=== PATIENT | female | born 1965 | race Caucasian/White ===

== ENCOUNTER → 2017-08-15 11:59 | Outpatient (CLI) | payer OTHER, SELFPAY ==
[2015-12-13 16:15] VITALS: BMI 33.1
[2017-08-15 14:39] LABS: Absolute Lymphocyte Count 2.23 X10^3/ul (0.83-4.51); Absolute Neutrophil Count 4.6 X10^3/uL (2.0-7.7); Basophil# 0.03 X10^3/uL; Basophil% 0.4 % (0-1); Eosinophil# 0.19 X10^3/uL; Eosinophils% 2.5 % (0-5); Hematocrit 44.4 % (37-47); Hemoglobin 15.2 g/dl (12.0-15.0); Lymphocyte # 2.23 X10^3/ul (4.0); Lymphocyte % 29.6 % (19-41); Mean Corp Hgb Conc 34.2 g/gl (32-36); Mean Corpuscular Volume 90.4 fL (81-99); Mean Platelet Vol. 9.4 fl (6.2-12.0); Monocyte% 6.6 % (0-10); Neutrophil # 4.57 X10^3/uL (2.7-7.7); Neutrophil % 60.6 % (47-70); Platelet Count 342 K/mm3 (150-450); RBC Distribution Width CV 13.2 % (11.6-14.6); RBC Distribution Width SD 43.7 fl (35.1-43.9); Red Blood Count 4.91 M/mm3 (4.2-5.4); White Blood Count 7.5 K/mm3 (4.4-11.0)
[2017-08-15 14:42] LABS: POSITIVE COUNT NO; POSITIVE DIFFERENTIAL NO; POSITIVE MORPHOLOGY NO
[2017-08-15 14:54] LABS: ALB/GLOB Ratio 1.1 RATIO (0.9-2.4); AST(SGOT) 17 U/L (15-37); Alanine Aminotransfer ALT/SGPT 33 U/L (13-56); Albumin, Serum 3.8 g/dL (3.2-5.0); Alkaline Phosphatase 60 U/L (45-117); Anion Gap 11 (5-15); BUN 17 mg/dL (7-18); BUN/Creat Ratio 19.9 RATIO (10-20); Calcium,Total 9.3 mg/dL (8.5-10.1); Chloride 104 mmol/L (98-107); Cholesterol 221 mg/dL (200); Creatinine, Serum 0.85 mg/dL (0.55-1.02); EST Glomerular Filtration Rate 74 mL/min (>60); Est Glom Filt Rate - Afr Amer 90 mL/min (>60); Globulin 3.6 g/dL (2.2-4.2); Glucose 96 mg/dL (74-106); High Density Lipoprotein 63 mg/dL; Potassium 4.3 mmol/L (3.5-5.1); Protein, Total 7.4 g/dL (6.4-8.2); Rheumatoid Factor < 10.0 IU/mL (<15); Sodium Level 139 mmol/L (136-145); Thyroid Stim Hormone (TSH) 1.66 uIU/mL (0.358-3.74); Triglycerides 155 mg/dL; Very Low Density Lipoprotein 31 mg/dL (5-40)
[2017-08-15 16:54] LABS: Vitamin B12 > 2000 pg/mL (211-911); Vitamin D,25 Hydroxy 28.4 ng/mL (19.95-100.01)
[2017-08-16 17:07] LABS: ANTINUCLEAR ANTIBODIES DIRECT Negative (Negative)
== END ==
PROVIDERS: Family Provider Family Medicine; PCP Family Medicine; Visit Provider Family Medicine
DX: M79.1 Myalgia (principal); E11.9 Type 2 diabetes mellitus without complications
CPT/HCPCS: 36415; 80053; 80061; 82306; 82607; 84443; 85025; 86038; 86431

== ENCOUNTER → 2017-08-31 08:50 | Outpatient (CLI) | payer OTHER, SELFPAY ==
[2015-12-13 16:15] VITALS: BMI 33.1
--- NOTE | 2017-08-31 08:54 | RAD_ITS ---
STUDY: X-RAY - RIGHT SHOULDER REASON FOR EXAM: Female, 51 years old. Shoulder pain. TECHNIQUE: 4 view(s) of the shoulder. COMPARISON: None. FINDINGS: Normal glenohumeral articulation. Normal acromioclavicular joint. Normal acromion. Normal humeral head and visualized proximal humerus. The soft tissue structures are unremarkable. Normal visualized pulmonary apex. RAD/Shoulder min 2 Views IMPRESSION: Normal x-ray examination of the shoulder. Electronically Signed: Jourdan Sykes MD at 13:25 EST Tel [phone], Service support ,
--- NOTE | 2017-08-31 08:54 | RAD_ITS ---
STUDY: X-RAY - CERVICAL SPINE REASON FOR EXAM: Female, 51 years old. Neck pain and upper back pain. TECHNIQUE: 6 view(s) of the cervical spine were obtained including oblique views. COMPARISON: None FINDINGS: Normal anterior atlantoaxial articulation. Normal odontoid process. There is straightening of the normal cervical lordosis. Normal vertebral bodies and endplates. Normal disc space heights. Normal visualized intervertebral neuroforamina. The soft tissue structures are unremarkable. RAD/Cerv Spine 4 or 5 Views IMPRESSION: Straightening of the normal cervical lordosis. Electronically Signed: Jourdan Sykes MD at 13:24 EST Tel [phone], Service support ,
[2017-08-31 10:27] LABS: Erythrocyte Sedimentation Rate 10 mm/hr (0-30)
[2017-08-31 10:54] LABS: CPK Total, Creatine Kinase 83 U/L (26-192); CRP < 2.90 mg/L (0.0-3.0)
[2017-09-04 11:34] LABS: Aldolase 3.6 U/L (3.3-10.3)
== END ==
PROVIDERS: Family Provider Family Medicine; PCP Family Medicine; Visit Provider Family Medicine
DX: M79.1 Myalgia (principal); M54.2 Cervicalgia; M25.511 Pain in right shoulder
CPT/HCPCS: 36415; 72050; 73030; 82085; 82550; 85652; 86140

== ENCOUNTER 2017-10-02 10:18 | Inpatient (IN) | payer OTHER, SELFPAY ==
[2015-12-13 16:15] VITALS: BMI 33.1
[2017-10-02] VITALS (12 sets, daily range): BP systolic 110–138; BP diastolic 62–90; PULSE 74–92; RESP 15–26; TEMP 36.2–36.7; O2SAT 88–96; BMI 34.8; BMI 34.2; BMI 34.3
[2017-10-02] MEDS: Ipratropium/Albuterol Sulfate 3 ML AMPUL.NEB INHALATION ×3 (10:52→22:55)
[2017-10-02] MEDS: Albuterol 2.5 MG/3 ML VIAL.NEB. INHALATION ×2 (10:52)
--- NOTE | 2017-10-02 10:53 | ED.DCSUM_ITS ---
- ER Visit Summary Date of Service: 10/02/17 Chief Complaint: Presents from Dr. Joseph's office for admission History of Present Illness: The patient is a 51 F who has history of COPD presents Dr. Joseph's office after she was seen by nurse practitioner. She was started on prednisone proximal and 1 month ago. She is presently on 20 mg a day. She states she has problems once her dose is tapered to 20 mg. She does admit to cough. Her cough is nonproductive. She denies orthopnea PND. She denies fever, chills night sweats. She denies any ocular, visual or auditory symptoms. She denies sore throat, change in voice or difficulty swallowing. She denies chest discomfort or exertional chest discomfort. She does complain of dyspnea on exertion. She states 3 months ago she was able to walk up a flight of stairs without difficulty and was even working in the gym. She now states she has to stop at least once going up a flight of steps. She denies any leg pain, swelling discoloration. She has no history of PE or DVT. She denies any GI or symptoms. She denies any leg pain, swelling or discoloration. Past medical history of type 2 diabetes, COPD, obstructive sleep apnea. Surgical history appendectomy and pulmonic valve. Physical Examination: Vital signs remarkable for respiratory 26. She is not febrile or hypoxic. She is heavyset with a BMI of 34.9. HEENT exam is unremarkable. Trachea is midline. There is no stridor. Lungs reveal wheezing throughout with increased active phase. There is question of egophony left posterior lung field and there is egophony right lower lung posteriorly. Heart is regular without murmur, gallop or rub. Abdomen soft nontender. There is no asymmetry, swelling, discoloration, leg vein distention, palpable cords or tenderness along the distribution of the deep venous system. Neuro exam is nonfocal. Test Results: Chest x-ray reveals atelectasis right side. CBC is unremarkable. Electro panel remarkable slight elevation glucose of 136. CTA was obtained because of hypoxia to rule out pulmonary embolus. There is significant emphysematous changes with bullae noted right greater than left. Emergency Department Course and Treatment: Chest x-ray was obtained because of the abnormal respiratory findings to evaluate for pneumonia. Obtain a CBC and BMP. To assess white count differential hemoglobin as well as glucose since she is diabetic on prednisone. She received a dose of Solu-Medrol and was treated with DuoNeb and albuterol. Treatment Plan: Patient had 2 episodes of hypoxia of 8680% and presently requiring oxygen she will be admitted to the hospital. Case was discussed with Dr. Kike Cobb and Dr. Tal Joseph her salvage clerk. Disposition: Medical surgical floor Impression: 1. Respiratory failure with hypoxia, 88-86% 2. Exacerbation of COPD with bronchospasm 3. Hyperglycemia and type II diabetic This note was generated with [employer] dictation software. It may contain incorrect words, spelling, and punctuation that were not noted in review of the chart prior to signing ED Disposition - Plan for ED Patient: Chief Complaint: Shortness of Breath Referrals: Gonsalo Knox MD [Primary Care Provider] -
[2017-10-02] MEDS: MethylPREDNISolone 125 MG/2 ML Vial IV (10:58)
[2017-10-02 11:12] LABS: Absolute Lymphocyte Count 1.25 X10^3/ul (0.83-4.51); Absolute Neutrophil Count 6.6 X10^3/uL (2.0-7.7); Basophil# 0.01 X10^3/uL; Basophil% 0.1 % (0-1); Eosinophil# 0.05 X10^3/uL; Eosinophils% 0.6 % (0-5); Hematocrit 42.3 % (37-47); Hemoglobin 13.8 g/dl (12.0-15.0); Lymphocyte # 1.25 X10^3/ul (4.0); Lymphocyte % 15.4 % (19-41); Mean Corp Hgb Conc 32.6 g/gl (32-36); Mean Corpuscular Hgb 30.3 pg (27.0-32.0); Mean Corpuscular Volume 92.8 fL (81-99); Mean Platelet Vol. 9.2 fl (6.2-12.0); Monocyte# 0.22 X10^3/uL; Monocyte% 2.7 % (0-10); Neutrophil # 6.55 X10^3/uL (2.7-7.7); Neutrophil % 80.8 % (47-70); POSITIVE COUNT NO; POSITIVE DIFFERENTIAL NO; POSITIVE MORPHOLOGY NO; Platelet Count 309 K/mm3 (150-450); RBC Distribution Width CV 14.3 % (11.6-14.6); RBC Distribution Width SD 48.2 fl (35.1-43.9); Red Blood Count 4.56 M/mm3 (4.2-5.4); White Blood Count 8.1 K/mm3 (4.4-11.0)
--- NOTE | 2017-10-02 11:20 | RAD_ITS ---
STUDY: X-RAY CHEST REASON FOR EXAM: Female, 51 years old. Cough. Dyspnea. TECHNIQUE: PA and lateral views of the chest. COMPARISON: Comparison is made with prior study dated March 30, 2017. FINDINGS: EKG electrodes are seen. Hyperinflation. Decreased bronchovascular markings in the right upper lobe suggestive of emphysematous change and possible bullous formation. There has been no change since prior study. There is no demonstrated pleural abnormality. Normal size heart. Normal mediastinum and kenny. Normal visualized pulmonary arteries. There is atherosclerotic tortuosity of the aortic arch and descending thoracic aorta. There is demineralization of the osseous structures. Normal visualized ribs, clavicles, and shoulders. There is no demonstrated abnormality of the visualized soft tissue structures of the upper abdomen. RAD/Chest PA and Lateral IMPRESSION: Hyperinflation and emphysematous changes in the right upper lobe. There has been no change. Electronically Signed: Jourdan Sykes MD at 12:43 EDT Tel [phone], Service support ,
[2017-10-02 11:27] LABS: Anion Gap 10 (5-15); BUN 20 mg/dL (7-18); BUN/Creat Ratio 19.6 RATIO (10-20); Calcium,Total 8.8 mg/dL (8.5-10.1); Chloride 110 mmol/L (98-107); Creatinine, Serum 1.02 mg/dL (0.55-1.02); EST Glomerular Filtration Rate 60 mL/min (>60); Est Glom Filt Rate - Afr Amer 73 mL/min (>60); Glucose 136 mg/dL (74-106); Sodium Level 143 mmol/L (136-145)
[2017-10-02] MEDS: LORazepam 0.5 MG Tablet PO (12:47)
--- NOTE | 2017-10-02 12:58 | CT_ITS ---
STUDY: CTA CHEST REASON FOR EXAM: Female, 51 years old. Hypoxia. Increasing shortness of breath for one month. RADIATION DOSAGE (If Supplied By Facility): CTDIvol = ( 10.69 ) mGy, DLP = ( 518.70 ) mGycm TECHNIQUE: The examination was performed with the intravenous administration of 100cc ml of Isovue 370 contrast material. Post-processing of the angiographic images was performed, with multiplanar reformation and 3D reconstruction. Individualized dose optimization techniques were used for this CT. COMPARISON: Comparison is made with prior study dated May 16, 2017. FINDINGS: Normal enhancement of the main pulmonary artery and right and left pulmonary arteries. Normal enhancement of the bilateral peripheral pulmonary arteries. There is no demonstrated pulmonary embolism. Normal thoracic aorta and visualized great vessels. There is no demonstrated aortic dissection. Normal heart and pericardium. Normal mediastinum. Normal hilar regions. Normal visualized trachea and bronchi. Hyperinflation. Diffuse emphysematous changes. Bullous formation in both lungs worse in the right lung. Stable mild increased markings in the posterior medial segment of the right lower lobe suggestive of scarring. Normal pleura. Normal chest wall structures. There are degenerative changes of thoracic spine. Normal visualized upper abdomen. CT/CTA Chest W/WO Contrast IMPRESSION: There is no evidence of pulmonary embolism. Diffuse emphysematous changes with bullous formation worse in the right hemithorax. Electronically Signed: Jourdan Sykes MD at 14:20 EDT Tel [phone], Service support ,
--- NOTE | 2017-10-02 15:58 | PCM.HP.STD ---
Problem List (1) COPD with acute exacerbation Status: Acute (2) H/O pulmonic valvulotomy Status: Resolved (3) History of appendectomy Status: Resolved (4) COPD Status: Chronic (5) diabetes mellitus type II Status: Chronic (6) Sleep apnea, obstructive Status: Chronic History of Present Illness Date of Admission: 10/02/17 Chief Complaint: shortness of breath The patient is a 51 year old F with a known history of COPD who was trying to be tapered down on her prednisone to 20 mg starting and short of breath. Notified her nurse practitioner in pulmonology who advised to go to emergency room. In the emergency room, patient was noted to be hypoxic at 80% and did undergo CT angiogram which showed no pulmonary embolism nor pneumonia. Patient received aerosols as well as IV Solu-Medrol and is currently feeling better. [] Past Medical History Past Medical History (Chronic Problems): Chronic Problems (Last Reviewed 08/29/17 @ 09:31 by Josy Burch NP-C) COPD (Chronic) diabetes mellitus type II (Chronic) Sleep apnea, obstructive (Chronic) Allergies No Known Allergies Allergy (Verified 08/29/17 08:27) Home Medications: Ambulatory Orders Medication Instructions Recorded Albuterol IH (ProAir) [Proair Hfa] 2 puff INHALATION Q4H PRN PRN 10/21/15 Budesonide/Formoterol 160/4.5 2 puff INHALATION BID 10/21/15 [Symbicort 160/4.5 Mcg Inhaler (SP)] Calcium (Elemental) [Os-Shimon 500] 1,000 mg PO DAILY@0800 10/21/15 Cholecalciferol (VIT D3) [Vitamin 1,000 unit PO DAILY 10/21/15 D3] Lorazepam [Ativan] 0.5 mg PO TID PRN PRN 10/21/15 Metformin HCl [Metformin HCl ER] 500 mg PO DAILY 10/21/15 Montelukast Sodium [Singulair] 10 mg PO DAILY 10/21/15 [place]-3 Fatty Acids/Fish Oil [Fish 2 ea PO DAILY 10/21/15 Oil 1,000 mg Capsule] Pantoprazole Sodium [Protonix] 40 mg PO DAILY 10/21/15 Tiotropium [place] [Spiriva 18 MCG] 2 puff INHALATION DAILY 10/21/15 albuterol sulfate 2.5 mg/3 mL 2.5 mg INHALATION .QID ml 06/07/17 (0.083 %) solution for nebulization multivitamin,[id number] 1 tab PO QDAY 06/07/17 tablet Prednisone 20 mg PO QDAY 10/02/17 Psychiatric History: No pertinent psych hx 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: No pertinent TRANSMISSION DESIGN ENGINEER history Smoking Status: Former smoker - Quit 2002 Tobacco Use: Non-smoker Alcohol: None Drugs: None - *Family History Paternal History Items: COPD, Diabetes, Heart Disease Maternal History Items: Diabetes, Heart Disease Review of Systems Constitutional: Denies: Chills, Fever, Weight Change Eyes: Denies: Blurred vision, Double vision HEENT: Denies: Head Aches, Sinus Congestion, Sinus Drainage Cardiovascular: Denies: Chest Pain, Palpitations Respiratory: Reports: Cough, Shortness of Breath Gastrointestinal: Denies: Abdominal Pain, Nausea, Vomiting Genitourinary: Denies: Dysuria Gynecological: Reports: - - No menstrual periods in years. Denies: Vaginal bleeding Musculoskeletal: Denies: Joint Pain, Joint Tenderness Skin: Denies: Rash, Wounds Neurological: Denies: Numbness, Tingling, Focal weakness Psychiatric: Denies: Anxiety, Depression Endocrine: Reports: - - Patient noting that she is more puffy. Denies: Heat/ Cold Intolerance Hematologic/ Lymphatic: Denies: Easy Bruising, Easy Bleeding, Hx of blood clot VTE Information - Inpt Only VTE Present on Admission: No VTE Pharm Prophylaxis ordered?: Yes - Physical Exam General: Alert, Cooperative, No apparent distress HEENT: Atraumatic, Normocephalic Oral: Moist Mucosa, No Gingival or Mucosal Lesions/ Ulcerations Neck: No Nodes, Thyroid Normal Size and Texture Lungs: Clear to auscultation, No rhonchi, No wheeze, Diminished Cardiovascular: Regular rate, Regular Rhythm, Normal S1, Normal S2, No murmurs Abdomen: Bowel Sounds Present, Soft, Non Tender, Non-Distended, No Hepato-splenomegaly Extremities: No edema, No Calf Tenderness Skin: No rashes, No breakdown Musculoskeletal: No Tenderness to Palpation of Joints or Extremities, No Muscle Wasting Neurological: Muscle tone normal, Coordination normal Psych/Mental Status: Normal Affect, Appropriate Vital Signs Temp Pulse Resp BP Pulse Ox 36.2 C L 76 20 H 121/75 H 94 10/02/17 10:19 10/02/17 14:04 10/02/17 14:04 10/02/17 14:04 10/02/17 14:04 Oxygen Flow Rate (L/min) 2 Oxygen Delivery Method Nasal Cannula Weight: 97.976 kg Body Mass Index (BMI) 34.8 Laboratory Tests Past 24 Hrs 10/02/17 10/02/17 11:00 11:00 WBC 8.1 RBC 4.56 Hgb 13.8 Hct 42.3 MCV 92.8 MCH 30.3 MCHC 32.6 RDW 14.3 RDW Differential 48.2 H Plt Count 309 MPV 9.2 Immature Gran % (Auto) 0.400 Neut % (Auto) 80.8 H Lymph % (Auto) 15.4 L [place] % (Auto) 2.7 Eos % (Auto) 0.6 Baso % (Auto) 0.1 Absolute Neuts (auto) 6.6 Absolute Lymphs (auto) 1.25 Total Counted Not Reportable Sodium 143 Potassium 4.0 Chloride 110 H Carbon Dioxide 23.0 Anion Gap 10 BUN 20 H Creatinine 1.02 Estim Creat Clear Calc 60.40 Est GFR (MDRD) Af Amer 73 Est GFR (MDRD) Non-Af 60 BUN/Creatinine Ratio 19.6 Glucose 136 H Calcium 8.8 Assessment/Plan 1. Acute exacerbation of COPD Symptoms are fairly mild at this time Will continue with Solu-Medrol but at 20 mg every 8 hours plus bronchodilators Consult pulmonology for further input and assistance but it seems like patient is on appropriate regimen at home 2. Acute hypoxic respiratory failure Secondary to above Patient will require an amatory pulse ox prior to discharge. Patient does state that she does have oxygen at home but does not wear it routinely. 3. Diabetes mellitus type 2 Fair control at this time but would anticipate blood sugars going up with the steroids being increased Patient unable to have metformin for the next 5 days as she had a CT angiogram of her chest Patient be on sliding scale with NovoLog for now. 4. DVT prophylaxis with Lovenox. Code Visit Inpatient E&M: 98003 Init Hosp L3
--- NOTE | 2017-10-02 16:04 | HP.PCM_ITS ---
Problem List (1) COPD with acute exacerbation Status: Acute (2) H/O pulmonic valvulotomy Status: Resolved (3) History of appendectomy Status: Resolved (4) COPD Status: Chronic (5) diabetes mellitus type II Status: Chronic (6) Sleep apnea, obstructive Status: Chronic History of Present Illness Date of Admission: 10/02/17 Chief Complaint: shortness of breath The patient is a 51 year old F with a known history of COPD who was trying to be tapered down on her prednisone to 20 mg starting and short of breath. Notified her nurse practitioner in pulmonology who advised to go to emergency room. In the emergency room, patient was noted to be hypoxic at 80% and did undergo CT angiogram which showed no pulmonary embolism nor pneumonia. Patient received aerosols as well as IV Solu-Medrol and is currently feeling better. [] Past Medical History Past Medical History (Chronic Problems): Chronic Problems (Last Reviewed 08/29/17 @ 09:31 by Josy Burch NP-C) COPD (Chronic) diabetes mellitus type II (Chronic) Sleep apnea, obstructive (Chronic) Allergies No Known Allergies Allergy (Verified 08/29/17 08:27) Home Medications: Ambulatory Orders Medication Instructions Recorded Albuterol IH (ProAir) [Proair Hfa] 2 puff INHALATION Q4H PRN PRN 10/21/15 Budesonide/Formoterol 160/4.5 2 puff INHALATION BID 10/21/15 [Symbicort 160/4.5 Mcg Inhaler (SP)] Calcium (Elemental) [Os-Shimon 500] 1,000 mg PO DAILY@0800 10/21/15 Cholecalciferol (VIT D3) [Vitamin 1,000 unit PO DAILY 10/21/15 D3] Lorazepam [Ativan] 0.5 mg PO TID PRN PRN 10/21/15 Metformin HCl [Metformin HCl ER] 500 mg PO DAILY 10/21/15 Montelukast Sodium [Singulair] 10 mg PO DAILY 10/21/15 [place]-3 Fatty Acids/Fish Oil [Fish 2 ea PO DAILY 10/21/15 Oil 1,000 mg Capsule] Pantoprazole Sodium [Protonix] 40 mg PO DAILY 10/21/15 Tiotropium [place] [Spiriva 18 MCG] 2 puff INHALATION DAILY 10/21/15 albuterol sulfate 2.5 mg/3 mL 2.5 mg INHALATION .QID ml 06/07/17 (0.083 %) solution for nebulization multivitamin,[id number] 1 tab PO QDAY 06/07/17 tablet Prednisone 20 mg PO QDAY 10/02/17 Psychiatric History: No pertinent psych hx 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 ROTARY CUTTER history Smoking Status: Former smoker - Quit 2002 Tobacco Use: Non-smoker Alcohol: None Drugs: None - *Family History Paternal History Items: COPD, Diabetes, Heart Disease Maternal History Items: Diabetes, Heart Disease Review of Systems Constitutional: Denies: Chills, Fever, Weight Change Eyes: Denies: Blurred vision, Double vision HEENT: Denies: Head Aches, Sinus Congestion, Sinus Drainage Cardiovascular: Denies: Chest Pain, Palpitations Respiratory: Reports: Cough, Shortness of Breath Gastrointestinal: Denies: Abdominal Pain, Nausea, Vomiting Genitourinary: Denies: Dysuria Gynecological: Reports: - - No menstrual periods in years. Denies: Vaginal bleeding Musculoskeletal: Denies: Joint Pain, Joint Tenderness Skin: Denies: Rash, Wounds Neurological: Denies: Numbness, Tingling, Focal weakness Psychiatric: Denies: Anxiety, Depression Endocrine: Reports: - - Patient noting that she is more puffy. Denies: Heat/ Cold Intolerance Hematologic/ Lymphatic: Denies: Easy Bruising, Easy Bleeding, Hx of blood clot VTE Information - Inpt Only VTE Present on Admission: No VTE Pharm Prophylaxis ordered?: Yes - Physical Exam General: Alert, Cooperative, No apparent distress HEENT: Atraumatic, Normocephalic Oral: Moist Mucosa, No Gingival or Mucosal Lesions/ Ulcerations Neck: No Nodes, Thyroid Normal Size and Texture Lungs: Clear to auscultation, No rhonchi, No wheeze, Diminished Cardiovascular: Regular rate, Regular Rhythm, Normal S1, Normal S2, No murmurs Abdomen: Bowel Sounds Present, Soft, Non Tender, Non-Distended, No Hepato- splenomegaly Extremities: No edema, No Calf Tenderness Skin: No rashes, No breakdown Musculoskeletal: No Tenderness to Palpation of Joints or Extremities, No Muscle Wasting Neurological: Muscle tone normal, Coordination normal Psych/Mental Status: Normal Affect, Appropriate Vital Signs Temp Pulse Resp BP Pulse Ox 36.2 C L 76 20 H 121/75 H 94 10/02/17 10:19 10/02/17 14:04 10/02/17 14:04 10/02/17 14:04 10/02/17 14:04 Oxygen Flow Rate (L/min) 2 Oxygen Delivery Method Nasal Cannula Weight: 97.976 kg Body Mass Index (BMI) 34.8 Laboratory Tests Past 24 Hrs 10/02/17 10/02/17 11:00 11:00 WBC 8.1 RBC 4.56 Hgb 13.8 Hct 42.3 MCV 92.8 MCH 30.3 MCHC 32.6 RDW 14.3 RDW Differential 48.2 H Plt Count 309 MPV 9.2 Immature Gran % (Auto) 0.400 Neut % (Auto) 80.8 H Lymph % (Auto) 15.4 L [place] % (Auto) 2.7 Eos % (Auto) 0.6 Baso % (Auto) 0.1 Absolute Neuts (auto) 6.6 Absolute Lymphs (auto) 1.25 Total Counted Not Reportable Sodium 143 Potassium 4.0 Chloride 110 H Carbon Dioxide 23.0 Anion Gap 10 BUN 20 H Creatinine 1.02 Estim Creat Clear Calc 60.40 Est GFR (MDRD) Af Amer 73 Est GFR (MDRD) Non-Af 60 BUN/Creatinine Ratio 19.6 Glucose 136 H Calcium 8.8 Assessment/Plan 1. Acute exacerbation of COPD * Symptoms are fairly mild at this time * Will continue with Solu-Medrol but at 20 mg every 8 hours plus bronchodilators * Consult pulmonology for further input and assistance but it seems like patient is on appropriate regimen at home 2. Acute hypoxic respiratory failure * Secondary to above * Patient will require an amatory pulse ox prior to discharge. Patient does state that she does have oxygen at home but does not wear it routinely. 3. Diabetes mellitus type 2 * Fair control at this time but would anticipate blood sugars going up with the steroids being increased * Patient unable to have metformin for the next 5 days as she had a CT angiogram of her chest * Patient be on sliding scale with NovoLog for now. 4. DVT prophylaxis with Lovenox. Code Visit Inpatient E&M: 80160 Init Hosp L3
[2017-10-02 18:06] LABS: Bedside Glucose 249 mg/dL (70-110)
[2017-10-02] MEDS: 0.9% NaCl Peripheral Flush Adult/Peds IV (21:46)
[2017-10-02] MEDS: Omega-3 Acid Ethyl Esters 1 GM Capsule 2 GM PO (21:47)
[2017-10-02] MEDS: Multivitamins,Ther W-Minerals Tablet 1 TABLET PO (21:47)
[2017-10-02] MEDS: Calcium (Elemental) 500 MG Tablet 1000 MG PO (21:48)
[2017-10-02] MEDS: Montelukast 10 MG Tablet PO (21:48)
[2017-10-02] MEDS: Pantoprazole Sodium 40 MG Tablet PO (21:48)
[2017-10-02 22:00] LABS: Bedside Glucose 250 mg/dL (70-110)
[2017-10-03] VITALS (8 sets, daily range): BP systolic 116–124; BP diastolic 66–74; PULSE 69–81; RESP 17–18; TEMP 36.1–36.6; O2SAT 87–99
[2017-10-03] MEDS: Ipratropium/Albuterol Sulfate 3 ML AMPUL.NEB INHALATION ×4 (03:16→14:49)
[2017-10-03] MEDS: 0.9% NaCl Peripheral Flush Adult/Peds IV ×2 (06:34→15:18)
[2017-10-03 06:40] LABS: Bedside Glucose 161 mg/dL (70-110)
--- NOTE | 2017-10-03 08:07 | PCM.PN.HOSP ---
Subjective: Patient is a 51-year-old admitted with progressive shortness of breath and persistent cough associated with with wheezing. Her assessment was consistent with COPD with exacerbation admitted to a nursing floor for further management Objective: GENERAL: cooperative HEENT: Clear conjunctiva, NECK; supple, normal thyroid, CHEST: Diminished to auscultation bilaterally, HEART: Regular S1 S2, no audible murmurs ABDOMEN: soft, non-tender, normoactive bowel sounds, RECTAL: deferred EXTREMITIES: No edema, no clubbing, no cyanosis. CLINICAL DATA MANAGER: Awake, no lateralizing signs. SKIN: No lesions no erythema, Vitals/I&O's: Vital Signs Temp Pulse Resp BP Pulse Ox 97.8 F 72 17 116/70 99 10/03/17 02:00 10/03/17 07:37 10/03/17 07:37 10/03/17 02:00 10/03/17 02:00 Oxygen Flow Rate (L/min) 1 Oxygen Delivery Method Nasal Cannula Weight: 96.4 kg Body Mass Index (BMI) 34.2 Intake and Output for Last 24 Hours 10/01/17 10/02/17 10/03/17 23:59 23:59 23:59 Intake Total 240 / 240 400 / 400 Balance 240 / 240 400 / 400 Microbiology Past 72 Hours 10/02/17 19:45 Mucosa - Nose Respiratory Panel (PCR) - Final Laboratory Results 10/02/17 17:55: POC Glucose 249 H 10/02/17 21:44: POC Glucose 250 H 10/03/17 06:32: POC Glucose 161 H Current Medications Acetaminophen (Tylenol) 650 mg PO Q6H PRN PRN PRN Reason: Mild Pain (1-3)/Temp > 100.7 F Albuterol Sulfate (Ventolin Aerosols) 2.5 mg INHALATION Q2H PRN PRN PRN Reason: SHORTNESS OF BREATH Albuterol/Ipratropium (Duoneb) 3 ml INHALATION Q4H.RT [facility] Last Admin: 10/03/17 07:36 Dose: 3 ml Calcium Carbonate (Os-Shimon 500) 1,000 mg PO DAILY@2200 [facility] Last Admin: 10/02/17 21:48 Dose: 1,000 mg Cholecalciferol (Vitamin D) 1,000 unit PO DAILY@2200 [facility] Last Admin: 10/02/17 21:48 Dose: 1,000 unit Sodium Chloride () 250 mls @ 15 mls/hr IV .[id number] PRN PRN Reason: SALINE FLUSH Insulin Aspart (Novolog Flexpen (Bkc)) 0 units SC TIDAC AMEYA PRN Reason: Protocol Last Admin: 10/03/17 06:34 Dose: 1 units Lorazepam (Ativan) 0.5 mg PO TID PRN PRN PRN Reason: ANXIETY Magnesium Hydroxide (Milk Of Magnesia) 30 ml PO DAILY PRN PRN PRN Reason: Constipation Methylprednisolone (Solu-Medrol) 20 mg IV Q8 [facility] Last Admin: 10/03/17 06:34 Dose: 20 mg Montelukast Sodium (Singulair) 10 mg PO DAILY@2200 [facility] Last Admin: 10/02/17 21:48 Dose: 10 mg Multivitamins/Minerals (Multivitamin With Minerals) 1 tablet PO DAILY@2200 AMEYA Last Admin: 10/02/17 21:47 Dose: 1 tablet Rmays-3-Lcdo Ethyl Esters (Lovaza) 2 gm PO DAILY@2200 AMEYA Ondansetron HCl (Zofran) 4 mg IV Q8H PRN PRN PRN Reason: NAUSEA Pantoprazole Sodium (Protonix) 40 mg PO DAILY@2200 [facility] Last Admin: 10/02/17 21:48 Dose: 40 mg Sodium Chloride () 5 - 30 ml IV UD PRN PRN Reason: SALINE FLUSH Last Admin: 10/03/17 06:34 Dose: 10 ml Medical Necessity - Tobacco Use Smoking Status: Former smoker Tobacco Use: Cigarettes Assessment/Plan Patient is a 51-year-old admitted with progressive shortness of breath and persistent cough associated with with wheezing. Her assessment was consistent with COPD with exacerbation admitted to a nursing floor for further management 1. Acute respiratory insufficiency secondary to Acute COPD exacerbation. Patient has been admitted to regular nursing floor managed with bronchodilator therapy, systemic steroids, Mucinex as well as oxygen titrated to keep also is greater than 90 2. Obstructive sleep apnea patient on BiPAP at night 3. Diabetes mellitus type II controlled with complications patient insulin metformin held placed on Accu-Chek before meals and at bedtime, sliding scale insulin 4. Morbid obesity with BMI of 34.3 weight reduction counseled 5. DVT prophylaxisLovenox Code Visit Inpatient E&M: 45288 Subs Hosp L2
--- NOTE | 2017-10-03 08:12 | PN_ITS ---
Subjective: Patient is a 51-year-old admitted with progressive shortness of breath and persistent cough associated with with wheezing. Her assessment was consistent with COPD with exacerbation admitted to a nursing floor for further management Objective: GENERAL: cooperative HEENT: Clear conjunctiva, NECK; supple, normal thyroid, CHEST: Diminished to auscultation bilaterally, HEART: Regular S1 S2, no audible murmurs ABDOMEN: soft, non-tender, normoactive bowel sounds, RECTAL: deferred EXTREMITIES: No edema, no clubbing, no cyanosis. 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 SKIN: No lesions no erythema, Vitals/I&O's: Vital Signs Temp Pulse Resp BP Pulse Ox 97.8 F 72 17 116/70 99 10/03/17 02:00 10/03/17 07:37 10/03/17 07:37 10/03/17 02:00 10/03/17 02:00 Oxygen Flow Rate (L/min) 1 Oxygen Delivery Method Nasal Cannula Weight: 96.4 kg Body Mass Index (BMI) 34.2 Intake and Output for Last 24 Hours 10/01/17 10/02/17 10/03/17 23:59 23:59 23:59 Intake Total 240 / 240 400 / 400 Balance 240 / 240 400 / 400 Microbiology Past 72 Hours 10/02/17 19:45 Mucosa - Nose Respiratory Panel (PCR) - Final Laboratory Results 10/02/17 17:55: POC Glucose 249 H 10/02/17 21:44: POC Glucose 250 H 10/03/17 06:32: POC Glucose 161 H Current Medications Acetaminophen (Tylenol) 650 mg PO Q6H PRN PRN PRN Reason: Mild Pain (1-3)/Temp > 100.7 F Albuterol Sulfate (Ventolin Aerosols) 2.5 mg INHALATION Q2H PRN PRN PRN Reason: SHORTNESS OF BREATH Albuterol/Ipratropium (Duoneb) 3 ml INHALATION Q4H.RT [facility] Last Admin: 10/03/17 07:36 Dose: 3 ml Calcium Carbonate (Os-Shimon 500) 1,000 mg PO DAILY@2200 [facility] Last Admin: 10/02/17 21:48 Dose: 1,000 mg Cholecalciferol (Vitamin D) 1,000 unit PO DAILY@2200 [facility] Last Admin: 10/02/17 21:48 Dose: 1,000 unit Sodium Chloride () 250 mls @ 15 mls/hr IV .[id number] PRN PRN Reason: SALINE FLUSH Insulin Aspart (Novolog Flexpen (Bkc)) 0 units SC TIDAC AMEYA PRN Reason: Protocol Last Admin: 10/03/17 06:34 Dose: 1 units Lorazepam (Ativan) 0.5 mg PO TID PRN PRN PRN Reason: ANXIETY Magnesium Hydroxide (Milk Of Magnesia) 30 ml PO DAILY PRN PRN PRN Reason: Constipation Methylprednisolone (Solu-Medrol) 20 mg IV Q8 [facility] Last Admin: 10/03/17 06:34 Dose: 20 mg Montelukast Sodium (Singulair) 10 mg PO DAILY@2200 [facility] Last Admin: 10/02/17 21:48 Dose: 10 mg Multivitamins/Minerals (Multivitamin With Minerals) 1 tablet PO DAILY@2200 AMEYA Last Admin: 10/02/17 21:47 Dose: 1 tablet Ghhtq-8-Jaue Ethyl Esters (Lovaza) 2 gm PO DAILY@2200 AMEYA Ondansetron HCl (Zofran) 4 mg IV Q8H PRN PRN PRN Reason: NAUSEA Pantoprazole Sodium (Protonix) 40 mg PO DAILY@2200 [facility] Last Admin: 10/02/17 21:48 Dose: 40 mg Sodium Chloride () 5 - 30 ml IV UD PRN PRN Reason: SALINE FLUSH Last Admin: 10/03/17 06:34 Dose: 10 ml Medical Necessity - Tobacco Use Smoking Status: Former smoker Tobacco Use: Cigarettes Assessment/Plan Patient is a 51-year-old admitted with progressive shortness of breath and persistent cough associated with with wheezing. Her assessment was consistent with COPD with exacerbation admitted to a nursing floor for further management 1. Acute respiratory insufficiency secondary to Acute COPD exacerbation. Patient has been admitted to regular nursing floor managed with bronchodilator therapy, systemic steroids, Mucinex as well as oxygen titrated to keep also is greater than 90 2. Obstructive sleep apnea patient on BiPAP at night 3. Diabetes mellitus type II controlled with complications patient insulin metformin held placed on Accu-Chek before meals and at bedtime, sliding scale insulin 4. Morbid obesity with BMI of 34.3 weight reduction counseled 5. DVT prophylaxis?Lovenox Code Visit Inpatient E&M: 39612 Subs Hosp L2
--- NOTE | 2017-10-03 08:42 | PCM.CONS.GEN ---
Problem List (1) COPD with acute exacerbation Status: Acute (2) Sleep apnea, obstructive Status: Chronic (3) Dyspnea Status: Acute (4) diabetes mellitus type II Status: Chronic Reason for Consult Date of Consultation: 10/03/17 Reason for Consultation: COPD History of Present Illness: The patient is a 51 year old F with a past medical history as below, presented to the ED secondary to progressive shortness of breath, wheezing, and cough over the last week. Patient had called the pulmonary clinic secondary to her complaints, was advised to go to the emergency room. Patient was originally seen on August 29 in the pulmonary clinic for shortness of breath, she was placed on Z-Nicola and prednisone taper. She was on the downside of the taper, then became more dyspneic with cough and increased congestion. She was bumped up to 60 mg for 5 days, then started stepping down again. Patient's first 20 mg dose was on the day prior to admission, at which time her shortness of breath again got worse. She said typically prednisone taper takes care of her symptoms when having an exacerbation. She does report upper respiratory symptoms and sore throat when she initially got sick at the beginning of August. Patient denies any recent sick contacts. She has not had any hemoptysis, recent weight loss, or current increased sputum production. She states after initial treatment of IV steroids and aerosols in the ED, her breathing was significantly improved. Evaluation in the ED included a chest x-ray which showed hyperinflation and emphysematous changes to the right upper lobe, nothing acute. CTA of the chest showed no evidence of PE, there is diffuse emphysematous changes with bullous formation worse in the right hemithorax. Labwork relatively unremarkable. Respiratory viral panel was negative. Blood pressure 130/90, pulse 83, RR 26, 97.2?F, 94% on room air. According to ED, patient did desaturate on room air to 86%. Patient was given IV Solu-Medrol, aerosols, and noted significant improvement within 15 minutes with no wheezing. She was admitted to the medical surgical floor for further evaluation. Patient states she has not had much wheezing since admission and being on the IV steroids. She is currently saturating 92% on 1 L of oxygen supplementation. She has not been producing any sputum. She is able to ambulate without any distress. Reports her wheezing has significantly improved and she is not requiring any as needed breathing treatments. Since last pulmonary function tests were in November 2016 showed an irreversible mild large airways obstructive ventilatory defect with symmetric reduction in diffusing capacity. Pulmonary exercise test at that time showed a desaturation to 90%. The patient was on as needed oxygen at home ever since she had pneumonia approximately 2 years ago. She does use the oxygen when short of breath, however this is infrequently. She does take it with her when she goes on long walks. The patient did complete pulmonary rehab about a year ago and is now going to the gym routinely. She states her exercise tolerance has significantly improved, other than during her current illness. Her current home inhaler regimen includes as needed Proair, albuterol nebulizers, Symbicort, and Spiriva. She also takes Ativan PRN for anxiety. Past Medical History Past Medical History (Chronic Problems): Chronic Problems (Last Reviewed 08/29/17 @ 09:31 by MAGDY Stevenson) COPD (Chronic) diabetes mellitus type II (Chronic) Sleep apnea, obstructive (Chronic) Allergies No Known Allergies Allergy (Verified 08/29/17 08:27) Home Medications: Ambulatory Orders Medication Instructions Recorded Albuterol IH (ProAir) [Proair Hfa] 2 puff INHALATION Q4H PRN PRN 10/21/15 Budesonide/Formoterol 160/4.5 2 puff INHALATION BID 10/21/15 [Symbicort 160/4.5 Mcg Inhaler (SP)] Calcium (Elemental) [Os-Shimon 500] 1,000 mg PO DAILY@0800 10/21/15 Cholecalciferol (VIT D3) [Vitamin 1,000 unit PO DAILY 10/21/15 D3] Lorazepam [Ativan] 0.5 mg PO TID PRN PRN 10/21/15 Metformin HCl [Metformin HCl ER] 500 mg PO DAILY 10/21/15 Montelukast Sodium [Singulair] 10 mg PO DAILY 10/21/15 Thicket-3 Fatty Acids/Fish Oil [Fish 2 ea PO DAILY 10/21/15 Oil 1,000 mg Capsule] Pantoprazole Sodium [Protonix] 40 mg PO DAILY 10/21/15 Tiotropium [place] [Spiriva 18 MCG] 2 puff INHALATION DAILY 10/21/15 albuterol sulfate 2.5 mg/3 mL 2.5 mg INHALATION .QID ml 06/07/17 (0.083 %) solution for nebulization multivitamin,[id number] 1 tab PO DAILY 06/07/17 tablet Inulin/Chromium Picolinate [Fiber 2 each PO BID 10/02/17 Gummies] Prednisone 20 mg PO DAILY 10/02/17 Psychiatric History: No pertinent psych hx 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 Denies: Anorexia, Chills, Fever, Night Sweats, Malaise, Weakness, Weight Change Eyes: Denies: Vision Change HEENT: Denies: Difficulty Swallowing, Dysphasia, Head Aches, Nasal bleeding, Nasal Congestion, Post Nasal Drip, Sinus Congestion, Sinus Drainage, Sore Throat Cardiovascular: Denies: Chest Pain, Chest Tightness, Edema, Light Headedness, Orthopnea, Palpitations, Paroxysmal Noc. Dyspnea, Syncope Respiratory: Reports: Cough - Occasional, nonproductive, Shortness of breath upon exertion - Essentially resolved. Denies: Hemoptysis, Shortness of breath at rest, Sputum production, Wheezing Gastrointestinal: Denies: Abdominal Pain, Constipation, Diarrhea, Dyspepsia, Hematemesis, Hematochezia, Nausea, Melena, Vomiting Genitourinary: Denies: Dysuria, Frequency, Hematuria, Nocturia, Retention Musculoskeletal: Denies: Back Pain Skin: Denies: Rash, Wounds Neurological: Denies: Balance problems, Change in Speech, Confusion, Difficulty swallowing, Focal weakness, Numbness, Tingling, Tremor, Seizures Psychiatric: Reports: Anxiety. Denies: Depression Endocrine: Denies: Change in Body Habitus, Polydipsia, Polyuria Hematologic/ Lymphatic: Denies: Adenopathy, Anemia, Easy Bruising, Hx of blood clot Subjective: The patient was seen and examined. She denies any complaints. She is maintaining appropriate saturations on 1 L of oxygen supplementation. She is ambulating independently in the room with no shortness of breath. She does have an occasional nonproductive cough. She has not noticed any wheezing today. Objective: Clinical Impression(s) from Imaging Studies Chest X-Ray 10/02/17 11:20 IMPRESSION: Hyperinflation and emphysematous changes in the right upper lobe. There has been no change. Electronically Signed: Jourdan Sykes MD at 12:43 EDT Tel [phone], Service support , Chest CTA 10/02/17 12:58 IMPRESSION: There is no evidence of pulmonary embolism. Diffuse emphysematous changes with bullous formation worse in the right hemithorax. Electronically Signed: Jourdan Sykes MD at 14:20 EDT Tel [phone], Service support , - Physical Exam General: Alert, Oriented x3, Cooperative, No apparent distress, Well developed, Well nourished, - - No conversational dyspnea HEENT: Atraumatic, Normocephalic Oral: Moist Mucosa Neck: Supple, No Nodes, Trachea Midline Lungs: No rhonchi, No wheeze, No rales, Diminished Cardiovascular: Regular rate, Regular Rhythm, Normal S1, Normal S2, No murmurs, No rub noted, No Gallop Abdomen: Bowel Sounds Present, Soft, Non Tender, Non-Distended, Obese Extremities: No clubbing, No cyanosis, No edema Skin: No rashes, No breakdown Musculoskeletal: No Tenderness to Palpation of Joints or Extremities Lymphatic: No Cervical, Supraclavicular, or Inguinal Adenopathy Neurological: Cranial nerves II-XII grossly intact, Neuro grossly intact, Motor Exam 5/5 strength throughout Psych/Mental Status: Alert and oriented to time, place, person, mood and affect Vital Signs Temp Pulse Resp BP Pulse Ox 97.8 F 72 17 116/70 99 10/03/17 02:00 10/03/17 07:37 10/03/17 07:37 10/03/17 02:00 10/03/17 02:00 Oxygen Flow Rate (L/min) 1 Oxygen Delivery Method Nasal Cannula Weight: 212 lb 8.41 oz Body Mass Index (BMI) 34.2 Intake and Output for Last 24 Hours 10/01/17 10/02/17 10/03/17 23:59 23:59 23:59 Intake Total 240 / 240 400 / 400 Balance 240 / 240 400 / 400 Microbiology Past 72 Hours 10/02/17 19:45 Respiratory Panel (PCR) - Final Mucosa - Nose POC Glucose 10/03/17 10/02/17 10/02/17 06:32 21:44 17:55 POC Glucose 161 H 250 H 249 H Assessment/Plan RECOMMENDATIONS 1. Wean oxygen supplementation to keep saturations 88-92%. 2. Encourage incentive spirometer 3. Increase activity as tolerated, ambulate 4. Continue bronchodilators 5. 12 day prednisone taper at discharge, continue home inhaler regimen 6. Continue 1-2L of home oxygen supplementation with exertion until seen by pulmonary 7. OK to discharge from pulmonary perspective, patient has appointment in pulmonary clinic on October 09 at 0915. IMPRESSIONS 1. COPD exacerbation Possibly secondary to viral infection at beginning of August with prolonged course. Plain film x-ray showed no acute findings. CTA chest ruled out PE, patient did have emphysematous changes with bullous formation, worse in right hemithorax. Pulmonary function tests in November 2016 showed a mild irreversible ventilatory defect. Patient was placed on IV steroids and bronchodilators, no significant wheezing since admitted. Ambulatory pulse ox was performed today and patient was 87% on room air. She recovered well with 1 L of oxygen supplementation. She should continue wearing oxygen with exertion at home until seen in the pulmonary clinic next Sunday at 915 with Josy Burch NP. Patient's symptoms seem disproportionate to her level of lung disease and overall clinical picture, suspect element of uncontrolled anxiety. 2. Type 2 diabetes/YAHAIRA/obesity/tobacco abuse in remission Complicates care, management, recovery, and prognosis. Patient notes she has been noncompliant with her CPAP at home, states she realizes she needs to wear it. Encouraged compliance. She can follow-up in the pulmonary clinic as scheduled. Thank you for the opportunity to participate in this patient's care, please do not hesitate to contact us with any further questions or concerns. This note was generated with SignNow dictation software. It may contain incorrect words, spelling, and punctuation that were not noted in checking the note before signing.
--- NOTE | 2017-10-03 08:53 | CON.PCM_ITS ---
Problem List (1) COPD with acute exacerbation Status: Acute (2) Sleep apnea, obstructive Status: Chronic (3) Dyspnea Status: Acute (4) diabetes mellitus type II Status: Chronic Reason for Consult Date of Consultation: 10/03/17 Reason for Consultation: COPD History of Present Illness: The patient is a 51 year old F with a past medical history as below, presented to the ED secondary to progressive shortness of breath, wheezing, and cough over the last week. Patient had called the pulmonary clinic secondary to her complaints, was advised to go to the emergency room. Patient was originally seen on August 29 in the pulmonary clinic for shortness of breath, she was placed on Z-Nicola and prednisone taper. She was on the downside of the taper, then became more dyspneic with cough and increased congestion. She was bumped up to 60 mg for 5 days, then started stepping down again. Patient's first 20 mg dose was on the day prior to admission, at which time her shortness of breath again got worse. She said typically prednisone taper takes care of her symptoms when having an exacerbation. She does report upper respiratory symptoms and sore throat when she initially got sick at the beginning of August. Patient denies any recent sick contacts. She has not had any hemoptysis, recent weight loss, or current increased sputum production. She states after initial treatment of IV steroids and aerosols in the ED, her breathing was significantly improved. Evaluation in the ED included a chest x-ray which showed hyperinflation and emphysematous changes to the right upper lobe, nothing acute. CTA of the chest showed no evidence of PE, there is diffuse emphysematous changes with bullous formation worse in the right hemithorax. Labwork relatively unremarkable. Respiratory viral panel was negative. Blood pressure 130/90, pulse 83, RR 26, 97.2?F, 94% on room air. According to ED, patient did desaturate on room air to 86%. Patient was given IV Solu-Medrol, aerosols, and noted significant improvement within 15 minutes with no wheezing. She was admitted to the medical surgical floor for further evaluation. Patient states she has not had much wheezing since admission and being on the IV steroids. She is currently saturating 92% on 1 L of oxygen supplementation. She has not been producing any sputum. She is able to ambulate without any distress. Reports her wheezing has significantly improved and she is not requiring any as needed breathing treatments. Since last pulmonary function tests were in November 2016 showed an irreversible mild large airways obstructive ventilatory defect with symmetric reduction in diffusing capacity. Pulmonary exercise test at that time showed a desaturation to 90%. The patient was on as needed oxygen at home ever since she had pneumonia approximately 2 years ago. She does use the oxygen when short of breath, however this is infrequently. She does take it with her when she goes on long walks. The patient did complete pulmonary rehab about a year ago and is now going to the gym routinely. She states her exercise tolerance has significantly improved, other than during her current illness. Her current home inhaler regimen includes as needed Proair, albuterol nebulizers, Symbicort , and Spiriva. She also takes Ativan PRN for anxiety. Past Medical History Past Medical History (Chronic Problems): Chronic Problems (Last Reviewed 08/29/17 @ 09:31 by MAGDY Stevenson) COPD (Chronic) diabetes mellitus type II (Chronic) Sleep apnea, obstructive (Chronic) Allergies No Known Allergies Allergy (Verified 08/29/17 08:27) Home Medications: Ambulatory Orders Medication Instructions Recorded Albuterol IH (ProAir) [Proair Hfa] 2 puff INHALATION Q4H PRN PRN 10/21/15 Budesonide/Formoterol 160/4.5 2 puff INHALATION BID 10/21/15 [Symbicort 160/4.5 Mcg Inhaler (SP)] Calcium (Elemental) [Os-Shimon 500] 1,000 mg PO DAILY@0800 10/21/15 Cholecalciferol (VIT D3) [Vitamin 1,000 unit PO DAILY 10/21/15 D3] Lorazepam [Ativan] 0.5 mg PO TID PRN PRN 10/21/15 Metformin HCl [Metformin HCl ER] 500 mg PO DAILY 10/21/15 Montelukast Sodium [Singulair] 10 mg PO DAILY 10/21/15 [place]-3 Fatty Acids/Fish Oil [Fish 2 ea PO DAILY 10/21/15 Oil 1,000 mg Capsule] Pantoprazole Sodium [Protonix] 40 mg PO DAILY 10/21/15 Tiotropium [place] [Spiriva 18 MCG] 2 puff INHALATION DAILY 10/21/15 albuterol sulfate 2.5 mg/3 mL 2.5 mg INHALATION .QID ml 06/07/17 (0.083 %) solution for nebulization multivitamin,ce-hggp-hkjgwdya 1 tab PO DAILY 06/07/17 tablet Inulin/Chromium Picolinate [Fiber 2 each PO BID 10/02/17 Gummies] Prednisone 20 mg PO DAILY 10/02/17 Psychiatric History: No pertinent psych hx CEMENT PATCHER History: No pertinent CEMENT PATCHER history Smoking Status: Former smoker - [id number] history, quit 15 years ago Tobacco Use: Cigarettes Alcohol: None Drugs: None - *Family History Paternal History Items: COPD, Diabetes, Heart Disease Maternal History Items: Diabetes, Heart Disease Review of Systems Constitutional: Reports: Fatigue. Denies: Anorexia, Chills, Fever, Night Sweats , Malaise, Weakness, Weight Change Eyes: Denies: Vision Change HEENT: Denies: Difficulty Swallowing, Dysphasia, Head Aches, Nasal bleeding, Nasal Congestion, Post Nasal Drip, Sinus Congestion, Sinus Drainage, Sore Throat Cardiovascular: Denies: Chest Pain, Chest Tightness, Edema, Light Headedness, Orthopnea, Palpitations, Paroxysmal Noc. Dyspnea, Syncope Respiratory: Reports: Cough - Occasional, nonproductive, Shortness of breath upon exertion - Essentially resolved. Denies: Hemoptysis, Shortness of breath at rest, Sputum production, Wheezing Gastrointestinal: Denies: Abdominal Pain, Constipation, Diarrhea, Dyspepsia, Hematemesis, Hematochezia, Nausea, Melena, Vomiting Genitourinary: Denies: Dysuria, Frequency, Hematuria, Nocturia, Retention Musculoskeletal: Denies: Back Pain Skin: Denies: Rash, Wounds Neurological: Denies: Balance problems, Change in Speech, Confusion, Difficulty swallowing, Focal weakness, Numbness, Tingling, Tremor, Seizures Psychiatric: Reports: Anxiety. Denies: Depression Endocrine: Denies: Change in Body Habitus, Polydipsia, Polyuria Hematologic/ Lymphatic: Denies: Adenopathy, Anemia, Easy Bruising, Hx of blood clot Subjective: The patient was seen and examined. She denies any complaints. She is maintaining appropriate saturations on 1 L of oxygen supplementation. She is ambulating independently in the room with no shortness of breath. She does have an occasional nonproductive cough. She has not noticed any wheezing today. Objective: Clinical Impression(s) from Imaging Studies Chest X-Ray 10/02/17 11:20 IMPRESSION: Hyperinflation and emphysematous changes in the right upper lobe. There has been no change. Electronically Signed: Jourdan Sykes MD at 12:43 EDT Tel [phone], Service support , Chest CTA 10/02/17 12:58 IMPRESSION: There is no evidence of pulmonary embolism. Diffuse emphysematous changes with bullous formation worse in the right hemithorax. Electronically Signed: Jourdan Sykes MD at 14:20 EDT Tel [phone], Service support , - Physical Exam General: Alert, Oriented x3, Cooperative, No apparent distress, Well developed, Well nourished, - - No conversational dyspnea HEENT: Atraumatic, Normocephalic Oral: Moist Mucosa Neck: Supple, No Nodes, Trachea Midline Lungs: No rhonchi, No wheeze, No rales, Diminished Cardiovascular: Regular rate, Regular Rhythm, Normal S1, Normal S2, No murmurs, No rub noted, No Gallop Abdomen: Bowel Sounds Present, Soft, Non Tender, Non-Distended, Obese Extremities: No clubbing, No cyanosis, No edema Skin: No rashes, No breakdown Musculoskeletal: No Tenderness to Palpation of Joints or Extremities Lymphatic: No Cervical, Supraclavicular, or Inguinal Adenopathy Neurological: Cranial nerves II-XII grossly intact, Neuro grossly intact, Motor Exam 5/5 strength throughout Psych/Mental Status: Alert and oriented to time, place, person, mood and affect Vital Signs Temp Pulse Resp BP Pulse Ox 97.8 F 72 17 116/70 99 10/03/17 02:00 10/03/17 07:37 10/03/17 07:37 10/03/17 02:00 10/03/17 02:00 Oxygen Flow Rate (L/min) 1 Oxygen Delivery Method Nasal Cannula Weight: 212 lb 8.41 oz Body Mass Index (BMI) 34.2 Intake and Output for Last 24 Hours 10/01/17 10/02/17 10/03/17 23:59 23:59 23:59 Intake Total 240 / 240 400 / 400 Balance 240 / 240 400 / 400 Microbiology Past 72 Hours 10/02/17 19:45 Respiratory Panel (PCR) - Final Mucosa - Nose POC Glucose 10/03/17 10/02/17 10/02/17 06:32 21:44 17:55 POC Glucose 161 H 250 H 249 H Assessment/Plan RECOMMENDATIONS 1. Wean oxygen supplementation to keep saturations 88-92%. 2. Encourage incentive spirometer 3. Increase activity as tolerated, ambulate 4. Continue bronchodilators 5. 12 day prednisone taper at discharge, continue home inhaler regimen 6. Continue 1-2L of home oxygen supplementation with exertion until seen by pulmonary 7. OK to discharge from pulmonary perspective, patient has appointment in pulmonary clinic on October 09 at 0915. IMPRESSIONS 1. COPD exacerbation Possibly secondary to viral infection at beginning of August with prolonged course. Plain film x-ray showed no acute findings. CTA chest ruled out PE, patient did have emphysematous changes with bullous formation, worse in right hemithorax. Pulmonary function tests in November 2016 showed a mild irreversible ventilatory defect. Patient was placed on IV steroids and bronchodilators, no significant wheezing since admitted. Ambulatory pulse ox was performed today and patient was 87% on room air. She recovered well with 1 L of oxygen supplementation. She should continue wearing oxygen with exertion at home until seen in the pulmonary clinic next Sunday at 915 with Josy Burch NP. Patient's symptoms seem disproportionate to her level of lung disease and overall clinical picture, suspect element of uncontrolled anxiety. 2. Type 2 diabetes/YAHAIRA/obesity/tobacco abuse in remission Complicates care, management, recovery, and prognosis. Patient notes she has been noncompliant with her CPAP at home, states she realizes she needs to wear it. Encouraged compliance. She can follow-up in the pulmonary clinic as scheduled. Thank you for the opportunity to participate in this patient's care, please do not hesitate to contact us with any further questions or concerns. This note was generated with [employer] dictation software. It may contain incorrect words, spelling, and punctuation that were not noted in checking the note before signing.
--- NOTE | 2017-10-03 09:34 | PCA ---
rn in with pt
--- NOTE | 2017-10-03 10:58 | CASEMGMT ---
Addendum entered by Jung Cullen 10/03/17 14:42: Pt will make own f/u appointments. Original Note: Intro role of CM to patient in room. Possible DC today. Per pt she is independent, no DME except home oxygen through [facility]. Pt states she has concentrator and portable tanks. No further needs at home. PCP: Dr. Knox [facility]: [facility] Provider: IVELISSE DC PLAN: Home. no needs identified. Aureliano ROBBINSN RN ACM
[2017-10-03 12:36] LABS: Bedside Glucose 189 mg/dL (70-110)
--- NOTE | 2017-10-03 13:23 | PCM.DC.SUM ---
Discharge Date and Diagnosis Date of Admission: 10/02/17 Date of Discharge: 10/03/17 - Primary Discharge Diagnosis COPD with acute exacerbation - Secondary Discharge Diagnosis Chronic Problems (Last Reviewed 08/29/17 @ 09:31 by MAGDY Stevenson) COPD (Chronic) diabetes mellitus type II (Chronic) Sleep apnea, obstructive (Chronic) Hospital Course and Treatment Imaging Results: Clinical Impression(s) from Imaging Studies Chest X-Ray 10/02/17 11:20 IMPRESSION: Hyperinflation and emphysematous changes in the right upper lobe. There has been no change. Electronically Signed: Jourdan Sykes MD at 12:43 EDT Tel [phone], Service support , Chest CTA 10/02/17 12:58 IMPRESSION: There is no evidence of pulmonary embolism. Diffuse emphysematous changes with bullous formation worse in the right hemithorax. Electronically Signed: Jourdan Sykes MD at 14:20 EDT Tel [phone], Service support , Operations: None Summary of Care Provided: Patient is a 51-year-old admitted with progressive shortness of breath and persistent cough associated with with wheezing. Her assessment was consistent with COPD with exacerbation admitted to a nursing floor for further management 1. Acute respiratory insufficiency secondary to Acute COPD exacerbation. Patient has been admitted to regular nursing floor managed with bronchodilator therapy, systemic steroids, Mucinex as well as oxygen titrated to keep also is greater than 90. Did experience rapid improvement in her condition a day after her admission. She was discharged with a tapering dose of steroid with instructions for patient to follow-up with pulmonary medicine on 10/09/2017 2. Obstructive sleep apnea patient on BiPAP at night 3. Diabetes mellitus type II controlled with complications patient insulin metformin held placed on Accu-Chek before meals and at bedtime, sliding scale insulin 4. Morbid obesity with BMI of 34.3 weight reduction counseled 5. DVT prophylaxisLovenox Discharge Diet: 1800 Calorie Control Diet Discharge Activity: Return to Normal Activity Home Medications: Medications to take at Discharge Albuterol IH (ProAir) [Proair Hfa] 2 puff INHALATION Q4H PRN PRN 10/21/15 Budesonide/Formoterol 160/4.5 [Symbicort 160/4.5 Mcg Inhaler (SP)] 2 puff INHALATION BID 10/21/15 Calcium (Elemental) [Os-Shimon 500] 1,000 mg PO DAILY@0800 10/21/15 Cholecalciferol (VIT D3) [Vitamin D3] 1,000 unit PO DAILY 10/21/15 Lorazepam [Ativan] 0.5 mg PO TID PRN PRN 10/21/15 Metformin HCl [Metformin HCl ER] 500 mg PO DAILY 10/21/15 Montelukast Sodium [Singulair] 10 mg PO DAILY 10/21/15 [place]-3 Fatty Acids/Fish Oil [Fish Oil 1,000 mg Capsule] 2 ea PO DAILY 10/21/15 Pantoprazole Sodium [Protonix] 40 mg PO DAILY 10/21/15 Tiotropium [place] [Spiriva 18 MCG] 2 puff INHALATION DAILY 10/21/15 albuterol sulfate 2.5 mg/3 mL (0.083 %) solution for nebulization 2.5 mg INHALATION .QID ml 06/07/17 multivitamin,vp-otba-mlkmqfnw tablet 1 tab PO DAILY 06/07/17 Inulin/Chromium Picolinate [Fiber Gummies] 2 each PO BID 10/02/17 Prednisone 10 mg PO UD #32 tab 10/03/17 Following Prescrptions Were Given to Patient: Prednisone 10 mg PO UD #32 tab Primary Care Physician: Gonsalo Knox MD [Primary Care Provider] - Please follow up with your Primary Care Physician in: 1-2 weeks Please Follow Up With: Heri Hernandes DO When: As previously scheduled Disposition: Home Minutes spent on discharge:: 45 Patient Condition:: Stable Medical Necessity - Tobacco Use Smoking Status: Former smoker - [id number] history, quit 15 years ago Tobacco Use: Cigarettes Meaningful Use Info Meaningful Use Diagnoses (Choose all that apply): None applicable Code Visit Inpatient E&M: 36524 Disch Hosp
--- NOTE | 2017-10-03 13:26 | DCINST_ITS ---
You will use the following diet at home:: Calorie/Carbohydrate Controlled ( specify 1200, 1400, etc) - 1800 Discharge Activity: Return to Normal Activity Allergies/Adverse Reactions: Allergies No Known Allergies Allergy (Verified 08/29/17 08:27) Medications to take at Discharge Albuterol IH (ProAir) [Proair Hfa] 2 puff INHALATION Q4H PRN PRN 10/21/15 Budesonide/Formoterol 160/4.5 [Symbicort 160/4.5 Mcg Inhaler (SP)] 2 puff INHALATION BID 10/21/15 Calcium (Elemental) [Os-Shimon 500] 1,000 mg PO DAILY@0800 10/21/15 Cholecalciferol (VIT D3) [Vitamin D3] 1,000 unit PO DAILY 10/21/15 Lorazepam [Ativan] 0.5 mg PO TID PRN PRN 10/21/15 Metformin HCl [Metformin HCl ER] 500 mg PO DAILY 10/21/15 Montelukast Sodium [Singulair] 10 mg PO DAILY 10/21/15 [place]-3 Fatty Acids/Fish Oil [Fish Oil 1,000 mg Capsule] 2 ea PO DAILY 10/21/15 Pantoprazole Sodium [Protonix] 40 mg PO DAILY 10/21/15 Tiotropium [place] [Spiriva 18 MCG] 2 puff INHALATION DAILY 10/21/15 albuterol sulfate 2.5 mg/3 mL (0.083 %) solution for nebulization 2.5 mg INHALATION .QID ml 06/07/17 multivitamin,bm-bptl-ucugqqoh tablet 1 tab PO DAILY 06/07/17 Inulin/Chromium Picolinate [Fiber Gummies] 2 each PO BID 10/02/17 Prednisone 10 mg PO UD #32 tab 10/03/17 The following prescriptions were given: Prednisone 10 mg PO UD #32 tab Primary Care Physician: Gonsalo Knox MD [Primary Care Provider] - Please follow up with your Primary Care Physician in: 1-2 weeks Please Follow Up With: Heri Hernandes DO When: As previously scheduled Proposed Discharge Date: 10/03/17
--- NOTE | 2017-10-03 15:03 | CHAPLAIN ---
Type of Pastoral Visit _x__ Initial Visit ___ Follow-up Visit ___ On-call Visit ___ General Patient Visit ___ Spiritual Assessment ___ Family Conference ___ Bereavement ___ Rapid Response ___ Code Blue ___ Other (describe below) Pastoral Care Referral From _x__ Patient ___ Family ___ Nurse ___ Physician ___ Toy Painter ___ Pharmaceutical Laboratory Technician ___ Other (describe below) Sacrament/Intervention _x__ Active listening ___ Anointing ___ Worship ___ Bereavement ___ Communion ___ Soila exploration ___ ___ Life review _x__ Prayer ___ Reconciliation ___ Sacrament of Sick ___ Supportive presence ___ Wedding ___ Other (describe below) Pastoral Comments
== END 2017-10-03 16:00 | disposition home or self-care (01) | DRG 190 ==
LOC: ED 11:26 → MS2 16:08
PROVIDERS: Emergency Provider Emergency Medicine; Family Provider Family Medicine; PCP Family Medicine; Visit Provider Internal Medicine
DX: J44.1 Chronic obstructive pulmonary disease with (acute) exacerbation (principal); J96.01 Acute respiratory failure with hypoxia; E11.9 Type 2 diabetes mellitus without complications; G47.33 Obstructive sleep apnea (adult) (pediatric); E66.01 Morbid (severe) obesity due to excess calories; Z87.891 Personal history of nicotine dependence; Z68.34 Body mass index [BMI] 34.0-34.9, adult
CPT/HCPCS: 71046; 71275; 80048; 82962; 85025; 87633; 94640; 99285; J7030; Q9967; A4216

== ENCOUNTER → 2017-10-10 09:34 | Outpatient (CLI) | payer OTHER, SELFPAY ==
[2015-12-13 16:15] VITALS: BMI 33.1
== END ==
PROVIDERS: Family Provider Family Medicine; PCP Family Medicine; Visit Provider Family Medicine
DX: R30.0 Dysuria (principal)
CPT/HCPCS: 87086; 87088

== ENCOUNTER → 2017-10-25 15:24 | Outpatient (CLI) | payer OTHER, SELFPAY ==
[2015-12-13 16:15] VITALS: BMI 33.1
[2017-10-31 05:08] LABS: Alternaria alternata <0.10 kU/L (Class 0); Bermuda Grass <0.10 kU/L (Class 0); Bluegrass, Kentucky <0.10 kU/L (Class 0); Cat Hair/Dander, Standard <0.10 kU/L (Class 0); D pteronyssinus 0.35 kU/L (Class I); Dog Epithelia <0.10 kU/L (Class 0); Elm, American White <0.10 kU/L (Class 0); Oak, White <0.10 kU/L (Class 0); Plantain, English <0.10 kU/L (Class 0); Ragweed, Short/Common <0.10 kU/L (Class 0)
[2017-10-31 11:32] LABS: Mouse Urine <0.10 kU/L (Class 0)
[2017-11-01 20:08] LABS: Aspirgillus flavus Negative (Neg:<1:1); Aspirgillus fumigatus Negative (Neg:<1:1); Aspirgillus niger Negative (Neg:<1:1)
[2017-11-02 11:28] LABS: Immunoglobulin E 11 IU/mL (0-100)
== END ==
PROVIDERS: Family Provider Family Medicine; PCP Family Medicine; Visit Provider Nurse Practitioner Acute Care
DX: R05 Cough (principal)
CPT/HCPCS: 36415; 82785; 86003; 86606; 87077; 87086; 87088; 87186; 87633

== ENCOUNTER → 2017-12-05 09:03 | Outpatient (CLI) | payer OTHER, SELFPAY ==
[2015-12-13 16:15] VITALS: BMI 33.1
[2017-12-05 09:00] VITALS: PULSE 104; PULSE 106; PULSE 107; PULSE 108; PULSE 95; PULSE 96; O2SAT 89; O2SAT 90; O2SAT 91; O2SAT 92; O2SAT 94
--- NOTE | 2017-12-05 15:09 | WT_ITS ---
PSN 6 Minute Walk Test - 6 Minute Walk Test 6 Minute Walk Test: 6 Minute Walk Test PSN:6-Minute Walk Test Start: 12/05/17 09: 25 Freq: Status: Active Protocol: RESP.6MINW Document 12/05/17 09:00 KOBIBrenda (Rec: 12/05/17 09:29 [email or web address] [id number]) 6 Minute Walk Test Date Performed 12/05/17 Time Performed 09:00 Height 5 ft 5 in Weight: 98.43 kg Weight in Pounds 217.[address]: Josy Burch Assistive device used: None Pre-test Oxygen Delivery Method Room Air Pulse Ox (%) 94 Pulse Rate (60-100 beats/min) 95 Dyspnea Chris Scale (0-10) 1 Exertion Chris Scale (6-20) 6 1st minute Oxygen Delivery Method Room Air Pulse Ox (%) 91 Pulse Rate (60-100 beats/min) 104 H 2nd minute Oxygen Delivery Method Room Air Pulse Ox (%) 89 Pulse Rate (60-100 beats/min) 106 H 3rd minute Oxygen Delivery Method Room Air Pulse Ox (%) 89 Pulse Rate (60-100 beats/min) 107 H 4th minute Oxygen Delivery Method Room Air Pulse Ox (%) 90 Pulse Rate (60-100 beats/min) 108 H 5th minute Oxygen Delivery Method Room Air Pulse Ox (%) 89 Pulse Rate (60-100 beats/min) 108 H 6th minute Oxygen Delivery Method Room Air Pulse Ox (%) 91 Pulse Rate (60-100 beats/min) 108 H Dyspnea Chris Scale (0-10) 3 Exertion Chris Scale (6-20) 13 Post-test Oxygen Delivery Method Room Air Pulse Ox (%) 92 Pulse Rate (60-100 beats/min) 96 Full Laps Walked 20 Partial Lap, Number of Tiles Walked 41 Total Distance Walked (ft) 1221 - Interpretation Interpretation: Patient was able to ambulate 1221 feet over the course of 6 minutes on room air with no assistive devices or breaks. The patient did experience a trace low as 89% with reflexive tachycardia. These findings are consistent with a respiratory limitation exercise tolerance. - Recommendations Recommendations: No supplemental oxygen is indicated at this time. However, patient will need to be followed closely given level of desaturation.
== END ==
PROVIDERS: Family Provider Family Medicine; PCP Family Medicine; Visit Provider Nurse Practitioner Acute Care
DX: R06.00 Dyspnea, unspecified (principal)
CPT/HCPCS: 94618

== ENCOUNTER → 2017-12-10 08:04 | Outpatient (CLI) | payer OTHER, SELFPAY ==
[2015-12-13 16:15] VITALS: BMI 33.1
--- NOTE | 2017-12-10 13:22 | PFT ---
INTRODUCTION: The patient is a 51-year-old female currently under the care of Dr. Joseph that presents for pulmonary function testing secondary to a diagnosis of dyspnea. Respiratory therapy reports good patient effort and reports no other concerns. Bronchodilators were used during testing. INTERPRETATION: Forced expiration spirometry demonstrates the presence of a mild large airways obstructive ventilatory defect. There is no significant response to aerosolized bronchodilators. Spirograms are of good quality and do not plateau indicating slow emptying of the lungs. Body plethysmography was performed and reveals an elevated TLC and RV to 118% and 125%, respectively. Diffusing capacity by single breath CO is disproportionately reduced at 40% of predicted. When compared to previous pulmonary function studies dated November 2016, there has been a 21% reduction in DLCO. IMPRESSION: These pulmonary function studies demonstrate the presence of an irreversible mild large airways obstructive ventilatory defect with a trend towards hyperinflation and air-trapping and a disproportionate reduction in diffusing capacity. There has been worsening in the patient's DLCO since PFTs were last completed in November 2016.
== END ==
PROVIDERS: Family Provider Family Medicine; PCP Family Medicine; Visit Provider Nurse Practitioner Acute Care
DX: R06.00 Dyspnea, unspecified (principal)
CPT/HCPCS: 94060; 94726; 94729

== ENCOUNTER → 2018-05-06 10:06 | Outpatient (CLI) | payer OTHER, SELFPAY ==
[2015-12-13 16:15] VITALS: BMI 33.1
[2018-05-06 12:56] LABS: ALB/GLOB Ratio 1.1 RATIO (0.9-2.4); AST(SGOT) 17 U/L (15-37); Alanine Aminotransfer ALT/SGPT 31 U/L (13-56); Albumin, Serum 3.8 g/dL (3.2-5.0); Alkaline Phosphatase 66 U/L (45-117); Anion Gap 12 (5-15); BUN 18 mg/dL (7-18); BUN/Creat Ratio 18.3 RATIO (10-20); Calcium,Total 9.2 mg/dL (8.5-10.1); Chloride 106 mmol/L (98-107); Cholesterol 194 mg/dL (200); Creatinine, Serum 0.98 mg/dL (0.55-1.02); EST Glomerular Filtration Rate 63 mL/min (>60); Est Glom Filt Rate - Afr Amer 76 mL/min (>60); Globulin 3.4 g/dL (2.2-4.2); Glucose 104 mg/dL (74-106); High Density Lipoprotein 50 mg/dL; Potassium 4.3 mmol/L (3.5-5.1); Protein, Total 7.2 g/dL (6.4-8.2); Sodium Level 141 mmol/L (136-145); Thyroid Stim Hormone (TSH) 1.77 uIU/mL (0.358-3.74); Triglycerides 198 mg/dL; Very Low Density Lipoprotein 40 mg/dL (5-40)
[2018-05-06 14:52] LABS: Vitamin B12 1450 pg/mL (211-911); Vitamin D,25 Hydroxy 58.8 ng/mL (29.95-100.01)
== END ==
PROVIDERS: Family Provider Family Medicine; PCP Family Medicine; Visit Provider Family Medicine
DX: E55.9 Vitamin D deficiency, unspecified (principal); E53.9 Vitamin B deficiency, unspecified; E11.9 Type 2 diabetes mellitus without complications
CPT/HCPCS: 36415; 80053; 80061; 82306; 82607; 84443

== ENCOUNTER → 2018-09-20 14:32 | Outpatient (CLI) | payer OTHER, SELFPAY ==
[2015-12-13 16:15] VITALS: BMI 33.1
[2018-07-19 14:26] VITALS: BMI 35.8
[2018-09-20 15:02] LABS: Absolute Lymphocyte Count 1.82 X10^3/ul (0.83-4.51); Absolute Neutrophil Count 5.5 X10^3/uL (2.0-7.7); Basophil# 0.02 X10^3/uL; Basophil% 0.2 % (0-1); Eosinophil# 0.24 X10^3/uL; Eosinophils% 2.9 % (0-5); Hematocrit 43.3 % (37-47); Hemoglobin 14.2 g/dl (12.0-15.0); Lymphocyte # 1.82 X10^3/ul (4.0); Mean Corp Hgb Conc 32.8 g/gl (32-36); Mean Corpuscular Hgb 30.2 pg (27.0-32.0); Mean Corpuscular Volume 92.1 fL (81-99); Mean Platelet Vol. 9.2 fl (6.2-12.0); Monocyte# 0.69 X10^3/uL; Monocyte% 8.3 % (0-10); Neutrophil # 5.49 X10^3/uL (2.7-7.7); Neutrophil % 66.5 % (47-70); Platelet Count 281 K/mm3 (150-450); RBC Distribution Width CV 13.3 % (11.6-14.6); RBC Distribution Width SD 44.6 fl (35.1-43.9); White Blood Count 8.3 K/mm3 (4.4-11.0)
[2018-09-20 15:03] LABS: POSITIVE COUNT NO; POSITIVE DIFFERENTIAL NO; POSITIVE MORPHOLOGY NO
== END ==
PROVIDERS: Family Provider Family Medicine; PCP Family Medicine; Referring Provider Nurse Practitioner Acute Care; Visit Provider Nurse Practitioner Acute Care
DX: R05 Cough (principal)
CPT/HCPCS: 36415; 85025

== ENCOUNTER 2018-09-24 10:01 | Emergency (ER) | payer OTHER, SELFPAY ==
[2015-12-13 16:15] VITALS: BMI 33.1
[2018-09-20 15:02] VITALS: BMI 35.9
[2018-09-24] VITALS (8 sets, daily range): BP systolic 117–133; BP diastolic 71–81; PULSE 79–93; RESP 16–19; TEMP 36–36.6; O2SAT 94–97; BMI 35.0
--- NOTE | 2018-09-24 10:40 | EKG12_ITS ---
Test Reason : SOB Blood Pressure : / mmHG Vent. Rate : 077 BPM Atrial Rate : 077 BPM P-R Int : 144 ms QRS Dur : 094 ms QT Int : 396 ms P-R-T Axes : 018 007 014 degrees QTc Int : 448 ms Normal sinus rhythm Possible Inferior infarct (cited on or before 21-OCT-2015), age undetermined Abnormal ECG Confirmed by RAINA KAY ([id number]), marketing editor CHANA YODER ([id number]) on 09/27/2018 11:14:30 AM Referred By: Josy Burch Confirmed By:RAINA KAY
--- NOTE | 2018-09-24 10:44 | ED.DCSUM_ITS ---
- ER Visit Summary Date of Service: 09/24/18 Chief Complaint: Shortness of breath and weakness History of Present Illness: The patient is a 52 F with shortness of breath that started . Continues to get worse despite taking amoxicillin and prednisone. The patient has a history of COPD and asthma. She takes oxygen as needed. She has been taking about 1.5 L at home. She is using her breathing treatments. No fevers. She does have some chest pain but she thinks is from coughing. No history of heart disease. No leg swelling. No history of PE or DVT. Physical Examination: Afebrile and vital signs unremarkable. 94% on 2 L. Alert and oriented. Sitting in breathing comfortably. Speaking comfortably. HEENT exam grossly unremarkable. Heart regular rate and rhythm. Lungs show diminished sounds, more so in the upper [place] bilaterally. Extremities nontender with no edema. Pulses strong and equal. Test Results: EKG, chest x-ray, labs pending. Emergency Department Course and Treatment: Patient treated with oxygen, DuoNeb, Solu-Medrol, and IV fluids while awaiting results. Will reassess. Patient ambulated without difficulty. She was 90% on room air afterwards. She is currently 97% at rest. She feels a little better. Her x-ray and labs were all unremarkable. I spoke with Dr. Joseph. He recommended checking a flu swab and restarting her prednisone burst. She should call the office for follow-up. Treatment Plan: As above Disposition: Discharge Impression: 1. COPD exacerbation This note was generated with [employer] dictation software. It may contain incorrect words, spelling, and punctuation that were not noted in review of the chart prior to signing ED Disposition - Plan for ED Patient: Referrals: Gonsalo Knox MD [Primary Care Provider] -
[2018-09-24 11:01] LABS: Absolute Lymphocyte Count 2.33 X10^3/ul (0.83-4.51); Absolute Neutrophil Count 6.6 X10^3/uL (2.0-7.7); Basophil# 0.02 X10^3/uL; Basophil% 0.2 % (0-1); Eosinophil# 0.22 X10^3/uL; Eosinophils% 2.3 % (0-5); Hematocrit 43.6 % (37-47); Hemoglobin 14.5 g/dl (12.0-15.0); Lymphocyte # 2.33 X10^3/ul (4.0); Mean Corp Hgb Conc 33.3 g/gl (32-36); Mean Corpuscular Hgb 30.3 pg (27.0-32.0); Mean Corpuscular Volume 91.2 fL (81-99); Mean Platelet Vol. 9.1 fl (6.2-12.0); Monocyte# 0.49 X10^3/uL; Monocyte% 5.1 % (0-10); Neutrophil % 68.1 % (47-70); POSITIVE COUNT NO; POSITIVE DIFFERENTIAL NO; POSITIVE MORPHOLOGY NO; Platelet Count 302 K/mm3 (150-450); RBC Distribution Width CV 13.5 % (11.6-14.6); RBC Distribution Width SD 44.7 fl (35.1-43.9); Red Blood Count 4.78 M/mm3 (4.2-5.4); White Blood Count 9.7 K/mm3 (4.4-11.0)
[2018-09-24] MEDS: Ipratropium/Albuterol Sulfate 3 ML AMPUL.NEB INHALATION (11:03)
--- NOTE | 2018-09-24 11:07 | RAD_ITS ---
STUDY: X-RAY CHEST REASON FOR EXAM: Female, 52 years old. Chest pain. TECHNIQUE: Single AP portable view of the chest. COMPARISON: Comparison is made with prior study dated October 02, 2017. FINDINGS: EKG electrodes are seen. Hyperinflation decreased bronchovascular markings once again seen in the upper lobes suggestive of emphysematous changes and bullous formation. Stable increased linear markings at the right lung base suggestive of a scarring. There is no demonstrated pleural abnormality. Normal size heart. Normal mediastinum and kenny. Normal visualized pulmonary arteries. There is atherosclerotic tortuosity of the aortic arch and descending thoracic aorta. Normal visualized thoracic spine. Normal visualized ribs, clavicles, and shoulders. Distended transverse colon. RAD/Chest 1 View (Portable) IMPRESSION: Hyperinflation and findings suggestive of a emphysema and bullous formation in the right upper lobe. Electronically Signed: Jourdan Sykes, at 11:26 EDT , Service support ,
[2018-09-24 11:16] LABS: Anion Gap 10 (5-15); BUN 20 mg/dL (7-18); Calcium,Total 9.1 mg/dL (8.5-10.1); Chloride 108 mmol/L (98-107); Creatinine, Serum 1.05 mg/dL (0.55-1.02); EST Glomerular Filtration Rate 58 mL/min (>60); Est Glom Filt Rate - Afr Amer 70 mL/min (>60); Estimated Creatinine Clearance 58.01 ml/min; Glucose 147 mg/dL (74-106); Potassium 3.5 mmol/L (3.5-5.1); Sodium Level 141 mmol/L (136-145)
[2018-09-24] MEDS: MethylPREDNISolone 125 MG/2 ML Vial IV (11:50)
--- NOTE | 2018-09-24 14:41 | ED.DEP ---
ED Disposition - Plan for ED Patient: Instructions: ED COPD Flare Prescriptions: Prednisone 10 mg PO UD #33 tab Referrals: Tal Joseph MD [STAFF PHYSICIAN] -
== END 2018-09-24 15:00 | disposition home or self-care (01) ==
LOC: ED 10:49
PROVIDERS: Emergency Provider Emergency Medicine; Family Provider Family Medicine; PCP Family Medicine
DX: J44.1 Chronic obstructive pulmonary disease with (acute) exacerbation (principal); E11.9 Type 2 diabetes mellitus without complications; J44.9 Chronic obstructive pulmonary disease, unspecified; G47.33 Obstructive sleep apnea (adult) (pediatric); Z87.891 Personal history of nicotine dependence; Z99.81 Dependence on supplemental oxygen
CPT/HCPCS: 71045; 80048; 84484; 85025; 87804; 93005; 94640; 96374; 99284; J7030; J7040; A4216

== ENCOUNTER → 2018-09-26 09:53 | Outpatient (CLI) | payer OTHER, SELFPAY ==
[2015-12-13 16:15] VITALS: BMI 33.1
[2018-09-26 09:14] VITALS: BMI 34.8
[2018-09-28 14:34] LABS: B. pertussis IgG 2.27 index (0.00-0.94)
== END ==
PROVIDERS: Family Provider Family Medicine; PCP Family Medicine; Referring Provider Nurse Practitioner Acute Care; Visit Provider Nurse Practitioner Acute Care
DX: R05 Cough (principal)
CPT/HCPCS: 36415; 87633; 87798

== ENCOUNTER → 2018-10-01 08:23 | Outpatient (CLI) | payer OTHER, SELFPAY ==
[2015-12-13 16:15] VITALS: BMI 33.1
[2018-09-20 15:02] VITALS: BMI 35.9
[2018-09-26 09:14] VITALS: BMI 34.8
--- NOTE | 2018-10-01 08:27 | BD_ITS ---
STUDY: DUAL ENERGY X-RAY ABSORPTIOMETRY / DXA REASON FOR EXAM: Female, 52 years old. Early menopause. No loss of height. TECHNIQUE: Bone Mineral Density (BMD) measurements of lumbar spine and bilateral hips were obtained. COMPARISON: None. FINDINGS: Lumbar Spine (L1-L4): g/cm2 (0.874) / T-score (-2.7) / Z-score (-2.0) Findings are suggestive of osteoporosis with a high fracture risk. Left Femur Total: g/cm2 (0.985) / T-score (-0.2) / Z-score (0.4) Left Femoral Neck: g/cm2 (0.934) / T-score (-0.7) / Z-score (0.2) Right Femur Total: g/cm2 (0.978) / T-score (-0.2) / Z-score (0.4) Right Femoral Neck: g/cm2 (0.906) / T-score (-0.9) / Z-score (0.0) BD/Dexa Bone Density Study IMPRESSION: The patient is considered osteoporotic as outlined below according to World Barry Organization (WHO) criteria with a high fracture risk. Reference Information: The T-score is the number of standard deviations above or below the standard which is normal for young adults at their peak bone mineral density. The World Health Organization (WHO) interprets the T-scores as follows: Above -1 Normal bone density Between -1 and -2.5 Osteopenia Equal to / or below -2.5 Osteoporosis As a practical clinical guideline, osteopenia may be graded as follows: Mild -1 through -1.5 Moderate -1.6 through -2.0 Severe -2.1 through -2.4 The Z-score is the number of standard deviations above or below age-matched controls. A Z-score of less than -1.5 would be considered abnormal. References: 1. NIH Osteoporosis and Related Bone Diseases http://www.osteo.org 2. International Society for Clinical Densitometry http://www.iscd.org 3. National Osteoporosis Foundation http://www.nof.org Electronically Signed: Jourdan Sykes, at 9:22 EDT , Service support ,
== END ==
PROVIDERS: Family Provider Family Medicine; PCP Family Medicine; Referring Provider Nurse Practitioner Acute Care; Visit Provider Nurse Practitioner Acute Care
DX: R06.00 Dyspnea, unspecified (principal)
CPT/HCPCS: 77080

== ENCOUNTER → 2018-10-14 07:59 | Outpatient (CLI) | payer OTHER, SELFPAY ==
[2015-12-13 16:15] VITALS: BMI 33.1
[2018-09-24 10:02] VITALS: BMI 35.0
[2018-09-26 09:14] VITALS: BMI 34.8
== END ==
PROVIDERS: Family Provider Family Medicine; PCP Family Medicine; Referring Provider Nurse Practitioner Acute Care; Visit Provider Nurse Practitioner Acute Care
DX: R06.00 Dyspnea, unspecified (principal); R06.02 Shortness of breath
CPT/HCPCS: 93306

== ENCOUNTER → 2018-10-25 08:02 | Outpatient (CLI) | payer OTHER, SELFPAY ==
[2015-12-13 16:15] VITALS: BMI 33.1
[2018-05-27 07:48] VITALS: BMI 35.8
[2018-09-26 09:14] VITALS: BMI 34.8
--- NOTE | 2018-10-25 13:53 | PFTCOMP_ITS ---
COMPLETE PULMONARY FUNCTION TEST INTERPRETATION Brief HPI: Patient is a 52 year old female, currently under the care of myself, who presents to [facility] for complete pulmonary function tests secondary to diagnosis of COPD. Respiratory therapist reports good effort and reproducible results. Interpretation: Forced expiration spirometry shows a mild large airways obstructive ventilatory defect with an FEV1 of 74% predicted. There is a significant bronchodilator response in FEV1 by strict ATS criteria. Spirograms are of good quality and plateau slowly, indicating slowly emptying areas of the lungs. The respiratory flow volume loop shows decreased expiratory flow rates at all lung volumes consistent with airway obstruction. Lung volumes by body plethysmography show an elevated total lung capacity at 6.43 L, 120% predicted. All other lung volumes are enlarged symmetrically. Diffusion capacity by carbon monoxide is decreased at 46% predicted. The airway resistance is normal. Compared to previous pulmonary function tests from 12/10/2017, there has been a significant improvement by 16% and DLCO. Impression: Partially reversible mild large airways obstructive ventilatory defect with a symmetric reduction diffusing capacity. There has been some improvement compared to previous.
== END ==
PROVIDERS: Family Provider Family Medicine; PCP Family Medicine; Referring Provider Nurse Practitioner Acute Care; Visit Provider Nurse Practitioner Acute Care
DX: J44.9 Chronic obstructive pulmonary disease, unspecified (principal)
CPT/HCPCS: 94060; 94726; 94729

== ENCOUNTER → 2019-01-02 08:58 | Outpatient (CLI) | payer OTHER, SELFPAY ==
[2015-12-13 16:15] VITALS: BMI 33.1
[2018-11-12 08:39] VITALS: BMI 35.5
[2019-01-02 10:01] LABS: Hematocrit 43.3 % (37-47); Hemoglobin 14.3 g/dl (12.0-15.0); Mean Platelet Vol. 9.4 fl (6.2-12.0); Platelet Count 323 K/mm3 (150-450); RBC Distribution Width SD 43.1 fl (35.1-43.9); Red Blood Count 4.76 M/mm3 (4.2-5.4); White Blood Count 7.2 K/mm3 (4.4-11.0)
[2019-01-02 10:04] LABS: Scan Indicated on CBC? Y/N NO
[2019-01-02 10:21] LABS: Anion Gap 7 (5-15); BUN 17 mg/dL (7-18); BUN/Creat Ratio 17.8 RATIO (10-20); Calcium,Total 9.3 mg/dL (8.5-10.1); Chloride 106 mmol/L (98-107); Cholesterol 199 mg/dL (200); Creatinine, Serum 0.96 mg/dL (0.55-1.02); EST Glomerular Filtration Rate 65 mL/min (>60); Est Glom Filt Rate - Afr Amer 78 mL/min (>60); Glucose 114 mg/dL (74-106); High Density Lipoprotein 54 mg/dL; Magnesium 2.2 mg/dL (1.6-2.6); Phosphorus 3.7 mg/dL (2.5-4.9); Potassium 4.2 mmol/L (3.5-5.1); Sodium Level 139 mmol/L (136-145); Thyroid Stim Hormone (TSH) 2.23 uIU/mL (0.358-3.74); Triglycerides 176 mg/dL; Very Low Density Lipoprotein 35 mg/dL (5-40)
[2019-01-02 10:33] LABS: Vitamin D,25 Hydroxy 46.8 ng/mL (29.95-100.01)
[2019-01-02 10:36] LABS: PTHIN 28.2 pg/mL (18.4-80.1)
== END ==
PROVIDERS: Family Provider Family Medicine; PCP Family Medicine; Visit Provider Family Medicine
DX: M81.0 Age-related osteoporosis without current pathological fracture (principal); E11.9 Type 2 diabetes mellitus without complications; K21.9 Gastro-esophageal reflux disease without esophagitis
CPT/HCPCS: 36415; 80048; 80061; 82306; 82330; 83735; 83970; 84100; 84443; 85027

== ENCOUNTER → 2019-02-11 08:23 | Outpatient (CLI) | payer OTHER, SELFPAY ==
[2015-12-13 16:15] VITALS: BMI 33.1
[2018-11-12 08:39] VITALS: BMI 35.5
[2019-02-11 08:40] VITALS: PULSE 73; PULSE 76; PULSE 92; PULSE 93; PULSE 97; PULSE 99; O2SAT 89; O2SAT 90; O2SAT 91; O2SAT 94; O2SAT 95
--- NOTE | 2019-02-11 13:59 | PCM.PSN.6M ---
PSN 6 Minute Walk Test - 6 Minute Walk Test 6 Minute Walk Test: 6 Minute Walk Test PSN:6-Minute Walk Test Start: 02/11/19 08:40 Freq: Status: Active Protocol: [id number].6MINW Document 02/11/19 08:40 JEREMY (Rec: 02/11/19 08:43 JEREMY [id number]) 6 Minute Walk Test Date Performed 02/11/19 Time Performed 08:30 Height 5 ft 6 in Weight: 98.883 kg Weight in Pounds 218.[address]: Tal Joseph Pre-test Oxygen Delivery Method Room Air Pulse Ox (%) 95 Pulse Rate (60-100 beats/min) 73 Dyspnea Chris Scale (0-10) 0 Exertion Chris Scale (6-20) 6 1st minute Oxygen Delivery Method Room Air Pulse Ox (%) 91 Pulse Rate (60-100 beats/min) 99 2nd minute Oxygen Delivery Method Room Air Pulse Ox (%) 89 Pulse Rate (60-100 beats/min) 97 3rd minute Oxygen Delivery Method Room Air Pulse Ox (%) 89 Pulse Rate (60-100 beats/min) 93 4th minute Oxygen Delivery Method Room Air Pulse Ox (%) 89 Pulse Rate (60-100 beats/min) 99 5th minute Oxygen Delivery Method Room Air Pulse Ox (%) 90 Pulse Rate (60-100 beats/min) 97 6th minute Oxygen Delivery Method Room Air Pulse Ox (%) 90 Pulse Rate (60-100 beats/min) 92 Dyspnea Chris Scale (0-10) 3 Exertion Chris Scale (6-20) 12 Post-test Oxygen Delivery Method Room Air Pulse Ox (%) 94 Pulse Rate (60-100 beats/min) 76 Full Laps Walked 21 Partial Lap, Number of Tiles Walked 15 Total Distance Walked (ft) 1254 - Interpretation Interpretation: The patient was able to ambulate 1254 feet over the course of 6 minutes on room air with no assistive devices or breaks. The patient did experience significant desaturation from a baseline of 95% to as low as 89% during ambulation. No significant tachycardia was noted. These finds are consistent with a respiratory limitation exercise tolerance. - Recommendations Recommendations: No supplemental oxygen is indicated at this time. However, patient will need to be followed closely given level of desaturation.
== END ==
PROVIDERS: Family Provider Family Medicine; PCP Family Medicine; Referring Provider Internal Medicine Critical Care Medicine; Visit Provider Internal Medicine Critical Care Medicine
DX: J44.9 Chronic obstructive pulmonary disease, unspecified (principal); E66.9 Obesity, unspecified; Z68.39 Body mass index [BMI] 39.0-39.9, adult
CPT/HCPCS: 94618

== ENCOUNTER → 2019-04-23 09:23 | Outpatient (CLI) | payer OTHER, SELFPAY ==
[2015-12-13 16:15] VITALS: BMI 33.1
[2019-02-17 08:14] VITALS: BMI 35.8
== END ==
PROVIDERS: Family Provider Family Medicine; PCP Family Medicine; Referring Provider Nurse Practitioner Acute Care; Visit Provider Nurse Practitioner Acute Care
DX: R05 Cough (principal)
CPT/HCPCS: 87633

== ENCOUNTER → 2019-05-26 11:10 | Outpatient (CLI) | payer OTHER, SELFPAY ==
[2015-12-13 16:15] VITALS: BMI 33.1
[2019-04-30 06:12] VITALS: BMI 35.8
[2019-05-26 12:40] LABS: Absolute Lymphocyte Count 1.94 X10^3/uL (0.83-4.51); Absolute Neutrophil Count 5.9 X10^3/uL (2.0-7.7); Basophil# 0.04 X10^3/uL; Basophil% 0.5 % (0-1); Eosinophil# 0.24 X10^3/uL; Eosinophils% 2.8 % (0-5); Hematocrit 46.7 % (37-47); Hemoglobin 15.5 g/dL (12.0-15.0); Lymphocyte # 1.94 X10^3/ul (4.0); Lymphocyte % 22.5 % (19-41); Mean Corp Hgb Conc 33.2 g/dL (32-36); Mean Corpuscular Volume 90.5 fL (81-99); Mean Platelet Vol. 9.1 fl (6.2-12.0); Monocyte# 0.48 X10^3/uL; Monocyte% 5.6 % (0-10); NRBC Flagged by Analyzer 0 % (0-5); Neutrophil # 5.88 X10^3/uL (2.7-7.7); Neutrophil % 68.3 % (47-70); Platelet Count 370 K/mm3 (150-450); RBC Distribution Width SD 43.5 fl (35.1-43.9); Red Blood Count 5.16 M/mm3 (4.2-5.4); White Blood Count 8.6 K/mm3 (4.4-11.0)
== END ==
PROVIDERS: Family Provider Family Medicine; PCP Family Medicine; Referring Provider Nurse Practitioner Acute Care; Visit Provider Nurse Practitioner Acute Care
DX: R05 Cough (principal)
CPT/HCPCS: 36415; 85025

== ENCOUNTER 2020-01-01 10:43 | Observation (INO) | payer OTHER, SELFPAY ==
[2015-12-13 16:15] VITALS: BMI 33.1
[2019-11-28 08:27] VITALS: BMI 35.8
[2020-01-01] VITALS (13 sets, daily range): BP systolic 127–152; BP diastolic 58–93; PULSE 70–83; RESP 16–18; TEMP 36.3–37; O2SAT 94–98; BMI 37.7; BMI 39.0; BMI 39.1
--- NOTE | 2020-01-01 11:00 | CT_ITS ---
STUDY: CT BRAIN WITHOUT CONTRAST REASON FOR EXAM: Female, 54 years old. LT ARM WEAK/NUMB SINCE SUNDAY. Hx of migraines, COPD and diabetes RADIATION DOSAGE (If Supplied By Facility): CTDIvol = ( 60.81 ) mGy, DLP = ( 1044.28 ) mGycm TECHNIQUE: Transaxial CT imaging of the brain was performed without administration of intravenous contrast material. Individualized dose optimization techniques were used for this CT. COMPARISON: No relevant priors. FINDINGS: Normal soft tissue structures. Normal calvarium. Normal size ventricles and extra-axial spaces for the patient''s age. Normal white matter tracts of the cerebral hemispheres. Normal basal ganglia and thalami. Normal brainstem. Normal cerebellum. There is no intracranial hemorrhage. There are no findings of an acute ischemic infarction. Normal visualized paranasal sinuses. CT/Brain/Head without Contrast IMPRESSION: Normal unenhanced CT scan of the brain. Electronically Signed: Jourdan Sykes, at 11:47 EDT , Service support ,
--- NOTE | 2020-01-01 11:00 | EKG12_ITS ---
Test Reason : DYSRHYTHMIA Blood Pressure : / mmHG Vent. Rate : 073 BPM Atrial Rate : 073 BPM P-R Int : 154 ms QRS Dur : 092 ms QT Int : 398 ms P-R-T Axes : 025 006 015 degrees QTc Int : 438 ms Normal sinus rhythm Inferior infarct , age undetermined Abnormal ECG Confirmed by REMBERTO DALAL, MAGALI ([id number]), editor trade journal CHANA YODER ([id number]) on 01/05/2020 8:09:35 AM Referred By: MR Confirmed By:MAGALI SR MD
--- NOTE | 2020-01-01 11:11 | ED.VIS.STROK ---
History of Present Illness Chief Complaint: Numb/Ting Narrative: Patient presenting for evaluation secondary to numbness and weakness. Patient states that 2 days ago when she woke up she noted that she had numbness in the left side of her face as well as her left arm. Patient attributed to potentially being from a migraine, because when she was much younger she had migraines with some neurologic symptoms. Patient however states that she never developed the visual aura or headache that she typically does with the migraines. The numbness in the left side of her face improved but the left arm numbness has been persistent since Sunday. Patient states that today she had some resurgence of the left-sided facial numbness, and is also noticing that she has some weakness and numbness in her left leg. No visual changes. No speech difficulty. No right-sided symptoms. She is never had any prior similar episodes in the past. Review of systems otherwise negative. Past Medical History - Allergies and Home Meds Allergies/Adverse Reactions: Allergies No Known Allergies Allergy (Verified 01/01/20 10:44) Prior records reviewed: Yes Past Medical History: - - Diabetes, COPD Surgical History: - - appendectomy Smoking Status: Former smoker Alcohol: None Drugs: None - Family History Paternal Family History: Family History (Last Reviewed 11/12/19 @ 07:32 by Leeanna Mcmahan) Mother CHF (congestive heart failure) Diabetes Hypertension Father Diabetes CVA (cerebral vascular accident) Heart disease Brother Diabetes Family History: Reports: COPD, Diabetes, Heart Disease Maternal Family History: Family History (Last Reviewed 11/12/19 @ 07:32 by Leeanna Mcmahan) Mother CHF (congestive heart failure) Diabetes Hypertension Father Diabetes CVA (cerebral vascular accident) Heart disease Brother Diabetes Family History: Reports: Diabetes, Heart Disease Review of Systems All systems negative except as indicated General: Denies: Chills, Fever, Sweats Eyes: Denies: Visual changes - bilaterally, Diplopia ENT: Denies: Rhinorrhea, Sore throat Cardiovascular: Denies: Chest pain, Palpitations Respiratory: Denies: Dyspnea, Cough, Dyspnea on exertion Gastrointestinal: Denies: Abdominal pain, Nausea, Vomiting, Diarrhea, Melena, Hematochezia Genitourinary: Denies: Dysuria, Hematuria, Frequency Musculoskeletal: Denies: Back pain, Extremity Pain Skin: Denies: Rash, Wounds Neurological: Reports: Weakness, Parasthesia STROKE Vital Signs/Narrative: Vital Signs Temp Pulse Resp BP Pulse Ox 01/01/20 10:44 97.4 F L 78 17 150/76 H 95 Inital Vital Signs reviewed: Yes General: Well nourished, Well developed Head: Normocephalic, Atraumatic Eyes: Perrl, EOMI ENT: Moist mucous membranes, No rhinorrhea Neck: Supple, Nontender Cardiovascular: Regular rate, Regular rhythm, No murmurs Respiratory: No distress, CTA bilaterally, Chest nontender Abdomen: Soft, Nontender, Nondistended, Normal bowel sounds Back: Nontender, Normal Inspection Extremities: Nontender, No edema Skin: Normal color, No rash Neurological: Alert, Oriented x3, Cranial nerves II-XII grossly intact, - - NIH stroke scale is 2. There is left leg drift, and paresthesia of the left face left arm and left leg. Psychological: Normal affect Diagnostic/Tx/Re-eval - EKG Initial EKG Interpretation: - - Sinus rhythm at [address] segments normal T waves inferior Q waves are noted that were present on a prior EKG in September of last year. - Medical Decision Making Stroke Team Activated: No Patient presented secondary to left-sided numbness and weakness. NIH stroke scale was found to be 2, but the patient is outside of the window for TPA or clot retrieval. Stroke team was not activated. Stroke work-up was obtained, CT imaging of the brain was negative. EKG and lab work also found to be unremarkable. Due to the patient's persistent symptoms and the likelihood of a stroke I believe she requires admission. I discussed this with hospitalist. ED Disposition - Plan for ED Patient: Disposition: Acute Care Hospital [facility] Diagnosis: Ischemic stroke
[2020-01-01 11:24] LABS: Absolute Lymphocyte Count 1.92 X10^3/uL (0.83-4.51); Absolute Neutrophil Count 5.8 X10^3/uL (2.0-7.7); Basophil# 0.01 X10^3/uL; Basophil% 0.1 % (0-1); Hematocrit 47.2 % (37-47); Hemoglobin 15.6 g/dL (12.0-15.0); Lymphocyte # 1.92 X10^3/ul (4.0); Lymphocyte % 23.4 % (19-41); Mean Corp Hgb Conc 33.1 g/dL (32-36); Mean Corpuscular Hgb 30.2 pg (27.0-32.0); Mean Corpuscular Volume 91.3 fL (81-99); Mean Platelet Vol. 8.9 fl (6.2-12.0); Monocyte# 0.43 X10^3/uL; Monocyte% 5.2 % (0-10); NRBC Flagged by Analyzer 0 % (0-5); Neutrophil # 5.82 X10^3/uL (2.7-7.7); Neutrophil % 70.9 % (47-70); Platelet Count 342 K/mm3 (150-450); RBC Distribution Width CV 13.1 % (11.6-14.6); RBC Distribution Width SD 43.3 fl (35.1-43.9); Red Blood Count 5.17 M/mm3 (4.2-5.4); White Blood Count 8.2 K/mm3 (4.4-11.0)
[2020-01-01 11:35] LABS: International Normalized Ratio 0.9; Prothrombin Time (Protime)PT. 12.1 SECONDS (11.7-14.9)
--- NOTE | 2020-01-01 11:35 | RAD_ITS ---
STUDY: X-RAY CHEST REASON FOR EXAM: Female, 54 years old. Weakness in left hand and arm since Sunday. Hx of migraines. TECHNIQUE: Single AP portable view of the chest. COMPARISON: Comparison is made with prior study dated September 24, 2018. FINDINGS: EKG electrodes are seen. Hyperinflation. Decreased bronchovascular markings in the upper lobes suggestive of emphysematous changes. There is no demonstrated pleural abnormality. Normal size heart. Normal mediastinum and kenny. Normal visualized pulmonary arteries. There is atherosclerotic tortuosity of the aortic arch and descending thoracic aorta. Normal visualized thoracic spine. Normal visualized ribs, clavicles, and shoulders. There is no demonstrated abnormality of the visualized soft tissue structures of the upper abdomen. RAD/Chest 1 View IMPRESSION: Hyperinflation. Emphysematous changes in the upper lobes. Electronically Signed: Jourdan Sykes, at 12:00 EDT , Service support ,
[2020-01-01 11:36] LABS: Partial Thromboplast Time 23.8 Seconds (24.1-36.2)
[2020-01-01 11:44] LABS: Anion Gap 7 (5-15); BUN 17 mg/dL (7-18); BUN/Creat Ratio 17.9 RATIO (10-20); Calcium,Total 9.4 mg/dL (8.5-10.1); Chloride 107 mmol/L (98-107); Creatinine, Serum 0.95 mg/dL (0.55-1.02); EST Glomerular Filtration Rate 65 mL/min (>60); Est Glom Filt Rate - Afr Amer 78 mL/min (>60); Estimated Creatinine Clearance 62.64 ml/min; Glucose 138 mg/dL (74-106); Potassium 4.1 mmol/L (3.5-5.1); Sodium Level 138 mmol/L (136-145)
--- NOTE | 2020-01-01 12:28 | ECHOD_ITS ---
Reason For Study: TIA/CVA Procedure This was a 2D Doppler, Color Flow transthoracic echocardiogram. Exam performed portable in patient room. Left Ventricle Normal size and thickness. The estimated ejection fraction is 65 %. Stage 1 diastolic dysfunction. No regional wall motion abnormalities noted. Right Ventricle Normal size and thickness. Normal systolic function. Atria Normal left atrium. Normal right atrium. Normal atrial septum. Bubble contrast study negative for right to left interatrial shunt. Mitral Valve The mitral valve is structurally normal. No prolapse or stenosis seen. Tricuspid Valve Normal tricuspid valve. Unable to estimate RV systolic pressure due to insufficient tricuspid regurgitant envelope. Aortic Valve Normal aortic valve. Trisinus/trileaflet aortic valve. Pulmonic Valve Normal pulmonic valve. Great Vessels Normal aortic root. Normal arch. Normal inferior vena cava. Inferior vena cava collapse with sniff. Pericardium/Pleural No pericardial effusion. Medication Performed a rapid injection of agitated mix of 9 cc saline and 1cc air to assess for atrial septal defect. MMode/2D Measurements & Calculations LVIDd: 4.5 cm IVSd: 0.93 cm Ao root diam: 3.2 cm LVIDs: 3.0 cm LVPWd: 1.1 cm RVDd: 2.6 cm FS: 33.2 % LAV(MOD-bp): 34.0 ml LVAd ap4: 23.9 cm2 SV(MOD-sp4): 42.5 ml LAV(MOD-bp) Indexed: 15.9 ml/m2 EDV(MOD-sp4): 57.6 ml LAV(MOD-sp2): 36.3 ml EDV(sp4-el): 59.4 ml LAV(MOD-sp4): 30.3 ml LVAs ap4: 10.8 cm2 ESV(MOD-sp4): 15.1 ml ESV(sp4-el): 15.1 ml EF(MOD-sp4): 73.8 % EF(sp4-el): 74.6 % SV(sp4-el): 44.3 ml LA A4 area: 14.0 cm2 LA dimension(2D): 3.6 cm RA A4 area: 10.3 cm2 Doppler Measurements & Calculations MV E max ender: 61.1 cm/sec Lat Peak E' Ender: 13.0 cm/sec Med Peak E' Ender: 8.1 cm/sec MV A max ender: 81.5 cm/sec E/E' lat: 4.7 E/E' med: 7.6 MV E/A: 0.75 Ao V2 max: 137.0 cm/sec LV V1 max: 108.0 cm/sec PA V2 max: 84.7 cm/sec Ao max P.5 mmHg LV V1 max P.7 mmHg Ao V2 mean: 100.2 cm/sec Ao mean P.3 mmHg Ao V2 VTI: 27.8 cm Interpretation Summary The estimated ejection fraction is 65 %. Stage 1 diastolic dysfunction. Bubble contrast study negative for right to left interatrial shunt. Compared to echo report dated 10/14/2018, no appreciable changes noted. Ordering Physician: Wali Zhou Referring Physician: Silviano Knox Performed By: Yadira Malcolm, ALEJANDRA, RVT
--- NOTE | 2020-01-01 17:18 | HP.PCM_ITS ---
History of Present Illness Date of Admission: 01/01/20 Chief Complaint: Left sided numbness/tingling The patient is a 54 year old F with a. She is below presents with left-sided numbness and tingling. She says a couple of days ago she first noticed a left- sided numbness in her arm and then she noticed it a little bit in her face and she says that her left face sometimes feels like his cath slide off. She thinks that yesterday she may have started developing some left lower extremity numbness but she really noticed it today with some weakness. She presented to the ER today for evaluation, and CT scan was unremarkable of her brain, but her NIH was at 2. She says that initially she thought that it might of been a migraine because she used to get numbness and tingling as a kid with her migraines however she had no other auras and a headache. She does have a significant family history of multiple strokes in her father and her grandmother on her father's side. She states that the numbness and the tingling is about the same as it was at home. Past Medical History Past Medical History (Chronic Problems): Chronic Problems (Last Reviewed 11/12/19 @ 07:32 by Leeanna Mcmahan) Severe asthma (Chronic) Obesity (BMI 30-39.9) (Chronic) Stage 1 mild COPD by GOLD classification (Chronic) Chronic seasonal allergic rhinitis (Chronic) COPD (Chronic) diabetes mellitus type II (Chronic) Sleep apnea, obstructive (Chronic) Medical History: Medical History (Last Reviewed 11/12/19 @ 07:32 by Leeanna Mcmahan) Dyspnea (Acute) R06.00 Palpitations (Acute) R00.2 Wheezing (Acute) R06.2 COPD (Chronic) diabetes mellitus type II (Chronic) Sleep apnea, obstructive (Chronic) G47.33 Acute bronchitis due to infection (Acute) J20.8 Allergies No Known Allergies Allergy (Verified 01/01/20 10:44) Home Medications: Ambulatory Orders Medication Instructions Recorded Albuterol IH (ProAir) [Proair Hfa] 2 puff INHALATION Q4H PRN PRN 10/21/15 Budesonide/Formoterol 160/4.5 2 puff INHALATION BID 10/21/15 [Symbicort 160/4.5 Mcg Inhaler (SP)] Calcium (Elemental) [Os-Shimon 500] 1,000 mg PO DAILY@0800 10/21/15 Cholecalciferol (VIT D3) [Vitamin 2,000 unit PO DAILY 10/21/15 D3] Lorazepam [Ativan] 0.5 mg PO TID PRN PRN 10/21/15 Metformin HCl [Metformin HCl ER] 500 mg PO DAILY 10/21/15 Montelukast Sodium [Singulair] 10 mg PO DAILY 10/21/15 [place]-3 Fatty Acids/Fish Oil [Fish 2 ea PO DAILY 10/21/15 Oil 1,000 mg Capsule] Pantoprazole Sodium [Protonix] 40 mg PO DAILY 10/21/15 Tiotropium [place] [Spiriva 18 MCG] 2 puff INHALATION DAILY 10/21/15 albuterol sulfate 2.5 mg INHALATION .QID ml 06/07/17 multivitamin,ie-kjyx-fuxydkes 1 tab PO DAILY 06/07/17 fluticasone propionate 50 2 spray INTRANASAL QDAY #16 g 07/29/18 mcg/actuation nasal spray,suspension ipratropium 0.5 mg-albuterol 3 mg 3 ml INHALATION Q4H PRN PRN #180 ml 09/26/18 (2.5 mg base)/3 mL nebulization soln alendronate 70 mg tablet 70 mg PO QWEEK 02/17/19 benralizumab 30 mg/mL subcutaneous 30 mg SC Q8W #1 ml 12/31/19 syringe Azelastine HCl 1 spray INTRANASAL DAILY 01/01/20 Surgical History: Surgical History (Last Reviewed 11/12/19 @ 07:32 by Leeanna Mcmahan) H/O pulmonic valvulotomy (Resolved) Z98.890 History of appendectomy (Resolved) Z98.890, Z90.49 Surgical History: - - appendectomy Psychiatric History: No pertinent psych hx 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 Smoking Status: Former smoker Tobacco Use: Non-smoker Alcohol: None Drugs: None - *Family History Paternal Family History: Family History (Last Reviewed 11/12/19 @ 07:32 by Leeanna Mcmahan) Mother CHF (congestive heart failure) Diabetes Hypertension Father Diabetes CVA (cerebral vascular accident) Heart disease Brother Diabetes History Items: COPD, Diabetes, Heart Disease Maternal Family History: Family History (Last Reviewed 11/12/19 @ 07:32 by Leeanna Mcmahan) Mother CHF (congestive heart failure) Diabetes Hypertension Father Diabetes CVA (cerebral vascular accident) Heart disease Brother Diabetes History Items: Diabetes, Heart Disease Review of Systems Constitutional: Denies: Chills, Fever, Weight Change HEENT: Denies: Head Aches, Sinus Congestion, Sinus Drainage Cardiovascular: Denies: Chest Pain, Palpitations Respiratory: Denies: Cough, Shortness of breath at rest, Sputum production Gastrointestinal: Denies: Abdominal Pain, Nausea, Vomiting Genitourinary: Denies: Dysuria Musculoskeletal: Denies: Joint Pain, Joint Tenderness Skin: Denies: Rash, Wounds Neurological: Reports: Focal weakness - Left lower extremity, Numbness, Tingling Psychiatric: Denies: Anxiety, Depression, Homicidal Ideations, Suicidal Ideations Hematologic/ Lymphatic: Denies: Easy Bruising, Easy Bleeding VTE Information - Inpt Only VTE Present on Admission: No Patient Problems: Active and Suspected Problems (Last Reviewed 11/12/19 @ 07:32 by Leeanna Mcmahan) Ischemic stroke (Acute) - Physical Exam Vitals/I&O's: Vital Signs Temp Pulse Resp BP Pulse Ox 97.9 F 83 16 138/69 H 94 01/01/20 17:16 01/01/20 17:16 01/01/20 17:16 01/01/20 17:16 01/01/20 17:16 Oxygen Delivery Method Room Air Weight: 234 lb 12.677 oz Body Mass Index (BMI) 39.0 Finger Stick Blood Glucose 138 General: Alert, Oriented x3, Cooperative, No apparent distress HEENT: Atraumatic, PERRLA, EOMI, Normocephalic Oral: Moist Mucosa Neck: Supple, No JVD Lungs: Clear to auscultation, Normal air movement, No rhonchi, No wheeze, No rales, Diminished Cardiovascular: Regular rate, Regular Rhythm, Normal S1, Normal S2, No murmurs Abdomen: Soft, Non Tender, Non-Distended, No Hepato-splenomegaly, Obese Extremities: No edema, Capillary Refill Less than 3 Seconds Skin: No rashes, No breakdown Neurological: Cranial nerves II-XII grossly intact, Deep Tendon Reflexes 2+/4 and Symmetrical, Motor Exam 5/5 strength throughout - Strength is 4-5 on the left lower extremity but 5 out of 5 everywhere else, Sensory exam intact to light touch and pain - She does have some diminished sensation in her face as well as her left upper extremity however her lower extremity is the same on both sides Psych/Mental Status: Normal Affect, Appropriate Laboratory Results 01/01/20 11:15: WBC 8.2, RBC 5.17, Hgb 15.6 H, Hct 47.2 H, MCV 91.3, MCH 30.2, MCHC 33.1, RDW Std Deviation 43.3, RDW Coeff of Shantel 13.1, Plt Count 342, MPV 8.9, Immature Gran % (Auto) 0.400, Neut % (Auto) 70.9 H, Lymph % (Auto) 23.4, Tripp % (Auto) 5.2, Eos % (Auto) 0.0, Baso % (Auto) 0.1, Absolute Neuts (auto) 5.8, Absolute Lymphs (auto) 1.92, Nucleated RBC % 0 01/01/20 11:15: PT 12.1, INR 0.9, APTT 23.8 L 01/01/20 11:15: Sodium 138, Potassium 4.1, Chloride 107, Carbon Dioxide 24.0, Anion Gap 7, BUN 17, Creatinine 0.95, Estim Creat Clear Calc 62.64, Est GFR (MDRD) Af Amer 78, Est GFR (MDRD) Non-Af 65, BUN/Creatinine Ratio 17.9, Glucose 138 H, Calcium 9.4, Troponin I < 0.015 Current Medications Acetaminophen (Tylenol) 650 mg PO Q6H PRN PRN PRN Reason: Pain Score 1-10/Temp > 100.7 F Aspirin (Aspirin, Baby) 81 mg PO DAILY@0800 [facility] Atorvastatin Calcium (Lipitor) 80 mg PO QHS [facility] Dextrose (D50w Syringe) 0 gm IV X1 PRN; Protocol PRN Reason: Hypoglycemia Enoxaparin Sodium (Lovenox) 40 mg SC DAILY [facility] Glucagon () 1 mg IM .X1 PRN PRN Reason: Hypoglycemia Hydralazine HCl (Apresoline Iv) 5 mg IV Q30M PRN PRN Reason: to maintain BP goals Insulin Human Lispro (Humalog Kwikpen (Bkc)) 0 unit SC ACHS [facility]; Protocol Labetalol HCl (Trandate) 10 - 20 mg IV Q10M PRN PRN PRN Reason: to maintain BP goals Melatonin (Melatonin) 3 mg PO QHS PRN PRN PRN Reason: INSOMNIA Sodium Chloride () 10 - 40 ml IV UD PRN PRN Reason: SALINE FLUSH Assessment/Plan All Active Problems (Last Reviewed 11/12/19 @ 07:32 by Leeanna Mcmahan) Ischemic stroke (Acute) Cough (Acute) COPD with acute exacerbation (Acute) H/O pulmonic valvulotomy (Resolved) History of appendectomy (Resolved) Dyspnea (Acute) Palpitations (Acute) Wheezing (Acute) Acute bronchitis due to infection (Acute) 1. Acute right-sided CVA/morbid obesity -The first time she had anything like this -CT of the brain was negative, MRIs of the head and neck and brain are pending -Echo with an EF of 65% and stage I diastolic dysfunction -We will start her on aspirin as well as a statin -N.p.o. until cleared -PT/OT for further evaluation and possible placement if necessary -She is extremely claustrophobic therefore 1 mg of Ativan is available if necessary to be able to get the MRIs -BMI of 39, discussed lifestyle modification. She did quit smoking 17 years ago 2. COPD -Currently not in exacerbation -Continue with her home inhalers -She has been fairly stable with her benralizumab injections which she started in July 3. DM 2 -We will hold her metformin and place her on a sliding scale insulin -Accu-Cheks AC at bedtime 4. GERD -Stable -Continue with PPI 5. Osteoporosis -Stable -She is on alendronate every week last dose was 12/28/2019 DVT: Lovenox OBSV E&M: [id number] Initial observation care L3
[2020-01-01 18:11] LABS: Bedside Glucose 113 mg/dL (70-110)
[2020-01-01] MEDS: LORazepam 2 MG/ML Syringe 1 MG IV (18:38)
[2020-01-01] MEDS: Pantoprazole Sodium 40 MG Tablet PO (21:28)
[2020-01-01] MEDS: Montelukast 10 MG Tablet PO (21:29)
[2020-01-01] MEDS: Atorvastatin Calcium 80 MG Tablet PO (21:29)
[2020-01-01 22:30] LABS: Bedside Glucose 128 mg/dL (70-110)
--- NOTE | 2020-01-01 23:31 | CPS ---
pt has bipap at home but did not want to wear ours. 2L nasal o2 applied for bedtime.
[2020-01-02] VITALS (10 sets, daily range): BP systolic 104–135; BP diastolic 45–69; PULSE 54–76; RESP 16–18; TEMP 36.5–37.2; O2SAT 92–98; BMI 39.0
[2020-01-02 06:18] LABS: Absolute Lymphocyte Count 2.64 X10^3/uL (0.83-4.51); Absolute Neutrophil Count 4.8 X10^3/uL (2.0-7.7); Basophil# 0.01 X10^3/uL; Basophil% 0.1 % (0-1); Hematocrit 45.9 % (37-47); Hemoglobin 15.2 g/dL (12.0-15.0); Lymphocyte # 2.64 X10^3/ul (4.0); Lymphocyte % 33.2 % (19-41); Mean Corp Hgb Conc 33.1 g/dL (32-36); Mean Corpuscular Hgb 30.8 pg (27.0-32.0); Mean Corpuscular Volume 93.1 fL (81-99); Monocyte# 0.53 X10^3/uL; Monocyte% 6.7 % (0-10); NRBC Flagged by Analyzer 0 % (0-5); Neutrophil # 4.75 X10^3/uL (2.7-7.7); Neutrophil % 59.6 % (47-70); Platelet Count 303 K/mm3 (150-450); RBC Distribution Width CV 13.4 % (11.6-14.6); RBC Distribution Width SD 45.5 fl (35.1-43.9); Red Blood Count 4.93 M/mm3 (4.2-5.4)
[2020-01-02 06:46] LABS: Bedside Glucose 121 mg/dL (70-110)
[2020-01-02] MEDS: Albuterol 2.5 MG/3 ML VIAL.NEB. INHALATION ×2 (06:55→11:40)
[2020-01-02] MEDS: Budesonide Respules 0.5 MG/2 ML AMPUL.NEB. INHALATION (06:55)
[2020-01-02 07:02] LABS: Anion Gap 7 (5-15); BUN 17 mg/dL (7-18); Calcium,Total 8.4 mg/dL (8.5-10.1); Chloride 109 mmol/L (98-107); Cholesterol 220 mg/dL (200); Creatinine, Serum 0.94 mg/dL (0.55-1.02); EST Glomerular Filtration Rate 66 mL/min (>60); Est Glom Filt Rate - Afr Amer 79 mL/min (>60); Estimated Creatinine Clearance 60.85 ml/min; Glucose 111 mg/dL (74-106); High Density Lipoprotein 56 mg/dL; Sodium Level 139 mmol/L (136-145); Triglycerides 177 mg/dL; Very Low Density Lipoprotein 35 mg/dL (5-40)
[2020-01-02] MEDS: diazePAM 5 MG Tablet PO (08:10)
[2020-01-02] MEDS: Azelastine HCl NASAL.SRY 1 SPRAY NASAL (08:21)
[2020-01-02] MEDS: Aspirin 81 MG TAB.CHEW PO (08:21)
[2020-01-02] MEDS: Enoxaparin 40 MG/0.4 ML Syringe SC (08:21)
[2020-01-02] MEDS: Fluticasone 0.05% 1 SPRAY NASAL.SRY 2 SPRAY NASAL (08:22)
[2020-01-02] MEDS: LORazepam 2 MG/ML Syringe IV (08:30)
[2020-01-02] MEDS: 0.9% Saline Lock 10 ML Syringe IV (08:31)
--- NOTE | 2020-01-02 09:00 | MRI_ITS ---
STUDY: MRA OF THE HEAD WITHOUT CONTRAST REASON FOR EXAM: Female, 54 years old. stroke, N/T left face and hands since 12/30/2019. stroke, N/T left face and hands since 12/30/2019 TECHNIQUE: 3-D cyej-hg-iagvol (TOF) imaging was performed with MIPs. The study was performed unenhanced. COMPARISON: None. FINDINGS: Patent right cavernous carotid artery. Patent left cavernous carotid artery. Patent right A1 segments of the anterior cerebral artery. Patent left A1 segments of the anterior cerebral artery. Unremarkable anterior communicating artery (ACOM) region. Normal bilateral A2 segments of the anterior cerebral arteries. Patent right M1 and M2 segments of the middle cerebral arteries, with a unremarkable M1 bifurcation. Patent left M1 and M2 segments of the middle cerebral arteries, with a unremarkable M1 bifurcation. There is non-visualization of the right posterior communicating artery (PCOM). There is non-visualization of the left posterior communicating artery (PCOM). Patent basilar artery with a normal basilar bifurcation. Patent bilateral posterior cerebral arteries. MRI/MRA Head ONLY without Contrast IMPRESSION: No large vessel occlusion Electronically Signed: Emy Sprague MD at 12:00 EDT Tel , Service support ,
--- NOTE | 2020-01-02 09:00 | MRI_ITS ---
STUDY: MRI BRAIN WITHOUT CONTRAST REASON FOR EXAM: Female, 54 years old. stroke, N/T left face and hands since 12/30/2019 TECHNIQUE: Standardized multiplanar fat and water weighted pulse sequences were obtained. COMPARISON: None. FINDINGS: Normal size of the ventricles and extra-axial spaces for the patient''s age. Normal white matter tracts of the supratentorial brain. Normal bilateral basal ganglia. Normal thalami. There is no extra-axial fluid accumulation. Normal flow voids within the major intracranial circulation suggesting patency by spin echo criteria. Normal sella turcica, pituitary gland, infundibular stalk, optic chiasm and hypothalamus. Normal tectal plate and pineal gland. Normal midbrain, herman and medulla. Normal cerebellum. Normal basal cisterns. Normal bilateral temporal bones. MRI/Brain without Contrast IMPRESSION: Unremarkable unenhanced MRI of the brain. Electronically Signed: Emy Sprague MD at 11:59 EDT Tel , Service support ,
--- NOTE | 2020-01-02 09:00 | MRI_ITS ---
STUDY: MRA NECK WITH AND WITHOUT CONTRAST REASON FOR EXAM: Female, 54 years old. stroke, N/T left face and hands since 12/30/2019 TECHNIQUE: 3-D wdki-uf-nhwwsv (TOF) imaging was performed in an 1.5 T MRI scanner. 19ml Dotarem via IV was administered for the contrast enhanced images. COMPARISON: None. FINDINGS: Evaluation is degraded by motion artifact. RIGHT CAROTID ARTERIES: Antegrade flow within the right common carotid artery (CCA). Antegrade flow within the right carotid bulb. Antegrade flow within the right internal carotid (ICA) artery. Antegrade flow within the visualized cervical portion of the right internal carotid artery. LEFT CAROTID ARTERIES: Antegrade flow within the left common carotid artery (CCA). Antegrade flow within the left common carotid bulb. Antegrade flow within the origin of the left internal carotid (ICA) artery. Antegrade flow within the visualized cervical portion of the left internal carotid artery. VERTEBRAL ARTERIES: Antegrade flow within the bilateral vertebral artery. MRI/MRA Neck WITH and W/O Contrast IMPRESSION: No demonstrated occlusion Electronically Signed: Emy Sprague MD at 12:02 EDT Tel , Service support ,
--- NOTE | 2020-01-02 12:34 | DCINST_ITS ---
- Discharge Diagnoses Current Active Problems: Current Active and Chronic Problems (Last Reviewed 11/12/19 @ 07:32 by Leeanna Mcmahan) Ischemic stroke (Acute) You will use the following diet at home:: Cardiac Your food should be the consistency of: Regular Your liquids should be the consistency of: Regular/Thin Discharge Activity: Return to Normal Activity Call your doctor if you observe: Fever of 101 or Higher, Shortness of breath, Dizziness, Fainting spells, Swelling in the ankles, Chest pain, Increased palpitations (irregular heartbeat) Allergies/Adverse Reactions: Allergies No Known Allergies Allergy (Verified 01/01/20 10:44) Medications to take at Discharge Albuterol IH (ProAir) [Proair Hfa] 2 puff INHALATION Q4H PRN PRN 10/21/15 Budesonide/Formoterol 160/4.5 [Symbicort 160/4.5 Mcg Inhaler (SP)] 2 puff INHALATION BID 10/21/15 Calcium (Elemental) [Os-Shimon 500] 1,000 mg PO DAILY@0800 10/21/15 Cholecalciferol (VIT D3) [Vitamin D3] 2,000 unit PO DAILY 10/21/15 Lorazepam [Ativan] 0.5 mg PO TID PRN PRN 10/21/15 Metformin HCl [Metformin HCl ER] 500 mg PO DAILY 10/21/15 Montelukast Sodium [Singulair] 10 mg PO DAILY 10/21/15 [place]-3 Fatty Acids/Fish Oil [Fish Oil 1,000 mg Capsule] 2 ea PO DAILY 10/21/15 Pantoprazole Sodium [Protonix] 40 mg PO DAILY 10/21/15 Tiotropium [place] [Spiriva 18 MCG] 2 puff INHALATION DAILY 10/21/15 albuterol sulfate 2.5 mg INHALATION .QID ml 06/07/17 multivitamin,mb-bnpu-nyxnllvt 1 tab PO DAILY 06/07/17 fluticasone propionate 50 mcg/actuation nasal spray,suspension 2 spray INTRANASAL QDAY #16 g 07/29/18 ipratropium 0.5 mg-albuterol 3 mg (2.5 mg base)/3 mL nebulization soln 3 ml INHALATION Q4H PRN PRN #180 ml 09/26/18 alendronate 70 mg tablet 70 mg PO QWEEK 02/17/19 benralizumab 30 mg/mL subcutaneous syringe 30 mg SC Q8W #1 ml 12/31/19 Azelastine HCl 1 spray INTRANASAL DAILY 01/01/20 Aspirin [Aspirin, Baby] 81 mg PO DAILY@0800 #30 tab.chew 01/02/20 Atorvastatin Calcium [Lipitor] 80 mg PO QHS #30 tab 01/02/20 The following prescriptions were given: Aspirin [Aspirin, Baby] 81 mg PO DAILY@0800 #30 tab.chew Transmission Status: Pending to [facility] Atorvastatin Calcium [Lipitor] 80 mg PO QHS #30 tab Transmission Status: Pending to [facility] Primary Care Physician: Gonsalo Knox MD [Primary Care Provider] - Please follow up with your Primary Care Physician in: 3-5 days Test Results: Test results from this visit will be discussed in further detail at your follow- up appointment, if applicable. Please Follow Up With: Eduardo Olson MD When: 1 month
--- NOTE | 2020-01-02 12:54 | PCM.DC.SUM ---
Discharge Date and Diagnosis - Problem List Patient Problems: Active and Suspected Problems (Last Reviewed 11/12/19 @ 07:32 by Leeanna Mcmahan) Ischemic stroke (Acute) Date of Admission: 01/01/20 Date of Discharge: 01/02/20 - Primary Discharge Diagnosis Acute Problems: Active Problems (Last Reviewed 11/12/19 @ 07:32 by Leeanna Mcmahan) Ischemic stroke (Acute) - Secondary Discharge Diagnosis Chronic Problems: Chronic Problems (Last Reviewed 11/12/19 @ 07:32 by Leeanna Mcmahan) Severe asthma (Chronic) Obesity (BMI 30-39.9) (Chronic) Stage 1 mild COPD by GOLD classification (Chronic) Chronic seasonal allergic rhinitis (Chronic) COPD (Chronic) diabetes mellitus type II (Chronic) Sleep apnea, obstructive (Chronic) Hospital Course and Treatment Imaging Results: CT Brain: IMPRESSION: Normal unenhanced CT scan of the brain. MRI Brain: IMPRESSION: Unremarkable unenhanced MRI of the brain. MRA Head: IMPRESSION: No large vessel occlusion MRA Neck: IMPRESSION: No demonstrated occlusion Echo: Interpretation Summary The estimated ejection fraction is 65 %. Stage 1 diastolic dysfunction. Bubble contrast study negative for right to left interatrial shunt. Compared to echo report dated 10/14/2018, no appreciable changes noted. Consults: None Operations: None Procedures: 2-D Echocardiogram Summary of Care Provided: Per HPI: The patient is a 54 year old F with a. She is below presents with left-sided numbness and tingling. She says a couple of days ago she first noticed a left-sided numbness in her arm and then she noticed it a little bit in her face and she says that her left face sometimes feels like his cath slide off. She thinks that yesterday she may have started developing some left lower extremity numbness but she really noticed it today with some weakness. She presented to the ER today for evaluation, and CT scan was unremarkable of her brain, but her NIH was at 2. She says that initially she thought that it might of been a migraine because she used to get numbness and tingling as a kid with her migraines however she had no other auras and a headache. She does have a significant family history of multiple strokes in her father and her grandmother on her father's side. She states that the numbness and the tingling is about the same as it was at home. Hospital Course: 1. Likely acute right-sided CVA/morbid [id number] female presents with left-sided numbness and tingling in her face arm and leg. She also has some leg weakness with drift. Initially in the ER she had an NIH of [address] for [address] of the brain which was unremarkable. She was started on aspirin and a statin, lipid panel showed an LDL of 129 and a cholesterol over 200. She says that her symptoms are little bit better today and that the tingling has pretty much resolved though she still has some numbness. She does not have any weakness in her upper extremity and there is no facial weakness either. MRIs were negative for any occlusion or even evidence of a stroke however her symptoms are highly consistent with a stroke therefore will have her follow-up with neurology as an outpatient. She also had an echo during her admission which was unremarkable with an EF of 65%. I did discuss the possibility of having neurology see her while here in the hospital but she did not feel like it would be necessary as her symptoms were improving. She will need outpatient therapy if symptoms persist and therefore we will discharge her with a prescription for outpatient therapy. Also given her BMI of 39 we did discuss lifestyle modifications in terms of decreasing her risk of future strokes, she did quit smoking 17 years ago weight loss should also be doable for her. I discussed with her the risk benefits of discharge and she expressed understanding. 2. Her other diagnosis of COPD, DM 2, GERD, and osteoporosis were all evaluated and her home medications were continued where appropriate. These will all complicate her care Patient Problems: Active and Suspected Problems (Last Reviewed 11/12/19 @ 07:32 by Leeanna Mcmahan) Ischemic stroke (Acute) - Physical Exam Vitals/I&O's: Vital Signs Temp Pulse Resp BP Pulse Ox 97.8 F 68 18 112/59 L 94 01/02/20 11:54 01/02/20 11:54 01/02/20 11:54 01/02/20 11:54 01/02/20 11:54 Oxygen Flow Rate (L/min) 1 Oxygen Delivery Method Room Air Weight: 234 lb 12.677 oz Body Mass Index (BMI) 39.0 Finger Stick Blood Glucose 138 Intake and Output for Last 24 Hours 12/31/19 01/01/20 01/02/20 23:59 23:59 23:59 Intake Total 720 / 720 240 / 240 Balance 720 / 720 240 / 240 General: Alert, Oriented x3, Cooperative, No apparent distress HEENT: Atraumatic, PERRLA, EOMI, Normocephalic Oral: Moist Mucosa Neck: Supple, No JVD Lungs: Clear to auscultation, Normal air movement, No rhonchi, No wheeze, No rales, Diminished Cardiovascular: Regular rate, Regular Rhythm, Normal S1, Normal S2, No murmurs Abdomen: Soft, Non Tender, Non-Distended, No Hepato-splenomegaly, Obese Extremities: No edema, Capillary Refill Less than 3 Seconds Skin: No rashes, No breakdown Neurological: Cranial nerves II-XII grossly intact, Deep Tendon Reflexes 2+/4 and Symmetrical, Motor Exam 5/5 strength throughout - Strength is 4/5 on the left lower extremity but 5 out of 5 everywhere else, Sensory exam intact to light touch and pain - She does have some diminished sensation in her face as well as her left upper extremity however her lower extremity is the same on both sides Psych/Mental Status: Normal Affect, Appropriate Laboratory Results 01/01/20 17:13: POC Glucose 113 H 01/01/20 21:15: POC Glucose 128 H 01/02/20 05:40: WBC 8.0, RBC 4.93, Hgb 15.2 H, Hct 45.9, MCV 93.1, MCH 30.8, MCHC 33.1, RDW Std Deviation 45.5 H, RDW Coeff of Shantel 13.4, Plt Count 303, MPV 9.0, Immature Gran % (Auto) 0.400, Neut % (Auto) 59.6, Lymph % (Auto) 33.2, [place] % (Auto) 6.7, Eos % (Auto) 0.0, Baso % (Auto) 0.1, Absolute Neuts (auto) 4.8, Absolute Lymphs (auto) 2.64, Nucleated RBC % 0 01/02/20 05:40: Sodium 139, Potassium 4.0, Chloride 109 H, Carbon Dioxide 23.0, Anion Gap 7, BUN 17, Creatinine 0.94, Estim Creat Clear Calc 60.85, Est GFR (MDRD) Af Amer 79, Est GFR (MDRD) Non-Af 66, BUN/Creatinine Ratio 18.0, Glucose 111 H, Calcium 8.4 L, Triglycerides 177, Cholesterol 220 H, LDL Cholesterol 129, VLDL Cholesterol 35, HDL Cholesterol 56 01/02/20 06:40: POC Glucose 121 H Current Medications Acetaminophen (Tylenol) 650 mg PO Q6H PRN PRN PRN Reason: Pain Score 1-10/Temp > 100.7 F Albuterol Sulfate (Ventolin Aerosols) 2.5 mg INHALATION 4X/DAY.RT [facility] Last Admin: 01/02/20 11:40 Dose: 2.5 mg Documented by: Albuterol/Ipratropium (Duoneb) 3 ml INHALATION Q4H PRN PRN PRN Reason: SOB &/OR WHEEZING Aspirin (Aspirin, Baby) 81 mg PO DAILY@0800 [facility] Last Admin: 01/02/20 08:21 Dose: 81 mg Documented by: Atorvastatin Calcium (Lipitor) 80 mg PO QHS [facility] Last Admin: 01/01/20 21:29 Dose: 80 mg Documented by: Azelastine HCl (Astelin) 1 spray NASAL DAILY [facility] Last Admin: 01/02/20 08:21 Dose: 1 spray Documented by: Budesonide (Pulmicort Aerosol) 0.5 mg INHALATION Q12H.RT [facility] Last Admin: 01/02/20 06:55 Dose: 0.5 mg Documented by: Dextrose (D50w Syringe) 0 gm IV X1 PRN; Protocol PRN Reason: Hypoglycemia Enoxaparin Sodium (Lovenox) 40 mg SC DAILY [facility] Last Admin: 01/02/20 08:21 Dose: 40 mg Documented by: Fluticasone Propionate (Flonase Nasal [place]) 2 spray NASAL DAILY [facility] Last Admin: 01/02/20 08:22 Dose: 2 spray Documented by: Glucagon () 1 mg IM .X1 PRN PRN Reason: Hypoglycemia Hydralazine HCl (Apresoline Iv) 5 mg IV Q30M PRN PRN Reason: to maintain BP goals Insulin Human Lispro (Humalog Kwikpen (Bkc)) 0 unit SC ACHS [facility]; Protocol Last Admin: 01/02/20 11:53 Dose: Not Given Documented by: Labetalol HCl (Trandate) 10 - 20 mg IV Q10M PRN PRN PRN Reason: to maintain BP goals Lorazepam (Ativan) 0.5 mg PO TID PRN PRN PRN Reason: ANXIETY Melatonin (Melatonin) 3 mg PO QHS PRN PRN PRN Reason: INSOMNIA Montelukast Sodium (Singulair) 10 mg PO QPM [facility] Last Admin: 01/01/20 21:29 Dose: 10 mg Documented by: Pantoprazole Sodium (Protonix) 40 mg PO QPM [facility] Last Admin: 01/01/20 21:28 Dose: 40 mg Documented by: Sodium Chloride () 10 - 40 ml IV UD PRN PRN Reason: SALINE FLUSH Last Admin: 01/02/20 08:31 Dose: 10 ml Documented by: Discharge Activity: Return to Normal Activity Call your doctor if you observe: Fever of 101 or Higher, Shortness of breath, Dizziness, Fainting spells, Swelling in the ankles, Chest pain, Increased palpitations (irregular heartbeat) Home Medications: Medications to take at Discharge Albuterol IH (ProAir) [Proair Hfa] 2 puff INHALATION Q4H PRN PRN 10/21/15 Budesonide/Formoterol 160/4.5 [Symbicort 160/4.5 Mcg Inhaler (SP)] 2 puff INHALATION BID 10/21/15 Calcium (Elemental) [Os-Shimon 500] 1,000 mg PO DAILY@0800 10/21/15 Cholecalciferol (VIT D3) [Vitamin D3] 2,000 unit PO DAILY 10/21/15 Lorazepam [Ativan] 0.5 mg PO TID PRN PRN 10/21/15 Metformin HCl [Metformin HCl ER] 500 mg PO DAILY 10/21/15 Montelukast Sodium [Singulair] 10 mg PO DAILY 10/21/15 [place]-3 Fatty Acids/Fish Oil [Fish Oil 1,000 mg Capsule] 2 ea PO DAILY 10/21/15 Pantoprazole Sodium [Protonix] 40 mg PO DAILY 10/21/15 Tiotropium [place] [Spiriva 18 MCG] 2 puff INHALATION DAILY 10/21/15 albuterol sulfate 2.5 mg INHALATION .QID ml 06/07/17 multivitamin,dx-hssb-unkmonav 1 tab PO DAILY 06/07/17 fluticasone propionate 50 mcg/actuation nasal spray,suspension 2 spray INTRANASAL QDAY #16 g 07/29/18 ipratropium 0.5 mg-albuterol 3 mg (2.5 mg base)/3 mL nebulization soln 3 ml INHALATION Q4H PRN PRN #180 ml 09/26/18 alendronate 70 mg tablet 70 mg PO QWEEK 02/17/19 benralizumab 30 mg/mL subcutaneous syringe 30 mg SC Q8W #1 ml 12/31/19 Azelastine HCl 1 spray INTRANASAL DAILY 01/01/20 Aspirin [Aspirin, Baby] 81 mg PO DAILY@0800 #30 tab.chew 01/02/20 Atorvastatin Calcium [Lipitor] 80 mg PO QHS #30 tab 01/02/20 Following Prescrptions Were Given to Patient: Aspirin [Aspirin, Baby] 81 mg PO DAILY@0800 #30 tab.chew Transmission Status: Pending to [facility] Atorvastatin Calcium [Lipitor] 80 mg PO QHS #30 tab Transmission Status: Pending to [facility] Primary Care Physician: Gonsalo Knox MD [Primary Care Provider] - Please follow up with your Primary Care Physician in: 3-5 days Please Follow Up With: Eduardo Olson MD When: 1 month Disposition: Home Minutes spent on discharge:: 35 Patient Condition:: Stable Medical Necessity - Tobacco Use Smoking Status: Former smoker Tobacco Use: Non-smoker Meaningful Use Info Meaningful Use Diagnoses (Choose all that apply): None applicable OBSV E&M: 04434 Observation care discharge
--- NOTE | 2020-01-02 13:07 | CASEMGMT ---
SW did not complete a PHQ 9 as per MRI's patient did not have a Stroke or TIA. Ashli WHITE MSW
--- NOTE | 2020-01-02 13:19 | CASEMGMT ---
ITA PICKARD NOTE: PT/OT notes reviewed. Recommendations are for pt to have OP therapy if symptoms persist. ITA PICKARD to room to talk w/pt and discussed OP therapy/recommendations. Pt states she is not sure if she is going to want to get OP therapy yet, but would like to have a script for it, so she has it if she does decide to go. Dr Zhou made aware and script obtained and given to pt. Pt made aware she can take to any location of her choice if she chooses to go. Pt voices understanding. Bailey ROBBINSN ITA CM
[2020-01-02 16:01] LABS: Bedside Glucose 122 mg/dL (70-110)
== END 2020-01-02 12:43 | disposition home or self-care (01) ==
LOC: ED 11:50 → PCU 12:37
PROVIDERS: Admitting Provider Family Medicine; Emergency Provider Emergency Medicine; PCP Family Medicine; Visit Provider Family Medicine
DX: I63.9 Cerebral infarction, unspecified (principal); R29.702 NIHSS score 2; J44.9 Chronic obstructive pulmonary disease, unspecified; E11.9 Type 2 diabetes mellitus without complications; Z79.899 Other long term (current) drug therapy; Z79.51 Long term (current) use of inhaled steroids; Z79.84 Long term (current) use of oral hypoglycemic drugs; Z87.891 Personal history of nicotine dependence; E66.9 Obesity, unspecified; Z68.39 Body mass index [BMI] 39.0-39.9, adult; G47.33 Obstructive sleep apnea (adult) (pediatric); K21.9 Gastro-esophageal reflux disease without esophagitis; M81.0 Age-related osteoporosis without current pathological fracture; R20.0 Anesthesia of skin; R20.2 Paresthesia of skin; R53.1 Weakness
CPT/HCPCS: 36415; 70450; 70544; 70549; 70551; 71045; 80048; 80061; 82962; 84484; 85025; 85610; 85730; 92610; 93005; 93306; 94640; 94762; 96372; 96374; 96376; 97161; 97165; 97802; 97803; 99218; 99285; A9575; A4216; G0378

== ENCOUNTER → 2020-02-13 09:20 | Outpatient (CLI) | payer OTHER, SELFPAY ==
[2015-12-13 16:15] VITALS: BMI 33.1
[2019-10-02 08:43] VITALS: BMI 35.8
[2020-01-23 08:27] VITALS: BMI 39.0
--- NOTE | 2020-02-13 15:12 | PFTCOMP_ITS ---
COMPLETE PULMONARY FUNCTION TEST INTERPRETATION Brief HPI: Patient is a 54 year old female, currently under the care of myself, who presents to [facility] for complete pulmonary function tests secondary to diagnosis of asthma. Respiratory therapist reports good effort and reproducible results. Interpretation: Forced expiration spirometry shows a mild large airways obstructive ventilatory defect with an FEV1 of 72% predicted. There is no significant bronchodilator response by strict ATS criteria. Spirograms are of good quality and plateau slowly, indicating slowly emptying areas of the lungs. The respiratory flow volume loop shows decreased expiratory flow rates at all lung volumes consistent with airway obstruction. Lung volumes by body plethysmography show a normal total lung capacity at 5.7 L, 107% predicted. All other lung volumes are within normal limits. Diffusion capacity by carbon monoxide is decreased at 55% predicted. The airway resistance is normal. Compared to previous pulmonary function tests from 10/25/2018, there is been a significant improvement in air trapping and DLCO. Impression: Irreversible mild large airways obstructive ventilatory defect with reduction diffusion capacity, but some improvement compared to previous testing.
== END ==
PROVIDERS: PCP Family Medicine; Referring Provider Internal Medicine Critical Care Medicine; Visit Provider Internal Medicine Critical Care Medicine
DX: J45.50 Severe persistent asthma, uncomplicated (principal)
CPT/HCPCS: 94060; 94726; 94729

== ENCOUNTER → 2020-03-09 09:01 | Outpatient (CLI) | payer OTHER, SELFPAY ==
[2015-12-13 16:15] VITALS: BMI 33.1
[2020-03-09 08:38] VITALS: BMI 39.0
[2020-03-09 09:41] LABS: Hematocrit 44.9 % (37-47); Hemoglobin 14.9 g/dL (12.0-15.0); Mean Corp Hgb Conc 33.2 g/dL (32-36); Mean Corpuscular Hgb 29.9 pg (27.0-32.0); Mean Corpuscular Volume 90.2 fL (81-99); Platelet Count 327 K/mm3 (150-450); RBC Distribution Width CV 13.1 % (11.6-14.6); RBC Distribution Width SD 42.9 fl (35.1-43.9); Red Blood Count 4.98 M/mm3 (4.2-5.4)
[2020-03-09 10:14] LABS: Homocysteine 6.9 umol/L (3.2-10.7)
[2020-03-09 10:36] LABS: Erythrocyte Sedimentation Rate 10 mm/hr (0-30)
[2020-03-09 10:45] LABS: ALB/GLOB Ratio 1.1 RATIO (0.9-2.4); AST(SGOT) 21 U/L (15-37); Alanine Aminotransfer ALT/SGPT 53 U/L (13-56); Albumin, Serum 3.9 g/dL (3.2-5.0); Alkaline Phosphatase 75 U/L (45-117); Anion Gap 7 (5-15); BUN 16 mg/dL (7-18); Chloride 105 mmol/L (98-107); Cholesterol 171 mg/dL (200); Creatinine, Serum 0.94 mg/dL (0.55-1.02); EST Glomerular Filtration Rate 65 mL/min (>60); Est Glom Filt Rate - Afr Amer 79 mL/min (>60); Globulin 3.5 g/dL (2.2-4.2); Glucose 127 mg/dL (74-106); High Density Lipoprotein 62 mg/dL; Potassium 3.9 mmol/L (3.5-5.1); Protein, Total 7.4 g/dL (6.4-8.2); Sodium Level 138 mmol/L (136-145); Thyroid Stim Hormone (TSH) 2.49 uIU/mL (0.358-3.74); Triglycerides 136 mg/dL; Very Low Density Lipoprotein 27 mg/dL (5-40)
[2020-03-10 19:14] LABS: ANTINUCLEAR ANTIBODIES DIRECT Negative (Negative)
[2020-03-15 14:07] LABS: Complement C3 131 mg/dL (82-167); Dilute Prothrombin Time (dPT) 33.3 sec (0.0-55.0); Dilute Russell Viper Venom 34.2 sec (0.0-47.0); PTT-LA 30.8 sec (0.0-51.9); Thrombin Time 20.2 sec (0.0-23.0); dPT Confirm Ratio 0.99 Ratio (0.00-1.40)
[2020-03-15 20:53] LABS: Complement CH50 > 60 U/mL (>41); Protein C, Functional 128 % (73-180); Protein S, Free 129 % (57-157); Protein S, Funtional 133 % (63-140); Protein S, Total 107 % (60-150)
[2020-03-15 20:54] LABS: Anti-Cardiolipin Ab, IgA, Qn < 9 APL U/mL (0-11); Anti-Cardiolipin Ab, IgG, Qn < 9 GPL U/mL (0-14); Anti-Cardiolipin Ab, IgM, Qn < 9 MPL U/mL (0-12); Anti-Thrombin 3 AG, Immunol 99 % (72-124); Antithrombin 3 Function 107 % (75-135); Interpretation Comment: (.)
== END ==
PROVIDERS: PCP Family Medicine; Referring Provider Psychiatry & Neurology Neurology; Visit Provider Psychiatry & Neurology Neurology
DX: I63.9 Cerebral infarction, unspecified (principal); E11.9 Type 2 diabetes mellitus without complications
CPT/HCPCS: 36415; 80053; 80061; 81240; 81241; 83090; 84443; 85027; 85300; 85301; 85303; 85305; 85306; 85652; 86038; 86147; 86160; 86162; 86225; 86235

== ENCOUNTER → 2020-03-29 13:07 | Outpatient (CLI) | payer OTHER, SELFPAY ==
[2015-12-13 16:15] VITALS: BMI 33.1
[2020-03-09 08:38] VITALS: BMI 39.0
[2020-03-19 09:14] VITALS: BMI 37.7
--- NOTE | 2020-03-29 15:21 | NEURO_ITS ---
NCS and/or EMG Patient Report Ordering Doctor: Jose Cortes DATE OF SERVICE: 03/29/20 Indication: Several months of worsening numbness in digits 4/5 of the left hand. 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 Evaluate for nerve entrapment. Findings: Nerve conduction studies were performed in the left upper extremity. The left me dio motor study recording the abductor pollicis brevis showed a normal amplitude, normal distal latency and normal conduction velocity. The left ulnar motor study recording the abductor digiti minimi showed a reduced amplitude, normal distal latency and normal conduction velocity. No conduction block or focal slowing was present across the elbow. The left ulnar motor study recording the first dorsal interosseous showed a normal amplitude, normal distal latency and normal conduction velocity in the forearm. Focal slowing was present across the elbow. The left median sensory response recording digit two showed a normal amplitude, prolonged latency and slowed conduction velocity. The left ulnar sensory response recording digit five was absent. The left radial sensory response recording over the extensor snuff box showed a normal amplitude, latency and conduction velocity. The left ulnar palmar response was absent. The left median palmar response showed a normal amplitude, prolonged latency and slowed conduction velocity. Needle EMG of the left upper extremity muscles was performed. Active denervation was seen in first dorsal interosseous muscle. Motor units in the flexor digitoru m profundus (IV) were large amplitude and long duration with normal recruitment. Motor units in the first dorsal interosseous were large, long duration and polyphasic with slightly reduced recruitment. All other examined muscles (deltoid, triceps, abductor pollicis brevis) demonstrated normal motor unit morphology, activation and recruitment patterns. Impression: This is an abnormal study. 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 The pathophysiology is predominately demyelinating, though there is evidence of secondary axonal loss to intrinsic hand muscles. In addition, there is electrophysiologic evidence of a very mild median neuropathy across the left wrist. Silviano Xiao D.O.
== END ==
PROVIDERS: PCP Family Medicine; Referring Provider Psychiatry & Neurology Neurology; Visit Provider Psychiatry & Neurology Neurology
DX: G56.92 Unspecified mononeuropathy of left upper limb (principal)
CPT/HCPCS: 95886; 95910

== ENCOUNTER → 2020-05-19 17:30 | Outpatient (CLI) | payer OTHER, SELFPAY ==
[2015-12-13 16:15] VITALS: BMI 33.1
[2020-05-19 09:09] VITALS: BMI 37.7
== END ==
PROVIDERS: PCP Family Medicine; Referring Provider Nurse Practitioner Acute Care; Visit Provider Nurse Practitioner Acute Care
DX: R51.9 Headache, unspecified (principal)
CPT/HCPCS: 87633; 87635; C9803; U0003

== ENCOUNTER → 2020-10-14 08:35 | Outpatient (CLI) | payer OTHER, SELFPAY ==
[2015-12-13 16:15] VITALS: BMI 33.1
[2020-10-08 11:35] VITALS: BMI 38.2
[2020-10-14 10:50] LABS: Anion Gap 6 (5-15); BUN 18 mg/dL (7-18); BUN/Creat Ratio 18.3 RATIO (10-20); Calcium,Total 9.5 mg/dL (8.5-10.1); Chloride 106 mmol/L (98-107); Cholesterol 161 mg/dL (200); Creatinine, Serum 0.98 mg/dL (0.55-1.02); EST Glomerular Filtration Rate 62 mL/min (>60); Est Glom Filt Rate - Afr Amer 75 mL/min (>60); Glucose 147 mg/dL (74-106); High Density Lipoprotein 50 mg/dL; Potassium 4.1 mmol/L (3.5-5.1); Sodium Level 138 mmol/L (136-145); Thyroid Stim Hormone (TSH) 3.47 uIU/mL (0.358-3.74); Triglycerides 176 mg/dL; Very Low Density Lipoprotein 35 mg/dL (5-40)
[2020-10-14 11:31] LABS: Vitamin D,25 Hydroxy 69.3 ng/mL
== END ==
PROVIDERS: PCP Family Medicine; Visit Provider Family Medicine
DX: E11.9 Type 2 diabetes mellitus without complications (principal); M81.0 Age-related osteoporosis without current pathological fracture
CPT/HCPCS: 36415; 80048; 80061; 82306; 84443

== ENCOUNTER → 2020-10-28 08:30 | Outpatient (CLI) | payer OTHER, SELFPAY ==
[2015-12-13 16:15] VITALS: BMI 33.1
[2020-08-19 08:45] VITALS: BMI 39.2
--- NOTE | 2020-10-28 08:32 | BD_ITS ---
STUDY: DUAL ENERGY X-RAY ABSORPTIOMETRY / DXA REASON FOR EXAM: Female, 54 years old. M810 the patient is postmenopausal. Loss of height. TECHNIQUE: Bone Mineral Density (BMD) measurements of lumbar spine and bilateral hips were obtained. COMPARISON: Comparison is made with prior study dated 10/01/2018. FINDINGS: Lumbar Spine (L1-L4): g/cm2 (1.052) / T-score (-1.2) / Z-score (0.4) Findings are suggestive of osteopenia with a low fracture risk. Left Femur Total: g/cm2 (1.015) / T-score (0.1) / Z-score (0.7) Left Femoral Neck: g/cm2 (0.945) / T-score (-0.7) / Z-score (0.4) Right Femur Total: g/cm2 (0.943) / T-score (-0.5) / Z-score (0.2) Right Femoral Neck: g/cm2 (0.863) / T-score (-1.3) / Z-score (-0.2) The T-Scores on the most recent prior examination were: Lumbar Spine (L1-L4): There has been improvement of bone density since the previous examination. Left Femur Total: which represents an improvement of 3%. Right Femur Total: which represents a worsening of 3.6%. BD/Dexa Bone Density Study IMPRESSION: The patient is considered osteopenic as outlined below according to World Barry Organization (WHO) criteria with a low fracture risk. There has been improvement of bone density since the previous examination. Reference Information: The T-score is the number of standard deviations above or below the standard which is normal for young adults at their peak bone mineral density. The World Health Organization (WHO) interprets the T-scores as follows: Above -1 Normal bone density Between -1 and -2.5 Osteopenia Equal to / or below -2.5 Osteoporosis As a practical clinical guideline, osteopenia may be graded as follows: Mild -1 through -1.5 Moderate -1.6 through -2.0 Severe -2.1 through -2.4 The Z-score is the number of standard deviations above or below age-matched controls. A Z-score of less than -1.5 would be considered abnormal. References: 1. NIH Osteoporosis and Related Bone Diseases www osteo.org 2. International Society for Clinical Densitometry www iscd.org 3. National Osteoporosis Foundation www nof.org Electronically Signed: Jourdan Sykes MD at 10:13 EDT , Service support ,
== END ==
PROVIDERS: PCP Family Medicine; Referring Provider Family Medicine; Visit Provider Family Medicine
DX: M81.0 Age-related osteoporosis without current pathological fracture (principal)
CPT/HCPCS: 77080

== ENCOUNTER 2020-11-09 07:05 | Day surgery (SDC) | payer OTHER, SELFPAY ==
[2015-12-13 16:15] VITALS: BMI 33.1
[2020-10-29 08:07] VITALS: BMI 39.2
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
[2020-11-09] VITALS (8 sets, daily range): BP systolic 84–142; BP diastolic 48–82; PULSE 57–76; RESP 16–18; TEMP 36.3–37.1; O2SAT 91–96; BMI 38.0
--- NOTE | 2020-11-09 07:16 | PCM.HP.BLA ---
History and Physical Date of Admission: 11/09/20 Date of Service: 10/15/20 MR#:[id number]: CAESAR KYLE [facility] #:[id number]:1965 Provider:Dr. Guy Novak DOAge/Sex: 54/F Location:[facility]:Signed Intake Intake Visit Reasons: LEFT HAND Allergies No Known Allergies Allergy (Verified 09/03/20 08:40) FOR[facility]LY [facility] Medical History Dyspnea (Acute) Palpitations (Acute) Wheezing (Acute) Sleep apnea, obstructive (Chronic) Acute bronchitis due to infection (Acute) Asthma (Acute) Diabetes mellitus type 2, controlled (Acute) GERD (gastroesophageal reflux disease) (Acute) Gastrointestinal problem (Acute) High cholesterol (Acute) History of skin cancer of the vulva (Acute) Osteoporosis (Acute) COPD (chronic obstructive pulmonary disease) (Chronic) Chronic bronchitis (Chronic) Surgical History H/O pulmonic valvulotomy (Resolved) History of appendectomy (Resolved) Family History Mother CHF (congestive heart failure) Diabetes Hypertension Uterine cancer Anxiety Psychiatric care Father Diabetes CVA (cerebral vascular accident) Heart disease Lung cancer Brother Diabetes Social History (Updated 10/15/20 @ 11:[address] Guy Novak DO) second hand exposure: Yes alcohol intake: current Alcohol type: wine, hard liquor substance use type: does not use HPI LEFT HAND: Details: Parts of this documentation were recorded by a scribe, this documentation accurately reflects the service provided and the decisions made by me, Dr. Guy Novak DO 10/15/20 [id number]. CAESAR KYLE is a 54 year old F here today for left arm pain and numbness. She states that the cubital tunnel injection was helpful in taking 70% of her pain away and it is still helpful. She states that she has sensation back into her ring finger and the palm of her hand feels improved as well. She still has decreased sensation in the 5th digit. She denies any pain today but has been having some occasional medial elbow pain. She still has the numbness and tingling into the 5th finger but it was improved. She does still have some weakness but doesn't feel it is as week as it was last time in 05/2020. She has been using a cubital tunnel brace and doing the nerve gliding exercises. She states that Dr. Joseph didn't see an issue with her having the surgery and recommended having her bipap placed in recovery. ROS Const Reports weakness Musc Denies joint pain, Denies joint swelling, Reports numbness, Denies radiating pain into limb, Reports tingling Skin/Breast Denies redness, Denies lesions, Denies itching, Denies rash, Denies skin swelling Neuro Yes numbness, Yes tingling, Yes weakness Ortho Exam General General: Yes no acute distress Neurologic: Yes alert, Yes oriented x3 Psychologic: Yes reasonable and appropriate Left Wrist/Hand Left Wrist: Yes ROM-Extension 0-60, Yes ROM-Flexion 0-80, Yes ROM-Pronation 0-80 and Yes ROM-Supination 0-90 WRIST: weakness with finger abduction scars over the hand TTP over ulnar nerve TTP over medial epicondyle intact biceps and triceps no ulnar nerve subluation mild atrophy of 1st web space compared to contralateral mild thenar atrophy Left Elbow Skin/Wound: No eccymosis, No erythema, No Swelling Test: No Valgus Stress Test, No Varus Stress Test, Yes TTP Medial Epicondyle, No TTP Lateral Epicondyle, No Ulnar Nerve Subluxation, Yes Tinel's, No Thenar Atrophy, No Hypothenar Atrophy ROM: Yes Flexion 0-140, Extension 0, Supination 0-90 and Pronation 0-80 ELBOW: hyperextenion about 3 degrees Hyperflexion and direct compression test are positive left elbow negative provacative tests at the wrist. Supplemental Info 04/29/2020: This is an abnormal study. 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 The pathophysiology is predominately demyelinating, though there is evidence of secondary axonal loss to intrinsic hand muscles. In addition, there is electrophysiologic evidence of a very mild median neuropathy across the left wrist. Assessment & Plan Problems 1. Cubital tunnel syndrome on left G56.22 Plan Patient educated that her hand can continue to get weak if the nerve continues to become compressed. If she started to develop weakness of the hand it can become permanent. Patient educated that the sensation of the 5th digit can remain the same or improve or worsen it just depends on the compression of the nerve. She should continue to do the nerve glide exercises. Recommended a decompression vs transposition of the ulnar nerve to prevent worsening. Reviewed the pre-operative plans with the patient. Risks and benefits of the procedure were fully explained, including but not limited to infection, neurovascular injury, continued pain, arthritis, stiffness, need for further surgery, re-injury, DVT, PE, general risks of anesthesia, and loss of limb or life. The patient understands all the risks and does wish to proceed with written consent with left ulnar nerve decompression vs transposition. She will be in a splint after surgery if she has the transposition. Will need surgery clearance from the [employer] Director Dr. Joseph. Patient instructed to stop her fish oil now and stop the baby aspirin 7 days prior to surgery. Follow up 2 weeks post op or sooner if pain, swelling, numbness or associated symptoms, or concerns develop. All questions answered. Patient in agreement of plan. Coding Level of Care Code Off vis,est,level 3 Diagnoses Cubital tunnel syndrome on left G56.22 10/15/20 1128<Electronically signed by Guy Novak DO>Date Guy LANZA have re-examined the patient. There are no clinical changes since date of exam
[2020-11-09] MEDS: Lactated Ringers 1,000 ML 100 ML IV (07:49)
[2020-11-09 08:40] LABS: Bedside Glucose 137 mg/dL (70-110)
[2020-11-09] MEDS: Cefazolin 2 GM in 0.9% Normal Saline 100 ML IV (08:44)
[2020-11-09] MEDS: Bupivacaine 0.25%-Epi/Pf 1:200,000 10 ML (09:46)
--- NOTE | 2020-11-09 09:55 | PCM.DC ---
Discharge Instructions Diet Discharge Diet: No restrictions Activity Keep extremity elevated above heart level: Operative Extremity Dressing / Incision Call your doctor if you observe: Shortness of breath and Chest pain Additional Dressing/Incision Instructions:: Encourage elbow wrist and finger range of motion immediately. Do not lift push or pull with operative extremity. Leave dressing on clean and dry for 48 hours. Then may remove and begin showering with antibacterial soap. Do not submerge completely as in tub pool or pond for 3 weeks postop. May cover with large Band-Aid to avoid stitch irritation. Follow-up in 2 weeks call with any questions or concerns. Follow Up Care Please Follow Up With: Guy Novak DO When: 2 weeks Test Results: Test results from this visit will be discussed in further detail at your follow-up appointment, if applicable. Discharge Plan Admission Primary Reason for Your Visit: Left cubital tunnel ulnar nerve decompression Attending Provider: Guy Novak Primary Care Provider: Gonsalo Knox Discharge Orders/Prescriptions Prescriptions: New oxycodone 5 mg capsule 5 - 10 mg PO Q4H PRN (Reason: pain) 5 Days Qty: 25 RF: 0 No Action multivitamin,ve-lrqg-lxkeanre tablet tablet 1 tab PO DAILY RF: 0 albuterol sulfate 2.5 mg /3 mL (0.083 %) solution for nebulization 2.5 mg INHALATION .QID RF: 0 ipratropium-albuterol 0.5 mg-3 mg(2.5 mg base)/3 mL solution for nebulization 3 ml INHALATION Q4H PRN PRN (Reason: SOB &/OR WHEEZING) Qty: 180 RF: 6 alendronate [Fosamax] 70 mg tablet 70 mg PO QWEEK RF: 0 escitalopram oxalate 5 mg tablet 5 mg PO DAILY RF: 0 Spiriva Respimat 2.5 mcg/actuation mist 2 puff INHALATION DAILY RF: 0 lorazepam [Ativan] 0.5 mg tablet 0.5 mg PO TID PRN (Reason: Anxiety) RF: 0 albuterol sulfate [ProAir HFA] 90 mcg/actuation HFA aerosol inhaler 2 puff INHALATION Q6H PRN (Reason: ASTHMA) RF: 0 clobetasol 0.05 % cream 1 applic TOPICAL PRN PRN (Reason: PSORIASIS) RF: 0 cyanocobalamin (vitamin B-12) 1,000 mcg capsule 1,000 mcg PO .2xwk RF: 0 atorvastatin 40 mg tablet 40 mg PO DAILY RF: 0 calcium carbonate 500 MG tablet 1,000 mg PO DAILY@0800 RF: 0 pantoprazole 40 MG tablet 40 mg PO DAILY RF: 0 montelukast 10 MG tablet 10 mg PO DAILY RF: 0 metformin 500 MG tablet,ER kerline.retention 24 hr 500 mg PO DAILY RF: 0 cholecalciferol (vitamin D3) 1,000 UNIT tablet 2,000 unit PO DAILY RF: 0 omega-3 fatty acids-fish oil 1 EACH capsule 2 ea PO DAILY RF: 0 budesonide-formoterol 1 INHALER inhaler 2 puff INHALATION BID RF: 0 aspirin 81 MG tablet,chewable 81 mg PO DAILY@0800 Qty: 30 RF: 0 fluticasone propionate [Flonase Allergy Relief] 50 mcg/actuation spray,suspension 2 spray INTRANASAL QDAY Qty: 16 RF: 5 Fasenra 30 mg/mL syringe 30 mg SC Q8W Qty: 1 RF: 11 azelastine 137 mcg (0.1 %) aerosol,spray 2 spray INTRANASAL BID Qty: 30 RF: 6 Referrals / Follow Up: Gonsalo Knox MD [Primary Care Provider] - Disposition Discharge Orders: Discharge Patient (Routine); Ordered 11/09/20 Ordered By: Dr. Guy Novak
--- NOTE | 2020-11-09 10:00 | OP.PCM_ITS ---
Report of Operation Description of Surgical Findings:: Preoperative diagnosis: Left cubital tunnel Postoperative diagnosis: same Procedure: Left ulnar nerve decompression at elbow Anesthesia: General Tourniquet time; 28 minutes 250 mmHg Complications: None Indication for procedure; 54-year-old female with long-standing symptoms co nsistent with cubital tunnel syndrome the patient did have electrodiagnostic evidence of this and has failed conservative treatment. Risks benefits and alternatives were reviewed including risks of bleeding infection nerve artery tissue damage need for further surgery and continued pain need for possible transposition of nerve if nerve unstable after decompression Findings: Significant flattening of the ulnar nerve posterior to the to the medial epicondyle and significant narrowing of the nerve near the intermuscular septum, variant heads to FCU with hypertrophy and origination more proximal than typical Procedure: The patient was met in the preoperative holding area the operative extremity was identified by both patient and physician and was marked the patient was met by anesthesia and brought back to the operating room and transferred to the operating table in the supine position. Aanesthesia was started. The patient was prepped and draped in the usual sterile fashion. A well-padded tourniquet was placed on the operative upper extremity in a sterile fashion . A timeout was called to ensure the proper patient procedure and extremity were being contemplated. An Esmarch was used to exsanguinate the extremity. The tourniquet was inflated to 250 mmHg. First we turned our attention to the elbow made a curvilinear skin incision over the path of the ulnar nerve dissection was carried down as full-thickness flaps with attention to avoid any crossing branches of medial antebrachial cutaneous nerves. electrocautery was used for hemostasis, the ulnar nerve was reached the nerve was then identified proximally. dissection to free it from the surrounding soft tissue was performed until its distal extent splitting of the 2 heads of the FCU nerve was mobilized and proximally up to the medial intermuscular septum and there was no further constrictions proximally. The release was carried out on the dorsal side of the tunnel and when the elbow was brought through range of motion there was no subluxation of the nerve. the elbow was brought through range of motion and was felt it was free of constriction and stable without subluxation therefore subcutaneous closure with 3-0 Vicryl followed by 3-0 nylon horizontal matrress stitches. Dressing was applied in the form of Xeroform 4 x 4 ABD web roll and an Mo wrap from the hand to the axilla. Patient tolerated the procedure well there was no intraoperative complications will follow-up in 2 weeks .
[2020-11-09 10:20] LABS: Bedside Glucose 143 mg/dL (70-110)
[2020-11-09] MEDS: oxyCODONE 5 MG Tablet PO (11:47)
== END 2020-11-09 12:46 ==
LOC: SDC 07:08 → AC 07:10
PROVIDERS: PCP Family Medicine; Referring Provider Orthopaedic Surgery; Visit Provider Orthopaedic Surgery
PROC: (CPT 64718; principal; 2020-11-09 08:45)
DX: G56.22 Lesion of ulnar nerve, left upper limb (principal); G47.33 Obstructive sleep apnea (adult) (pediatric); J44.9 Chronic obstructive pulmonary disease, unspecified
CPT/HCPCS: 64718; 82962; J7120; J2405

== ENCOUNTER 2021-07-07 11:43 | Outpatient (CLI) | payer OTHER, SELFPAY ==
[2015-12-13 16:15] VITALS: BMI 33.1
[2021-07-07 15:42] LABS: ALB/GLOB Ratio 1.2 RATIO (0.9-2.4); AST(SGOT) 20 U/L (15-37); Alanine Aminotransfer ALT/SGPT 43 U/L (13-56); Alkaline Phosphatase 65 U/L (45-117); Anion Gap 8 (5-15); BUN 17 mg/dL (7-18); Calcium,Total 9.4 mg/dL (8.5-10.1); Chloride 106 mmol/L (98-107); Cholesterol 148 mg/dL (200); Creatinine, Serum 1.06 mg/dL (0.55-1.02); EST Glomerular Filtration Rate 57 mL/min (>60); Est Glom Filt Rate - Afr Amer 69 mL/min (>60); Globulin 3.3 g/dL (2.2-4.2); Glucose 79 mg/dL (74-106); High Density Lipoprotein 71 mg/dL; Protein, Total 7.3 g/dL (6.4-8.2); Sodium Level 140 mmol/L (136-145); Thyroid Stim Hormone (TSH) 1.64 uIU/mL (0.358-3.74); Triglycerides 71 mg/dL; Very Low Density Lipoprotein 14 mg/dL (5-40)
== END 2021-07-07 23:59 | disposition short-term general hospital (02) ==
LOC: MTLAB 11:44
PROVIDERS: PCP Family Medicine; Referring Provider Family Medicine; Visit Provider Family Medicine
DX: E11.69 Type 2 diabetes mellitus with other specified complication (principal)
CPT/HCPCS: 36415; 80053; 80061; 84443

== ENCOUNTER 2021-11-28 12:02 | Observation (INO) | payer OTHER, SELFPAY ==
[2015-12-13 16:15] VITALS: BMI 33.1
[2021-11-28] VITALS (13 sets, daily range): BP systolic 98–130; BP diastolic 50–87; PULSE 55–72; RESP 16–18; TEMP 36.6–36.8; O2SAT 93–99; BMI 26.8; BMI 26.6
[2021-11-28 12:39] LABS: Absolute Lymphocyte Count 1.54 X10^3/uL (0.83-4.51); Absolute Neutrophil Count 5.8 X10^3/uL (2.0-7.7); Basophil# 0.01 X10^3/uL; Basophil% 0.1 % (0-1); Hematocrit 44.6 % (37-47); Hemoglobin 14.8 g/dL (12.0-15.0); Lymphocyte # 1.54 X10^3/ul (0.83-4.51); Lymphocyte % 19.9 % (19-41); Mean Corp Hgb Conc 33.2 g/dL (32-36); Mean Corpuscular Hgb 30.7 pg (27.0-32.0); Mean Corpuscular Volume 92.5 fL (81-99); Mean Platelet Vol. 9.2 fl (6.2-12.0); Monocyte# 0.38 X10^3/uL; Monocyte% 4.9 % (0-10); NRBC Flagged by Analyzer 0 % (0-5); Neutrophil # 5.76 X10^3/uL (2.7-7.7); Neutrophil % 74.6 % (47-70); Platelet Count 341 K/mm3 (150-450); RBC Distribution Width CV 12.8 % (11.6-14.6); RBC Distribution Width SD 43.8 fl (35.1-43.9); Red Blood Count 4.82 M/mm3 (4.2-5.4); White Blood Count 7.7 K/mm3 (4.4-11.0)
[2021-11-28 12:53] LABS: Anion Gap 5 (5-15); BUN 23 mg/dL (7-18); BUN/Creat Ratio 25.6 RATIO (10-20); Calcium,Total 9.9 mg/dL (8.5-10.1); Chloride 109 mmol/L (98-107); EST Glomerular Filtration Rate 69 mL/min (>60); Est Glom Filt Rate - Afr Amer 83 mL/min (>60); Estimated Creatinine Clearance 65.34 ml/min; Glucose 116 mg/dL (74-106); Potassium 4.2 mmol/L (3.5-5.1); Sodium Level 139 mmol/L (136-145)
--- NOTE | 2021-11-28 14:05 | CT_ITS ---
STUDY: CT ABDOMEN AND PELVIS WITH CONTRAST REASON FOR EXAM: Female, 55 years old. Flank pain and abdominal pain. RADIATION DOSAGE (If Supplied By Facility): CTDIvol = ( 13.13 ) mGy, DLP = ( 772.57 ) mGycm TECHNIQUE: Transaxial images were obtained from the dome of the diaphragm to the symphysis pubis without oral contrast. IV 100mL Isovue-370 was administered. Sagittal and coronal images were reconstructed. Individualized dose optimization techniques were used for this CT. COMPARISON: Comparison is made with prior study dated 03/30/2017. FINDINGS: Stable linear scarring in the posterior medial segment of the right lower lobe. The visualized portions of the heart are within normal limits. Normal liver. Normal gallbladder and extrahepatic biliary system. Normal spleen. Normal pancreas. Normal bilateral adrenal glands. Normal right kidney. Normal left kidney. Normal visualized stomach. Normal small intestine. There is a redundancy of the sigmoid colon with evidence of a volvulus in the right middle abdomen with evidence of the swirling of the mesentery. Large amount of fecal material is seen in the colon. The appendix is visualized and appears normal. There is scattered atherosclerotic calcification of the abdominal aorta, without a demonstrated aneurysm. Normal inferior vena cava. Normal retroperitoneum. Normal urinary bladder. Normal abdominal wall. Normal osseous structures. CT/Abdomen/Pelvis W IV Cont ONLY IMPRESSION: Twisting of the mesentery in the right lower/mid abdomen with evidence of sigmoid volvulus. The attending physician was notified. Electronically Signed: Jourdan Sykes MD at 14:44 EDT ,
--- NOTE | 2021-11-28 14:06 | EDS_ITS ---
HPI HPI - GI History of Present Illness Chief Complaint: Abd Pain Informant: patient Narrative Narrative: 55-year-old female presenting to the emergency room with abdominal pain. Patient states that the pain began abruptly is described as generalized abdominal pain going into her back. She denies any fevers. She notes nausea but no vomiting. No urinary symptoms. No change in stool habits. She states that earlier in the day she felt fine. She notes that walking does not change her pain. Pushing on her abdomen does not seem to make the pain hurt anymore last. She does state that she had a recent colonoscopy with Dr. Gardner. She states that she was told that she had redundant colon. [facility] Medical History Acute bronchitis due to infection Anxiety Asthma Cancer Chest pain Chronic bronchitis Chronic cough COPD (chronic obstructive pulmonary disease) Diabetes Diabetes mellitus type 2, controlled Dyspnea Emphysema, unspecified Former smoker Gastrointestinal problem GERD (gastroesophageal reflux disease) High cholesterol History of skin cancer of the vulva Hoarseness Irregular heart beat Migraine headache Normal echocardiogram (~01/01/20) Normal stress echocardiogram (~07/31/16) On home oxygen therapy Osteoporosis Palpitations Post-menopausal Rash Restless legs Shortness of breath on exertion Sleep apnea, obstructive Wears glasses Wheezing Home Medications budesonide-formoterol 2 puff INHALATION BID 10/21/15 [History Last Taken 11/09/20] calcium carbonate 1,000 mg PO DAILY@0800 10/21/15 [History Last Taken 10/01/17] cholecalciferol (vitamin D3) 2,000 unit PO DAILY 10/21/15 [History Last Taken 10/01/17] metformin 500 mg PO DAILY 10/21/15 [History Last Taken 10/01/17] montelukast 10 mg PO DAILY 10/21/15 [History Last Taken 10/01/17] omega-3 fatty acids-fish oil 2 ea PO DAILY 10/21/15 [History Last Taken 10/15/20] pantoprazole 40 mg PO DAILY 10/21/15 [History Last Taken 10/01/17] multivitamin,xj-vmyv-xiuggbxj 1 tab PO DAILY 06/07/17 [History Last Taken 10/01/17] fluticasone propionate 50 mcg/actuation nasal spray,suspension 2 spray INTRANASAL QDAY #16 g 07/29/18 [Rx Last Taken Unknown] alendronate 70 mg tablet 70 mg PO QWEEK 02/17/19 [History Last Taken 12/28/19] benralizumab 30 mg/mL subcutaneous syringe 30 mg SC Q8W #1 ml 12/31/19 [Rx Last Taken 11/28/19] aspirin 81 mg PO DAILY@0800 #30 tab.chew 01/02/20 [Rx Last Taken 11/01/20] escitalopram oxalate 5 mg tablet 5 mg PO DAILY 02/18/20 [History Last Taken Unknown] clobetasol 0.05 % topical cream 1 applic TOPICAL PRN PRN 03/09/20 [History Last Taken Unknown] cyanocobalamin (vitamin B-12) 1,000 mcg capsule 1,000 mcg PO .2xwk cap 03/09/20 [History Last Taken Unknown] lorazepam 0.5 mg tablet 0.5 mg PO TID PRN 03/09/20 [History Last Taken Unknown] tiotropium bromide 2.5 mcg/actuation mist for inhalation 2 puff INHALATION DAILY 03/09/20 [History Last Taken 11/09/20] azelastine 137 mcg (0.1 %) nasal spray aerosol 2 spray INTRANASAL BID #30 ml 09/27/20 [Rx Last Taken Unknown] albuterol sulfate 90 mcg/actuation aerosol inhaler 2 puff INHALATION Q6H PRN #8.5 g 11/18/20 [Rx Last Taken Unknown] albuterol sulfate 2.5 mg INHALATION .QID #180 ml 03/16/21 [Rx Last Taken Unknown] atorvastatin 40 mg tablet 20 mg PO DAILY tab 03/16/21 [History Last Taken Unknown] ipratropium 0.5 mg-albuterol 3 mg (2.5 mg base)/3 mL nebulization soln 3 ml INHALATION Q4H PRN PRN #180 ml 03/16/21 [Rx Last Taken Unknown] Allergy/AdvReac Type Severity Reaction Status Date / Time No Known Allergies Allergy Verified 11/28/21 12:03 Family History Mother CHF (congestive heart failure) Diabetes Hypertension Uterine cancer Anxiety Psychiatric care Father Diabetes CVA (cerebral vascular accident) Heart disease Lung cancer Brother Diabetes Surgical History H/O pulmonic valvulotomy History of appendectomy Social History Smoking Status: Former smoker second hand exposure: Yes alcohol intake: current Alcohol type: wine and hard liquor substance use type: does not use ROS ROS ED Constitutional Constitutional ED: Denies chills, fever(s) or weight loss Eyes Eyes: Denies change in vision or diplopia ENT ENT ED: Denies ear pain, rhinorrhea or sore throat Cardiovascular Cardiovascular: Denies chest pain, orthopnea, palpitations or racing heartbeat Respiratory/Chest Respiratory/Chest: Denies cough, dyspnea or orthopnea Gastrointestinal Gastrointestinal: Reports abdominal pain and nausea; Denies diarrhea or vomiting Genitourinary Genitourinary ED: Denies dysuria, hematuria or urinary frequency Musculoskeletal Musculoskeletal: Denies arthralgias or myalgias Integumentary Denies abscess or rash Neurologic Neurologic: Denies headache(s) or weakness Psychiatric Psychiatric: Denies anxiety, depression, suicidal ideation or suicidal thoughts Endocrine Endocrinology: Denies polydipsia, polyphagia or polyuria Allergic/Immunologic Allergic/Immunologic ED: Denies mouth swelling, tongue swelling or urticaria EXAM Physical Exam Const Vital Signs: 11/28/21 12:03 Temperature 98.2 F Temperature Source Temporal Pulse Rate 71 Respiratory Rate 18 Blood Pressure 118/62 Blood Pressure Mean 80 Pulse Ox 96 Oxygen Delivery Method Room Air Positive well nourished and well developed General Appearance ED: well developed HEENT Reports normocephalic, head/scalp atraumatic, TM's clear and moist mucous membranes normocephalic and atraumatic Tympanic Membrane ED: Yes TM's clear Eyes PERRL and EOMs intact bilaterally Neck no lymphadenopathy, supple and no JVD Resp normal respiratory effort and clear to auscultation bilaterally Cardio regular rate, regular rhythm and no murmurs GI normal to inspection, nondistended, normoactive bowel sounds, non-tender and non-distended Auscultation: normoactive bowel sounds Palpation: soft; Negative for tender, guarding or rigid Back/Spine no CVA tenderness and normal ROM Extremity normal to inspection General Extremety ED: Negative for edema General Extremity: Negative for edema Neuro oriented x3, CN's II-XII intact bilaterally and no sensory deficits noted Sensorium / Orientation: alert; Negative for orientation impaired Motor Exam: strength 5/5 throughout Psych mental status grossly normal Mood & Affect: Negative for depressed or tearful Skin no rashes or lesions noted and no wounds MDM MDM MDM Narrative Medical decision making narrative: Basic blood work was unremarkable. Lactic acid is normal. Urinalysis negative. CT the abdomen pelvis demonstrates twisting of the mesentery in the right lower to mid abdomen consistent with sigmoid volvulus. Patient has received pain and nausea medication. I spoke with Dr. Herron from general surgery who will be in to evaluate the patient. Patient was updated. Lab Data Attestation: I reviewed the patient's lab results. Labs: Laboratory Results - last 24 hr 11/28/21 11/28/21 11/28/21 12:30 12:30 12:30 WBC 7.7 RBC 4.82 Hgb 14.8 Hct 44.6 MCV 92.5 MCH 30.7 MCHC 33.2 RDW Std Deviation 43.8 RDW Coeff of Shantel 12.8 Plt Count 341 MPV 9.2 Immature Gran % (Auto) 0.500 Neut % (Auto) 74.6 H Lymph % (Auto) 19.9 Elliott % (Auto) 4.9 Eos % (Auto) 0.0 Baso % (Auto) 0.1 Absolute Neuts (auto) 5.8 Absolute Lymphs (auto) 1.54 Nucleated RBC % 0 Sodium 139 Potassium 4.2 Chloride 109 H Carbon Dioxide 25.0 Anion Gap 5 BUN 23 H Creatinine 0.90 Estim Creat Clear Calc 65.34 Est GFR (MDRD) Af Amer 83 Est GFR (MDRD) Non-Af 69 BUN/Creatinine Ratio 25.6 H Glucose 116 H Lactic Acid Calcium 9.9 Total Bilirubin 0.50 Direct Bilirubin 0.18 AST 28 ALT 41 Alkaline Phosphatase 63 Total Protein 7.3 Albumin 4.1 Globulin 3.2 Lipase 135 Urine Color Urine Clarity Urine pH Ur Specific [place] Urine Protein Urine Glucose (UA) Urine Ketones Urine Occult Blood Urine Nitrite Urine Bilirubin Urine Urobilinogen Ur Leukocyte Esterase Urine RBC Urine WBC Ur Squamous Epith Cells Urine Bacteria Urine Mucus 11/28/21 11/28/21 14:40 14:44 WBC RBC Hgb Hct MCV MCH MCHC RDW Std Deviation RDW Coeff of Shantel Plt Count MPV Immature Gran % (Auto) Neut % (Auto) Lymph % (Auto) Elliott % (Auto) Eos % (Auto) Baso % (Auto) Absolute Neuts (auto) Absolute Lymphs (auto) Nucleated RBC % Sodium Potassium Chloride Carbon Dioxide Anion Gap BUN Creatinine Estim Creat Clear Calc Est GFR (MDRD) Af Amer Est GFR (MDRD) Non-Af BUN/Creatinine Ratio Glucose Lactic Acid 0.6 Calcium Total Bilirubin Direct Bilirubin AST ALT Alkaline Phosphatase Total Protein Albumin Globulin Lipase Urine Color Yellow Urine Clarity Clear Urine pH 7.0 Ur Specific [place] 1.015 Urine Protein Negative Urine Glucose (UA) Normal Urine Ketones Negative Urine Occult Blood Negative Urine Nitrite Negative Urine Bilirubin Negative Urine Urobilinogen Normal Ur Leukocyte Esterase Negative Urine RBC 0 SEEN Urine WBC 0 SEEN Ur Squamous Epith Cells 0 SEEN Urine Bacteria 0 SEEN Urine Mucus 0 SEEN Radiography Diagnostic Testing: Clinical Impression(s) from Imaging Studies Abdomen/Pelvis CT 11/28/21 14:05 IMPRESSION: Twisting of the mesentery in the right lower/mid abdomen with evidence of sigmoid volvulus. The attending physician was notified. Electronically Signed: Jourdan Sykes MD at 14:44 EDT , Discharge Plan Dx/Rx/DC Orders Clinical Impression: Abdominal pain, Sigmoid volvulus Disposition Disposition: Acute Care Hospital [facility]
[2021-11-28] MEDS: Morphine 4 MG/ML Syringe IV (14:09)
[2021-11-28] MEDS: Ondansetron 4 MG/2 ML Vial IV ×2 (14:09→21:33)
[2021-11-28 14:41] LABS: AST(SGOT) 28 U/L (15-37); Alanine Aminotransfer ALT/SGPT 41 U/L (13-56); Albumin, Serum 4.1 g/dL (3.2-5.0); Alkaline Phosphatase 63 U/L (45-117); Bilirubin, Direct 0.18 mg/dL (0.00-0.30); Globulin 3.2 g/dL (2.2-4.2); Lipase 135 U/L (73-393); Protein, Total 7.3 g/dL (6.4-8.2)
[2021-11-28 14:47] LABS: Bacteria 0 SEEN /hpf (None Seen); Mucous, Urine 0 SEEN /hpf (<or=2+); Red Blood Cells-Urine 0 SEEN /hpf (0-5); Squamous Epithelial Cells - UA 0 SEEN /hpf (5-10); White Blood Cells 0 SEEN /hpf (0-5)
[2021-11-28 14:48] LABS: Color, Urine Yellow (Yellow); Glucose, Dipstick Normal (Normal); Ketone-Dipstick Negative (Negative); Leukocyte Esterase-Dipstick Negative /ul (Negative); Nitrite-Dipstick Negative (Negative); Occult Blood-Urine Negative /ul (Negative); Protein-Dipstick Negative (Negative); Specific Gravity, Urine 1.015 (1.002-1.030); Urine Bilirubin Dipstick Negative (Negative); Urine Clarity Clear (Clear); Urine Urobilinogen Normal (Normal)
[2021-11-28 15:09] LABS: Lactic Acid 0.6 mmol/L (0.4-1.9)
--- NOTE | 2021-11-28 15:45 | NURSING ---
SURGERY THEN MED SURG EMGHANN SIGMOID VOLVULUS
--- NOTE | 2021-11-28 15:52 | EX.PCM.CON.S ---
Assessment & Plan Assessment/Plan (1) Sigmoid volvulus: PLAN: My plan is to perform a limited unprepped colonoscopy with reduction of sigmoid volvulus. I have spoken with Dr. Mayer who is going to help me with this. Patient understands that if we are successful then that will allow us to probably give her a bowel prep to think about a emergent sigmoid colon resection. We would be able to do a bowel prep which would reduce her risk. She also understands that there is a risk of perforation of her colon which could require exploratory laparotomy sigmoid colon resection and end Castro's procedure. If we are unsuccessful at reduction of the sigmoid volvulus then she is still going to need to undergo any emergent elective exploratory laparotomy and resection of her sigmoid colon. This may require a colostomy or ileostomy. Patient also has some significant COPD she also understands that there is a chance if she undergoes this a general anesthetic that she may be required to remain on the vent secondary to her COPD. We discussed the fact that she is at a moderate to high risk of complications from this procedure both colonoscopy as well as sigmoid colon resection. I have counseled the patient as to the risks of the procedure, including but not limited to: infection, bleeding, injury to any blood vessels/nerves, injury to any bowel/bladder, injury to any intraabdominal organs such as the liver/spleen, perforation of the GI tract, intraabdominal abscess/bleeding, incisional hernias, complications of anesthesia, etc. The patient verbalizes understanding. HPI Consult Data Date of Consult: 11/28/21 HPI Narrative HPI Narrative: CAESAR KYLE, 55-year-old female presenting to the emergency room with abdominal pain. Patient states that the pain began abruptly is described as generalized abdominal pain going into her back. She denies any fevers. She notes nausea but no vomiting. No urinary symptoms. No change in stool habits. She states that earlier in the day she felt fine. She notes that walking does not change her pain. Pushing on her abdomen does not seem to make the pain hurt anymore last. She does state that she had a recent colonoscopy with Dr. Gardner. She states that she was told that she had redundant colon. CT scan shows:Normal visualized stomach. Normal small intestine. There is a redundancy of the sigmoid colon with evidence of a volvulus in the right middle abdomen with evidence of the swirling of the mesentery. Large amount of fecal material is seen in the colon. The appendix is visualized and appears normal. [facility] Medical History Acute bronchitis due to infection Anxiety Asthma Cancer Chest pain Chronic bronchitis Chronic cough COPD (chronic obstructive pulmonary disease) Diabetes Diabetes mellitus type 2, controlled Dyspnea Emphysema, unspecified Former smoker Gastrointestinal problem GERD (gastroesophageal reflux disease) High cholesterol History of skin cancer of the vulva Hoarseness Irregular heart beat Migraine headache Normal echocardiogram (~01/01/20) Normal stress echocardiogram (~07/31/16) On home oxygen therapy Osteoporosis Palpitations Post-menopausal Rash Restless legs Shortness of breath on exertion Sleep apnea, obstructive Wears glasses Wheezing Home Medications budesonide-formoterol 2 puff INHALATION BID 10/21/15 [History Last Taken 11/09/20] calcium carbonate 1,000 mg PO DAILY@0800 10/21/15 [History Last Taken 10/01/17] cholecalciferol (vitamin D3) 2,000 unit PO DAILY 10/21/15 [History Last Taken 10/01/17] metformin 500 mg PO DAILY 10/21/15 [History Last Taken 10/01/17] montelukast 10 mg PO DAILY 10/21/15 [History Last Taken 10/01/17] omega-3 fatty acids-fish oil 2 ea PO DAILY 10/21/15 [History Last Taken 10/15/20] pantoprazole 40 mg PO DAILY 10/21/15 [History Last Taken 10/01/17] multivitamin,dd-[id number]-[id number] 1 tab PO DAILY 06/07/17 [History Last Taken 10/01/17] fluticasone propionate 50 mcg/actuation nasal spray,suspension 2 spray INTRANASAL QDAY #16 g 07/29/18 [Rx Last Taken Unknown] alendronate 70 mg tablet 70 mg PO QWEEK 02/17/19 [History Last Taken 12/28/19] benralizumab 30 mg/mL subcutaneous syringe 30 mg SC Q8W #1 ml 12/31/19 [Rx Last Taken 11/28/19] aspirin 81 mg PO DAILY@0800 #30 tab.chew 01/02/20 [Rx Last Taken 11/01/20] escitalopram oxalate 5 mg tablet 5 mg PO DAILY 02/18/20 [History Last Taken Unknown] clobetasol 0.05 % topical cream 1 applic TOPICAL PRN PRN 03/09/20 [History Last Taken Unknown] cyanocobalamin (vitamin B-12) 1,000 mcg capsule 1,000 mcg PO .2xwk cap 03/09/20 [History Last Taken Unknown] lorazepam 0.5 mg tablet 0.5 mg PO TID PRN 03/09/20 [History Last Taken Unknown] tiotropium bromide 2.5 mcg/actuation mist for inhalation 2 puff INHALATION DAILY 03/09/20 [History Last Taken 11/09/20] azelastine 137 mcg (0.1 %) nasal spray aerosol 2 spray INTRANASAL BID #30 ml 09/27/20 [Rx Last Taken Unknown] albuterol sulfate 90 mcg/actuation aerosol inhaler 2 puff INHALATION Q6H PRN #8.5 g 11/18/20 [Rx Last Taken Unknown] albuterol sulfate 2.5 mg INHALATION .QID #180 ml 03/16/21 [Rx Last Taken Unknown] atorvastatin 40 mg tablet 20 mg PO DAILY tab 03/16/21 [History Last Taken Unknown] ipratropium 0.5 mg-albuterol 3 mg (2.5 mg base)/3 mL nebulization soln 3 ml INHALATION Q4H PRN PRN #180 ml 03/16/21 [Rx Last Taken Unknown] Allergy/AdvReac Type Severity Reaction Status Date / Time No Known Allergies Allergy Verified 11/28/21 12:03 Family History Mother CHF (congestive heart failure) Diabetes Hypertension Uterine cancer Anxiety Psychiatric care Father Diabetes CVA (cerebral vascular accident) Heart disease Lung cancer Brother Diabetes Surgical History H/O pulmonic valvulotomy History of appendectomy Social History Smoking Status: Former smoker second hand exposure: Yes alcohol intake: current Alcohol type: wine and hard liquor substance use type: does not use ROS Constitutional Constitutional: Denies chills or fever(s) Cardiovascular Cardiovascular: Denies chest pain Respiratory/Chest Respiratory/Chest: Denies cough or dyspnea Gastrointestinal Gastrointestinal: Reports abdominal pain, bloating and nausea; Denies constipation or diarrhea Physical Exam Const alert and oriented x3 General Appearance: cooperative HEENT normocephalic and head/scalp atraumatic Eyes PERRL and EOMs intact bilaterally Resp clear to auscultation bilaterally Cardio Rate: regular rate Rhythm: regular rhythm GI soft to palpation GI Narrative: Patient does not have a significant amount of abdominal distention there is no rebound guarding or peritoneal signs identified. Inspection: abdominal distention Palpation: tender Lab / Micro Data Result Diagrams: 11/28/21 12:30 11/28/21 12:30 Labs: Laboratory Results - last 24 hr 11/28/21 12:30: WBC 7.7, RBC 4.82, Hgb 14.8, Hct 44.6, MCV 92.5, MCH 30.7, MCHC 33.2, RDW Std Deviation 43.8, RDW Coeff of Shantel 12.8, Plt Count 341, MPV 9.2, Immature Gran % (Auto) 0.500, Neut % (Auto) 74.6 H, Lymph % (Auto) 19.9, [place] % (Auto) 4.9, Eos % (Auto) 0.0, Baso % (Auto) 0.1, Absolute Neuts (auto) 5.8, Absolute Lymphs (auto) 1.54, Nucleated RBC % 0 11/28/21 12:30: Sodium 139, Potassium 4.2, Chloride 109 H, Carbon Dioxide 25.0, Anion Gap 5, BUN 23 H, Creatinine 0.90, Estim Creat Clear Calc 65.34, Est GFR (MDRD) Af Amer 83, Est GFR (MDRD) Non-Af 69, BUN/Creatinine Ratio 25.6 H, Glucose 116 H, Calcium 9.9 11/28/21 12:30: Total Bilirubin 0.50, Direct Bilirubin 0.18, AST 28, ALT 41, Alkaline Phosphatase 63, Total Protein 7.3, Albumin 4.1, Globulin 3.2, Lipase 135 11/28/21 14:40: Lactic Acid 0.6 11/28/21 14:44: Urine Color Yellow, Urine Clarity Clear, Urine pH 7.0, Ur Specific [place] 1.015, Urine Protein Negative, Urine Glucose (UA) Normal, Urine Ketones Negative, Urine Occult Blood Negative, Urine Nitrite Negative, Urine Bilirubin Negative, Urine Urobilinogen Normal, Ur Leukocyte Esterase Negative, Urine RBC 0 SEEN, Urine WBC 0 SEEN, Ur Squamous Epith Cells 0 SEEN, Urine Bacteria 0 SEEN, Urine Mucus 0 SEEN Radiology Impression Abdomen/Pelvis CT 11/28/21 14:05 IMPRESSION: Twisting of the mesentery in the right lower/mid abdomen with evidence of sigmoid volvulus. The attending physician was notified. Electronically Signed: Jourdan Sykes MD at 14:44 EDT ,
--- NOTE | 2021-11-28 16:00 | PCM.HP.BLA ---
History and Physical Date of Admission: 11/25/21 CAESAR KYLE, 55-year-old female presenting to the emergency room with abdominal pain. Patient states that the pain began abruptly is described as generalized abdominal pain going into her back. She denies any fevers. She notes nausea but no vomiting. No urinary symptoms. No change in stool habits. She states that earlier in the day she felt fine. She notes that walking does not change her pain. Pushing on her abdomen does not seem to make the pain hurt anymore last. She does state that she had a recent colonoscopy with Dr. Gardner. She states that she was told that she had redundant colon. CT scan shows:Normal visualized stomach. Normal small intestine. There is a redundancy of the sigmoid colon with evidence of a volvulus in the right middle abdomen with evidence of the swirling of the mesentery. Large amount of fecal material is seen in the colon. The appendix is visualized and appears normal. COUNTS INCLUDE 234 BEDS AT THE [facility] Medical History Acute bronchitis due to infection Anxiety Asthma Cancer Chest pain Chronic bronchitis Chronic cough COPD (chronic obstructive pulmonary disease) Diabetes Diabetes mellitus type 2, controlled Dyspnea Emphysema, unspecified Former smoker Gastrointestinal problem GERD (gastroesophageal reflux disease) High cholesterol History of skin cancer of the vulva Hoarseness Irregular heart beat Migraine headache Normal echocardiogram (~01/01/20) Normal stress echocardiogram (~07/31/16) On home oxygen therapy Osteoporosis Palpitations Post-menopausal Rash Restless legs Shortness of breath on exertion Sleep apnea, obstructive Wears glasses Wheezing Home Medications budesonide-formoterol 2 puff INHALATION BID 10/21/15 [History Last Taken 11/09/20] calcium carbonate 1,000 mg PO DAILY@0800 10/21/15 [History Last Taken 10/01/17] cholecalciferol (vitamin D3) 2,000 unit PO DAILY 10/21/15 [History Last Taken 10/01/17] metformin 500 mg PO DAILY 10/21/15 [History Last Taken 10/01/17] montelukast 10 mg PO DAILY 10/21/15 [History Last Taken 10/01/17] omega-3 fatty acids-fish oil 2 ea PO DAILY 10/21/15 [History Last Taken 10/15/20] pantoprazole 40 mg PO DAILY 10/21/15 [History Last Taken 10/01/17] multivitamin,ge-peti-xnzptcer 1 tab PO DAILY 06/07/17 [History Last Taken 10/01/17] fluticasone propionate 50 mcg/actuation nasal spray,suspension 2 spray INTRANASAL QDAY #16 g 07/29/18 [Rx Last Taken Unknown] alendronate 70 mg tablet 70 mg PO QWEEK 02/17/19 [History Last Taken 12/28/19] benralizumab 30 mg/mL subcutaneous syringe 30 mg SC Q8W #1 ml 12/31/19 [Rx Last Taken 11/28/19] aspirin 81 mg PO DAILY@0800 #30 tab.chew 01/02/20 [Rx Last Taken 11/01/20] escitalopram oxalate 5 mg tablet 5 mg PO DAILY 02/18/20 [History Last Taken Unknown] clobetasol 0.05 % topical cream 1 applic TOPICAL PRN PRN 03/09/20 [History Last Taken Unknown] cyanocobalamin (vitamin B-12) 1,000 mcg capsule 1,000 mcg PO .2xwk cap 03/09/20 [History Last Taken Unknown] lorazepam 0.5 mg tablet 0.5 mg PO TID PRN 03/09/20 [History Last Taken Unknown] tiotropium bromide 2.5 mcg/actuation mist for inhalation 2 puff INHALATION DAILY 03/09/20 [History Last Taken 11/09/20] azelastine 137 mcg (0.1 %) nasal spray aerosol 2 spray INTRANASAL BID #30 ml 09/27/20 [Rx Last Taken Unknown] albuterol sulfate 90 mcg/actuation aerosol inhaler 2 puff INHALATION Q6H PRN #8.5 g 11/18/20 [Rx Last Taken Unknown] albuterol sulfate 2.5 mg INHALATION .QID #180 ml 03/16/21 [Rx Last Taken Unknown] atorvastatin 40 mg tablet 20 mg PO DAILY tab 03/16/21 [History Last Taken Unknown] ipratropium 0.5 mg-albuterol 3 mg (2.5 mg base)/3 mL nebulization soln 3 ml INHALATION Q4H PRN PRN #180 ml 03/16/21 [Rx Last Taken Unknown] Allergy/AdvReac Type Severity Reaction Status Date / Time No Known Allergies Allergy Verified 11/28/21 12:03 Family History Mother CHF (congestive heart failure) Diabetes Hypertension Uterine cancer Anxiety Psychiatric care Father Diabetes CVA (cerebral vascular accident) Heart disease Lung cancer Brother Diabetes Surgical History H/O pulmonic valvulotomy History of appendectomy Social History Smoking Status: Former smoker second hand exposure: Yes alcohol intake: current Alcohol type: wine and hard liquor substance use type: does not use ROS Constitutional Constitutional: Denies chills or fever(s) Cardiovascular Cardiovascular: Denies chest pain Respiratory/Chest Respiratory/Chest: Denies cough or dyspnea Gastrointestinal Gastrointestinal: Reports abdominal pain, bloating and nausea; Denies constipation or diarrhea Physical Exam Const alert and oriented x3 General Appearance: cooperative HEENT normocephalic and head/scalp atraumatic Eyes PERRL and EOMs intact bilaterally Resp clear to auscultation bilaterally Cardio Rate: regular rate Rhythm: regular rhythm GI soft to palpation GI Narrative: Patient does not have a significant amount of abdominal distention there is no rebound guarding or peritoneal signs identified. Inspection: abdominal distention Palpation: tender Lab / Micro Data Result Diagrams: 11/28/21 12:30 document embedded image 11/28/21 12:30 document embedded image Labs:Laboratory Results - last 24 hr 11/28/21 12:30: WBC 7.7, RBC 4.82, Hgb 14.8, Hct 44.6, MCV 92.5, MCH 30.7, MCHC 33.2, RDW Std Deviation 43.8, RDW Coeff of Shantel 12.8, Plt Count 341, MPV 9.2, Immature Gran % (Auto) 0.500, Neut % (Auto) 74.6 H, Lymph % (Auto) 19.9, [place] % (Auto) 4.9, Eos % (Auto) 0.0, Baso % (Auto) 0.1, Absolute Neuts (auto) 5.8, Absolute Lymphs (auto) 1.54, Nucleated RBC % 0 11/28/21 12:30: Sodium 139, Potassium 4.2, Chloride 109 H, Carbon Dioxide 25.0, Anion Gap 5, BUN 23 H, Creatinine 0.90, Estim Creat Clear Calc 65.34, Est GFR (MDRD) Af Amer 83, Est GFR (MDRD) Non-Af 69, BUN/Creatinine Ratio 25.6 H, Glucose 116 H, Calcium 9.9 11/28/21 12:30: Total Bilirubin 0.50, Direct Bilirubin 0.18, AST 28, ALT 41, Alkaline Phosphatase 63, Total Protein 7.3, Albumin 4.1, Globulin 3.2, Lipase 135 11/28/21 14:40: Lactic Acid 0.6 11/28/21 14:44: Urine Color Yellow, Urine Clarity Clear, Urine pH 7.0, Ur Specific [place] 1.015, Urine Protein Negative, Urine Glucose (UA) Normal, Urine Ketones Negative, Urine Occult Blood Negative, Urine Nitrite Negative, Urine Bilirubin Negative, Urine Urobilinogen Normal, Ur Leukocyte Esterase Negative, Urine RBC 0 SEEN, Urine WBC 0 SEEN, Ur Squamous Epith Cells 0 SEEN, Urine Bacteria 0 SEEN, Urine Mucus 0 SEEN Radiology Impression Abdomen/Pelvis CT 11/28/21 14:05 IMPRESSION: Twisting of the mesentery in the right lower/mid abdomen with evidence of sigmoid volvulus. The attending physician was notified. Electronically Signed: Jourdan Sykes MD at 14:44 EDT , Plan player: I will assist you with a decompressive colonoscopy. If it is not successful then she will need to undergo surgery. She was explained alternatives, risk, benefits including outstanding bleeding, infection, sepsis, perforation, need for emergent . Have an ASA of 2.
--- NOTE | 2021-11-28 17:07 | OP.COLON_ITS ---
Patient Name: Kelsea Hansen Procedure Date: 11/28/2021 4:03 PM Date of : 1965 Age: 55 Procedure: Colonoscopy Indications: Decompression of sigmoid volvulus Providers: Adi Mayer DO Medicines: See the Anesthesia note for documentation of the administered medications Patient Profile: This is a 55 year old female. Refer to note in patient chart for documentation of history and physical. Last Colonoscopy: within the past 3 months. Complications: No immediate complications. Estimated blood loss: None. Procedure: Pre-Anesthesia Assessment: - Prior to the procedure, a History and Physical was performed, and patient medications and allergies were reviewed. The patient's tolerance of previous anesthesia was also reviewed. The risks and benefits of the procedure and the sedation options and risks were discussed with the patient. All questions were answered, and informed consent was obtained. Prior Anticoagulants: The patient has taken no previous anticoagulant or antiplatelet agents. ASA Grade Assessment: III - A patient with severe systemic disease. After reviewing the risks and benefits, the patient was deemed in satisfactory condition to undergo the procedure. After I obtained informed consent, the scope was passed under direct vision. Throughout the procedure, the patient's blood pressure, pulse, and oxygen saturations were monitored continuously. The Colonoscope was introduced through the anus and advanced to. The Colonoscope was introduced through the anus and advanced to the cecum, identified by appendiceal orifice and ileocecal valve. The colonoscopy was performed without difficulty. The patient tolerated the procedure well. The quality of the bowel preparation was poor. Scope In: 4:51:00 PM Scope Out: 5:01:51 PM Total Procedure Duration Time 0 hours 10 minutes 51 seconds Findings: The entire examined colon appeared normal. Impression: - Preparation of the colon was poor. - The entire examined colon is normal. - No specimens collected. Recommendation: - [facility]. - Clear liquid diet. - Continue present medications. - Repeat colonoscopy in 10 years for screening purposes. - Return to primary care physician (date not yet determined). Procedure Code(s): --- Professional --- 67571, Colonoscopy, flexible; diagnostic, including collection of specimen(s) by brushing or washing, when performed (separate procedure) Diagnosis Code(s): --- Professional --- K56.2, Volvulus CPT copyright 2017 [employer]. All rights reserved. The codes documented in this report are preliminary and upon outpatient coder review may be revised to meet current compliance requirements. Adi Mayer DO 11/28/2021 5:07:29 PM This report has been signed electronically. Number of Addenda: 1 Note Initiated On: 11/28/2021 4:03 PM Addendum Number: 1 Addendum Date: 03/28/2022 6:28:46 AM MAC was used as sedation for this procedure. Adi Mayer DO 03/28/2022 6:28:50 AM This report has been signed electronically.
--- NOTE | 2021-11-28 17:09 | OP.CCLET_ITS ---
03/28/2022 Gonsalo Knox [address] [place] [address] Re : Colonoscopy procedure for Kelsea Hansen Dear Dr. Knox This procedure was performed on Sunday, November 28, 2021. My impressions and recommendations are as follows: Impressions : - Preparation of the colon was poor. - The entire examined colon is normal. - No specimens collected. Recommendations : - [facility]. - Clear liquid diet. - Continue present medications. - Repeat colonoscopy in 10 years for screening purposes. - Return to primary care physician (date not yet determined). My findings are described in the full procedure note, which is enclosed. If I can be of further assistance, please feel free to contact me at . Sincerely, Adi Friend, 11/28/2021 5:07:29 PM This report has been signed electronically.
--- NOTE | 2021-11-28 17:37 | PN.HOSP_ITS ---
Documented by User: Leeanna Gunn NP, PROJECT DEVELOPMENT LEADER-C 11/28/21 17:56 Subjective Subjective Patient seen and examined in PACU following colonoscopy for suspected sigmoid volvulus. Hospitalist services consulted for medical management. She reports generalized abdominal discomfort. Denies shortness of breath or other symptoms or complaints. Objective Data Objective Data Vital Signs: Vital Signs Temp Pulse Resp BP Pulse Ox 97.8 F 57 L 16 111/68 99 11/28/21 17:10 11/28/21 17:29 11/28/21 17:29 11/28/21 17:29 11/28/21 17:29 Oxygen Delivery Method Room Air Weight: 166 lb Body Mass Index (BMI) 26.8 Lab / Micro Data Result Diagrams: 11/28/21 12:30 11/28/21 12:30 Labs: Laboratory Results - last 24 hr 11/28/21 12:30: WBC 7.7, RBC 4.82, Hgb 14.8, Hct 44.6, MCV 92.5, MCH 30.7, MCHC 33.2, RDW Std Deviation 43.8, RDW Coeff of Shantel 12.8, Plt Count 341, MPV 9.2, Immature Gran % (Auto) 0.500, Neut % (Auto) 74.6 H, Lymph % (Auto) 19.9, [place] % (Auto) 4.9, Eos % (Auto) 0.0, Baso % (Auto) 0.1, Absolute Neuts (auto) 5.8, Absolute Lymphs (auto) 1.54, Nucleated RBC % 0 11/28/21 12:30: Sodium 139, Potassium 4.2, Chloride 109 H, Carbon Dioxide 25.0, Anion Gap 5, BUN 23 H, Creatinine 0.90, Estim Creat Clear Calc 65.34, Est GFR (MDRD) Af Amer 83, Est GFR (MDRD) Non-Af 69, BUN/Creatinine Ratio 25.6 H, Glucose 116 H, Calcium 9.9 11/28/21 12:30: Total Bilirubin 0.50, Direct Bilirubin 0.18, AST 28, ALT 41, Alkaline Phosphatase 63, Total Protein 7.3, Albumin 4.1, Globulin 3.2, Lipase 135 11/28/21 14:40: Lactic Acid 0.6 11/28/21 14:44: Urine Color Yellow, Urine Clarity Clear, Urine pH 7.0, Ur Spe cific [place] 1.015, Urine Protein Negative, Urine Glucose (UA) Normal, Urine Ketones Negative, Urine Occult Blood Negative, Urine Nitrite Negative, Urine Bilirubin Negative, Urine Urobilinogen Normal, Ur Leukocyte Esterase Negative, Urine RBC 0 SEEN, Urine WBC 0 SEEN, Ur Squamous Epith Cells 0 SEEN, Urine Bacteria 0 SEEN, Urine Mucus 0 SEEN Radiography Diagnostic Testing: Radiology Impression Abdomen/Pelvis CT 11/28/21 14:05 IMPRESSION: Twisting of the mesentery in the right lower/mid abdomen with evidence of sigmoid volvulus. The attending physician was notified. Electronically Signed: Jourdan Sykes MD at 14:44 EDT , Physical Exam Const alert and oriented x3 Orientation / Consciousness: awake, oriented to person, oriented to place and oriented to time HEENT normocephalic Mouth: dry mucous membranes Eyes PERRL, EOMs intact bilaterally and conjunctivae normal Neck no lymphadenopathy Resp normal respiratory effort and clear to auscultation bilaterally Cardio regular rate, regular rhythm and no murmurs Peripheral Pulses: pulses 2+ throughout GI Auscultation: hypoactive bowel sounds Palpation: tender Extremity normal to inspection Skin no rashes or lesions noted Lesions: no lesions Rashes: no rashes Trauma: no lacerations or abrasions Neuro CN's II-XII intact bilaterally, no focal motor deficits, no sensory deficits noted and deep tendon reflexes 2+ bilaterally Psych mental status grossly normal and affect normal Assessment & Plan Assessment/Plan (1) COPD (chronic obstructive pulmonary disease): PLAN: 1. Abdominal pain- CT abdomen and pelvis demonstrated twisting of the mesentery in the right lower/mid abdomen suggestive of sigmoid volvulus. Surgery/GI consulted and patient underwent colonoscopy in which examined colon appeared normal per report. Management per surgery/GI. 2. Chronic COPD/Asthma- reports infrequent exacerbations. As needed albuterol aerosol. Follows with pulmonary medicine. On Fasenra. 3. History of Type II diabetes mellitus- reports recently taken off Metformin following 70lb weight loss over the past year. 4. YAHAIRA- continue pap therapy. 5. GERD- on PPI. 6. Anxiety/Depression- on escitalopram, PRN lorazepam. 7. Hyperlipidemia- continue statin. DVT prophylaxis- per surgery This patient was seen by MAGDY Stephens under the supervision of Dr. Wolf. Time spent examining patient, reviewing data and subsequent management of care: 15 minutes Documented by User: Dr. Angie Wolf MD 11/28/21 18:44 Objective Data Lab / Micro Data Result Diagrams: 11/28/21 12:30 11/28/21 12:30 Charges/Coding Addendum Addendum: Patient seen by Leeanna CURRAN under my supervision Patient is a 55 y/o female with a PMH as outlined admitted to the service of general surgery for abdominal pain. Patient started abruptly, and was generalised, with no aggravating or relieving factors. She had associated nausea, but no vomiting. CT of the abdomen and pelvis showed twisting of the mesentery in the right lower to mid abdomen consistent with sigmoid volvulus. She was admitted to the service of general surgery.Vitals were Bp of 116/87, IN of 61, RR of 16 and temp of 97.9F as well as oxygen sats of 96% on room air. CBC was unremarkable, and CMP was also unremarkable. Urinalysis was also unremarkable. She was admitted to the service of general surgery, and had e mergent colonoscopy was normal. Hospitalist service was consulted for medical management. Patient was seen in the PACU. She had no active complaints, pain was well controlled. she denied fever, chills, nausea, vomiting or diarrhea. Review of systems is otherwise negative. O/E; Const alert, oriented x3 and no apparent distress General Appearance: cooperative HEENT normocephalic, head/scalp atraumatic, hearing grossly normal bilaterally and moist oral mucous membranes Eyes PERRL, EOMs intact bilaterally and conjunctivae normal Neck no lymphadenopathy, supple and no JVD Resp normal respiratory effort and clear to auscultation bilaterally Cardio regular rate, regular rhythm, S1 normal heart sound, S2 normal heart sound and no murmurs GI normal to inspection, nondistended, normoactive bowel sounds and soft to palpation Extremity normal to inspection, full ROM and no clubbing, cyanosis or edema Skin no rashes or lesions noted Neuro oriented x3, CN's II-XII intact bilaterally and moves all extremities Sensorium / Orientation: awake and alert Psych affect normal Assessment and plan #Abdominal pain * CT of the abdomen and pelvis showed twisting of the mesentery in the right mid/lower abdomen with evidence of sigmoid volvulus * had emergent colonoscopy which was normal * management as per general surgery * #COPD and asthma * on room air. * breathing treatment with bronchodilators * oxygen as needed for shortness of breath * #history of stroke: stable #History of diabetes mellitus * now diet controlled. Says she lost ~ 70 pounds over the last year through diet and exercise and has been taken off her metformin. * 1800 calorie controlled diet * #Hyperlipidemia: on statin #GERD: on PPI #YAHAIRA: on CPAP qhs #Hyperlipidemia: on statin DVT Prophylaxis: as per primary team Thank you for the courtesy of the consult. We will continue to follow with you. Time I spent on the care of the patient today- 20 minutes with Leeanna Gunn spending 15 minutes, making a total of 35 mins. Patient seen by Leeanna Gunn NP-C under my supervision Visit Charges Inpatient E&M: 00634 Subs Hosp L2
--- NOTE | 2021-11-28 18:12 | RAD_ITS ---
STUDY: X-RAY - ABDOMEN/PELVIS REASON FOR EXAM: Female, 55 years old. sigmoid volvulus TECHNIQUE: One view. COMPARISON: CT scan earlier same day. FINDINGS: Please see the impression. RAD/Abdomen Single View (Portable) IMPRESSION: The patient''s known sigmoid volvulus redemonstrated. Diffuse colonic and small bowel dilatation, worsened compared to the prior study. Findings may be due to developing bowel obstruction at the level of the volvulus. Excreted IV contrast in the urinary bladder. Electronically Signed: Mike Yeung MD at 0:47 EDT ,
[2021-11-28] MEDS: 0.9% Normal Saline 1,000 ML 50 ML IV (21:29)
[2021-11-28] MEDS: 0.9% Saline Lock 10 ML Syringe IV (21:33)
[2021-11-29 03:54] VITALS: BP 88/47; PULSE 52; RESP 18; TEMP 36.6; O2SAT 97
[2021-11-29 05:30] VITALS: BP 105/50; PULSE 54; RESP 18; TEMP 36.6; O2SAT 100
[2021-11-29] MEDS: Ketorolac 15 MG/ML Vial IV (05:35)
[2021-11-29] MEDS: 0.9% Saline Lock 10 ML Syringe IV (05:36)
--- NOTE | 2021-11-29 05:55 | RAD_ITS ---
STUDY: X-RAY - ACUTE ABDOMINAL SERIES REASON FOR EXAM: Female, 55 years old. Sigmoid volvulus TECHNIQUE: Single view of the chest. Supine, and erect view(s) of the abdomen were obtained. COMPARISON: Comparison is made with prior study dated 11/28/2021. FINDINGS: Increased markings at the lung bases to just above the linear scarring. Hyperinflation. Emphysematous changes with decreased bronchovascular markings in the upper lobes. Normal size heart. Normal mediastinum and kenny. Normal visualized pulmonary arteries. Normal visualized aortic arch and descending thoracic aorta. There is evidence of less colonic distention as compared to prior study. Fecal material is seen in the rectosigmoid colon. There is a 9 cm x 2.3 cm rounded soft tissue density in the right lower quadrant. This may represent fluid-filled bowel loop traverses the area of the mesenteric torsion seen on the CT scan. Normal visualized osseous structures. RAD/Acute Abdomen Inc Chest IMPRESSION: Less gaseous distention at this time as compared to prior study. Electronically Signed: Jourdan Sykes MD at 10:37 EDT ,
[2021-11-29 06:33] LABS: Absolute Lymphocyte Count 1.67 X10^3/uL (0.83-4.51); Absolute Neutrophil Count 3.2 X10^3/uL (2.0-7.7); Basophil# 0.01 X10^3/uL; Basophil% 0.2 % (0-1); Hematocrit 39.8 % (37-47); Hemoglobin 12.5 g/dL (12.0-15.0); Lymphocyte # 1.67 X10^3/ul (0.83-4.51); Lymphocyte % 31.5 % (19-41); Mean Corp Hgb Conc 31.4 g/dL (32-36); Mean Corpuscular Hgb 29.6 pg (27.0-32.0); Mean Corpuscular Volume 94.3 fL (81-99); Mean Platelet Vol. 9.4 fl (6.2-12.0); Monocyte# 0.44 X10^3/uL; Monocyte% 8.3 % (0-10); NRBC Flagged by Analyzer 0 % (0-5); Neutrophil # 3.18 X10^3/uL (2.7-7.7); Neutrophil % 59.8 % (47-70); Platelet Count 244 K/mm3 (150-450); RBC Distribution Width CV 13.2 % (11.6-14.6); RBC Distribution Width SD 45.4 fl (35.1-43.9); Red Blood Count 4.22 M/mm3 (4.2-5.4); White Blood Count 5.3 K/mm3 (4.4-11.0)
[2021-11-29 06:55] LABS: Anion Gap 5 (5-15); BUN 15 mg/dL (7-18); BUN/Creat Ratio 18.9 RATIO (10-20); Calcium,Total 8.5 mg/dL (8.5-10.1); Chloride 110 mmol/L (98-107); EST Glomerular Filtration Rate 79 mL/min (>60); Est Glom Filt Rate - Afr Amer 96 mL/min (>60); Estimated Creatinine Clearance 73.51 ml/min; Glucose 86 mg/dL (74-106); Potassium 3.7 mmol/L (3.5-5.1); Sodium Level 141 mmol/L (136-145)
[2021-11-29 07:41] VITALS: O2SAT 97
[2021-11-29 08:51] VITALS: BP 98/43; PULSE 47; RESP 17; TEMP 36.6; O2SAT 96
[2021-11-29] MEDS: Escitalopram Oxalate 10 MG Tablet 5 MG PO (09:06)
[2021-11-29] MEDS: Montelukast 10 MG Tablet PO (09:07)
--- NOTE | 2021-11-29 10:20 | CASEMGMT ---
RN CM Face to Face with patient for initial transition planning/care coordination assessment. RN CM introduced self and role at [facility]. Patient lying in bed, alert and oriented. Patient willing to participate in assessment and is able to answer all questions appropriately. Care providers, pharmacy, and demographics verified. Patient wishes to discharge home, denies need for home health at this time. Patient states she has no further needs or concerns at this time. CM to follow for discharge planning needs that may arise. PCP: Abilio Specialists: Jake management lecturer Preferred Pharmacy: [facility] Insurance: MMO Prescription Benefit: yes Living Will/HPOA: none LNOK: , daughter Living Arrangements: Patient lives with in a 2 story home. Patient states she is independent and able to ambulate stairs. Transportation: self, DME/HHC: Patient has bipap, nebulizer, pulse ox, oxgyen PRN through [facility]. No previous HHC or SNF. Disposition Plan: Patient to discharge home with family support and follow-up plans in place. Heidi MCARTHUR, RN, CM
--- NOTE | 2021-11-29 11:08 | EX.PCM.DISCH ---
Discharge Instructions Procedure General Surgery Diet Discharge Diet: Light diet - advance as tolerated (If you have questions about your diet instructions, please talk to your doctor.) Activity Discharge Activity: Return to Normal Activity May shower in (days): 1 Lifting Restrictions: 10 pounds Dressing / Incision Call your doctor if you observe: Fever of 101 or Higher Follow Up Care Please Follow Up With: Bhargav Herron MD When: Call office to schedule an appointment to be seen in about 5 days. Test Results: Test results from this visit will be discussed in further detail at your follow-up appointment, if applicable. Discharge Plan Admission Admit Date/Time: 11/28/21 17:23 Attending Provider: Bhargav Herron Primary Care Provider: Gonsalo Knox Consulting Providers: Angie Wolf ; Wali Zhou Discharge Orders/Prescriptions Prescriptions: New oxycodone-acetaminophen [Percocet] 5-325 mg tablet 1 tab PO Q4H PRN (Reason: pain) 5 Days Qty: 20 RF: 0 No Action alendronate [Fosamax] 70 mg tablet 70 mg PO QWEEK RF: 0 escitalopram oxalate 5 mg tablet 5 mg PO DAILY RF: 0 Spiriva Respimat 2.5 mcg/actuation mist 2 puff INHALATION DAILY RF: 0 lorazepam [Ativan] 0.5 mg tablet 0.5 mg PO TID PRN (Reason: Anxiety) RF: 0 clobetasol 0.05 % cream 1 applic TOPICAL PRN PRN (Reason: PSORIASIS) RF: 0 cyanocobalamin (vitamin B-12) 1,000 mcg capsule 1,000 mcg PO .2xwk RF: 0 atorvastatin 40 mg tablet 20 mg PO DAILY RF: 0 albuterol sulfate [ProAir HFA] 90 mcg/actuation HFA aerosol inhaler 2 puff INHALATION Q6H PRN (Reason: ASTHMA) Qty: 8.5 RF: 6 albuterol sulfate 2.5 mg /3 mL (0.083 %) solution for nebulization 2.5 mg INHALATION .QID Qty: 180 RF: 2 ipratropium-albuterol 0.5 mg-3 mg(2.5 mg base)/3 mL solution for nebulization 3 ml INHALATION Q4H PRN PRN (Reason: SOB &/OR WHEEZING) Qty: 180 RF: 6 calcium carbonate 500 MG tablet 1,000 mg PO DAILY@0800 RF: 0 pantoprazole 40 MG tablet 40 mg PO DAILY RF: 0 montelukast 10 MG tablet 10 mg PO DAILY RF: 0 cholecalciferol (vitamin D3) 1,000 UNIT tablet 2,000 unit PO DAILY RF: 0 budesonide-formoterol 1 INHALER inhaler 2 puff INHALATION BID RF: 0 Centrum Silver Tablet 1 tab PO DAILY RF: 0 fluticasone propionate [Flonase Allergy Relief] 50 mcg/actuation spray,suspension 2 spray INTRANASAL QDAY Qty: 16 RF: 5 Fasenra 30 mg/mL syringe 30 mg SC Q8W Qty: 1 RF: 11 azelastine 137 mcg (0.1 %) aerosol,spray 2 spray INTRANASAL BID Qty: 30 RF: 6 Referrals / Follow Up: Gonsalo Knox MD [Primary Care Provider] - Bhargav Herron MD [STAFF PHYSICIAN] -
--- NOTE | 2021-11-29 11:10 | PCM.PN.SRG ---
Subjective Subjective No complaints of abdominal pain. Passing flatus tolerating p.o. Objective Data Objective Data Abdomen is soft Vital Signs: Vital Signs Temp Pulse Resp BP Pulse Ox 97.9 F 47 L 17 98/43 L 96 11/29/21 08:51 11/29/21 08:51 11/29/21 08:51 11/29/21 08:51 11/29/21 08:51 Oxygen Flow Rate (L/min) 2 Oxygen Delivery Method Room Air Weight: 165 lb 4.8 oz Body Mass Index (BMI) 26.6 Lab / Micro Data Result Diagrams: 11/29/21 05:05 11/29/21 05:05 Labs: Laboratory Results - last 24 hr 11/28/21 12:30: WBC 7.7, RBC 4.82, Hgb 14.8, Hct 44.6, MCV 92.5, MCH 30.7, MCHC 33.2, RDW Std Deviation 43.8, RDW Coeff of Shantel 12.8, Plt Count 341, MPV 9.2, Immature Gran % (Auto) 0.500, Neut % (Auto) 74.6 H, Lymph % (Auto) 19.9, [place] % (Auto) 4.9, Eos % (Auto) 0.0, Baso % (Auto) 0.1, Absolute Neuts (auto) 5.8, Absolute Lymphs (auto) 1.54, Nucleated RBC % 0 11/28/21 12:30: Sodium 139, Potassium 4.2, Chloride 109 H, Carbon Dioxide 25.0, Anion Gap 5, BUN 23 H, Creatinine 0.90, Estim Creat Clear Calc 65.34, Est GFR (MDRD) Af Amer 83, Est GFR (MDRD) Non-Af 69, BUN/Creatinine Ratio 25.6 H, Glucose 116 H, Calcium 9.9 11/28/21 12:30: Total Bilirubin 0.50, Direct Bilirubin 0.18, AST 28, ALT 41, Alkaline Phosphatase 63, Total Protein 7.3, Albumin 4.1, Globulin 3.2, Lipase 135 11/28/21 14:40: Lactic Acid 0.6 11/28/21 14:44: Urine Color Yellow, Urine Clarity Clear, Urine pH 7.0, Ur Specific [place] 1.015, Urine Protein Negative, Urine Glucose (UA) Normal, Urine Ketones Negative, Urine Occult Blood Negative, Urine Nitrite Negative, Urine Bilirubin Negative, Urine Urobilinogen Normal, Ur Leukocyte Esterase Negative, Urine RBC 0 SEEN, Urine WBC 0 SEEN, Ur Squamous Epith Cells 0 SEEN, Urine Bacteria 0 SEEN, Urine Mucus 0 SEEN 11/29/21 05:05: WBC 5.3, RBC 4.22, Hgb 12.5, Hct 39.8, MCV 94.3, MCH 29.6, MCHC 31.4 L D, RDW Std Deviation 45.4 H, RDW Coeff of Shantel 13.2, Plt Count 244, MPV 9.4, Immature Gran % (Auto) 0.200, Neut % (Auto) 59.8, Lymph % (Auto) 31.5, [place] % (Auto) 8.3, Eos % (Auto) 0.0, Baso % (Auto) 0.2, Absolute Neuts (auto) 3.2, Absolute Lymphs (auto) 1.67, Nucleated RBC % 0 11/29/21 05:05: Sodium 141, Potassium 3.7, Chloride 110 H, Carbon Dioxide 26.0, Anion Gap 5, BUN 15, Creatinine 0.80, Estim Creat Clear Calc 73.51, Est GFR (MDRD) Af Amer 96, Est GFR (MDRD) Non-Af 79, BUN/Creatinine Ratio 18.9, Glucose 86, Calcium 8.5 Radiography Diagnostic Testing: Radiology Impression Abdomen/Pelvis CT 11/28/21 14:05 IMPRESSION: Twisting of the mesentery in the right lower/mid abdomen with evidence of sigmoid volvulus. The attending physician was notified. Electronically Signed: Jourdan Sykes MD at 14:44 EDT , KUB X-Ray 11/28/21 18:12 IMPRESSION: The patient''s known sigmoid volvulus redemonstrated. Diffuse colonic and small bowel dilatation, worsened compared to the prior study. Findings may be due to developing bowel obstruction at the level of the volvulus. Excreted IV contrast in the urinary bladder. Electronically Signed: Mike Yeung MD at 0:47 EDT , Acute Abdomen Series 11/29/21 05:55 IMPRESSION: Less gaseous distention at this time as compared to prior study. Electronically Signed: Jourdan Sykes MD at 10:37 EDT , Assessment & Plan Assessment/Plan (1) Malrotation of intestine: PLAN: I think it is clear the patient did not have a sigmoid volvulus but probably did have a malrotation of her small intestines which has spontaneously resolved. I am unable to get a CAT scan with IV and p.o. contrast today but I think it is okay for her to go home and I will do this as an outpatient setting. The real question is what to do next I can see how she is not can have to have some form of an exploratory laparoscopy and running of her small bowels and lysis of any adhesions and/or Alejandro bands
[2021-11-29 11:40] VITALS: RESP 18
[2021-11-29] MEDS: Ipratropium/Albuterol Sulfate 3 ML AMPUL.NEB INHALATION (11:40)
[2021-11-29] MEDS: Budesonide Respules 0.5 MG/2 ML AMPUL.NEB. INHALATION (11:44)
--- NOTE | 2021-11-29 12:14 | PHA.DC.MC ---
Pharmacy Service has performed discharge medication reconciliation and counseling for this patient. 1. PERCOCET 5/325MG PO Q4H PRN PAIN The patient's discharge medication list was reviewed for discrepancies and discrepancies were resolved. Home Medications budesonide-formoterol 2 puff INHALATION BID 10/21/15 calcium carbonate 1,000 mg PO DAILY@0800 10/21/15 cholecalciferol (vitamin D3) 2,000 unit PO DAILY 10/21/15 montelukast 10 mg PO DAILY 10/21/15 pantoprazole 40 mg PO DAILY 10/21/15 fluticasone propionate 50 mcg/actuation nasal spray,suspension 2 spray INTRANASAL QDAY #16 g 07/29/18 alendronate 70 mg tablet 70 mg PO QWEEK 02/17/19 benralizumab 30 mg/mL subcutaneous syringe 30 mg SC Q8W #1 ml 12/31/19 escitalopram oxalate 5 mg tablet 5 mg PO DAILY 02/18/20 clobetasol 0.05 % topical cream 1 applic TOPICAL PRN PRN 03/09/20 cyanocobalamin (vitamin B-12) 1,000 mcg capsule 1,000 mcg PO .2xwk cap 03/09/20 lorazepam 0.5 mg tablet 0.5 mg PO TID PRN 03/09/20 tiotropium bromide 2.5 mcg/actuation mist for inhalation 2 puff INHALATION DAILY 03/09/20 azelastine 137 mcg (0.1 %) nasal spray aerosol 2 spray INTRANASAL BID #30 ml 09/27/20 albuterol sulfate 90 mcg/actuation aerosol inhaler 2 puff INHALATION Q6H PRN #8.5 g 11/18/20 albuterol sulfate 2.5 mg INHALATION .QID #180 ml 03/16/21 atorvastatin 40 mg tablet 20 mg PO DAILY tab 03/16/21 ipratropium 0.5 mg-albuterol 3 mg (2.5 mg base)/3 mL nebulization soln 3 ml INHALATION Q4H PRN PRN #180 ml 03/16/21 [id number] [Centrum Silver] 1 tab PO DAILY 11/28/21 oxycodone-acetaminophen [Percocet] 1 tab PO Q4H PRN 5 Days #20 tab 11/29/21 The patient was counseled on the following discharge medications and changes in medications for homegoing were reviewed. The Reason for Use, instructions for use, and potential side effects were reviewed for all new medications. The patient's questions regarding all of their medications were answered. The patient was able to verbally demonstrate an understanding of their discharge medications.
--- NOTE | 2021-11-29 12:47 | PCM.PN.HOSP ---
Subjective Subjective Doing well, no issues overnight, feels better today. Objective Data Objective Data Vital Signs: Vital Signs Temp Pulse Resp BP Pulse Ox 97.9 F 47 L 18 98/43 L 96 11/29/21 08:51 11/29/21 08:51 11/29/21 11:40 11/29/21 08:51 11/29/21 08:51 Oxygen Flow Rate (L/min) 2 Oxygen Delivery Method Room Air Weight: 165 lb 4.8 oz Body Mass Index (BMI) 26.6 Lab / Micro Data Result Diagrams: 11/29/21 05:05 11/29/21 05:05 Labs: Laboratory Results - last 24 hr 11/28/21 12:30: Sodium 139, Potassium 4.2, Chloride 109 H, Carbon Dioxide 25.0, Anion Gap 5, BUN 23 H, Creatinine 0.90, Estim Creat Clear Calc 65.34, Est GFR (MDRD) Af Amer 83, Est GFR (MDRD) Non-Af 69, BUN/Creatinine Ratio 25.6 H, Glucose 116 H, Calcium 9.9 11/28/21 12:30: Total Bilirubin 0.50, Direct Bilirubin 0.18, AST 28, ALT 41, Alkaline Phosphatase 63, Total Protein 7.3, Albumin 4.1, Globulin 3.2, Lipase 135 11/28/21 14:40: Lactic Acid 0.6 11/28/21 14:44: Urine Color Yellow, Urine Clarity Clear, Urine pH 7.0, Ur Specific [place] 1.015, Urine Protein Negative, Urine Glucose (UA) Normal, Urine Ketones Negative, Urine Occult Blood Negative, Urine Nitrite Negative, Urine Bilirubin Negative, Urine Urobilinogen Normal, Ur Leukocyte Esterase Negative, Urine RBC 0 SEEN, Urine WBC 0 SEEN, Ur Squamous Epith Cells 0 SEEN, Urine Bacteria 0 SEEN, Urine Mucus 0 SEEN 11/29/21 05:05: WBC 5.3, RBC 4.22, Hgb 12.5, Hct 39.8, MCV 94.3, MCH 29.6, MCHC 31.4 L D, RDW Std Deviation 45.4 H, RDW Coeff of Shantel 13.2, Plt Count 244, MPV 9.4, Immature Gran % (Auto) 0.200, Neut % (Auto) 59.8, Lymph % (Auto) 31.5, [place] % (Auto) 8.3, Eos % (Auto) 0.0, Baso % (Auto) 0.2, Absolute Neuts (auto) 3.2, Absolute Lymphs (auto) 1.67, Nucleated RBC % 0 11/29/21 05:05: Sodium 141, Potassium 3.7, Chloride 110 H, Carbon Dioxide 26.0, Anion Gap 5, BUN 15, Creatinine 0.80, Estim Creat Clear Calc 73.51, Est GFR (MDRD) Af Amer 96, Est GFR (MDRD) Non-Af 79, BUN/Creatinine Ratio 18.9, Glucose 86, Calcium 8.5 Radiography Diagnostic Testing: Radiology Impression Abdomen/Pelvis CT 11/28/21 14:05 IMPRESSION: Twisting of the mesentery in the right lower/mid abdomen with evidence of sigmoid volvulus. The attending physician was notified. Electronically Signed: Jourdan Sykes MD at 14:44 EDT , KUB X-Ray 11/28/21 18:12 IMPRESSION: The patient''s known sigmoid volvulus redemonstrated. Diffuse colonic and small bowel dilatation, worsened compared to the prior study. Findings may be due to developing bowel obstruction at the level of the volvulus. Excreted IV contrast in the urinary bladder. Electronically Signed: Mike Yeung MD at 0:47 EDT , Acute Abdomen Series 11/29/21 05:55 IMPRESSION: Less gaseous distention at this time as compared to prior study. Electronically Signed: Jourdan Sykes MD at 10:37 EDT , Physical Exam Const alert, oriented x3 and no apparent distress General Appearance: cooperative HEENT normocephalic and moist oral mucous membranes Eyes PERRL, EOMs intact bilaterally and conjunctivae normal Neck supple and no JVD Resp normal respiratory effort, no retractions, no use of accessory muscles and clear to auscultation bilaterally Auscultation: Negative for crackles, rales, rhonchi or wheezes Cardio regular rate, regular rhythm, S1 normal heart sound, S2 normal heart sound and no murmurs GI soft to palpation, non-tender and non-distended; Negative for hepatosplenomegaly Extremity no clubbing, cyanosis or edema Skin no rashes or lesions noted Neuro no focal motor deficits and no sensory deficits noted Psych affect normal Appearance: appropriate Assessment & Plan Assessment/Plan (1) COPD (chronic obstructive pulmonary disease): PLAN: 1. Malrotation of her small intestine - CT abdomen and pelvis demonstrated twisting of the mesentery in the right lower/mid abdomen suggestive of sigmoid volvulus, however colonoscopy was unremarkable therefore malrotation is likely ? Surgery/GI consulted and patient underwent colonoscopy in which examined colon appeared normal per report. Management per surgery/GI. ? Okay for discharge from medical perspective she can resume all of her home medications ? Outpatient follow-up with general surgery and or GI 2. Chronic COPD/Asthma - reports infrequent exacerbations. As needed albuterol aerosol. Follows with pulmonary medicine. On Fasenra. ? Resume her home medications 3. History of Type II diabetes mellitus - reports recently taken off Metformin following 70lb weight loss over the past year. 4. YAHAIAR - continue pap therapy. 5. GERD ?Stable -Continue with PPI. 6. Anxiety/Depression ? Stable - on escitalopram, PRN lorazepam. 7. Hyperlipidemia ?Stable - continue statin. DVT: Ambulation Charges/Coding Visit Charges OBSV E&M: 13475 Subsequent observation care L2
[2021-11-29 12:52] VITALS: BP 101/71; PULSE 63; RESP 18; O2SAT 93
== END 2021-11-29 13:05 | disposition home or self-care (01) ==
LOC: ED 14:57 → SDC 15:32 → AC 15:32 → SDC 17:50 → MS3 17:50
PROVIDERS: Emergency Medicine; Internal Medicine Gastroenterology; Admitting Provider Surgery; Emergency Provider Emergency Medicine; PCP Family Medicine; Visit Provider Surgery
PROC: 0DJD8ZZ Inspection of Lower Intestinal Tract, Via Natural or Artificial Opening Endoscopic (ICD-10-PCS; CPT 45378; principal; 2021-11-28 15:55)
DX: K56.2 Volvulus (principal); J44.9 Chronic obstructive pulmonary disease, unspecified; E11.9 Type 2 diabetes mellitus without complications; E78.5 Hyperlipidemia, unspecified; Z79.82 Long term (current) use of aspirin; K21.9 Gastro-esophageal reflux disease without esophagitis; Z79.84 Long term (current) use of oral hypoglycemic drugs; Z87.891 Personal history of nicotine dependence; Q43.8 Other specified congenital malformations of intestine; Z79.51 Long term (current) use of inhaled steroids; G47.33 Obstructive sleep apnea (adult) (pediatric); Z79.83 Long term (current) use of bisphosphonates; Z79.899 Other long term (current) drug therapy; F41.9 Anxiety disorder, unspecified; F32.A Depression, unspecified
CPT/HCPCS: 45378; 36415; 74018; 74022; 74177; 80048; 80076; 81001; 83605; 83690; 85025; 94640; 96374; 96375; 96376; 99218; 99284; J7030; J7120; Q9967; A4216; G0378; J2405

== ENCOUNTER → 2022-08-09 | Outpatient (CLI) | payer OTHER, SELFPAY ==
[2015-12-13 16:15] VITALS: BMI 33.1
--- NOTE | 2022-08-10 05:49 | PFTCOMP ---
COMPLETE PULMONARY FUNCTION TEST INTERPRETATION Brief HPI: Patient is a 56-year-old female, currently under the care of myself, who presents to [facility] for complete pulmonary function tests secondary to diagnosis of COPD/asthma. Respiratory therapist reports good effort and reproducible results. Interpretation: Forced expiration spirometry shows a mild large airways obstructive ventilatory defect with an FEV1 of 82% predicted. There is a significant bronchodilator response in FEV1 by strict ATS criteria. Spirograms are of good quality and plateau slowly, indicating slowly emptying areas of the lungs. The respiratory flow volume loop shows decreased expiratory flow rates at all lung volumes consistent with airway obstruction. Lung volumes by body plethysmography show a normal total lung capacity at 5.07 L, 95% predicted. All other lung volumes are within normal limits. Diffusion capacity by carbon monoxide is decreased at 66% predicted. The airway resistance is slightly elevated. Compared to previous pulmonary function tests from 02/13/2020, there has been a significant improvement in air trapping with hyperinflation. Impression: Partially reversible mild large airways obstructive ventilatory defect with a disproportionate reduction in diffusing capacity, but some improvement in air trapping compared to previous study.
== END | disposition home or self-care (01) ==
LOC: PSN 06:46
PROVIDERS: PCP Family Medicine; Visit Provider Internal Medicine Critical Care Medicine
DX: J44.9 Chronic obstructive pulmonary disease, unspecified (principal)
CPT/HCPCS: 94060; 94726; 94729

== ENCOUNTER → 2022-11-09 | Outpatient (CLI) | payer OTHER, SELFPAY ==
[2015-12-13 16:15] VITALS: BMI 33.1
--- NOTE | 2022-11-09 09:32 | BD_ITS ---
STUDY: DUAL ENERGY X-RAY ABSORPTIOMETRY / DXA REASON FOR EXAM: Female, 56 years old. M810 TECHNIQUE: Bone Mineral Density (BMD) measurements of lumbar spine and bilateral hips were obtained. COMPARISON: Comparison is made with prior study dated October 28, 2020. FINDINGS: Lumbar Spine (L1-L4): g/cm2 (0.835) / T-score (-1.9) / Z-score (-0.7) Findings are suggestive of osteopenia with a moderate fracture risk. Left Femur Total: g/cm2 (0.906) / T-score (-0.3) / Z-score (0.5) Left Femoral Neck: g/cm2 (0.761) / T-score (-0.8) / Z-score (0.4) Right Femur Total: g/cm2 (0.887) / T-score (-0.5) / Z-score (0.4) Right Femoral Neck: g/cm2 (0.729) / T-score (-1.1) / Z-score (0.1) The T-Scores on the most recent prior examination were: Lumbar Spine (L1-L4): There has been worsening of bone density since the previous examination. Left Femur Total: which represents a worsening of 4.4%. Right Femur Total: which represents an improvement of 0.9%. BD/Dexa Bone Density Study IMPRESSION: The patient is considered osteopenic as outlined below according to World Barry Organization (WHO) criteria with a moderate fracture risk. There has been worsening of bone density since the previous examination. Reference Information: The T-score is the number of standard deviations above or below the standard which is normal for young adults at their peak bone mineral density. The World Health Organization (WHO) interprets the T-scores as follows: Above -1 Normal bone density Between -1 and -2.5 Osteopenia Equal to / or below -2.5 Osteoporosis As a practical clinical guideline, osteopenia may be graded as follows: Mild -1 through -1.5 Moderate -1.6 through -2.0 Severe -2.1 through -2.4 The Z-score is the number of standard deviations above or below age-matched controls. A Z-score of less than -1.5 would be considered abnormal. References: 1. NIH Osteoporosis and Related Bone Diseases www osteo.org 2. International Society for Clinical Densitometry www iscd.org 3. National Osteoporosis Foundation www nof.org Electronically Signed: Jourdan Sykes MD at 10:36 EDT ,
== END | disposition home or self-care (01) ==
LOC: OPBD 09:24
PROVIDERS: PCP Family Medicine; Referring Provider Family Medicine; Visit Provider Family Medicine
DX: M81.0 Age-related osteoporosis without current pathological fracture (principal)
CPT/HCPCS: 77080

== ENCOUNTER → 2023-07-12 | Outpatient (CLI) | payer OTHER, SELFPAY ==
[2015-12-13 16:15] VITALS: BMI 33.1
[2023-07-12 12:57] LABS: PTHIN 49.2 pg/mL (18.4-80.1); Vitamin B12 407 pg/mL (211-911); Vitamin D,25 Hydroxy 51.8 ng/mL
[2023-07-12 12:59] LABS: ALB/GLOB Ratio 1.3 RATIO (0.9-2.4); AST(SGOT) 20 U/L (15-37); Alanine Aminotransfer ALT/SGPT 28 U/L (13-56); Albumin, Serum 3.8 g/dL (3.2-5.0); Alkaline Phosphatase 55 U/L (45-117); Anion Gap 4 (5-15); BUN 13 mg/dL (7-18); BUN/Creat Ratio 15.2 RATIO (10-20); Calcium,Total 9.7 mg/dL (8.5-10.1); Chloride 111 mmol/L (98-107); Cholesterol 204 mg/dL (200); Creatinine, Serum 0.86 mg/dL (0.55-1.02); EST Glomerular Filtration Rate 72 mL/min (>60); Est Glom Filt Rate - Afr Amer 87 mL/min (>60); Glucose 81 mg/dL (74-106); High Density Lipoprotein 86 mg/dL; Magnesium 2.7 mg/dL (1.6-2.6); Potassium 4.2 mmol/L (3.5-5.1); Protein, Total 6.8 g/dL (6.4-8.2); Sodium Level 139 mmol/L (136-145); Thyroid Stim Hormone (TSH) 2.23 uIU/mL (0.358-3.74); Triglycerides 70 mg/dL; Very Low Density Lipoprotein 14 mg/dL (5-40)
== END | disposition home or self-care (01) ==
LOC: MFPLAB 10:47
PROVIDERS: PCP Family Medicine; Visit Provider Family Medicine
DX: E11.69 Type 2 diabetes mellitus with other specified complication (principal); M81.0 Age-related osteoporosis without current pathological fracture; E53.9 Vitamin B deficiency, unspecified
CPT/HCPCS: 36415; 80053; 80061; 82306; 82607; 83735; 83970; 84443

== ENCOUNTER → 2024-07-17 | Outpatient (CLI) | payer OTHER, SELFPAY ==
[2015-12-13 16:15] VITALS: BMI 33.1
--- NOTE | 2024-07-17 10:51 | RAD_ITS ---
STUDY: X-RAY CHEST REASON FOR EXAM: Female, 58 years old. COUGH TECHNIQUE: Single AP portable view of the chest. COMPARISON: November 29, 2021 FINDINGS: Redemonstration of cystic emphysematous changes of the lungs and fibrosis. No acute consolidation is seen. There is no demonstrated pleural abnormality. Normal size heart. Normal mediastinum and kenny. Normal visualized pulmonary arteries. There is atherosclerotic calcification of the aortic arch with tortuosity. There are diffuse degenerative changes of the visualized thoracic spine. Normal visualized ribs, clavicles, and shoulders. There is no demonstrated abnormality of the visualized soft tissue structures of the upper abdomen. RAD/Chest PA and Lateral IMPRESSION: No demonstrated acute cardiopulmonary process. Electronically Signed: Mika Aquino MD at 16:19 EST ,
== END | disposition home or self-care (01) ==
LOC: MTRAD 10:50
PROVIDERS: PCP Family Medicine; Referring Provider Family Medicine; Visit Provider Family Medicine
DX: J44.9 Chronic obstructive pulmonary disease, unspecified (principal)
CPT/HCPCS: 71046

== ENCOUNTER → 2024-08-01 | Outpatient (CLI) | payer OTHER, SELFPAY ==
[2015-12-13 16:15] VITALS: BMI 33.1
--- NOTE | 2024-08-01 10:49 | BI_ITS ---
PROCEDURE: SCRN MAMM (CAD)W/IVETT BILAT REASON FOR EXAM: F, Age 58 y/o, aunt with breast cancer. Annual follow-up. TECHNIQUE: Bilateral screening digital breast tomosynthesis with 2D and 3D images. Computer aided detection. COMPARISON: Prior exam(s) dating back to outside examination not available for comparison at this time.. FINDINGS: There are scattered areas of fibroglandular density. No suspicious masses, areas of developing architectural distortion, or suspicious calcifications. BI/SCRN MAMM (CAD)W/IVETT BILAT IMPRESSION: BI-RADS 1: NEGATIVE. RECOMMEND ANNUAL MAMMOGRAPHIC SCREENING. Follow-up code: Routine Follow-up The patient will be notified of the results by letter. Reading Location: [place] [id number]
== END | disposition home or self-care (01) ==
LOC: OPBI 10:46
PROVIDERS: PCP Family Medicine; Referring Provider Family Medicine; Visit Provider Family Medicine
DX: Z12.31 Encounter for screening mammogram for malignant neoplasm of breast (principal); Z80.3 Family history of malignant neoplasm of breast
CPT/HCPCS: 77063; 77067

== ENCOUNTER → 2024-10-23 | Outpatient (CLI) | payer OTHER, SELFPAY ==
[2015-12-13 16:15] VITALS: BMI 33.1
[2024-10-23 10:49] LABS: Absolute Lymphocyte Count 1.73 X10^3/uL (0.83-4.51); Absolute Neutrophil Count 3.7 X10^3/uL (2.0-7.7); Basophil# 0.01 X10^3/uL; Basophil% 0.2 % (0-1); Hematocrit 42.8 % (37-47); Hemoglobin 14.3 g/dL (12.0-15.0); Lymphocyte # 1.73 X10^3/ul (0.83-4.51); Lymphocyte % 29.2 % (19-41); Mean Corp Hgb Conc 33.4 g/dL (32-36); Mean Corpuscular Hgb 30.4 pg (27.0-32.0); Mean Corpuscular Volume 91.1 fL (81-99); Mean Platelet Vol. 9.6 fl (6.2-12.0); Monocyte# 0.41 X10^3/uL; Monocyte% 6.9 % (0-10); NRBC Flagged by Analyzer 0 % (0-5); Neutrophil # 3.74 X10^3/uL (2.7-7.7); Neutrophil % 63.2 % (47-70); Platelet Count 310 K/mm3 (150-450); RBC Distribution Width SD 43.5 fl (35.1-43.9); White Blood Count 5.9 K/mm3 (4.4-11.0)
[2024-10-23 11:23] LABS: ALB/GLOB Ratio 1.7 RATIO (0.9-2.4); AST(SGOT) 22 U/L (<=31); Alanine Aminotransfer ALT/SGPT 22 U/L (<=34); Albumin, Serum 4.2 g/dL (3.5-5.0); Alkaline Phosphatase 63 U/L (35-104); Anion Gap 11 (5-15); BUN 17 mg/dL (4-19); BUN/Creat Ratio 17.5 RATIO (10-20); CPK Total, Creatine Kinase 118 U/L (24-195); Calcium,Total 9.6 mg/dL (7.6-11.0); Chloride 105 mmol/L (98-108); Cholesterol 199 mg/dL (<=200); Creatinine, Serum 0.95 mg/dL (0.70-1.20); EST Glomerular Filtration Rate 69 (>60); Globulin 2.5 g/dL (2.2-4.2); Glucose 106 mg/dL (70-99); High Density Lipoprotein 75 mg/dL; Low Density Lipoprotein Calc. 112 mg/dL; Potassium 4.2 mmol/L (3.3-5.1); Protein, Total 6.7 g/dL (5.9-8.4); Sodium Level 136 mmol/L (133-145); Total Bilirubin 0.39 mg/dL (0.00-1.30); Triglycerides 63 mg/dL; Very Low Density Lipoprotein 13 mg/dL (5-40); cholesterol:hdl ratio screen 2.67
[2024-10-23 15:33] LABS: Iron 72 ug/dL (50-170); Magnesium 2.4 mg/dL (1.5-2.2); Vitamin B12 390 pg/mL (180-914)
== END | disposition home or self-care (01) ==
LOC: MFPLAB 09:20
PROVIDERS: PCP Family Medicine; Referring Provider Family Medicine; Visit Provider Family Medicine
DX: E11.9 Type 2 diabetes mellitus without complications (principal); R25.2 Cramp and spasm
CPT/HCPCS: 36415; 80053; 80061; 82306; 82550; 82607; 83540; 83735; 84443; 85025

== ENCOUNTER 2025-06-09 09:03 | Inpatient (IN) | payer OTHER, SELFPAY ==
[2015-12-13 16:15] VITALS: BMI 33.1
[2025-06-09] VITALS (20 sets, daily range): BP systolic 112–151; BP diastolic 54–89; PULSE 57–77; RESP 14–20; TEMP 36.2–37.1; O2SAT 92–98; BMI 31.1; BMI 30.4
--- NOTE | 2025-06-09 09:35 | EDS_ITS ---
HPI HPI - GI History of Present Illness Chief Complaint: Abd Pain Informant: patient Narrative Narrative: 59-year-old female presented to the emergency room chief complaint of diarrhea and bright red blood. Patient notes that earlier Sunday morning she had abdominal pain also experienced diarrhea and mucousy bloody stools. She states that by later in the day on Sunday she was feeling better but symptoms have persisted. This morning she notes an more significant ache towards the left flank and again bleeding and mucus. No reported fevers. No history of diverticulitis or colitis. She is rating her pain to me as a 3 out of 10. [facility] Medical History Wears glasses Cancer Post-menopausal Anxiety Rash Diabetes Chronic cough Hoarseness Shortness of breath on exertion Former smoker On home oxygen therapy Emphysema, unspecified Irregular heart beat Normal echocardiogram (~01/01/20) Normal stress echocardiogram (~07/31/16) Chest pain Restless legs Migraine headache Osteoporosis GERD (gastroesophageal reflux disease) History of skin cancer of the vulva High cholesterol Gastrointestinal problem Chronic bronchitis Asthma Diabetes mellitus type 2, controlled COPD (chronic obstructive pulmonary disease) Dyspnea Palpitations Wheezing Acute bronchitis due to infection Sleep apnea, obstructive Home Medications ?Medication ?Instructions ?Recorded ?Last Taken ?Type lorazepam 0.5 mg tablet (Ativan) 0.5 mg PO TID PRN Anx iety 03/09/20 Unknown History tiotropium bromide 2.5 2 puff inhalation DAILY 02/2311/09/20 History mcg/actuation mist for inhalation (Spiriva Respimat) albuterol sulfate 2.5 mg/3 mL 2.5 mg (3 mL) inhalation .QID 03/16/21 Unknown Rx (0.083 %) solution for nebulization BREATHING #180 mL ipratropium 0.5 mg-albuterol 3 mg 3 ml inhalation Q4H PRN PRN SOB 03/16/21 Unknown Rx (2.5 mg base)/3 mL nebulization &/OR WHEEZING #180 mL soln benralizumab 30 mg/mL subcutaneous 30 mg subcut Q8W #1 mL 06/19/24 Unknown Rx auto-injector (Fasenra Pen) albuterol sulfate 90 mcg/actuation 2 puff inhalation Q 6H PRN ASTHMA 09/11/24 Unknown Rx aerosol inhaler #8.5 grams multivitamin 1 tab PO QDAY 09/11/24 Unkno wn History budesonide-formoterol HFA 160 2 puff inhalation BID BR EATHING 03/12/25 Unknown History mcg-4.5 mcg/actuation aerosol inhaler escitalopram oxalate 10 mg tablet 10 mg PO DAILY Anxie ty 03/12/25 Unknown History Allergy/AdvReac Type Severity Reaction Status Date / Time No Known Allergies Allergy Verified 06/09/25 09:05 Family History Mother CHF (congestive heart failure) Diabetes Hypertension Uterine cancer Anxiety Psychiatric care Father Diabetes CVA (cerebral vascular accident) Heart disease Lung cancer Brother Diabetes Surgical History H/O pulmonic valvulotomy History of appendectomy Social History Smoking Status: Former smoker quit date: 09/23/02 pack-years: 22 Tobacco: How many years used: 22 second hand exposure: Yes alcohol intake: current Alcohol type: wine and hard liquor substance use type: does not use ROS ROS ED Constitutional Constitutional ED: Denies chills, fever(s) or weight loss Eyes Eyes: Denies change in vision or diplopia ENT ENT ED: Denies ear pain, rhinorrhea or sore throat Cardiovascular Cardiovascular: Denies chest pain, orthopnea, palpitations or racing heartbeat Respiratory/Chest Respiratory/Chest: Denies cough, dyspnea or orthopnea Gastrointestinal Gastrointestinal: Reports abdominal pain, diarrhea and melena; Denies nausea or vomiting Genitourinary Genitourinary ED: Denies dysuria, hematuria or urinary frequency Musculoskeletal Musculoskeletal: Denies arthralgias or myalgias Integumentary Denies abscess or rash Neurologic Neurologic: Denies headache(s) or weakness Psychiatric Psychiatric: Denies anxiety, depression, suicidal ideation or suicidal thoughts Endocrine Endocrinology: Denies polydipsia, polyphagia or polyuria Allergic/Immunologic Allergic/Immunologic ED: Denies mouth swelling, tongue swelling or urticaria EXAM Physical Exam Const Vital Signs: 06/09/25 09:04 Temperature 98.2 F Temperature Source Oral Pulse Rate 65 Respiratory Rate 16 Blood Pressure 149/70 H Blood Pressure Mean 96 Pulse Ox 98 Oxygen Delivery Method Room Air Positive well nourished and well developed General Appearance ED: well developed and NAD HEENT Reports normocephalic, head/scalp atraumatic and moist mucous membranes Eyes PERRL and EOMs intact bilaterally Neck no lymphadenopathy, supple and no JVD Resp normal respiratory effort and clear to auscultation bilaterally Cardio regular rate, regular rhythm and no murmurs GI no masses GI Narrative: Mild tenderness to palpation over the lower suprapubic left lower quadrant abdominal region. No guarding or rebound. Mild tenderness in the left upper quadrant left lateral of her abdomen Inspection: Negative for abdominal distention Auscultation: normoactive bowel sounds Palpation: soft; Negative for guarding or rebound tenderness present Back/Spine no CVA tenderness and normal ROM Extremity normal to inspection General Extremety ED: Negative for edema General Extremity: Negative for edema Neuro oriented x3 and CN's II-XII intact bilaterally Sensorium / Orientation: alert Motor Exam: strength 5/5 throughout Psych mental status grossly normal Mood & Affect: Negative for depressed or tearful Skin no rashes or lesions noted and no wounds Discharge Plan Triage Chief Complaint: Abd Pain ED Provider: Bhargav Barron Dx/Rx/DC Orders Prescriptions: No Action Spiriva Respimat 2.5 mcg/actuation mist 2 puff INHALATION DAILY lorazepam [Ativan] 0.5 mg tablet 0.5 mg PO TID PRN (Reason: Anxiety) albuterol sulfate 2.5 mg /3 mL (0.083 %) solution for nebulization 2.5 mg INHALATION .QID Qty: 180 2RF ipratropium-albuterol 0.5 mg-3 mg(2.5 mg base)/3 mL solution for nebulization 3 ml INHALATION Q4H PRN PRN (Reason: SOB &/OR WHEEZING) Qty: 180 6RF multivitamin Tablet 1 tab PO QDAY albuterol sulfate 90 mcg/actuation HFA aerosol inhaler 2 puff INHALATION Q6H PRN (Reason: ASTHMA) Qty: 8.5 6RF escitalopram oxalate 10 mg tablet 10 mg PO DAILY budesonide-formoterol 160-4.5 mcg/actuation HFA aerosol inhaler 2 puff INHALATION BID Patient Comments: BREATHING Fasenra Pen 30 mg/mL auto-injector 30 mg subcut Q8W Qty: 1 12RF Primary Care Provider: Silviano Knox Referrals: Silviano Knox MD [Primary Care Provider, Family Practice] Print Language: Chinese
--- NOTE | 2025-06-09 09:35 | ED.VIS.GI ---
HPI HPI - GI History of Present Illness Chief Complaint: Abd Pain Informant: patient Narrative Narrative: 59-year-old female presented to the emergency room chief complaint of diarrhea and bright red blood. Patient notes that earlier Sunday morning she had abdominal pain also experienced diarrhea and mucousy bloody stools. She states that by later in the day on Sunday she was feeling better but symptoms have persisted. This morning she notes an more significant ache towards the left flank and again bleeding and mucus. No reported fevers. No history of diverticulitis or colitis. She is rating her pain to me as a 3 out of 10. [facility] Medical History Wears glasses Cancer Post-menopausal Anxiety Rash Diabetes Chronic cough Hoarseness Shortness of breath on exertion Former smoker On home oxygen therapy Emphysema, unspecified Irregular heart beat Normal echocardiogram (~01/01/20) Normal stress echocardiogram (~07/31/16) Chest pain Restless legs Migraine headache Osteoporosis GERD (gastroesophageal reflux disease) History of skin cancer of the vulva High cholesterol Gastrointestinal problem Chronic bronchitis Asthma Diabetes mellitus type 2, controlled COPD (chronic obstructive pulmonary disease) Dyspnea Palpitations Wheezing Acute bronchitis due to infection Sleep apnea, obstructive Home Medications ?Medication ?Instructions ?Recorded ?Last Taken ?Type lorazepam 0.5 mg tablet (Ativan) 0.5 mg PO TID PRN Anxiety 03/09/20 06/09/25 History tiotropium bromide 2.5 2 puff inhalation DAILY 03/09/20 06/09/25 History mcg/actuation mist for inhalation (Spiriva Respimat) albuterol sulfate 2.5 mg/3 mL 2.5 mg (3 mL) inhalation .QID 03/16/21 Unknown Rx (0.083 %) solution for nebulization BREATHING #180 mL benralizumab 30 mg/mL subcutaneous 30 mg subcut Q8W #1 mL 06/19/24 06/06/25 Rx auto-injector (Fasenra Pen) albuterol sulfate 90 mcg/actuation 2 puff inhalation Q6H PRN ASTHMA 09/11/24 06/08/25 Rx aerosol inhaler #8.5 grams multivitamin 1 tab PO QDAY 09/11/24 06/09/25 History budesonide-formoterol HFA 160 2 puff inhalation BID BREATHING 03/12/25 06/09/25 History mcg-4.5 mcg/actuation aerosol inhaler escitalopram oxalate 10 mg tablet 15 mg PO DAILY Anxiety 03/12/25 06/09/25 History pantoprazole 20 mg tablet,delayed 20 mg PO DAILY 06/09/25 06/09/25 History release (Protonix) Allergy/AdvReac Type Severity Reaction Status Date / Time No Known Allergies Allergy Verified 06/09/25 09:05 Family History Mother CHF (congestive heart failure) Diabetes Hypertension Uterine cancer Anxiety Psychiatric care Father Diabetes CVA (cerebral vascular accident) Heart disease Lung cancer Brother Diabetes Surgical History H/O pulmonic valvulotomy History of appendectomy Social History Smoking Status: Former smoker quit date: 09/23/02 pack-years: 22 Tobacco: How many years used: 22 second hand exposure: Yes alcohol intake: current Alcohol type: wine and hard liquor substance use type: does not use ROS ROS ED Constitutional Constitutional ED: Denies chills, fever(s) or weight loss Eyes Eyes: Denies change in vision or diplopia ENT ENT ED: Denies ear pain, rhinorrhea or sore throat Cardiovascular Cardiovascular: Denies chest pain, orthopnea, palpitations or racing heartbeat Respiratory/Chest Respiratory/Chest: Denies cough, dyspnea or orthopnea Gastrointestinal Gastrointestinal: Reports abdominal pain, diarrhea and melena; Denies nausea or vomiting Genitourinary Genitourinary ED: Denies dysuria, hematuria or urinary frequency Musculoskeletal Musculoskeletal: Denies arthralgias or myalgias Integumentary Denies abscess or rash Neurologic Neurologic: Denies headache(s) or weakness Psychiatric Psychiatric: Denies anxiety, depression, suicidal ideation or suicidal thoughts Endocrine Endocrinology: Denies polydipsia, polyphagia or polyuria Allergic/Immunologic Allergic/Immunologic ED: Denies mouth swelling, tongue swelling or urticaria EXAM Physical Exam Const Vital Signs: 06/09/25 09:04 06/09/25 11:03 06/09/25 13:00 Temperature 98.2 F Temperature Source Oral Pulse Rate 65 59 L 57 L Respiratory Rate 16 Blood Pressure 149/70 H 128/67 H 151/80 H Blood Pressure Mean 96 87 103 Pulse Ox 98 Oxygen Delivery Method Room Air 06/09/25 14:17 06/09/25 14:41 Temperature 98.2 F 98.2 F Temperature Source Pulse Rate 57 L 57 L Respiratory Rate 16 16 Blood Pressure 150/54 H 150/54 H Blood Pressure Mean 86 Pulse Ox 98 98 Oxygen Delivery Method Positive well nourished and well developed General Appearance ED: well developed and NAD HEENT Reports normocephalic, head/scalp atraumatic and moist mucous membranes Eyes PERRL and EOMs intact bilaterally Neck no lymphadenopathy, supple and no JVD Resp normal respiratory effort and clear to auscultation bilaterally Cardio regular rate, regular rhythm and no murmurs GI no masses GI Narrative: Mild tenderness to palpation over the lower suprapubic left lower quadrant abdominal region. No guarding or rebound. Mild tenderness in the left upper quadrant left lateral of her abdomen Inspection: Negative for abdominal distention Auscultation: normoactive bowel sounds Palpation: soft; Negative for guarding or rebound tenderness present Back/Spine no CVA tenderness and normal ROM Extremity normal to inspection General Extremety ED: Negative for edema General Extremity: Negative for edema Neuro oriented x3 and CN's II-XII intact bilaterally Sensorium / Orientation: alert Motor Exam: strength 5/5 throughout Psych mental status grossly normal Mood & Affect: Negative for depressed or tearful Skin no rashes or lesions noted and no wounds MDM MDM MDM Narrative Medical decision making narrative: Normal differential diagnosis includes but not limited to elevated colitis diverticulitis bowel obstruction dehydration anemia acute kidney injury electrolyte abnormalities perforated viscus female infectious diarrhea Patient's white count is 7.5 with a hemoglobin of 14.7 platelet count of 316. Lactic acid is less than 1 glucose 113. Normal BUN/creatinine normal electrolytes. LFTs and lipase normal urinalysis normal. CT of the ab pelvis with IV contrast was obtained. This was read by radiology reviewed by myself. Case was discussed with Dr. Rasmussen from general surgery. He came to the emergency department and evaluated the patient. I spoke and so did he with Dr. Nance from [facility] surgery. Plan is to take the patient to the OR here for laparoscopy.. I spoke with internal medicine prior to her leaving for the OR. History & Record Review Discussion w/independent historian: Patient Additional record(s) reviewed:: Prior outpatient record, Prior ED visit and Prior labs Lab Data Attestation: I reviewed the patient's lab results. Labs: Laboratory Results - last 24 hr 06/09/25 06/09/25 06/09/25 10:05 10:55 12:03 WBC 7.5 RBC 4.93 Hgb 14.7 Hct 44.3 MCV 89.9 MCH 29.8 MCHC 33.2 RDW Std Deviation 44.9 H RDW Coeff of Shantel 13.6 Plt Count 316 MPV 9.0 Immature Gran % (Auto) 0.400 Neut % (Auto) 77.0 H Lymph % (Auto) 16.5 L [place] % (Auto) 6.0 Eos % (Auto) 0.0 Baso % (Auto) 0.1 Absolute Neuts (auto) 5.7 Absolute Lymphs (auto) 1.23 Nucleated RBC % 0 Sodium 139 Potassium 3.9 Chloride 108 Carbon Dioxide 21.1 Anion Gap 11 BUN 18 Creatinine 0.85 Estim Creat Clear Calc 78.52 Est GFR (MDRD) Non-Af 78 BUN/Creatinine Ratio 21.2 H Glucose 113 H Lactic Acid < 1.0 Calcium 9.5 Total Bilirubin 0.53 Direct Bilirubin 0.23 AST 19 ALT 16 Alkaline Phosphatase 46 Total Protein 6.6 Albumin 4.4 Globulin 2.3 Lipase 42 Urine Color Straw Urine Clarity Clear Urine pH 6.5 Ur Specific [place] 1.010 Urine Protein Negative Urine Glucose (UA) Normal Urine Ketones Negative Urine Occult Blood 10 H Urine Nitrite Negative Urine Bilirubin Negative Urine Urobilinogen Normal Ur Leukocyte Esterase Negative Urine RBC 0-5 SEEN Urine WBC 0 SEEN Ur Squamous Epith Cells 0-5 SEEN Urine Bacteria 0 SEEN Urine Mucus 0 SEEN Radiography Diagnostic Testing: Clinical Impression(s) from Imaging Studies Abdomen/Pelvis CT 06/09/25 10:43 IMPRESSION: 1. Findings suggest mild/early distal small bowel obstruction associated with mesenteric volvulus involving the distal/terminal ileum, similar configuration 11/28/2021, noting that the degree of upstream bowel dilatation is much less than was seen at that time, again currently mild. No convincing inflammation to suggest ischemia; correlate with serum lactate. 2. Emphysema. Consider outpatient lung cancer screening as per the below. 3. Additional description as above. The USPSTF recommends annual screening for lung cancer with low-dose CT chest in adults aged 50-80 who have a 20 pack-year smoking history and currently smoke OR have quit within the past 15 years. Reading Location: [id number] EKG Initial EKG: Attestation: I personally reviewed and interpreted this EKG as follows: Comments: Sinus bradycardia ventricular rate of 58 bpm Management Discussion w/another healthcare provider: Hospitalist (Dr. Gan) and Equal Opportunity Assistant (Dr. Rasmussen) Discharge Plan Disposition Disposition: Acute Care [facility] Discharge Date/Time: 06/09/25 14:34
[2025-06-09 10:18] LABS: Hematocrit 44.3 % (37-47); Hemoglobin 14.7 g/dL (12.0-15.0); Immature Granulocytes Count 0.030 X10^3/uL (0.0-0.0); Mean Corp Hgb Conc 33.2 g/dL (32-36); Mean Corpuscular Volume 89.9 fL (81-99); Mean Platelet Vol. 9.0 fl (6.2-12.0); NRBC Flagged by Analyzer 0 % (0-5); Platelet Count 316 K/mm3 (150-450); RBC Distribution Width CV 13.6 % (11.6-14.6); RBC Distribution Width SD 44.9 fl (35.1-43.9); Red Blood Count 4.93 M/mm3 (4.2-5.4); White Blood Count 7.5 K/mm3 (4.4-11.0)
[2025-06-09] MEDS: 0.9% Normal Saline (1000mL) 1,000 ML 999 ML IV ×2 (10:35→12:09)
[2025-06-09 10:43] LABS: AST(SGOT) 19 U/L (<=31); Alanine Aminotransfer ALT/SGPT 16 U/L (<=34); Albumin, Serum 4.4 g/dL (3.4-4.8); Alkaline Phosphatase 46 U/L (35-104); Anion Gap 11 (5-15); BUN 18 mg/dL (4-19); BUN/Creat Ratio 21.2 RATIO (10-20); Bilirubin, Direct 0.23 mg/dL (0.00-0.30); Calcium,Total 9.5 mg/dL (7.6-11.0); Carbon Dioxide 21.1 mmol/L (21.0-32.0); Chloride 108 mmol/L (98-108); Estimated Creatinine Clearance 78.52 ml/min (50-250); Globulin 2.3 g/dL (2.2-4.2); Glucose 113 mg/dL (70-99); Lipase 42 U/L (13-75); Potassium 3.9 mmol/L (3.3-5.1)
--- NOTE | 2025-06-09 10:43 | CT_ITS ---
PROCEDURE: ABDOMEN/PELVIS W IV CONT ONLY 06/09/2025 REASON FOR EXAM: COLITIS TECHNIQUE: Procedure Code: [id number] Modality: CT Procedure: ABDOMEN/PELVIS W IV CONT ONLY Coronal and Sagittal reconstruction series were provided. CONTRAST: Isovue-300 VOLUME: 95 mL One or more dose reduction techniques were used (e.g., Automated exposure control, adjustment of the mA and/or kV according to patient size, use of iterative reconstruction technique. RADIATION DOSE SUMMARY: CTDlvol: 9.97+ 20.34 mGy DLP: 1068.42 mGycm COMPARISON: 11/28/2021 FINDINGS: Lung bases: Emphysema. Atelectasis/scarring. Liver: Similar punctate LEFT lobe hypodensity far too small to characterize, presumed cysts/hemangioma given stability. Spleen: Unremarkable. Gallbladder: Grossly similar roughly 7 x 6 mm presumed gallbladder polyp. Pancreas: Unremarkable. Adrenals: Unremarkable. Kidneys: Unremarkable. Bowel: Mild diverticulosis. Mesenteric swirl involving the distal/terminal ileum with upstream mild dilatation up to 3.8 cm and abrupt transition at the level of the mesenteric swirl (coronal series 601.2, images 39-50). Proximal small bowel is decompressed. Configuration is similar to 11/28/2021, however the degree of bowel dilatation is much less, previously up to roughly 7.7 cm. Appendix not identified. Lymph nodes: Unremarkable. Vasculature: Mild atherosclerosis. Peritoneum: Unremarkable. Bladder: Unremarkable. Reproductive Organs: Unremarkable. Body Wall: Tiny fat containing midline supraumbilical presumably incisional hernia.. Bones: Unremarkable. CT/Abdomen/Pelvis W IV Cont ONLY IMPRESSION: 1. Findings suggest mild/early distal small bowel obstruction associated with m esenteric volvulus involving the distal/terminal ileum, similar configuration 11/28/2021, noting that the degree of upstream bow el dilatation is much less than was seen at that time, again currently mild. No convincing inflammation to suggest ischemia; co rrelate with serum lactate. 2. Emphysema. Consider outpatient lung cancer screening as per the below. 3. Additional description as above. The USPSTF recommends annual screening for lung cancer with low-dose CT chest i n adults aged 50-80 who have a 20 pack-year smoking history and currently smoke OR have quit within the past 15 years. Reading Location: [id number]
[2025-06-09 11:00] LABS: Mucous, Urine 0 SEEN /hpf (<or=2+)
[2025-06-09 11:05] LABS: Color, Urine Straw (Yellow); Glucose, Dipstick Normal (Normal); Ketone-Dipstick Negative (Negative); Leukocyte Esterase-Dipstick Negative /ul (Negative); Nitrite-Dipstick Negative (Negative); Occult Blood-Urine 10 /ul (Negative); Protein-Dipstick Negative (Negative); Specific Gravity, Urine 1.010 (1.002-1.030); Urine Bilirubin Dipstick Negative (Negative)
[2025-06-09 11:21] LABS: Red Blood Cells-Urine 0-5 SEEN /hpf (0-5); Squamous Epithelial Cells - UA 0-5 SEEN /hpf (5-10)
--- NOTE | 2025-06-09 12:15 | HP.PCM_ITS ---
[facility] Date of Service: 06/09/25 Chief Complaint: Abdominal pain HPI Narrative CAESAR KYLE, is a 59 F who presents with a 2 day history of abdominal cramping pain with associated rectal bleeding and mucous. Patient has a known history of malrotation of the stomach. She was evaluated in [address] scan of ab/pel at that time showed a volvulus in the right middle abdomen with evidence of mesenteric swirling. An unprepped colonoscopy was preformed by Dr. Herron and Dr. Mayer. Patient was found to not have a volvulus on colonoscopy. A repeat KUB was obtained on 11/29/21 which demonstrated a rounded soft tissue density in the right lower quadrant. Suspicion at that time was patient had more of a malrotation than a volvulus. Patient was referred as an outpatient to Dr. Haro at [facility]. Patient noted he performed additional testing and was taken to surgery for malrotation of her stomach. Patient notes he rotated the stomach back and pinned it to the abdominal wall. She notes Dr. Martini had to come into the surgery to evaluate for Mil[place]'s bands and review the patient's pelvic anatomy. Patient states she was told by Dr. Martini that if the patient was not having any issues with her lower abdomen, that at some point in time she will and it would need to be addressed. Patient notes over 1 1/2 years ago she started to have episodes of nausea and vomiting intermittently. She noted seeing her family physician who placed the patient on Protonix. She notes more recently she has noticed episodes of complete loss of bowel control. She notes there would be no warning of abdominal cramping or pain. She notes each time it would be diarrhea. She started taking Imodium every 1-2 days to help with the loose stools. She noted in November and 6 weeks ago she had a constant feeling of wanting to have a bowel movement, however was unsuccessful. She noted these symptoms lasted for 4 days. Patient notes waking up on Sunday morning at 0130 AM with lower pelvic cramping and pain with an associated feeling of wanting to have a bowel movement. She notes continued cramping for approximately an 1 1/2 hour throughout the day. She noted Sunday morning at 0600 AM, she started with bloody bowel movements with clots and mucous from 6-12 pm. She denies any nausea, vomiting or sick contacts in the house. She notes having a virtual visit with Dr. Haro's office this morning, who recommended the patient go to the [place] ED. Patient preferred to come to [place]. Patient also has a history of COPD which she says has improved over the last 5 years. She notes loosing weight, using her CPAP and changing her medication as helped to improve her breathing. She was using oxygen 24/7 over 5 years ago. She notes now using oxygen only as needed at night time. She no longer smokes, however was a smoker for [address] scan of ab/pel demonstrated FINDINGS: Lung bases: Emphysema. Atelectasis/scarring. Liver: Similar punctate LEFT lobe hypodensity far too small to characterize, presumed cysts/hemangioma given stability. Spleen: Unremarkable. Gallbladder: Grossly similar roughly 7 x 6 mm presumed gallbladder polyp. Pancreas: Unremarkable. Adrenals: Unremarkable. Kidneys: Unremarkable. Bowel: Mild diverticulosis. Mesenteric swirl involving the distal/terminal ileum with upstream mild dilatation up to 3.8 cm and abrupt transition at the level of the mesenteric swirl (coronal series 601.2, images 39-50). Proximal small bowel is decompressed. Configuration is similar to 11/28/2021, however the degree of bowel dilatation is much less, previously up to roughly 7.7 cm. Appendix not identified. Lymph nodes: Unremarkable. Vasculature: Mild atherosclerosis. Peritoneum: Unremarkable. Bladder: Unremarkable. Reproductive Organs: Unremarkable. Body Wall: Tiny fat containing midline supraumbilical presumably incisional hernia.. Bones: Unremarkable. [facility] Medical History Wears glasses Cancer Post-menopausal Anxiety Rash Diabetes Chronic cough Hoarseness Shortness of breath on exertion Former smoker On home oxygen therapy Emphysema, unspecified Irregular heart beat Normal echocardiogram (~01/01/20) Normal stress echocardiogram (~07/31/16) Chest pain Restless legs Migraine headache Osteoporosis GERD (gastroesophageal reflux disease) History of skin cancer of the vulva High cholesterol Gastrointestinal problem Chronic bronchitis Asthma Diabetes mellitus type 2, controlled COPD (chronic obstructive pulmonary disease) Dyspnea Palpitations Wheezing Acute bronchitis due to infection Sleep apnea, obstructive Home Medications ?Medication ?Instructions ?Recorded ?Last Taken ?Type lorazepam 0.5 mg tablet (Ativan) 0.5 mg PO TID PRN Anx iety 03/09/20 06/09/25 History tiotropium bromide 2.5 2 puff inhalation DAILY 02/2306/09/25 History mcg/actuation mist for inhalation (Spiriva Respimat) albuterol sulfate 2.5 mg/3 mL 2.5 mg (3 mL) inhalation .QID 03/16/21 Unknown Rx (0.083 %) solution for nebulization BREATHING #180 mL benralizumab 30 mg/mL subcutaneous 30 mg subcut Q8W #1 mL 06/19/24 06/06/25 Rx auto-injector (Fasenra Pen) albuterol sulfate 90 mcg/actuation 2 puff inhalation Q 6H PRN ASTHMA 09/11/24 06/08/25 Rx aerosol inhaler #8.5 grams multivitamin 1 tab PO QDAY 09/11/2406/09 History budesonide-formoterol HFA 160 2 puff inhalation BID BR EATHING 03/12/25 06/09/25 History mcg-4.5 mcg/actuation aerosol inhaler escitalopram oxalate 10 mg tablet 15 mg PO DAILY Anxie ty 03/12/25 06/09/25 History pantoprazole 20 mg tablet,delayed 20 mg PO DAILY 06/0906/09/25 History release (Protonix) Allergy/AdvReac Type Severity Reaction Status Date / Time No Known Allergies Allergy Verified 06/09/25 09:05 Family History Mother CHF (congestive heart failure) Diabetes Hypertension Uterine cancer Anxiety Psychiatric care Father Diabetes CVA (cerebral vascular accident) Heart disease Lung cancer Brother Diabetes Surgical History H/O pulmonic valvulotomy History of appendectomy Social History Smoking Status: Former smoker quit date: 09/23/02 pack-years: 22 Tobacco: How many years used: 22 second hand exposure: Yes alcohol intake: current Alcohol type: wine and hard liquor substance use type: does not use ROS Constitutional Constitutional: Reports systems reviewed and no addt'l complaints, except as documented Eyes Eyes: Reports systems reviewed and no addt'l complaints, except as documented ENT HEENT: Reports systems reviewed and no addt'l complaints, except as documented Cardiovascular Cardiovascular: Reports systems reviewed and no addt'l complaints, except as documented Respiratory/Chest Respiratory/Chest: Reports systems reviewed and no addt'l complaints, except as documented Gastrointestinal Gastrointestinal: Reports systems reviewed and no addt'l complaints, except as documented Genitourinary Genitourinary: Reports systems reviewed and no addt'l complaints, except as documented Musculoskeletal Musculoskeletal: Reports systems reviewed and no addt'l complaints, except as documented Integumentary Integumentary: Reports systems reviewed and no addt'l complaints, except as documented Neurologic Neurologic: Reports systems reviewed and no addt'l complaints, except as documented Psychiatric Psychiatric: Reports systems reviewed and no addt'l complaints, except as documented Endocrine Endocrinology: Reports systems reviewed and no addt'l complaints, except as documented Hematologic/Lymphatic Hematologic/Lymphatic: Reports systems reviewed and no addt'l complaints, except as documented Allergic/Immunologic Allergic/Immunologic: Reports systems reviewed and no addt'l complaints, except as documented Vital Signs Vital Signs Vital Signs: 06/09/25 09:04 06/09/25 11:03 Temperature 98.2 F Temperature Source Oral Pulse Rate 65 59 L Respiratory Rate 16 Blood Pressure 149/70 H 128/67 H Blood Pressure Mean 96 87 Pulse Ox 98 Oxygen Delivery Method Room Air Weight Weight: 193 lb 6.4 oz Body Mass Index (BMI) 31.1 Physical Exam Const alert, oriented x3 and no apparent distress HEENT normocephalic and head/scalp atraumatic Eyes PERRL Neck full ROM Resp normal respiratory effort and clear to auscultation bilaterally Cardio regular rate and regular rhythm GI normal to inspection, nondistended, normoactive bowel sounds and soft to palpation GI Narrative: Nontender no CVA tenderness Back/Spine no CVA tenderness Extremity normal to inspection Skin no rashes or lesions noted Neuro no focal motor deficits and no sensory deficits noted Psych mental status grossly normal, thought process normal and cooperative Results Lab / Micro Data 06/09/25 10:05 06/09/25 10:05 Labs: Laboratory Results - last 24 hr 06/09/25 10:05: WBC 7.5, RBC 4.93, Hgb 14.7, Hct 44.3, MCV 89.9, MCH 29.8, MCHC 33.2, RDW Std Deviation 44.9 H, RDW Coeff of Shantel 13.6, Plt Count 316, MPV 9.0, Immature Gran % (Auto) 0.400, Neut % (Auto) 77.0 H, Lymph % (Auto) 16.5 L, [place] % (Auto) 6.0, Eos % (Auto) 0.0, Baso % (Auto) 0.1, Absolute Neuts (auto) 5.7, Absolute Lymphs (auto) 1.23, Nucleated RBC % 0, Sodium 139, Potassium 3.9, Chloride 108, Carbon Dioxide 21.1, Anion Gap 11, BUN 18, Creatinine 0.85, Estim Creat Clear Calc 78.52, Est GFR (MDRD) Non-Af 78, BUN/Creatinine Ratio 21.2 H, G lucose 113 H, Calcium 9.5, Total Bilirubin 0.53, Direct Bilirubin 0.23, AST 19, ALT 16, Alkaline Phosphatase 46, Total Protein 6.6, Albumin 4.4, Globulin 2.3, Lipase 42 06/09/25 10:55: Urine Color Straw, Urine Clarity Clear, Urine pH 6.5, Ur Specific [place] 1.010, Urine Protein Negative, Urine Glucose (UA) Normal, Urine Ketones Negative, Urine Occult Blood 10 H, Urine Nitrite Negative, Urine Bilirubin Negative, Urine Urobilinogen Normal, Ur Leukocyte Esterase Negative, Urine RBC 0-5 SEEN, Urine WBC 0 SEEN, Ur Squamous Epith Cells 0-5 SEEN, Urine Bacteria 0 SEEN, Urine Mucus 0 SEEN Imaging Radiology Impression Abdomen/Pelvis CT 06/09/25 10:43 IMPRESSION: 1. Findings suggest mild/early distal small bowel obstruction associated with mesenteric volvulus involving the distal/terminal ileum, similar configuration 11/28/2021, noting that the degree of upstream bowel dilatation is much less than was seen at that time, again currently mild. No convincing inflammation to suggest ischemia; correlate with serum lactate. 2. Emphysema. Consider outpatient lung cancer screening as per the below. 3. Additional description as above. The USPSTF recommends annual screening for lung cancer with low-dose CT chest in adults aged 50-80 who have a 20 pack-year smoking history and currently smoke OR have quit within the past 15 years. Reading Location: [facility] Assessment & Plan Assessment/Plan (1) Abdominal pain: (2) Small bowel obstruction: PLAN: Plan I am seeing this patient in conjunction with Dr. Rasmussen. He has independently evaluated this patient. Plan for patient to go to the OR with [facility] emergently. Please see his note.
--- NOTE | 2025-06-09 13:55 | EKG12_ITS ---
Test Reason : PRE OP Blood Pressure : */* mmHG Vent. Rate : 58 BPM Atrial Rate : 58 BPM P-R Int : 154 ms QRS Dur : 92 ms QT Int : 442 ms P-R-T Axes : 55 -3 17 degrees QTcB Int : 433 ms Sinus bradycardia NST WAVE CHANGES Abnormal ECG BORDERLINE ARTIFACT Confirmed by Domingo Watts ([id number]), editor department ANUP JOY ([id number]) on 06/10/2025 10:23:11 AM Referred By: Confirmed By: Domingo Watts
[2025-06-09] MEDS: 0.9% Normal Saline (1000mL) 1,000 ML 150 ML IV (14:12)
[2025-06-09] MEDS: Piperacil/Tazobactam 3.375 GM in 0.9% Normal Saline (50mL MB+) 50 ML IV (14:12)
--- NOTE | 2025-06-09 14:17 | CON.PCM.HO_ITS ---
Assessment & Plan Assessment/Plan (1) Small bowel obstruction: PLAN: Plan Patient is a 59-year-old female who presented [facility] on 06/09/2025 with abdominal pain and rectal bleeding. Found on CT scan to have a recurrent small bowel obstruction. Admitted to the general surgery service and medicine consulted for assistance with medical management. 1. 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 General Surgery primary. See HPI for further details. In short, has history of malnutrition of the stomach and had a surgical pinning of the stomach to the abdominal wall done in 2021. CT abdomen pelvis on this admit with findings suggestive of mild early distal small bowel obstruction associated with mesentery volvulus. Plan is for surgery this afternoon, will follow-up on result. Will defer further management to surgery. 2. COPD/asthma/seasonal allergies ? Stable on room air at rest in the ED, not in acute exacerbation. Continue home inhalers. Is on a biologic injection every 8 weeks as well, continue this in the outpatient setting. 3. Anxiety/depression ? Stable. Continue home escitalopram and Ativan 0.5 mg 3 times daily as needed. Notably, [place]ARRS was reviewed and patient fills this prescription about every 6 months and uses Ativan only sparingly. 4. GERD ? Continue home PPI. DVT prophylaxis: Per surgery Total clinical time spent by myself addressing the patient's medical issues, reviewing all the data, and collaborating with patient's care team: 43 minutes. HPI Consult Data Date of Consult: 06/09/25 HPI Narrative Reason for Consultation: Assistance with medical management HPI Narrative: CAESAR KYLE, is a 59 F who presented to [facility] ED on 06/09/2025 with abdominal pain and associated rectal bleeding. Found on CT abdomen pelvis to have a recurrent small bowel obstruction. Admitted under the general surgery service and medicine consulted for assistance with medical management. See general surgery H&P for further details regarding her surgical history. In short, patient has known history of malrotation of the stomach and did have a surgical procedure done in 2021 where the stomach was rotated back and pinned to the abdominal wall. This was done by a surgeon at [facility]. Patient has had intermittent episodes of nausea, vomiting and diarrhea over the past year or so. However, the symptoms have worsened over the past 4 days, and yesterday morning she began to have bloody bowel movements with clots and mucus. In the ED she was mildly hypertensive but otherwise in normal sinus rhythm, afebrile and stable on room air at rest. CT abdomen pelvis with findings suggestive of mild early distal small bowel obstruction associated with mesentery volvulus. CBC and BMP were benign. Case was discussed with surgery who is planning to take the patient down for surgery this afternoon. I saw the patient in the ED shortly before she went down for surgery. She was sitting back fairly comfortably in bed, conversing normally, in no acute distress. She denied any acute concerns currently. [facility] Medical History Wears glasses Cancer Post-menopausal Anxiety Rash Diabetes Chronic cough Hoarseness Shortness of breath on exertion Former smoker On home oxygen therapy Emphysema, unspecified Irregular heart beat Normal echocardiogram (~01/01/20) Normal stress echocardiogram (~07/31/16) Chest pain Restless legs Migraine headache Osteoporosis GERD (gastroesophageal reflux disease) History of skin cancer of the vulva High cholesterol Gastrointestinal problem Chronic bronchitis Asthma Diabetes mellitus type 2, controlled COPD (chronic obstructive pulmonary disease) Dyspnea Palpitations Wheezing Acute bronchitis due to infection Sleep apnea, obstructive Home Medications ?Medication ?Instructions ?Recorded ?Last Taken ?Type lorazepam 0.5 mg tablet (Ativan) 0.5 mg PO TID PRN Anx iety 03/09/20 06/09/25 History tiotropium bromide 2.5 2 puff inhalation DAILY 02/2306/09/25 History mcg/actuation mist for inhalation (Spiriva Respimat) albuterol sulfate 2.5 mg/3 mL 2.5 mg (3 mL) inhalation .QID 03/16/21 Unknown Rx (0.083 %) solution for nebulization BREATHING #180 mL benralizumab 30 mg/mL subcutaneous 30 mg subcut Q8W #1 mL 06/19/24 06/06/25 Rx auto-injector (Fasenra Pen) albuterol sulfate 90 mcg/actuation 2 puff inhalation Q 6H PRN ASTHMA 09/11/24 06/08/25 Rx aerosol inhaler #8.5 grams multivitamin 1 tab PO QDAY 09/11/2406/09 History budesonide-formoterol HFA 160 2 puff inhalation BID BR EATHING 03/12/25 06/09/25 History mcg-4.5 mcg/actuation aerosol inhaler escitalopram oxalate 10 mg tablet 15 mg PO DAILY Anxie ty 03/12/25 06/09/25 History pantoprazole 20 mg tablet,delayed 20 mg PO DAILY 06/0906/09/25 History release (Protonix) Allergy/AdvReac Type Severity Reaction Status Date / Time No Known Allergies Allergy Verified 06/09/25 09:05 Family History Mother CHF (congestive heart failure) Diabetes Hypertension Uterine cancer Anxiety Psychiatric care Father Diabetes CVA (cerebral vascular accident) Heart disease Lung cancer Brother Diabetes Surgical History H/O pulmonic valvulotomy History of appendectomy Social History Smoking Status: Former smoker quit date: 09/23/02 pack-years: 22 Tobacco: How many years used: 22 second hand exposure: Yes alcohol intake: current Alcohol type: wine and hard liquor substance use type: does not use ROS Constitutional Constitutional: Denies chills, fatigue, fever(s) or weakness Cardiovascular Cardiovascular: Denies chest pain Respiratory/Chest Respiratory/Chest: Denies shortness of breath at rest Gastrointestinal Gastrointestinal: Reports abdominal pain; Denies constipation, diarrhea, nausea or vomiting Genitourinary Genitourinary: Denies dysuria Musculoskeletal Musculoskeletal: Denies arthralgias or myalgias Neurologic Neurologic: Denies dizziness, focal weakness, headache(s), numbness or tingling Physical Exam Const alert, oriented x3 and no apparent distress Constitutional Narrative: Middle-age female, class I obesity, sitting back fairly comfortably in bed, conversing normally, in no acute distress. General Appearance: cooperative and comfortable HEENT normocephalic, head/scalp atraumatic, hearing grossly normal bilaterally, nasal mucous membranes and turbinates normal and moist oral mucous membranes Eyes PERRL, EOMs intact bilaterally and conjunctivae normal Neck full ROM Chest inspection of chest normal Resp normal respiratory effort, normal air movement, no use of accessory muscles and clear to auscultation bilaterally Cardio regular rate, regular rhythm, no murmurs and peripheral pulses 2+ throughout GI normal to inspection, nondistended, normoactive bowel sounds, soft to palpation, non-tender and non-distended Back/Spine normal ROM Extremity normal to inspection, full ROM and no pedal edema Skin no rashes or lesions noted Psych mental status grossly normal Lab / Micro Data 06/09/25 10:05 06/09/25 10:05 Labs: Laboratory Results - last 24 hr 06/09/25 10:05: WBC 7.5, RBC 4.93, Hgb 14.7, Hct 44.3, MCV 89.9, MCH 29.8, MCHC 33.2, RDW Std Deviation 44.9 H, RDW Coeff of Shantel 13.6, Plt Count 316, MPV 9.0, Immature Gran % (Auto) 0.400, Neut % (Auto) 77.0 H, Lymph % (Auto) 16.5 L, [place] % (Auto) 6.0, Eos % (Auto) 0.0, Baso % (Auto) 0.1, Absolute Neuts (auto) 5.7, Absolute Lymphs (auto) 1.23, Nucleated RBC % 0, Sodium 139, Potassium 3.9, Chloride 108, Carbon Dioxide 21.1, Anion Gap 11, BUN 18, Creatinine 0.85, Estim Creat Clear Calc 78.52, Est GFR (MDRD) Non-Af 78, BUN/Creatinine Ratio 21.2 H, G lucose 113 H, Calcium 9.5, Total Bilirubin 0.53, Direct Bilirubin 0.23, AST 19, ALT 16, Alkaline Phosphatase 46, Total Protein 6.6, Albumin 4.4, Globulin 2.3, Lipase 42 06/09/25 10:55: Urine Color Straw, Urine Clarity Clear, Urine pH 6.5, Ur Specific [place] 1.010, Urine Protein Negative, Urine Glucose (UA) Normal, Urine Ketones Negative, Urine Occult Blood 10 H, Urine Nitrite Negative, Urine Bilirubin Negative, Urine Urobilinogen Normal, Ur Leukocyte Esterase Negative, Urine RBC 0-5 SEEN, Urine WBC 0 SEEN, Ur Squamous Epith Cells 0-5 SEEN, Urine Bacteria 0 SEEN, Urine Mucus 0 SEEN 06/09/25 12:03: Lactic Acid < 1.0 Imaging Radiology Impression Abdomen/Pelvis CT 06/09/25 10:43 IMPRESSION: 1. Findings suggest mild/early distal small bowel obstruction associated with mesenteric volvulus involving the distal/terminal ileum, similar configuration 11/28/2021, noting that the degree of upstream bowel dilatation is much less than was seen at that time, again currently mild. No convincing inflammation to suggest ischemia; correlate with serum lactate. 2. Emphysema. Consider outpatient lung cancer screening as per the below. 3. Additional description as above. The USPSTF recommends annual screening for lung cancer with low-dose CT chest in adults aged 50-80 who have a 20 pack-year smoking history and currently smoke OR have quit within the past 15 years. Reading Location: [id number] Charges/Coding Visit Charges Inpatient E&M: 62606 Subs Hosp L2
--- NOTE | 2025-06-09 14:34 | ED.RN ---
REPORT CALLED TO OR.
--- NOTE | 2025-06-09 14:41 | PCM.PRE.AN2 ---
ASA Classification* ASA Classification ASA Classification: 3 and E Assessment & Plan Anesthesia* Anesthesia Assessment Anesthesia Assessment: Discussed sedation and/or anesthesia options, risks, benefits, and alternatives with patient/parents/legal guardian/POA. Questions invited. The patient/parents/legal guardian/POA seems to understand and agrees to proceed with anesthesia plan. Reviewed the physical assessment, medical history, allergy history and patient home medications list prior to surgery/procedure/anesthetic and documented any changes. Performed airway and anesthesia risk assessments. Anesthesia Type Anesthesia Type: General (RSI with Glidescope,NG tube post intubation, 3 puffs of inhaler ) Anesthesia Focused Assessment* Temperature: 98.2 F Pulse Rate: 57 Blood Pressure: 150/54 Respiratory Rate: 16 Pulse Ox: 98 Airway Assessment Mouth opens: >3 cm Mallampati Score: I Labs Anesthesia Preop lab: CBC WBC, (4.4-11.0) 7.5 K/mm3 Today, 10:05 RBC, (4.2-5.4) 4.93 M/mm3 Today, 10:05 Hgb, (12.0-15.0) 14.7 g/dL Today, 10:05 Hct, (37-47) 44.3 % Today, 10:05 Plt Count, (150-450) 316 K/mm3 Today, 10:05 CHEMISTRY Potassium, (3.3-5.1) 3.9 mmol/L Today, 10:05 Sodium, (133-145) 139 mmol/L Today, 10:05 Magnesium, (1.5-2.2) 2.4 mg/dL H 10/23/24, 09:20 Phosphorus, (2.5-4.9) 3.7 mg/dL 01/02/19, 09:00 BUN, (4-19) 18 mg/dL Today, 10:05 Creatinine, (0.70-1.20) 0.85 mg/dL Today, 10:05 Glucose, (70-99) 113 mg/dL H Today, 10:05 POC Glucose, (70-110) 143 mg/dL H 11/09/20, 10:14 TSH, (0.300-4.200) 3.690 uIU/mL 10/23/24, 09:20 COAG PT, (11.7-14.9) 12.1 SECONDS 01/01/20, 11:15 Pre-Assessment Diagnosis/Proposed Procedure Planned Operative Procedure(s): exp lap Anesthesia History Anesthesia History - consulting technical manager: Anesthesia History - consulting technical manager Hx Hospitalization Yes: 12/2019 MIGRAINE 11/02/20 11:09 Any Problems With Anesthesia No 11/28/21 15:58 Cholinesterase deficiency No 11/28/21 15:58 You/Your Family Experience No 11/28/21 15:58 fever (hyperthermia) with Relationship Recent Exposure to Contagious No 11/28/21 15:58 Disease Does patient have nerve No 11/28/21 15:58 stimulator Patient instructed to have device shut off --Does patient have Pacemaker or ICD? When Was Last Pacemaker Check QUESTION #4 FULL TEXT: You/Your Family Experience fever (hyperthermia) with Anesthesia Last Oral Intake Last Oral intake: Last Oral Intake NPO since Meds taken in AM with sips of water? Meds patient instructed to take am of surgery PONV PONV - consulting technical manager: PONV - consulting technical manager Female HX of Motion Sickness HX of N/V After Surgery Non-Smoker Duration of Surgery greater than 60 minutes Number of Risk Factors PONV Score Height & Weight Height & Weight: Anesthesia: Height & Weight Height 5 ft 6 in 06/09/25 09:04 Weight: 87.725 kg 06/09/25 10:36 Body Mass Index (BMI) 31.1 06/09/25 10:36 Respiratory Assessment Respiratory Assessment - consulting technical manager: Respiratory Tract Infection Hx - consulting technical manager Hx Respiratory Tract Infection No 11/28/21 15:58 STOP Sleep Apnea STOP Sleep Apnea - consulting technical manager: STOP Sleep Apnea - consulting technical manager Hx Hypertension No 11/28/21 18:45 Hx Sleep Apnea Yes 11/28/21 18:45 CPAP No 11/28/21 18:45 BIPAP Yes 11/28/21 18:45 Do you snore loudly (louder than talking or can be heard Do you often feel tired/ fatigued/ sleepy during daytime? Has anyone observed you stop breathing during sleep? STOP Results QUESTION #5 FULL TEXT : Do you snore loudly (louder than talking or can be heard through closed doors)? Tobacco Use History Tobacco Use History - consulting technical manager: Tobacco Use History - consulting technical manager Tobacco Use Non-smoker 11/02/20 11:09 Smoking Status Former smoker 06/09/25 10:03 Hx Tobacco Use No 11/28/21 18:45 Years Smoking Packs Smoked per Day Smoking Cessation Date was No - quit smoking greater 06/09/25 10:03 within the last 15 years than 15 years ago Hx Smoking Cessation Date 10/15/02 06/09/25 10:03 Hx Smoking Cessation No 06/09/25 10:03 Counseling Hematologic Medial History Hematologic Hx - consulting technical manager: Hematologic Medical Hx - sap basis administrator Hx of Blood Transfusion Hx of Transfusion in last 3 Months Date of Last Transfusion (if within last 3 months) Ever experience any problems with transfusion(s)? Specify any problems Hx of Preganancy in last 3 Months Nurse Filling Out Transfusion & Questions: Date: Time: Patient unable to answer at this time (ie. confused, unrespo /Reproduction History /Reproductive History - consulting technical manager: /Reproductive Hx- consulting technical manager Hx Now Gestational Age (in weeks): EDC: Hx Hx Para Hx Section SAB No 11/02/20 11:09 Does the father of the baby or his family experience fever w Father of the baby Malignant Hypertension history comment Active Medications Active Medications: Current Medications Generic Name Dose Route Start Last Admin Trade Name Freq PRN Reason Stop Dose Admin Sodium Chloride 1,000 mls @ 150 mls/hr 06/09/25 11:35 06/09/25 14:12 IV 150 mls/hr .Q6H40M AMEYA Administration Iopamidol 0 ml 06/09/25 09:30 06/09/25 10:35 Contrast Allergy Safety Check IV Not Given X1 AMEYA PFSH Medical History Wears glasses Cancer Post-menopausal Anxiety Rash Diabetes Chronic cough Hoarseness Shortness of breath on exertion Former smoker On home oxygen therapy Emphysema, unspecified Irregular heart beat Normal echocardiogram (~01/01/20) Normal stress echocardiogram (~07/31/16) Chest pain Restless legs Migraine headache Osteoporosis GERD (gastroesophageal reflux disease) History of skin cancer of the vulva High cholesterol Gastrointestinal problem Chronic bronchitis Asthma Diabetes mellitus type 2, controlled COPD (chronic obstructive pulmonary disease) Dyspnea Palpitations Wheezing Acute bronchitis due to infection Sleep apnea, obstructive Home Medications ?Medication ?Instructions ?Recorded ?Last Taken ?Type lorazepam 0.5 mg tablet (Ativan) 0.5 mg PO TID PRN Anxiety 03/09/20 06/09/25 History tiotropium bromide 2.5 2 puff inhalation DAILY 03/09/20 06/09/25 History mcg/actuation mist for inhalation (Spiriva Respimat) albuterol sulfate 2.5 mg/3 mL 2.5 mg (3 mL) inhalation .QID 03/16/21 Unknown Rx (0.083 %) solution for nebulization BREATHING #180 mL benralizumab 30 mg/mL subcutaneous 30 mg subcut Q8W #1 mL 06/19/24 06/06/25 Rx auto-injector (Fasenra Pen) albuterol sulfate 90 mcg/actuation 2 puff inhalation Q6H PRN ASTHMA 09/11/24 06/08/25 Rx aerosol inhaler #8.5 grams multivitamin 1 tab PO QDAY 09/11/24 06/09/25 History budesonide-formoterol HFA 160 2 puff inhalation BID BREATHING 03/12/25 06/09/25 History mcg-4.5 mcg/actuation aerosol inhaler escitalopram oxalate 10 mg tablet 15 mg PO DAILY Anxiety 03/12/25 06/09/25 History pantoprazole 20 mg tablet,delayed 20 mg PO DAILY 06/09/25 06/09/25 History release (Protonix) Allergy/AdvReac Type Severity Reaction Status Date / Time No Known Allergies Allergy Verified 06/09/25 09:05 Family History Mother CHF (congestive heart failure) Diabetes Hypertension Uterine cancer Anxiety Psychiatric care Father Diabetes CVA (cerebral vascular accident) Heart disease Lung cancer Brother Diabetes Surgical History H/O pulmonic valvulotomy History of appendectomy Social History Smoking Status: Former smoker quit date: 09/23/02 pack-years: 22 Tobacco: How many years used: 22 second hand exposure: Yes alcohol intake: current Alcohol type: wine and hard liquor substance use type: does not use Review of Systems (Anesthesia) ROS Narrative System reviewed and no additional complaints, except as documented.
[2025-06-09] MEDS: Lactated Ringers 1,000 ML 1000 ML IV (15:09)
[2025-06-09] MEDS: Lidocaine 1% (5 ml sdv) 5 ML Vial 8 ML IV (15:14)
[2025-06-09] MEDS: Midazolam 2 MG/2 ML Syringe IV (15:14)
[2025-06-09] MEDS: fentaNYL 100 MCG/2 ML Ampul IV (15:36)
--- NOTE | 2025-06-09 16:27 | PCM.OPRPT ---
Operative Report (Standard) Operative Information Date of Procedure: 06/09/25 Pre-Operative Diagnosis: Concern for small bowel volvulus with associated obstruction Post-Operative Diagnosis: Small bowel dilation with no focal point of obstruction or ischemia Surgery/Procedure Performed: Diagnostic laparoscopy distribution technician: Yes Breadman: Oral Rodriguez Tasks completed by assistant kitchen manager: Opening & closing and Trocar Type of Anesthesia: General/Supplemental RN Documented Start/Stop Times: Operation Date: 06/09/25 14:30 Case Time Into Pre-Op 06/09/25 14:36 Out of Pre-Op 06/09/25 15:02 Anesthesia Start 06/09/25 15:09 Into Room 06/09/25 15:09 Procedure Start 06/09/25 15:37 Procedure End 06/09/25 16:29 Anesthesia End 06/09/25 16:35 Out of Room 06/09/25 16:35 Into Recovery 06/09/25 16:39 Out of Recovery 06/09/25 17:59 Procedure Start Time: 15:37 Procedure Stop Time: 16:29 Select all DRAINS/GRAFTS/IMPLANTS that apply: None Estimated Blood Loss: 3 Specimen collected: No Description of surgery: Patient arrived from the emergency department to the surgical holding area and written consents were confirmed (with addendum made to include possibility of exploratory laparotomy and possible small bowel resection?initial by all parties). She was brought to the operating room where she was positioned supine on the operating room table. She underwent induction with general endotracheal anesthetic. She had previously been administered IV Zosyn empirically. A nasogastric tube was placed by anesthesia after several. SCDs were connected. Patient's abdomen was prepped and draped in usual sterile fashion. A formal timeout followed to confirm patient and the procedure. The procedure was begun with an infraumbilical incision carried down to the fascia which was elevated between clamps and sharply incised. I was very careful to only incise the fascia and then the peritoneal layer was disrupted bluntly with my finger as I was concerned for the possibility of underlying adhesions. Finger sweep confirmed peritoneal entry and a 12 mm Thompson balloon trocar was placed. The abdomen was inspected and revealed no inadvertent injury from our port placement. Abdomen was insufflated to a set pressure of 15 mmHg. Further inspection of the peritoneum revealed multiple dilated loops of small bowel, several adhesions between the right colon and the lateral sidewall, and the stomach in the anterior abdominal wall, and the sigmoid colon to the anterior abdominal wall at the pelvic brim. Aside from these adhesions, the abdomen was largely was free of adhesions and the small bowel, specifically, appeared that it should be able to be manipulated and examined. Therefore, I made the decision to place 2 additional 5 mm trocars in the right upper quadrant and left lower quadrant under direct laparoscopic vision (I later added a third 5 mm port in the left upper quadrant to facilitate running of the bowel). The patient was then positioned Trendelenburg with the left side down and I began to inspect the peritoneum. I first identified the terminal ileum (initially tucked beneath a limb of redundant sigmoid colon) and began running it back proximally hand over hand. I encountered a dilated segment of ileum shortly into this process and there was immediate decompression into the more distal segment. Interestingly, as I continued this process more proximally I found alternating segments that were dilated and decompressed. There was also some evidence for congested mesentery with chyle given its whitish appearance. This process ultimately led me back to the tethered proximal small bowel in the region of the ligament of Treitz. Satisfied that there were no areas of ischemia or obstruction I returned to the right lower quadrant where I studied the terminal ileal segment entering the cecum. It appeared somewhat more narrowed then the more proximal bowel but I did not identify any mass lesions or any clear evidence for inflammatory stricture. As I made this examination I also noted hyperperistalsis in the proximal small bowel. Satisfied with this appearance I briefly examined the right upper quadrant where I found a grossly normal-appearing gallbladder, omental adhesions between the anterior abdominal wall and the body of the stomach, and also examined the readily visible portions of the descending and sigmoid colon. This latter segment appeared well-perfused and normal in caliber. The nasogastric tube appeared to be distorting the greater curve of the stomach and anesthesia was asked to withdraw it slightly to avoid unnecessary pressure. Then the patient was returned to a supine position and pneumoperitoneum was released. I thus transitioned to closure of the abdominal fascia at the infraumbilical 12 mm port site. Additional local anesthetic was infiltrated above the fascia. Lastly the skin was closed with a running subcuticular technique using 4-0 Monocryl. The three 5 mm port sites were, likewise, closed with the same 4-0 Monocryl suture in a subcuticular technique. OpSite dressings were applied and the patient was extubated and taken to PACU for ongoing recovery. Surgical Findings: ? Dilated small bowel extending to the level of the ileum with alternating dilated and decompressed segments extending proximal to the ligament of Treitz. Several areas of mesentery congested with chyle ? Normal-appearing gallbladder and right upper quadrant ? Adhesions between omentum and anterior wall of the stomach and left upper quadrant ? Relatively normal appearance of the sigmoid colon and left lower quadrant Complications Complications: No Admit VTE Documentation VTE Mechan Device Prophylaxis: SCD's
--- NOTE | 2025-06-09 16:42 | PCM.POST.ANE ---
Anesthesia: Postop Eval I Current Vital Signs Temperature: 98.7 F Pulse Rate: 76 Blood Pressure: 126/69 Respiratory Rate: 16 Pulse Ox: 97 Oxygen Delivery Method: Room Air Assessment Airway patent: Yes Spontaneous unlabored respirations: Yes Mental status: Awake and Calm nausea: No Vomiting: No Anesthesia Complication: No Fluid Hydration Crystalloid volume administer (ml): 1,000 Total IV fluid infused: 1,000 Progress Note Anesthesia document: Postop Eval 1 completed: Yes
[2025-06-09] MEDS: Pantoprazole Sodium 40 MG in 0.9% Normal Saline (100mL MB+) 100 ML 330 MG IV (18:14)
[2025-06-09] MEDS: 0.9% Normal Saline (1000mL) 1,000 ML 125 ML IV (18:14)
--- OUTSIDE RECORDS SUMMARY | 2025-06-09 20:08 | XMS RPT_ITS | CCD ---
Author Organization [facility] Care Team Providers Care Collection Technician Name Role Phone Ann Marie Latnigua Unavailable Unavailable Ann Marie Lantigua Unavailable Unavailable Dr. Gonsalo Knox Primary Care Provider Marcin METER READER CHIEF, METER READER CHIEF-C Josy Attending Provider Marcin METER READER CHIEF, METER READER CHIEF-C Josy Referring Provider Dr. Gonsalo Knox Referring Provider Friend, Dr. Joshi Attending Provider Dr. Bhargav Barron Emergency Provider [phone] Dr. Bhargav Zavaleta Admit Provider Dr. Bhargav Zavaleta Other Provider Dr. Angie Wolf Other Provider Dr. Wali Zhou Attending Provider Dr. Wali Zhou Other Provider Susie Knox MD Primary Care Provider DIDI HARO Attending Unavailable SUSIE KNOX Primary Care Unavailabl e SUSIE KNOX Primary Care Unavailabl e SUSIE KNOX Primary Care Unavailabl e Carl SIDHU Attending Unavailable DIDI HARO Referring Unavailable REECE ORTIZ Attending Unavailable SUSIE KNOX Primary Care Unavailabl e SUSIE KNOX Primary Care Unavailabl e DIDI HARO Referring Unavailable DIDI HARO Referring Unavailable DIDI HARO Attending Unavailable DIDI HARO Admitting Unavailable SUSIE KNOX Primary Care Unavailabl e RANNEY, CHRISTOPHER B Primary Care Unavailabl e DIDI HARO Referring Unavailable ABILIO, CARRIEER B Primary Care Unavailabl e BHARGAV ZAVALETA P Referring Unavailable BHARGAV ZAVALETA P Attending Unavailable CARRIE KNOXER B Primary Care UnavailDr. Gonsalo Mccollum Primary Care Provider Marcin METER READER CHIEF, METER READER CHIEF-C Josy Attending Provider Marcin METER READER CHIEF, METER READER CHIEF-C Josy Referring Provider Dr. Tal Joseph Attending Provider Dr. Tal Joseph Other Provider Dr. Gonsalo Knox Primary Care Provider Dr. Gonsalo Knox Referring Provider Dr. Tal Joseph Attending Provider Marcin METER READER CHIEF, METER READER CHIEF-C Josy Attending Provider Dr. Susie Knox MD Primary Care Provider Dr. Susie Knox MD Attending Provider [phone] Dr. Susie Knox MD Referring Provider Marcin METER READER CHIEF-CJosy Attending Provider Susie Knox Primary Care Unavailable Burch METER READER CHIEF, Josy Attending Unavailable Ranney, Christopher Referring Unavailable Burch METER READER CHIEF, Josy Attending Unavailable Abilio, Christopher Referring Unavailable Ranney, Christopher Primary Care Unavailable Chagoney, Christopher Primary Care Unavailable Burch METER READER CHIEF, Josy Attending Unavailable Ranney, Christopher Referring Unavailable Ranney, Christopher Primary Care Unavailable Ranney, Christopher Attending Unavailable Ranney, Christopher Referring Unavailable Ranney, Christopher Primary Care Unavailable Ranney, Christopher Attending Unavailable Ranney, Christopher Referring Unavailable Ranney, Christopher Attending Unavailable Ranney, Christopher Referring Unavailable Ranney, Christopher Primary Care Unavailable Abilio DALAL, Dr. Shore Primary Care Physicia n Dr. Susie Knox MD Referring Provider [phone] Marcin METER READER CHIEF-C, Josy Attending Physician Allergies Allergy Classification Reported Allergen(s) Allergy Type Date of Onset Reaction(s) Facility NEGATED: Highlighted row has been ruled out! (2 sources) Observed no known allergies at [facility] No Known Allergies 7 propensity to adverse reactions [facility] Work Phone: Medications Current Medications Medication Drug Class(es) Dates Sig (Normalized) Sig (Original) [id number] 200 actuat albuterol 0.09 mg/actuat metered dose inhaler (20 sources) beta2-Adrenergic Agonist Start: 12-04-2021 take 2 puff(s) by inhalation every four to six hours albuterol HFA (PROVENTIL HFA, VENTOLIN HFA) 90 mcg/actuation inhaler Inhale 2 (TWO) puffs EVERY 4 TO 6 HOURS 0 12/04/2021 Active Start: 03-09-2020 End: 09-11-2024 Albuterol Sulfate (Proair Hf a) 90 mcg/actuation HFA aerosol inhaler Discontinued 2 NMA INHALATION EVERY 6 HOURS as needed for ASTHMA 8.5 November 18, 2020 9:09am September 11, 2024 11:49am Severe asthma Severe persistent asthma, uncomplicated Start: 03-09-2020 End: 11-18-2020 take 1 puff(s) by inhalation every six hours Albuterol Sulfate (Proair Hfa) 90 mcg/actuation HFA aerosol inhaler Active 2 PUFF INHALATION EVERY 6 HOURS 8.5 November 18, 2020 8:09am Start: 06-07-2017 End: 03-16-2021 take 2.5 mg by inhalation four times daily Albuterol Sulfate 2.5 mg /3 mL (0.083 %) solution for nebulization Active 2.5 mg INHALATION .QID 180 2 March 16, 2021 7:58am BREATHING Complies with drug therapy Start: 03-03-2016 ALBUTEROL SULF ATE (2.5 MG/3ML) 0.083% NEBU INH 1 vial four times a day as needed ALBUTEROL SULFATE [id number] Leeanna Rubalcava LPN Start: 03-03-2016 take 2 puff(s) by in halation every four hours as needed PROAIR HFA 108 (90 Base) MCG/ACT AERS INH 2 puffs q4h as needed ALBUTEROL SULFATE [id number] Leeanna Rubalcava BETINA Start: 10-21-2015 End: 03-09-2020 Albuterol Sulfate 1 PUFF inh aler Discontinued 2 NMA INHALATION EVERY 4 HOURS NEEDED as needed for Sob &/Or Wheezing October 21, 2015 12:00am March 09, 2020 8:22am Start: 10-21-2015 End: 03-09-2020 take 1 puff(s) by inhalation every four hours as needed Albuterol Sulfate Discontinued 2 PUFF INHALATION EVERY 4 HOURS NEEDED October 20, 2015 11:00pm March 09, 2020 7:22am Start: 03-23-2014 End: 03-24-2014 take 1 puff(s) by inhalation every four hours as needed Albuterol Sulfate (Ventolin Hfa) 1 INHALER inhaler Discontinued 1 - 2 PUFF INHALATION EVERY 4 HOURS NEEDED March 23, 2014 10:40am March 24, 2014 11:25am Start: 03-23-2014 End: 03-24-2014 Albuterol Sulfate (Ventolin Hfa) 1 INHALER inhaler Discontinued 1 - 2 NMA INHALATION EVERY 4 HOURS NEEDED as needed for Shortness Of Breath March 23, 2014 12:00am March 24, 2014 11:25am Start: 03-23-2014 End: 03-24-2014 take 1 puff(s) by inhalation every four hours as needed Albuterol Sulfate (Ventolin Hfa) 1 INHALER inhaler Discontinued 1 - 2 PUFF INHALATION EVERY 4 HOURS NEEDED March 22, 2014 11:00pm March 24, 2014 10:25am Start: 09-13-2005 take 2 puff(s) by in halation once daily ALBUTEROL 90 MCG/ACTUATION AEROSOL INHALER Inhale 2 Puffs as instructed once daily. Administer every ___ hours. See Epic Results Review or unit specific flow sheet documentation for RT administration information. SHAKE WELL BEFORE USING 0 09/13/2005 Active Comment on above: Inhale 2 Puffs as in structed once daily. Administer every ___ hours. See Epic Results Review or unit specific flow sheet documentation for RT administration information. SHAKE WELL BEFORE USING Inhale 1 ampule via nebulizer 4 times daily, as needed. Inhale 2 (TWO) puffs EVERY 4 TO 6 HOURS albuterol 0.833 mg/ml / ipratropium bromide 0.167 mg/ml inhalation solution (12 sources) Anticholinergic, beta2-Adrenergic Agonist Start: 09-27-19 End: 03-16-20 take 1 mL by inhalation every four hours as needed for wheezing Ipratropium-Albuter ol 0.5 mg-3 mg(2.5 mg base)/3 mL solution for nebulization Active 3 mL INHALATION EVERY 4 HOURS NEEDED as needed for SOB &/OR WHEEZING 180 March 16, 2021 7:59am Complies with drug therapy Start: 09-26-2018 End: 03-16-2021 take 1 mL by inhalation every four hours as needed Ipratropium-Albuterol Active 3 ML INHALATION EVERY 4 HOURS NEEDED 180 March 16, 2021 6:59am 1 ml benralizumab 30 mg/ml auto-injector (20 sources) Interleukin-5 Receptor alpha-directed Cytolytic Antibody Start: 09-25-2023 End: 06-19-2024 Benralizumab (Fasenra Pen) 30 mg/mL auto-injector Active 30 mg SC every 8 weeks 07 06June 19, 2024 12:32pm Complies with drug therapy Start: 11-25-2021 End: 11-25-2021 inject 30 mg by subcutaneous injection once benralizumab 30 mg/mL subcutaneous syringe Discontinued 30 MG SC ONCE November 25, 2021 9:25am November 25, 2021 9:46am Start: 09-30-2021 End: 09-30-2021 inject 30 mg by subcutaneous injection once benralizumab 30 mg/mL subcutaneous syringe Discontinued 30 MG SC ONCE September 30, 2021 9:28am September 30, 2021 9:39am Start: 08-05-2021 End: 08-05-2021 inject 30 mg by subcutaneous injection once benralizumab 30 mg/mL subcutaneous syringe Discontinued 30 MG SC ONCE August 05, 2021 10:31am August 05, 2021 10:43am Start: 06-10-2021 End: 06-10-2021 inject 30 mg by subcutaneous injection once benralizumab 30 mg/mL subcutaneous syringe Discontinued 30 MG SC ONCE June 10, 2021 10:30am June 10, 2021 10:40am Start: 04-15-2021 End: 04-15-2021 inject 30 mg by subcutaneous injection once benralizumab 30 mg/mL subcutaneous syringe Discontinued 30 MG SC ONCE April 15, 2021 9:31am April 15, 2021 10:09am Start: 02-18-2021 End: 02-18-2021 inject 30 mg by subcutaneous injection once benralizumab 30 mg/mL subcutaneous syringe Discontinued 30 MG SC ONCE February 18, 2021 9:30am February 18, 2021 9:39am Start: 12-24-2020 End: 12-24-2020 inject 30 mg by subcutaneous injection once benralizumab 30 mg/mL subcutaneous syringe Discontinued 30 MG SC ONCE December 24, 2020 8:29am December 24, 2020 9:04am Start: 10-29-2020 End: 10-29-2020 inject 30 mg by subcutaneous injection once benralizumab 30 mg/mL subcutaneous syringe Discontinued 30 MG SC ONCE October 29, 2020 8:30am October 29, 2020 8:06am Start: 10-29-2020 End: 10-29-2020 inject 30 mg by subcutaneous injection once benralizumab 30 mg/mL subcutaneous syringe Discontinued 30 MG SC ONCE October 29, 2020 8:30am October 29, 2020 8:06am Start: 09-03-2020 End: 09-03-2020 inject 30 mg by subcutaneous injection once benralizumab 30 mg/mL subcutaneous syringe Discontinued 30 MG SC ONCE September 03, 2020 9:27am September 03, 2020 9:44am Start: 07-09-2020 End: 07-09-2020 inject 30 mg by subcutaneous injection once benralizumab 30 mg/mL subcutaneous syringe Discontinued 30 MG SC ONCE July 09, 2020 9:31am July 09, 2020 9:49am Start: 05-14-2020 End: 05-14-2020 inject 30 mg by subcutaneous injection once benralizumab 30 mg/mL subcutaneous syringe Discontinued 30 MG SC ONCE May 14, 2020 9:55am May 14, 2020 10:34am Start: 03-19-2020 End: 03-19-2020 inject 30 mg by subcutaneous injection once benralizumab 30 mg/mL subcutaneous syringe Discontinued 30 MG SC ONCE March 19, 2020 8:57am March 19, 2020 9:14am Start: 01-23-2020 End: 01-23-2020 inject 30 mg by subcutaneous injection once benralizumab 30 mg/mL subcutaneous syringe Discontinued 30 MG SC ONCE January 23, 2020 8:18am January 23, 2020 8:27am Start: 11-28-2019 End: 11-28-2019 inject 30 mg by subcutaneous injection once benralizumab 30 mg/mL subcutaneous syringe Discontinued 30 MG SC ONCE November 28, 2019 8:01am November 28, 2019 8:45am Start: 10-02-2019 End: 10-02-2019 inject 30 mg by subcutaneous injection once benralizumab 30 mg/mL subcutaneous syringe Discontinued 30 MG SC ONCE October 02, 2019 8:12am October 02, 2019 8:43am Start: 09-04-2019 End: 09-04-2019 inject 30 mg by subcutaneous injection once benralizumab 30 mg/mL subcutaneous syringe Discontinued 30 MG SC ONCE September 04, 2019 8:30am September 04, 2019 8:42am Start: 08-07-2019 End: 08-07-2019 inject 30 mg by subcutaneous injection once benralizumab 30 mg/mL subcutaneous syringe Discontinued 30 MG SC ONCE August 07, 2019 2:29pm August 07, 2019 3:22pm Start: 05-26-2019 End: 09-25-2023 Benralizumab (Fasenra) 30 mg /mL syringe Discontinued 30 mg SC every 8 weeks 1 December 31, 2019 1:51pm September 25, 2023 12:47pm Start: 05-26-2019 End: 11-12-2019 Benralizumab (Fasenra) 30 mg /mL syringe Discontinued 30 mg SC every 4 weeks 1 0 0 May 26, 2019 1:00am November 12, 2019 7:54am Severe persistent asthma, uncomplicated Budesonide-Formoterol (20 sources) Corticosteroid, beta2-Adrenergic Agonist Start: 03-12-2025 Budesonide-Formoterol 160-4.5 mcg/actuation HFA aerosol inhaler Active 2 NMA INHALATION TWICE A DAY March 12, 2025 10:23am BREATHING Complies with drug therapy Start: 03-03-2016 take 2 puff(s) by in halation twice daily SYMBICORT 160-4.5 MCG/ACT AERO INH 2 puffs twice daily BUDESONIDE-FORMOTEROL FUMARATE [id number] Leeanna Rubalcava WIRE BRUSHER Start: 10-21-2015 take 1 puff(s) by in halation twice daily Budesonide-Formoterol Active 2 PUFF INHALATION TWICE A DAY October 21, 2015 1:58pm Start: 10-21-2015 End: 03-12-2025 Budesonide-Formoterol 1 INHA LER inhaler Discontinued 2 NMA INHALATION TWICE A DAY October 21, 2015 12:00am March 12, 2025 10:23am BREATHING Start: 10-21-2015 Budesonide-For moterol 1 INHALER inhaler Active 2 NMA INHALATION TWICE A DAY October 21, 2015 12:00am Start: 10-21-2015 take 1 puff(s) by in halation twice daily Budesonide-Formoterol Active 2 PUFF INHALATION TWICE A DAY October 20, 2015 11:00pm Start: 03-24-2014 End: 08-11-2015 Budesonide-Formoterol (Symbi tomi) 1 INHALER inhaler Discontinued 1 NMA INHALATION TWICE A DAY 1 March 24, 2014 11:25am August 11, 2015 5:21am Start: 03-24-2014 End: 08-11-2015 take 1 puff(s) by inhalation twice daily Budesonide-Formoterol (Symbicort) 1 INHALER inhaler Discontinued 1 PUFF INHALATION TWICE A DAY 1 March 24, 2014 10:25am August 11, 2015 4:21am Start: 03-23-2014 End: 03-24-2014 Budesonide-Formoterol (Symbi tomi 160/4.5 Mcg Inhaler (Sp)) 1 INHALER inhaler Discontinued 2 NMA INHALATION DAILY March 23, 2014 12:00am March 24, 2014 11:25am Start: 03-23-2014 End: 03-24-2014 Budesonide-Formoterol (Symbi tomi 160/4.5 Mcg Inhaler (Sp)) 1 INHALER inhaler Discontinued 2 PUFF INHALATION DAILY March 22, 2014 11:00pm March 24, 2014 10:25am take 2 puff(s) by in halation twice daily budesonide-formoterol (SYMBICORT) 160-4.5 mcg/actuation inhaler Indications: Breast pain Inhale 2 Puffs as instructed twice daily. 0 Active Comment on above: Inhale 2 Puffs as in structed twice daily. escitalopram 10 mg oral tablet (20 sources) Serotonin Reuptake Inhibitor Start: take 1 tablet by mouth once daily Escitalopram Oxalate 10 mg tablet Active 10 mg PO DAILY March 12, 2025 12:00am Anxiety Complies with drug therapy Start: 02-18-2020 End: 09-11-2024 take 1 tablet by mouth once daily Escitalopram Oxalate 5 mg tablet Discontinued 5 mg PO DAILY February 18, 2020 12:00am September 11, 2024 11:19am Comment on above: Take by mouth. Take 5 mg by mouth e very morning. Multivitamin tablet (2 sources) Start: 09-11-2024 Multivitamin tablet Active 1 {tbl} PO daily September 11, 2024 12:00am Complies with drug therapy Start: 09-11-2024 Multivitamin t ablet Active 1 {tbl} PO daily September 11, 2024 12:00am Aqnyffajmayv-Twfjalfr-Mnvinc (3 sources) Start: 11-28-2021 take 1 tablet by mouth once daily Bhgouwpjnqvx-Mnbyqlnc-Zznyvt Active 1 TABLET PO DAILY November 28, 2021 4:02pm Start: 11-28-2021 End: 02-27-2023 take 1 tablet by mouth once daily Ncguwrggpkdv-Hjxhxaim-Vbtzma Discontinue d 1 TABLET PO DAILY November 27, 2021 11:00pm February 27, 2023 8:49am Start: 11-28-2021 take 1 tablet by jam th once daily Qndqbemyvqxw-Irjjkens-Xowzba Active 1 TA BLET PO DAILY November 27, 2021 11:00pm Kwvjypeaumvd-Ciwvwgxm-Mudcqm (Centrum Silver) Tablet (1 source) Start: 11-28-2021 take 1 tablet by mouth once daily Mkkbhvlyfutj-Mxslfhfh-Iaktyt (Centrum Silver) Tablet Active 1 TABLET PO DAILY November 28, 2021 4:02pm 60 actuat tiotropium 0.0025 mg/actuat inhalation spray (20 sources) Antic holin ergic Start: 03-09-2020 take 2.5 ug by inhalation once daily Tiotropium [place] (Spiriva Respimat) 2.5 mcg/actuation mist Active 2 NMA INHALATION DAILY March 09, 2020 12:00am Complies with drug therapy Start: 03-09-2020 take 1 puff(s) by in halation once daily Tiotropium [place] (Spiriva Respimat) 2.5 mcg/actuation mist Active 2 PUFF INHALATION DAILY March 08, 2020 11:00pm Start: 03-03-2016 take 2 puff(s) by in halation once daily SPIRIVA HANDIHALER 18 MCG CAPS INH 2 puffs daily TIOTROPIUM BROMIDE MONOHYDRATE [id number] Leeanna Rubalcava LPN Start: 03-03-2016 take 2 puff(s) by in halation once daily SPIRIVA RESPIMAT 2.5 MCG/ACT AERS INH 2 puffs daily TIOTROPIUM BROMIDE MONOHYDRATE [id number] Leeanna Rubalcava LPN Start: 10-21-2015 End: 03-09-2020 Tiotropium [place]rop 1 PUFF in haler Discontinued 2 NMA INHALATION DAILY October 21, 2015 12:00am March 09, 2020 8:18am BREATHING Start: 10-21-2015 End: 03-09-2020 take 1 puff(s) by inhalation once daily Tiotropium [place]rop Discontinued 2 PUFF INHALATION DAILY October 20, 2015 11:00pm March 09, 2020 7:18am Start: 03-24-2014 End: 08-11-2015 Tiotropium [place] (Spiriva 18 Mcg) 1 PUFF inhaler Discontinued 1 NMA INHALATION DAILY 1 2 March 24, 2014 12:00am August 11, 2015 3:48am Start: 03-24-2014 End: 08-11-2015 take 1 puff(s) by inhalation once daily Tiotropium [place] (Spiriva 18 Mcg) 1 PUFF inhaler Discontinued 1 PUFF INHALATION DAILY 1 March 23, 2014 11:00pm August 11, 2015 2:48am tiotropium bromi de (SPIRIVA RESPIMAT) 2.5 mcg/actuation mist Indications: Breast pain Inhale as instructed once daily as needed. 0 Active Comment on above: Inhale as instructed once daily as needed. Completed/Discontinued Medications Medication Drug Class(es) Dates Sig (Normalized) Sig (Original) acetaminophen 325 mg / oxyCODONE hydrochloride 5 mg oral tablet (19 sources) Opioid Agonist Start: 11-29-2021 oxyCODONE-acetamin ophen (PERCOCET) 5-325 mg tablet Take by mouth. 0 11/29/2021 Active Start: 11-29-2021 End: 02-27-2023 Oxycodone-Acetaminophen (Per cocet) 5-325 mg tablet Discontinued 1 {tbl} PO Q4H as needed for pain 20 5 0 November 29, 2021 February 27, 2023 9:49am Abdominal pain Unspecified abdominal pain Comment on above: Take by mouth. TAKE 1 TABLET BY JAM TH EVERY 4 HOURS NEEDED FOR PAIN FOR 5 DAYS alendronic acid 70 mg oral tablet (17 sources) Bisphosphonate Start: 4 End: 5 take 1 tablet by mouth every week Alendronate 70 mg tablet Discontinued 70 mg PO EVERY WEEK March 14, 2024 12:00am March 12, 2025 10:22am Start: 02-17-2019 End: 02-27-2023 take 1 tablet by mouth every week Alendronate (Fosamax) 70 mg tablet Discontinued 70 mg PO EVERY WEEK February 17, 2019 12:00am February 27, 2023 9:48am Comment on above: Take by mouth. amoxicillin 875 mg oral tablet (6 sources) Penicillin-class Antibacterial Start: 6 End: 6 take 1 tablet by mouth three times daily Amoxicillin 875 MG tablet Discontinued 875 mg PO THREE TIMES A DAY August 11, 2015 1:00am August 12, 2015 1:46pm amoxicillin 875 mg / clavulanate 125 mg oral tablet (12 sources) Penicillin-class Antibacterial Start: 9 End: 9 Amoxicillin-Pot Clavulanate (Augmentin) 875-125 mg tablet Discontinued 1 {tbl} PO TWICE A DAY 20 0 September 20, 2018 12:00am February 17, 2019 8:15am Start: 07-04-2017 End: 08-29-2017 Amoxicillin-Pot Clavulanate (Augmentin) 875-125 mg tablet Discontinued 1 {tbl} PO TWICE A DAY 20 0 July 04, 2017 1:00am August 29, 2017 9:56am aspirin 81 mg chewable tablet (4 sources) Platelet Aggregation Inhibitor, Nonsteroidal Anti-inflammatory Drug Start: 01-02-2020 End: 01-02-2022 aspirin 81 mg chewable tablet Take by mouth. 0 01/02/2020 01/02/2022 Discontinued (Discontinued by Patient) Comment on above: Take by mouth. atorvastatin 20 mg oral tablet (20 sources) HMG-CoA Reductase Inhibitor Start: 09-01-2021 take 1 tablet by mouth once daily atorvastatin (LIPITOR) 20 mg tablet Take 20 mg by mouth once daily. 0 09/01/2021 Active Start: 03-16-2021 End: 09-11-2024 Atorvastatin 40 mg tablet Discontinued 20 mg PO DAILY March 16, 2021 7:46am September 11, 2024 11:19am Start: 03-16-2021 take 20 mg by mouth once daily Atorvastatin Active 20 MG PO DAILY March 16, 2021 6:46am Start: 04-22-2020 End: 03-16-2021 take 1 tablet by mouth once daily Atorvastatin 40 mg tablet Discontinued 40 mg PO DAILY April 22, 2020 12:00am March 16, 2021 7:46am Start: 02-18-2020 End: 04-22-2020 Atorvastatin 80 mg tablet Discontinued 40 mg PO AT BEDTIME February 18, 2020 8:28am April 22, 2020 3:13pm Start: 02-18-2020 End: 04-22-2020 take 40 mg by mouth at bedtime Atorvastatin Discontinu ed 40 MG PO AT BEDTIME February 18, 2020 7:28am April 22, 2020 2:13pm Start: 01-02-2020 End: 02-18-2020 take 1 tablet by mouth at bedtime Atorvastatin 80 MG tablet Discontinued 80 mg PO AT BEDTIME 30 0 January 02, 2020 12:00am February 18, 2020 8:28am Comment on above: Take 20 mg by mouth once daily. azelastine hydrochloride 0.137 mg/actuat metered dose nasal spray (20 sources) Histamine-1 Receptor Antagonist Start: 09-27-2020 End: 02-27-2023 Azelastine 137 mcg (0.1 %) aerosol,spray Discontinued 2 NMA INTRANASAL TWICE A DAY 22 12September 27, 2020 8:10am February 27, 2023 9:48am administer into each nostril Start: 09-27-2020 End: 02-27-2023 take 1 spray(s) nasal route twice daily Azelastine Discontinued 2 SPRAY INTRANASAL TWICE A DAY September 27, 2020 7:10am February 27, 2023 8:48am administer into each nostril Start: 01-01-2020 End: 03-09-2020 Azelastine 137 MCG/0.137 ML aerosol,spray Discontinued 1 NMA INTRANASAL DAILY January 01, 2020 3:12pm March 09, 2020 8:27am administer into each nostril Start: 01-01-2020 End: 03-09-2020 take 1 spray(s) nasal route once daily Azelastine Discontinued 1 SPRAY INTRANASAL DAILY January 01, 2020 2:12pm March 09, 2020 7:27am administer into each nostril Start: 02-17-2019 End: 01-01-2020 Azelastine 137 mcg (0.1 %) aerosol,spray Discontinued 1 NMA INTRANASAL TWICE A DAY 21 09February 17, 2019 12:00am January 01, 2020 3:13pm administer into each nostril Start: 02-17-2019 End: 01-01-2020 take 1 spray(s) nasal route twice daily Azelastine Discontinued 1 SPRAY INTRANASAL TWICE A DAY February 16, 2019 11:00pm January 01, 2020 2:13pm administer into each nostril azithromycin 250 mg oral tablet (8 sources) Macrolide Antimicrobial Start: 09-30-2018 End: 02-17-2019 take 1 tablet by mouth once daily Azithromycin 250 mg tablet Discontinued 250 mg PO daily 6 0 September 30, 2018 12:00am February 17, 2019 8:15am Start: 12-12-2016 AZITHROMYCIN 2 50 MG TABS 2 tablets by mouth today and then 1 tablet daily for the next 4 days AZITHROMYCIN [id number] Tal Joseph benzonatate 200 mg oral capsule (4 sources) Non-narcotic Antitussive Start: 09-26-2018 End: 01-02-2022 Benzonatate 200 mg capsule 200 mg. 0 09/26/2018 01/02/2022 Discontinued (Discontinued by Patient) Comment on above: 200 mg. CALCIUM CARB/VIT D3/MINERALS (CALCIUM PLUS ORAL) (10 sources) take 1200 [IU] by mouth once daily CALCIUM CARB/VIT D3/MINERALS (CALCIUM PLUS ORAL) Indications: Breast pain Take 1,200 Units by mouth once daily. 0 Active Comment on above: Take 1,200 Units by mouth once daily. calcium carbonate 1500 mg oral tablet (17 sources) Start: 10-21-2015 calcium carbon ate (CALTRATE) 600 mg calcium (1,500 mg) tab Take by mouth. 0 10/21/2015 Active Start: 10-21-2015 End: 02-27-2023 take 2 tablets by mouth once daily Calcium Carbonate 500 MG tablet Discontinued 1000 mg PO DAILY@0800 October 21, 2015 12:00am February 27, 2023 9:48am SUPPLEMENT Start: 10-21-2015 End: 02-27-2023 take 1000 mg by mouth once daily Calcium Carbonate Discontinued 1000 MG PO DAILY@0800 October 20, 2015 11:00pm February 27, 2023 8:48am Comment on above: Take by mouth. calcium carbonate 1250 mg / cholecalciferol 200 unt oral tablet (2 sources) Vitamin D Start: 03-03-20 take 2 tablets by mouth once daily OSCAL 500/200 D-3 500-200 MG-UNIT TABS Two tablets by mouth daily CALCIUM CARBONATE-VITAMIN D [id number] Leeanna Rubalcava LPN Calcium Carbonate / vitamin D3 (8 sources) CALCIUM CARBONATE/VITAMIN D3 (VITAMIN D-3 ORAL) Take by mouth. 0 Active Comment on above: Take by mouth. cetirizine hydrochloride 10 mg oral tablet (2 sources) Histamine-1 Receptor Antagonist Start: 03-14-20 End: 03-12-20 take 1 tablet by mouth once daily as needed Cetirizine 10 mg tablet Discontinued 10 mg PO DAILY as needed for allergy symptoms 90 3 March 14, 2024 12:00am March 12, 2025 10:22am Severe asthma Severe persistent asthma, uncomplicated cholecalciferol 1000 unt oral capsule (17 sources) Vitamin D Start: 10-21-19 16 Cholecalciferol, Vitamin D3, 25 mcg (1,000 unit) cap Take by mouth. 0 10/21/2015 Active Start: 10-21-2015 take 2 tablets by [facility] once daily VITAMIN D3 1000 UNIT CAPS Two tablets by mouth daily CHOLECALCIFEROL [id number] Leeanna Rubalcava LPN Start: 10-21-2015 End: 02-27-2023 take 2 tablets by mouth once daily Cholecalciferol (Vitamin D3) 1,000 UNIT tablet Discontinued 2000 U PO DAILY October 21, 2015 12:00am February 27, 2023 9:48am SUPPLEMENT Start: 10-21-2015 End: 02-27-2023 take 2000 [IU] by mouth once daily Cholecalciferol (Vitamin D3) Discontinued 2000 UNIT PO DAILY October 20, 2015 11:00pm February 27, 2023 8:48am Comment on above: Take by mouth. chromium picolinate 0.1 mg / inulin 2000 mg chewable tablet (9 sources) Start: 10-02-2017 inulin-chromium picolinate 2-100 gram-mcg chew Inulin/Chromium Picolinate Active 2 EA TWICE A DAY October 02, 2017 5:31pm 0 10/02/2017 Active Comment on above: Inulin/Chromium Burt linate Active 2 EA TWICE A DAY October 02, 2017 5:31pm clobetasol propionate 0.5 mg/ml topical cream (18 sources) Corticosteroid Start: 03-09-2020 End: 02-27-2023 Clobetasol 0.05 % cream Discontinued 1 NMA TOPICAL NEEDED as needed for PSORIASIS March 09, 2020 12:00am February 27, 2023 9:48am Start: 03-09-2020 End: 02-27-2023 Clobetasol Discontinued 1 AP PLIC TOPICAL NEEDED March 08, 2020 11:00pm February 27, 2023 8:48am Start: 03-03-2016 CLOBETASOL PRO PIONATE 0.05 % SOLN Apply to scaply twice daily CLOBETASOL PROPIONATE [id number] Leeanna Rubalcava [employer] CLOBETASOL PROPI CHANTAL (CLOBETASOL TOPICAL) Indications: Breast pain Apply to affected area as needed. 0 Active Comment on above: Apply to affected ar ea as needed. CYANOCOBALAMIN, VITAMIN B-12, (VITAMIN B-12 ORAL) (10 sources) take 1500 ug by mouth every other day CYANOCOBALAMIN, VITAMIN B-12, (VITAMIN B-12 ORAL) Indications: Breast pain Take 1,500 mcg by mouth every other day. 0 Active Comment on above: Take 1,500 mcg by mo uth every other day. Fish Oil-DHA-EPA 1,200-144-216 mg cap (5 sources) End: 01-02-2022 Fish Oil-DHA-EPA 1,200-144-216 mg cap Indications: Breast pain Take by mouth. 0 01/02/2022 Discontinued (Discontinued by Patient) Fish Oil-DHA-EPA 1,200-144-216 mg cap Indications: Breast pain Take by mouth. 0 Active Comment on above: Take by mouth. fluconazole 200 mg oral tablet (6 sources) Azole Antifungal Start: 10-09-2017 End: 12-11-2017 take 1 tablet by mouth once daily Fluconazole (Diflucan) 200 mg tablet Discontinued 200 mg PO daily 1 0 October 09, 2017 12:00am December 11, 2017 7:50am fluticasone propionate 0.05 mg/actuat metered dose nasal spray (20 sources) Corticosteroid Start: 03-14-2024 End: 09-11-2024 Fluticasone Propionate 50 mcg/actuation spray,suspension Discontinued 2 NMA INTRANASAL DAILY 16 March 14, 2024 12:00am September 11, 2024 11:19am Severe asthma Asthma Severe persistent asthma, uncomplicated Unspecified asthma, uncomplicated Start: 12-11-2017 End: 02-27-2023 Fluticasone Propionate (Flon ase Allergy Relief) 50 mcg/actuation spray,suspension Discontinued 2 NMA INTRANASAL daily 16 July 29, 2018 1:44pm February 27, 2023 9:49am Cough Start: 12-11-2017 End: 02-27-2023 Fluticasone Propionate (Flon ase Allergy Relief) 50 mcg/actuation spray,suspension Discontinued 2 SPRAY INTRANASAL daily July 29, 2018 12:44pm February 27, 2023 8:49am Start: 10-13-2016 End: 12-12-2016 take 2 spray(s) nasal route once daily FLUTICASONE PROPIONATE 50 MCG/ACT SUSP 2 sprays each nostril daily FLUTICASONE PROPIONATE [id number] Leeanna Rubalcava LPN levoFLOXacin 750 mg oral tablet (12 sources) Quinolone Antimicrobial Start: 07-11-2018 End: 07-18-2018 take 1 tablet by mouth every twenty-four hours Levofloxacin (Levaquin) 750 mg tablet Discontinued 750 mg PO Q24H 7 7 0 July 11, 2018 1:00am July 17, 2018 1:00am July 18, 2018 1:10am Start: 10-26-2017 End: 11-02-2017 take 1 tablet by mouth every twenty-four hours Levofloxacin (Levaquin) 750 mg tablet Discontinued 750 mg PO Q24H 7 7 0 October 26, 2017 12:00am November 01, 2017 12:00am November 02, 2017 12:07am LORazepam 0.5 mg oral tablet (20 sources) Benzodiazepine Start: 03-27-2012 End: 03-09-2020 take 1 tablet by mouth three times daily as needed for anxiety Lorazepam 0.5 MG tablet Discontinued 0.5 mg PO 3 TIMES DAILY NEEDED as needed for Anxiety October 21, 2015 12:00am March 09, 2020 8:23am Comment on above: Take 1 tablet by jam th as needed. metFORMIN hydrochloride 500 mg oral tablet (7 sources) Biguanide Start: 03-03-2016 take 1 tablet by mouth once daily GLUCOPHAGE 500 MG TABS One tablet by mouth daily METFORMIN HCL [id number] Leeanna Rubalcava LPN End: 01-02-2022 take 1 tablet by mouth twice daily at mealtime metFORMIN (GLUCOPHAGE) 500 mg tablet Indications: Breast pain Take 500 mg by mouth twice daily with meals. 0 01/02/2022 Discontinued (Discontinued by Patient) Comment on above: Take 500 mg by mouth twice daily with meals. methylPREDNISolone acetate 40 mg/ml injectable suspension (2 sources) Corticosteroid Start: End: Depo-Medrol (methylprednisolon e acetate) 40 mg/mL suspension for injection Discontinued 40 MG INTRAARTIC ONCE 1 June 04, 2020 9:17am June 04, 2020 10:09am montelukast 10 mg oral tablet (20 sources) Leukotriene Receptor Antagonist Start: End: take 1 tablet by mouth once daily as needed Montelukast 10 mg tablet Discontinued 10 mg PO DAILY as needed for ALLERGIES September 11, 2024 11:20am March 12, 2025 10:22am Comment on above: Take 10 mg by mouth daily at bedtime. MULTIPLE VITAMINS-MINERALS (2 sources) Start: take 1 tablet by mouth once daily MULTIVITAMIN WOMEN TABS One tablet by mouth daily MULTIPLE VITAMINS-MINERALS [id number] Leeanna Mirandain Khadar MOFFETT multivitamin tablet (8 sources) take 1 tablet by mouth once daily multivitamin tablet Indications: Breast pain Take 1 tablet by mouth once daily. 0 Active Comment on above: Take 1 tablet by jam once daily. Dcvagrhzqadx-Gwsfpopa-Got ein Tablet (2 sources) Start: End: Multivitamin-[place] als-Lutein Tablet Discontinued 1 {tbl} PO DAILY November 28, 2021 12:00am February 27, 2023 9:49am uq-bi-srnp-FA-Ca carb-vit K (WOMEN'S MULTIVITAMIN) 18 mg-400 mcg- 500 mg-50 mcg tab (9 sources) Start: ek-qv-vszt-FA-Ca carb-vit K (WOMEN'S MULTIVITAMIN) 18 mg-400 mcg- 500 mg-50 mcg tab Take by mouth. 0 05/24/2016 Active Comment on above: Take by mouth. NEBULIZER ACCESSORIES (NEBULIZER MISC) (10 sources) NEBULIZER ACCESSORIES (NEBULIZER MISC) OMEGA-3 FATTY ACIDS (2 sources) Start: take 2 tablets by mouth once daily [facility] FISH OIL 1000 MG CAPS Two tablets by mouth daily OMEGA-3 FATTY ACIDS [id number] Leeanna Santos Khadar [employer] Ahjzv-0-JXJ-EPA-Fish Oil (FISH OIL) 300-1,000 mg cap (4 sources) Start: End: Bwiks-1-QMX-EPA-Fi sh Oil (FISH OIL) 300-1,000 mg cap Take by mouth. 0 03/03/2016 01/02/2022 Discontinued (Discontinued by Patient) Start: 03-03-2016 Dlrxo-2-UAL-EP A-Fish Oil (FISH OIL) 300-1,000 mg cap Take by mouth. 0 03/03/2016 Active Comment on above: Take by mouth. oseltamivir 75 mg oral capsule (6 sources) Neuraminidase Inhibitor Start: 08-31-19 End: 09-05-19 take 1 capsule by mouth once daily Oseltamivir (Tamiflu) 75 mg capsule Discontinued 75 mg PO daily 5 5 0 August 30, 2018 1:00am September 03, 2018 12:00am September 04, 2018 12:08am oxyCODONE hydrochloride 5 mg oral tablet (8 sources) Opioid Agonist Start: 01-05-20 take 1 tablet by mouth every six hours as needed for pain oxyCODONE IR (ROXICODONE) 5 mg immediate release tablet Indications: Malrotation of intestine Take 1 tablet by mouth every 6 hours as needed for pain. 15 tablet 0 01/04/2022 Active Start: 11-09-2020 End: 11-18-2020 take 5-10 mg by mouth every four hours as needed for pain Oxycodone 5 mg capsule Discontinued 5 - 10 mg PO Q4H as needed for pain 25 5 0 November 09, 2020 November 18, 2020 8:35am Other acute postprocedural pain Other acute postprocedural pain Comment on above: Take 1 tablet by jam th every 6 hours as needed for pain. OXYGEN, HOME THERAPY, (10 sources) OXYGEN, HOME THE RAPY, Indications: Breast pain Inhale 2 L/min as instructed as needed. 0 Active Comment on above: Inhale 2 L/min as in structed as needed. pantoprazole 40 mg delayed release oral tablet (18 sources) Proton Pump Inhibitor Start: 6 End: take 1 tablet by mouth once daily Pantoprazole 40 MG tablet Discontinued 40 mg PO DAILY October 21, 2015 12:00am September 11, 2024 11:18am ACID REFLUX take 40 mg by mouth once daily P ANTOPRAZOLE SODIUM (PROTONIX ORAL) Indications: Breast pain Take 40 mg by mouth once daily. 0 Active Comment on above: Take 40 mg by mouth once daily. predniSONE 10 mg oral tablet (20 sources) Start: 07-14-2024 End: 09-11-2024 Prednisone 10 mg tablet Discontinued 10 mg PO daily 30 0 July 14, 2024 1:00am September 11, 2024 11:20am take 4 tabs for three days, then 3 tabs for three days, then 2 tabs for three days, then 1 tab for 3 days Start: 09-06-2023 End: 03-14-2024 Prednisone 10 mg tablet Disc ontinued 10 mg PO daily 30 0 September 06, 2023 12:00am March 14, 2024 11:19am Severe asthma Severe persistent asthma, uncomplicated take 4 tabs for three days, then 3 tabs for three days, then 2 tabs for three days, then 1 tab for 3 days Start: 02-05-2023 End: 02-22-2023 Prednisone 10 mg tablet Disc ontinued 10 mg PO daily 30 0 February 05, 2023 12:00am February 22, 2023 8:46am take 4 tabs for three days, then 3 tabs for three days, then 2 tabs for three days, then 1 tab for 3 days Start: 04-23-2019 End: 06-16-2019 Prednisone 10 mg tablet Disc ontinued 10 mg PO daily 30 0 May 26, 2019 1:04pm June 16, 2019 11:10am take 4 tabs for three days, then 3 tabs for three days, then 2 tabs for three days, then 1 tab for 3 days Start: 07-11-2018 End: 02-17-2019 Prednisone 10 mg tablet Disc ontinued 10 mg PO daily 30 0 August 30, 2018 1:00am September 20, 2018 3:15pm take 4 tabs for three days, then 3 tabs for three days, then 2 tabs for three days, then 1 tab for 3 days Start: 05-24-2018 End: 09-20-2018 take 3 tablets by mouth once daily at mealtime Prednisone 20 mg tablet Discontinued 60 mg PO daily 15 May 24, 2018 1:00am September 20, 2018 3:04pm administer with food or milk Start: 05-24-2018 End: 09-20-2018 take 60 mg by mouth once daily at mealtime Prednisone Discontinued 60 MG PO daily May 24, 2018 12:00am September 20, 2018 2:04pm administer with food or milk Start: 10-03-2017 End: 10-25-2017 take 40 mg by mouth once daily in the morning Prednisone Discontinued 10 MG PO DIRECTED October 02, 2017 11:00pm October 25, 2017 1:53pm 40 mg daily @ 8:00 AM for 3 days 30 mg daily @ 8:00 AM for 3 days 20 mg daily @ 8:00 AM for 3 days 10 mg daily @ 8:00 AM for 3 days Start: 10-02-2017 End: 10-03-2017 Prednisone Discontinued 20 M G PO DAILY October 02, 2017 1:13pm October 03, 2017 12:18pm take 4 tabs for three days, then 3 tabs for three days, then 2 tabs for three days, then 1 tab for 3 days Start: 08-29-2017 End: 12-11-2017 Prednisone 10 mg tablet Disc ontinued 10 mg PO daily 30 0 October 26, 2017 12:00am December 11, 2017 7:49am take 4 tabs for three days, then 3 tabs for three days, then 2 tabs for three days, then 1 tab for 3 days Start: 12-12-2016 End: 12-24-2016 PREDNISONE 10 MG TABS Take 4 tabs by mouth for 3 days, then 3 tabs by mouth for 3 days, then 2 tabs by mourth for 3 days, then 1 tab by mouth for 3 days. PREDNISONE [id number] Tal Joseph Start: 10-13-2016 End: 10-18-2016 take 3 tablets by mouth once daily PREDNISONE 20 MG TABS Take 3 tablets by mouth daily for 5 days. PREDNISONE [id number] Josy Burch CNP Start: 07-03-2016 End: 07-15-2016 PREDNISONE 10 MG TABS Take 4 tabs by mouth for 3 days, then 3 tabs by mouth for 3 days, then 2 tabs by mourth for 3 days, then 1 tab by mouth for 3 days. PREDNISONE [id number] Josy Burch [employer] triamcinolone acetonide 0.001 mg/mg topical ointment (8 sources) Corticosteroid Start: 07-23-2013 triamcinolone acetonide 0.1 % ointment Apply small amount to affected area daily for 4 weeks, then 3 times per week. 30 g 2 07/23/2013 Active Comment on above: Apply small amount t o affected area daily for 4 weeks, then 3 times per week. vitamin b12 1 mg oral capsule (8 sources) Vitamin B12 Start: 03-09-2020 End: 02-27-2023 Cyanocobalamin (Vitamin B-12) 1,000 mcg capsule Discontinued 1000 ug PO .2xwk March 09, 2020 12:00am February 27, 2023 9:48am Start: 05-24-2016 take 1 tablet by jam th once daily B-12 1000 MCG CAPS One tablet by mouth daily CYANOCOBALAMIN [id number] Leeanna Rubalcava LPN Problems Active Problems Problem Classification Problem Date Documented Date Episodic/Chronic Abdominal pain (8 sources) Abdominal pain; Translations: [Unspecified abdominal pain] Episodic Acute bronchitis (6 sources) Acute infective bronchitis; Translations: [Acute bronchitis, unspecified] 10-03-2017 Episodic Acute cerebrovascular disease (6 sources) Ischemic stroke; Translations: [Cerebral infarction, unspecified] 01-01-2020 Chronic Anxiety disorders (8 sources) Anxiety; Translations: [Anxiety disorder, unspecified] Onset: 01-02-2022 Chronic Asthma (12 sources) Severe asthma; Translations: [Unspecified asthma, uncomplicated] Onset: 03-14-2024 Chronic Comment on above: On triple therapy an d Fasenra Cancer of other female genital organs (10 sources) Vulval intraepithelial neoplasia grade 3; Translations: [Carcinoma in situ of vulva] Onset: 01-02-2012 01-02-2012 Chronic Cardiac dysrhythmias (20 sources) Palpitations; Translations: [Palpitations] Onset: 05-04-2006 05-24-2016 Episodic Chronic obstructive pulmonary disease and bronchiectasis (20 sources) Acute exacerbation of chronic obstructive airways disease; Translations: [Moderate chronic obstructive pulmonary disease] Onset: 05-04-2006 07-03-2016 Chronic Diabetes mellitus without complication (11 sources) Diabetes mellitus; Translations: [Type 2 diabetes mellitus without complications] Onset: 05-04-2006 05-04-2006 Chronic Digestive congenital anomalies (19 sources) Congenital malrotation of intestine; 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] Onset: 01-02-2022 Chronic Disorders of lipid metabolism (8 sources) Hyperlipidemia; Translations: [Hyperlipidemia, unspecified] Onset: 01-02-2022 Chronic Esophageal disorders (12 sources) Gastroesophageal reflux disease; Translations: [Gastro-esophageal reflux disease without esophagitis] Onset: 05-04-2006 05-04-2006 Chronic Immunizations and screening for infectious disease (1 source) Encounter for immunization; Translations: [Encounter for immunization] Onset: 03-12-2025 Episodic Intestinal obstruction without hernia (9 sources) Sigmoid volvulus; Translations: [Volvulus] Episodic Other aftercare (6 sources) Follow-up status; Translations: [Encounter for other orthopedic aftercare] 11-24-2020 Episodic Other lower respiratory disease (8 sources) Wheezing; Translations: [Wheezing] Onset: 10-13-2016 10-13-2016 Episodic Other lower respiratory disease (8 sources) Dyspnea; Translations: [Dyspnea, unspecified] Onset: 05-24-2016 05-24-2016 Episodic Other lower respiratory disease (7 sources) Cough; Translations: [Cough] Episodic Other nervous system disorders (6 sources) Acute postoperative pain; Translations: [Other acute postprocedural pain] 11-09-2020 Episodic Other nutritional; endocrine; and metabolic disorders (2 sources) Body mass index (BMI) 33.0-33.9, adult; Translations: [Body mass index (BMI) 33.0-33.9, adult] Onset: 03-06-2016 09-21-2016 Chronic Other nutritional; endocrine; and metabolic disorders (6 sources) Obesity; Translations: [Obesity, unspecified] Onset: 03-06-2016 03-06-2016 Chronic Other nutritional; endocrine; and metabolic disorders (6 sources) Body mass index 30+ - obesity; Translations: [Obesity, unspecified] 11-12-2019 Chronic Other nutritional; endocrine; and metabolic disorders (2 sources) Obesity, unspecified; Translations: [Obesity, unspecified] Chronic Other upper respiratory disease (8 sources) Seasonal allergic rhinitis; Translations: [Other seasonal allergic rhinitis] 12-11-2017 Chronic Other upper respiratory infections (8 sources) Sore throat symptom; Translations: [Acute pharyngitis, unspecified] Onset: 01-02-2022 Episodic Residual codes; unclassified (17 sources) Obstructive sleep apnea syndrome; Translations: [Obstructive sleep apnea (adult) (pediatric)] Onset: 03-06-2016 03-06-2016 Chronic Comment on above: BiPAP 8/4 cm of wate r Residual codes; unclassified (3 sources) Obstructive sleep apnea (adult) (pediatric); Translations: [Obstructive sleep apnea (adult)(pediatric)] Onset: 01-02-2022 Chronic Residual codes; unclassified (6 sources) H/O cardiac surgery; Translations: [Other specified postprocedural states] 10-03-2017 Episodic Unclassified (1 source) Cough, unspecified type; Translations: [Cough, unspecified type] Onset: 01-02-2022 Past or Other Problems Problem Classification Problem Date Documented Da te Episodic/Chronic Nonspecific chest pain (2 sources) Chest pain; Translations: [Chest pain, unspecified] Onset: 05-24-2016 05-24-2016 Episodic Other screening for suspected conditions (not mental disorders or infectious disease) (1 source) Encounter for screening mammogram for malignant neoplasm of breast; Translations: [Encounter for screening mammogram for malignant neoplasm of breast] Onset: 08-18-2024 Episodic Residual codes; unclassified (10 sources) Insomnia; Translations: [Insomnia, unspecified] Onset: 05-04-2006 05-04-2006 Episodic Unclassified (4 sources) History of skin cancer of the vulva 01-11-2022 Comment on above: HX OF VULVECTOMY X3 Results Test Name Value Interpretation Reference Range Facility Pulmonary Visit Reporton Pulmonary Visit Report [facility] Pulmonary Medicine [facility] [place] [address] OFFICE VISIT Date of Service: 03/12/25 MR#: [id number] Acct: [id number] Name: KELSEA HANSEN Rep #: [id number] : 1965 Provider: MAGDY Burch Age/Sex: 59/F Location: [facility] Status: Signed Assessment and Plan Assessment and Plan (1) Severe asthma: Status: Chronic Qualifiers: Asthma persistence: persistent Asthma complication type: uncomplicated Qualified Code(s): J45.50 - Severe persistent asthma, uncomplicated Comment: On triple therapy and Fasenra Plan: Deteriorated, she is mildly more symptomatic but she does not appear to be in an exacerbation today. No indication for antibiotics or prednisone. Continue current maintenance medications, including Symbicort, Spiriva, Fasenra. Return to using cetirizine daily through fall seasonal allergies. No additional testing at this time. Follow-up in the office in 6 months. Annual influenza vaccination provided in the office today. (2) Stage 1 mild COPD by GOLD classification: Status: Chronic Plan: See assessment and plan for asthma as the patient has asthma/COPD overlap syndrome. She is on triple therapy. (3) Chronic seasonal allergic rhinitis: Status: Chronic Plan: Slightly more symptomatic since she has not been taking an antihistamine. Restart cetirizine. (4) Sleep apnea, obstructive: Status: Chronic Comment: BiPAP 8/4 cm of water Plan: She is using and benefiting from Pap therapy. No indication for titration study at this time, even though residual AHI is mildly higher than last office visit is technically controlled.. Contact the office for any new or worsening symptoms in the meantime. Follow-up in 6 months. (5) Obesity: Status: Chronic Qualifiers: Obesity type: due to excess calories Obesity classification: adult class 1 (BMI 30 - 34.9) Serious obesity comorbidity presence: with serious comorbidity Body mass index: BMI 31.0-31.9 Qualified Code(s): E66.811 - Obesity, class 1; E66.09 - Other obesity due to excess calories; Z68.31 - Body mass index [BMI] 31.0-31.9, adult Plan: Deteriorated. Patient has put on a few pounds. Complicates exam, plan, care and prognosis. Continue to encourage weight loss. This is likely the reason her AHI is mildly more elevated on the same pressure support. However, technically still controlled and does not require retitration. Orders: Orders Influenza Immunization Today Z23 - Encounter for immunization Plan Details Additional Comments: This note was generated with Duel dictation software. It may contain incorrect words, spelling, and punctuation that were not noted in checking the note before signing. Follow Up: 6 Months HPI 6 M FU Chief Complaint: Routine follow-up HPI Comments Details: This patient presents to the office today for follow-up of her severe persistent asthma with mild COPD overlap syndrome. She is ambulatory and on room air. She has not recently been seen in the ED or urgent care for any respiratory illness. She has not recently required antibiotics or prednisone for any breathing problems. She continues complete smoking cessation since 2002. She is compliant with the use of Symbicort 2 puffs twice daily. She does report rinsing her mouth out after each use. She denies any medication side effect such as sore throat or thrush. She is also compliant Spiriva daily. She continues with Fasenra bimonthly injections. She has not recently been on cetirizine. She has not recently needed the nebulizer. She has shortness of breath on exertion. She denies any cough, sputum production or hemoptysis. She denies any wheezing, chest pain or palpitations. She admits some slight chest tightness. She has not had any fever, chills or body aches. She feels rested and refreshed when she wakes. She denies any difficulty with dry mouth or morning headaches. She is not re going morning requiring naps or nodding off to sleep. Compliance report for the past 30 days shows 97% compliance and average use of 6 hours 46 minutes per night. Current setting is BiPAP 8/4 cmH2O with residual AHI of 4.3 events per hour. Leaks do not appear to be problematic. 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: No Accompanied by: Self Is patient in pain?: No Allergies No Known Allergies Allergy (Verified 03/12/25 10:21) Medications ???Medication ???Instructions ??? (more content not included)... Normal [facility] Absolute lymphocyte countOrd ered By: Susie Knox on 10-23-2024 Lymphocytes Auto (Unsp spec) [#/Vol] 1.73 10*3/uL 0.83-4.51 [facility] Absolute neutrophil countOrd ered By: Susie Knox on 10-23-2024 Neutrophils (Bld) [#/Vol] 3.7 10*3/uL 2.0-7.7 [facility] Anion gap in Serum or Plasma Ordered By: Susie Knox on 10-23-2024 Anion gap [Moles/Vol] 11 mmol/L 5- [facility] Automated lymphocyte count a s percentage of total leukocytesOrdered By: Susie Knox on 10-23-2024 Lymphocytes/100 WBC Auto (Unsp spec) 29.2 % - [facility] BUN/creatinine ratioOrdered By: Susie Knox on 10-23-2024 Urea nitrogen/Creatinine [Mass ratio] 17.5 mg/mg 10- [facility] Basophil percentageOrdered B y: Susie Knox on 10-23-2024 Basophils/100 WBC (Bld) 0.2 % 0-1 [facility] Bilirubin, totalOrdered By: Susie Knox on 10-23-2024 Bilirubin [Mass/Vol] 0.39 mg/dL 0.00-1.30 [facility] CBC W/Diff, Automatedon Absolute Lymph 1.73 X10 3/uL Normal 0.83-4.51 [facility] Comment on above: Order Comment: Order Date: 10/23/24 Order Info: [id number] - CBCD Performed By: #### L 500.4050, L100.0100, L503.6150, L501.9520, L501.3620, L501.5200, L500.4100 #### [facility] [address] [place], [address] Absolute Neut 3.7 X10 3/uL Normal 2.0-7.7 [facility] Comment on above: Order Comment: Order Date: 10/23/24 Order Info: [id number] - CBCD Performed By: #### L 500.4050, L100.0100, L503.6150, L501.9520, L501.3620, L501.5200, L500.4100 #### [facility] [address] [place], [address] Basophils/100 WBC (Bld) 0.2 % Normal 0-1 [facility] Comment on above: Order Comment: Order Date: 10/23/24 Order Info: [id number] - CBCD Performed By: #### L 500.4050, L100.0100, L503.6150, L501.9520, L501.3620, L501.5200, L500.4100 #### [facility] [address] [place], [address] Eosinophils/100 WBC (Bld) 0.0 % Normal 0-5 [facility] Comment on above: Order Comment: Order Date: 10/23/24 Order Info: [id number] - CBCD Performed By: #### L 500.4050, L100.0100, L503.6150, L501.9520, L501.3620, L501.5200, L500.4100 #### [facility] [address] [place], [address] (111) Erythrocyte distribution width (RBC) [Ratio] 13.0 % Normal 11.6-14.6 [facility] Comment on above: Order Comment: Order Date: 10/23/24 Order Info: 0184-1 - CBCD Performed By: #### L 500.4050, L100.0100, L503.6150, L501.9520, L501.3620, L501.5200, L500.4100 #### [facility] [address] [place], [address] Hematocrit (Bld) [Volume fraction] 42.8 % Normal 37-47 [facility] Comment on above: Order Comment: Order Date: 10/23/24 Order Info: 0184-1 - CBCD Performed By: #### L 500.4050, L100.0100, L503.6150, L501.9520, L501.3620, L501.5200, L500.4100 #### [facility] [address] [place], [address] Hemoglobin (Bld) [Mass/Vol] 14.3 g/dL Normal 12.0-15.0 [facility] Comment on above: Order Comment: Order Date: 10/23/24 Order Info: 0184-1 - CBCD Performed By: #### L 500.4050, L100.0100, L503.6150, L501.9520, L501.3620, L501.5200, L500.4100 #### [facility] [address] [place], [address] IG% 0.500 Normal 0.0-0.9 [facility] Comment on above: Order Comment: Order Date: 10/23/24 Order Info: 0184-1 - CBCD Result Comment: IG% - Immature Granulocytes (promyelocytes, myelocytes and metamyelocytes) > 1% indicates that a LEFT SHIFT is Present. Performed By: #### L 500.4050, L100.0100, L503.6150, L501.9520, L501.3620, L501.5200, L500.4100 #### [facility] [address] [place], [address] Lymphocytes/100 WBC (Bld) 29.2 % Normal 19-41 [facility] Comment on above: Order Comment: Order Date: 10/23/24 Order Info: 0184-1 - CBCD Performed By: #### L 500.4050, L100.0100, L503.6150, L501.9520, L501.3620, L501.5200, L500.4100 #### [facility] [address] [place], [address] MCH (RBC) [Entitic mass] 30.4 pg Normal 27.0-32.0 [facility] Comment on above: Order Comment: Order Date: 10/23/24 Order Info: 0184-1 - CBCD Performed By: #### L 500.4050, L100.0100, L503.6150, L501.9520, L501.3620, L501.5200, L500.4100 #### [facility] [address] [place], [address] MCHC (RBC) [Mass/Vol] 33.4 g/dL Normal 32-36 [facility] Comment on above: Order Comment: Order Date: 10/23/24 Order Info: 0184-1 - CBCD Performed By: #### L 500.4050, L100.0100, L503.6150, L501.9520, L501.3620, L501.5200, L500.4100 #### [facility] [address] [place], [address] MCV (RBC) [Entitic vol] 91.1 fL Normal 81-99 [facility] Comment on above: Order Comment: Order Date: 10/23/24 Order Info: 0184-1 - CBCD Performed By: #### L 500.4050, L100.0100, L503.6150, L501.9520, L501.3620, L501.5200, L500.4100 #### [facility] [address] [place], [address] Monocytes/100 WBC (Bld) 6.9 % Normal 0-10 [facility] Comment on above: Order Comment: Order Date: 10/23/24 Order Info: 0184-1 - CBCD Performed By: #### L 500.4050, L100.0100, L503.6150, L501.9520, L501.3620, L501.5200, L500.4100 #### [facility] [address] [place], [address] Neutrophils/100 WBC (Bld) 63.2 % Normal 47-70 [facility] Comment on above: Order Comment: Order Date: 10/23/24 Order Info: 0184-1 - CBCD Performed By: #### L 500.4050, L100.0100, L503.6150, L501.9520, L501.3620, L501.5200, L500.4100 #### [facility] [address] [place], [address] Nucleated RBC (Bld) [#/Vol] 0 10*3/uL Normal 0-5 [facility] Comment on above: Order Comment: Order Date: 10/23/24 Order Info: 0184-1 - CBCD Performed By: #### L 500.4050, L100.0100, L503.6150, L501.9520, L501.3620, L501.5200, L500.4100 #### [facility] [address] [place], [address] Platelet mean volume (Bld) [Entitic vol] 9.6 fL Normal 6.2-12.0 [facility] Comment on above: Order Comment: Order Date: 10/23/24 Order Info: 0184-1 - CBCD Performed By: #### L 500.4050, L100.0100, L503.6150, L501.9520, L501.3620, L501.5200, L500.4100 #### [facility] [address] [place], [address] Platelets (Bld) [#/Vol] 310 10*3/uL Normal 150-450 [facility] Comment on above: Order Comment: Order Date: 10/23/24 Order Info: 0184-1 - CBCD Performed By: #### L 500.4050, L100.0100, L503.6150, L501.9520, L501.3620, L501.5200, L500.4100 #### [facility] [address] [place], [place], [phone] RBC (Bld) [#/Vol] 4.70 10*6/uL Normal 4.2-5.4 [facility] Comment on above: Order Comment: Order Date: 10/23/24 Order Info: 0184-1 - CBCD Performed By: #### L 500.4050, L100.0100, L503.6150, L501.9520, L501.3620, L501.5200, L500.4100 #### [facility] [address] [place], [place], [phone] ([phone] RDW SD 43.5 fl Normal 35.1-43.9 [facility] Comment on above: Order Comment: Order Date: 10/23/24 Order Info: 0184-1 - CBCD Performed By: #### L 500.4050, L100.0100, L503.6150, L501.9520, L501.3620, L501.5200, L500.4100 #### [facility] [address] [place], [place], [address] WBC (Bld) [#/Vol] 5.9 10*3/uL Normal 4.4-11.0 [facility] Comment on above: Order Comment: Order Date: 10/23/24 Order Info: 0184-1 - CBCD Performed By: #### L 500.4050, L100.0100, L503.6150, L501.9520, L501.3620, L501.5200, L500.4100 #### [facility] [address] [place], [place], [phone] CPK Total, Creatine Kinaseon 10-23-2024 CPK TOTAL 118 U/L Normal 24-195 [facility] Comment on above: Order Comment: Order Date: 10/23/24 Order Info: 0786-1 - CMP Order Info: 26995-0 - LIPID Order Info: 2157-6 - CPK Order Info: 04599-7 - MG Order Info: 3016-3 - TSH Order Info: 2498-4 - FE Performed By: #### L 500.4050, L100.0100, L503.6150, L501.9520, L501.3620, L501.5200, L500.4100 #### [facility] [address] [facility] [place], [place], [id number] Calculated very low density lipoprotein (VLDL) cholesterol measurementOrdered By: Susie Knox on 10-23-2024 Calculated very low density lipoprotein (VLDL) cholesterol measurement 13 mg/dL 5-40 [facility] Carbon dioxide, total [Moles /volume] in Central venous bloodOrdered By: Susie Knox on 10-23-2024 CO2 [Moles/Vol] 21.0 mmol/L 21.0-32.0 [facility] Chloride assayOrdered By: Sonia Knox on 10-23-2024 Chloride [Moles/Vol] 105 mmol/L 98-108 [facility] Comprehensive Metabolic Prof ilon 10-23-2024 Albumin [Mass/Vol] 4.2 g/dL Normal 3.5-5.0 [facility] Comment on above: Order Comment: Order Date: 10/23/24 Order Info: 86-1 - CMP Order Info: 88078-0 - LIPID Order Info: 2157-6 - CPK Order Info: 88015-4 - MG Order Info: 3015-3 - TSH Order Info: 2498-4 - FE Performed By: #### L 500.4050, L100.0100, L503.6150, L501.9520, L501.3620, L501.5200, L500.4100 #### [facility] [address] [place], [address] Albumin/Globulin [Mass ratio] 1.7 {ratio} Normal 0.9-2.4 [facility] Comment on above: Order Comment: Order Date: 10/23/24 Order Info: 785-1 - CMP Order Info: 74654-7 - LIPID Order Info: 2157-6 - CPK Order Info: 99418-5 - MG Order Info: 3 - TSH Order Info: 2498-4 - FE Performed By: #### L 500.4050, L100.0100, L503.6150, L501.9520, L501.3620, L501.5200, L500.4100 #### [facility] [address] [place], [address] ALK PHOS 63 U/L Normal 35-104 [facility] Comment on above: Order Comment: Order Date: 10/23/24 Order Info: 86-1 - CMP Order Info: 31676-9 - LIPID Order Info: 2157-6 - CPK Order Info: 49303-0 - MG Order Info: 3015-3 - TSH Order Info: 2498-4 - FE Performed By: #### L 500.4050, L100.0100, L503.6150, L501.9520, L501.3620, L501.5200, L500.4100 #### [facility] [address] [place], [address] ALT [Catalytic activity/Vol] 22 U/L Normal <=34 [facility] Comment on above: Order Comment: Order Date: 10/23/24 Order Info: 0786-1 - CMP Order Info: 41324-4 - LIPID Order Info: 2157-6 - CPK Order Info: 28854-6 - MG Order Info: 3016-3 - TSH Order Info: 2498-4 - FE Performed By: #### L 500.4050, L100.0100, L503.6150, L501.9520, L501.3620, L501.5200, L500.4100 #### [facility] [address] [place], [place], [phone] AST [Catalytic activity/Vol] 22 U/L Normal <=31 [facility] Comment on above: Order Comment: Order Date: 10/23/24 Order Info: 86-1 - CMP Order Info: 18995-5 - LIPID Order Info: 2157-6 - CPK Order Info: 41143-9 - MG Order Info: 3015-3 - TSH Order Info: 2498-4 - FE Performed By: #### L 500.4050, L100.0100, L503.6150, L501.9520, L501.3620, L501.5200, L500.4100 #### [facility] [address] [place], [place], [phone] Bilirubin [Mass/Vol] 0.39 mg/dL Normal 0.00-1.30 [facility] Comment on above: Order Comment: Order Date: 10/23/24 Order Info: 0786-1 - CMP Order Info: 40230-9 - LIPID Order Info: 2157-6 - CPK Order Info: 09197-7 - MG Order Info: 3016-3 - TSH Order Info: 2498-4 - FE Performed By: #### L 500.4050, L100.0100, L503.6150, L501.9520, L501.3620, L501.5200, L500.4100 #### [facility] [address] [place], [address] BUN/CRE 17.5 RATIO Normal 10-20 [facility] Comment on above: Order Comment: Order Date: 10/23/24 Order Info: 0786-1 - CMP Order Info: 37316-9 - LIPID Order Info: 2157-6 - CPK Order Info: 54539-4 - MG Order Info: 3016-3 - TSH Order Info: 2498-4 - FE Performed By: #### L 500.4050, L100.0100, L503.6150, L501.9520, L501.3620, L501.5200, L500.4100 #### [facility] [address] [place], [address] Calcium [Mass/Vol] 9.6 mg/dL Normal 7.6-11.0 [facility] Comment on above: Order Comment: Order Date: 10/23/24 Order Info: 785-1 - CMP Order Info: 40675-5 - LIPID Order Info: 2157-6 - CPK Order Info: 16142-8 - MG Order Info: 3 - TSH Order Info: 2498-4 - FE Performed By: #### L 500.4050, L100.0100, L503.6150, L501.9520, L501.3620, L501.5200, L500.4100 #### [facility] [address] [place], [address] Chloride [Moles/Vol] 105 mmol/L Normal 98-108 [facility] Comment on above: Order Comment: Order Date: 10/23/24 Order Info: 0786-1 - CMP Order Info: 42419-8 - LIPID Order Info: 2157-6 - CPK Order Info: 23564-3 - MG Order Info: 3016-3 - TSH Order Info: 2498-4 - FE Performed By: #### L 500.4050, L100.0100, L503.6150, L501.9520, L501.3620, L501.5200, L500.4100 #### [facility] [address] [place], [address] CO2 [Moles/Vol] 21.0 mmol/L Normal 21.0-32.0 [facility] Comment on above: Order Comment: Order Date: 10/23/24 Order Info: 0786-1 - CMP Order Info: 22254-5 - LIPID Order Info: 2157-6 - CPK Order Info: 32870-8 - MG Order Info: 3016-3 - TSH Order Info: 2498-4 - FE Performed By: #### L 500.4050, L100.0100, L503.6150, L501.9520, L501.3620, L501.5200, L500.4100 #### [facility] [address] [place], [address] Creatinine [Mass/Vol] 0.95 mg/dL Normal 0.70-1.20 [facility] Comment on above: Order Comment: Order Date: 10/23/24 Order Info: 07-1 - CMP Order Info: 73390-0 - LIPID Order Info: 2157-6 - CPK Order Info: 13062-9 - MG Order Info: 3016-3 - TSH Order Info: 2498-4 - FE Performed By: #### L 500.4050, L100.0100, L503.6150, L501.9520, L501.3620, L501.5200, L500.4100 #### [facility] [address] [place], [place], [phone] GAP 11 Normal 5-15 [facility] Comment on above: Order Comment: Order Date: 10/23/24 Order Info: 0786-1 - CMP Order Info: 39096-7 - LIPID Order Info: 2157-6 - CPK Order Info: 27434-0 - MG Order Info: 3016-3 - TSH Order Info: 2498-4 - FE Performed By: #### L 500.4050, L100.0100, L503.6150, L501.9520, L501.3620, L501.5200, L500.4100 #### [facility] [address] [place], [place], [address] GFR/1.73 sq M.predicted among non-blacks MDRD (S/P/Bld) [Vol rate/Area] 69 mL/min/{1.73_m2} Normal >60 [facility] Comment on above: Order Comment: Order Date: 10/23/24 Order Info: 0786-1 - CMP Order Info: 87548-9 - LIPID Order Info: 2157-6 - CPK Order Info: 76433-6 - MG Order Info: 3016-3 - TSH Order Info: 249-4 - FE Result Comment: mL/m in/1.73m2 CKD-EPI Creatinine Equation (2020) Performed By: #### L 500.4050, L100.0100, L503.6150, L501.9520, L501.3620, L501.5200, L500.4100 #### [facility] [address] [place], [place], [phone] Globulin (S) [Mass/Vol] 2.5 g/dL Normal 2.2-4.2 [facility] Comment on above: Order Comment: Order Date: 10/23/24 Order Info: 0786-1 - CMP Order Info: 54294-8 - LIPID Order Info: 2157-6 - CPK Order Info: 84316-1 - MG Order Info: 3015-3 - TSH Order Info: 2494 - FE Performed By: #### L 500.4050, L100.0100, L503.6150, L501.9520, L501.3620, L501.5200, L500.4100 #### [facility] [address] [place], [address] Glucose [Mass/Vol] 106 mg/dL High 70-99 [facility] Comment on above: Order Comment: Order Date: 10/23/24 Order Info: 0786-1 - CMP Order Info: 31183-7 - LIPID Order Info: 2157-6 - CPK Order Info: 25532-3 - MG Order Info: 3016-3 - TSH Order Info: 2494 - FE Performed By: #### L 500.4050, L100.0100, L503.6150, L501.9520, L501.3620, L501.5200, L500.4100 #### [facility] [address] [place], [address] Potassium [Moles/Vol] 4.2 mmol/L Normal 3.3-5.1 [facility] Comment on above: Order Comment: Order Date: 10/23/24 Order Info: 0786-1 - CMP Order Info: 18963-1 - LIPID Order Info: 2157-6 - CPK Order Info: 86277-6 - MG Order Info: 3016-3 - TSH Order Info: 2498-4 - FE Performed By: #### L 500.4050, L100.0100, L503.6150, L501.9520, L501.3620, L501.5200, L500.4100 #### [facility] [address] [place], [address] Sodium [Moles/Vol] 136 mmol/L Normal 133-145 [facility] Comment on above: Order Comment: Order Date: 10/23/24 Order Info: 07-1 - CMP Order Info: 59449-1 - LIPID Order Info: 2157-6 - CPK Order Info: 79370-3 - MG Order Info: 3016-3 - TSH Order Info: 2498-4 - FE Performed By: #### L 500.4050, L100.0100, L503.6150, L501.9520, L501.3620, L501.5200, L500.4100 #### [facility] [address] [place], [address] T PROT 6.7 g/dL Normal 5.9-8.4 [facility] Comment on above: Order Comment: Order Date: 10/23/24 Order Info: 0786-1 - CMP Order Info: 41245-8 - LIPID Order Info: 2157-6 - CPK Order Info: 92273-1 - MG Order Info: 3016-3 - TSH Order Info: 2498-4 - FE Performed By: #### L 500.4050, L100.0100, L503.6150, L501.9520, L501.3620, L501.5200, L500.4100 #### [facility] [address] [place], [place], [address] Urea nitrogen [Mass/Vol] 17 mg/dL Normal 4-19 [facility] Comment on above: Order Comment: Order Date: 10/23/24 Order Info: 0786-1 - CMP Order Info: 88833-1 - LIPID Order Info: 2157-6 - CPK Order Info: 30404-8 - MG Order Info: 3016-3 - TSH Order Info: 2498-4 - FE Performed By: #### L 500.4050, L100.0100, L503.6150, L501.9520, L501.3620, L501.5200, L500.4100 #### [facility] [address] [place], [place], [phone] Eosinophil percentageOrdered By: Susie Knox on 10-23-2024 Eosinophils/100 WBC (Bld) 0.0 % 0-5 [facility] Erythrocyte distribution wid th ratioOrdered By: Susie Knox on 10-23-2024 Erythrocyte distribution width (RBC) [Ratio] 13.0 % 11.6-14.6 [facility] Erythrocyte distribution wid th standard deviationOrdered By: Susie Knox on 10-23-2024 Erythrocyte distribution width (RBC) [Ratio] 43.5 fl 35.1-43.9 [facility] Glomerular filtration rate ( GFR) estimation/1.73 sq m using serum, plasma, or whole bOrdered By: Susie Knox on 10-23-2024 GFR/1.73 sq M.predicted among non-blacks MDRD (S/P/Bld) [Vol rate/Area] 69 mL/min/{1.73_m2} >60 [facility] Comment on above: mL/min/1.73m2 CKD-EP I Creatinine Equation (2020) Hematocrit Auto (Bld) [Volum e fraction]Ordered By: Susie Knox on 10-23-2024 Hematocrit (Bld) [Volume fraction] 42.8 % 37-47 [facility] Hemoglobin measurementOrdere d By: Susie Knox on 10-23-2024 Hemoglobin (Bld) [Mass/Vol] 14.3 g/dL 12.0-15.0 [facility] Immature granulocytes/100 WB C Auto (Bld)Ordered By: Susie Knox on 10-23-2024 Immature granulocytes/100 WBC (Bld) 0.500 % 0.0-0.9 [facility] Comment on above: IG% - Immature Granu locytes (promyelocytes, myelocytes and metamyelocytes) > 1% indicates that a LEFT SHIFT is Present. Ironon 10-23-2024 Iron [Mass/Vol] 72 ug/dL Normal 50-170 [facility] Comment on above: Order Comment: Order Date: 10/23/24 Order Info: 0786-1 - CMP Order Info: 43767-7 - LIPID Order Info: 2157-6 - CPK Order Info: 35755-9 - MG Order Info: 3016-3 - TSH Order Info: 2498-4 - FE Performed By: #### L 500.4050, L100.0100, L503.6150, L501.9520, L501.3620, L501.5200, L500.4100 #### [facility] [place], [address] Iron measurement (mass/mass) Ordered By: Susie Knox on 10-23-2024 Iron (Unsp spec) [Mass/Mass] 72 ug/dL 50-170 [facility] LDL calc ser/plasOrdered By: Susie Knox on 10-23-2024 Cholesterol in LDL [Mass/Vol] 112 mg/dL [facility] Comment on above: Dvxpsjapfb=748-976 m g/dL & Higher Cvhb=607 mg/dL or greater Laboratory - Chemistry and C hemistry - challengeOrdered By: Susie Knox on 10-23-2024 AST [Catalytic activity/Vol] 22 U/L <32 [facility] Lipid Profileon 10-23-2024 CHOL:HDL 2.67 Normal [facility] Comment on above: Order Comment: Order Date: 10/23/24 Order Info: 0786-1 - CMP Order Info: 00411-1 - LIPID Order Info: 2157-6 - CPK Order Info: 82947-3 - MG Order Info: 3015-08 - TSH Order Info: 2497-09 Performed By: #### L 500.4050, L100.0100, L503.6150, L501.9520, L501.3620, L501.5200, L500.4100 #### [facility] [address] [place], [place], [phone] (903) Cholesterol [Mass/Vol] 199 mg/dL Normal <=200 [facility] Comment on above: Order Comment: Order Date: 10/23/24 Order Info: 785-06 - CMP Order Info: 44316-9 - LIPID Order Info: 2157-6 - CPK Order Info: 31163-8 - MG Order Info: 3015-08 TSH Order Info: 2497-09 Result Comment: Chol esterol level, Desirable <200 mg/dL Borderline high cholesterol 200-239 mg/dL High cholesterol >=240 mg/dL Recommendations of the NCEP Adult Treatment Panel for the following risk-cutoff thresholds for the [place] population. Performed By: #### L 500.4050, L100.0100, L503.6150, L501.9520, L501.3620, L501.5200, L500.4100 #### [facility] [address] [place], [place], [phone] (347) Cholesterol in HDL [Mass/Vol] 75 mg/dL Normal [facility] Comment on above: Order Comment: Order Date: 10/23/24 Order Info: 0786-1 - CMP Order Info: 83018-6 - LIPID Order Info: 2157-6 - CPK Order Info: 61072-1 - MG Order Info: 3015-08 - TSH Order Info: 2497-09 Result Comment: Erica onal Cholesterol Education Program (NCEP) guidelines: <40 mg/dL: Low HDL-cholesterol (major risk factor for CHD) >= 60 mg/dL: High HDL-cholesterol (negative risk factor for CHD) HDL-cholesterol is affected by a number of factors, e.g. smoking, exercise, hormones, sex and age. Performed By: #### L 500.4050, L100.0100, L503.6150, L501.9520, L501.3620, L501.5200, L500.4100 #### [facility] [address] [place], [address] Cholesterol in LDL [Mass/Vol] 112 mg/dL Normal [facility] Comment on above: Order Comment: Order Date: 10/23/24 Order Info: 0786-1 - CMP Order Info: 64468-9 - LIPID Order Info: 7-6 - CPK Order Info: 18587-7 - MG Order Info: 3015-3 - TSH Order Info: 2497-09 - Result Comment: Bord tdbbvm=117-901 mg/dL Higher Snmx=181 mg/dL or greater Performed By: #### L 500.4050, L100.0100, L503.6150, L501.9520, L501.3620, L501.5200, L500.4100 #### [facility] [address] [place], [address] Cholesterol in VLDL [Mass/Vol] 13 mg/dL Normal 5-40 [facility] Comment on above: Order Comment: Order Date: 10/23/24 Order Info: 0786-1 - CMP Order Info: 52961-1 - LIPID Order Info: 7-6 - CPK Order Info: 41587-2 - MG Order Info: 3015-3 - TSH Order Info: 2497-09 Performed By: #### L 500.4050, L100.0100, L503.6150, L501.9520, L501.3620, L501.5200, L500.4100 #### [facility] [address] [place], [address] Triglyceride [Mass/Vol] 63 mg/dL Normal [facility] Comment on above: Order Comment: Order Date: 10/23/24 Order Info: 0786-1 - CMP Order Info: 96199-7 - LIPID Order Info: 6 - CPK Order Info: [id number] - MG Order Info: 3 - TSH Order Info: 2497-09 - Result Comment: The drugs N-Acetylcysteine and Metamizole may falsely depress this assay. Normal range: <150 mg/dL Borderline High: 150-199 mg/dL High: 200-499 mg/dL Very High: >500 mg/dL Performed By: #### L 500.4050, L100.0100, L503.6150, L501.9520, L501.3620, L501.5200, L500.4100 #### [facility] [address] [place], [address] MCV (mean corpuscular volume ) determinationOrdered By: Susie Knox on 10-23-2024 MCV (RBC) [Entitic vol] 91.1 fL 81-99 [facility] Magnesiumon 10-23-2024 Magnesium [Mass/Vol] 2.4 mg/dL High 1.5-2.2 [facility] Comment on above: Order Comment: Order Date: 10/23/24 Order Info: 0786-1 - CMP Order Info: 65425-7 - LIPID Order Info: 6 - CPK Order Info: 27140-0 - MG Order Info: 3 - TSH Order Info: 2497-09 - FE Performed By: #### L 500.4050, L100.0100, L503.6150, L501.9520, L501.3620, L501.5200, L500.4100 #### [facility] [address] [place], [address] Magnesium measurement (mass/ volume)Ordered By: Susie Knox on 10-23-2024 Magnesium (Unsp spec) [Mass/Vol] 2.4 mg/dL High 1.5-2.2 [facility] Mean corpuscular hemoglobin (MCH) determinationOrdered By: Susie Knox on 10-23-2024 MCH (RBC) [Entitic mass] 30.4 pg 27.0-32.0 [facility] Mean corpuscular hemoglobin concentration (MCHC) determinationOrdered By: Susie Knox on 10-23-2024 MCHC (RBC) [Mass/Vol] 33.4 g/dL 32-36 [facility] Mean platelet volume determi nationOrdered By: Susie Knox on 10-23-2024 Platelet mean volume (Bld) [Entitic vol] 9.6 fL 6.2-12.0 [facility] Monocyte percentageOrdered B y: Susie Knox on 10-23-2024 Monocytes/100 WBC (Bld) 6.9 % 0-10 [facility] Neutrophil percentageOrdered By: Susie Knox on 10-23-2024 Neutrophils/100 WBC (Bld) 63.2 % 47-70 [facility] Nucleated red blood cell per centageOrdered By: Susie Knox on 10-23-2024 Nucleated RBC/100 WBC (Bld) [Ratio] 0 % 0-5 [facility] Platelet countOrdered By: Sonia Knox on 10-23-2024 Platelets (Bld) [#/Vol] 310 10*3/uL 150-450 [facility] Potassium measurement (mass/ volume)Ordered By: Susie Knox on 10-23-2024 Potassium (Unsp spec) [Mass/Vol] 4.2 mmol/L 3.3-5.1 [facility] RBC Auto (Bld) [#/Vol]Ordere d By: Susie Knox on 10-23-2024 RBC (Bld) [#/Vol] 4.70 10*6/uL 4.2-5.4 [facility] Screening total cholesterol/ high density lipoprotein (HDL) cholesterol ratioOrdered By: Susie Knox on 10-23-2024 Cholesterol.total/Choles terol in HDL [Mass ratio] 2.67 {ratio} [facility] Serum creatinine measurement (mass/volume)Ordered By: Susie Knox on 10-23-2024 Creatinine [Mass/Vol] 0.95 mg/dL 0.70-1.20 [facility] Serum globulin measurementOr dered By: Susie Knox on 10-23-2024 Globulin (S) [Mass/Vol] 2.5 g/dL 2.2-4.2 [facility] Serum glucose measurement (m ass/volume)Ordered By: Susie Knox on 10-23-2024 Glucose [Mass/Vol] 106 mg/dL High 70-99 [facility] Serum or plasma alanine root otransferase (ALT) measurementOrdered By: Susie Knox on 10-23-2024 ALT [Catalytic activity/Vol] 22 U/L <35 [facility] Serum or plasma albumin jono urement (mass/volume)Ordered By: Susie Knox on 10-23-2024 Albumin [Mass/Vol] 4.2 g/dL 3.5-5.0 [facility] Serum or plasma albumin/glob ulin mass ratioOrdered By: Susie Knox on 10-23-2024 Albumin/Globulin [Mass ratio] 1.7 {ratio} 0.9-2.4 [facility] Serum or plasma alkaline david sphatase measurementOrdered By: Susie Knox on 10-23-2024 ALP [Catalytic activity/Vol] 63 U/L 35-104 [facility] Serum or plasma calcium jono urement (mass/volume)Ordered By: Susie Knox on 10-23-2024 Calcium [Mass/Vol] 9.6 mg/dL 7.6-11.0 [facility] Serum or plasma cholesterol in HDL measurement (mass/volume)Ordered By: Susie Knox on 10-23-2024 Cholesterol in HDL [Mass/Vol] 75 mg/dL >40 [facility] Comment on above: National Cholesterol Education Program (NCEP) guidelines:<40 mg/dL: Low HDL-cholesterol (major risk factor for CHD)>= 60 mg/dL: High HDL-cholesterol (negative risk factor for CHD)HDL-cholesterol is affected by a number of factors, e.g. smoking, exercise, hormones, sex and age. Serum or plasma cholesterol measurement (mass/volume)Ordered By: Susie Knox on 10-23-2024 Cholesterol [Mass/Vol] 199 mg/dL <201 [facility] Comment on above: Cholesterol level, D esirable <200 mg/dLBorderline high cholesterol 200-239 mg/dLHigh cholesterol >=240 mg/dLRecommendations of the NCEP Adult Treatment Panel for the following risk-cutoff thresholds for the [place] population. Serum or plasma creatine kin ase activityOrdered By: Susie Knox on 10-23-2024 CK [Catalytic activity/Vol] 118 U/L 24-195 [facility] Serum or plasma urea nitroge n measurement (mass/volume)Ordered By: Susie Knox on 10-23-2024 Urea nitrogen [Mass/Vol] 17 mg/dL 4-19 [facility] Sodium levelOrdered By: Perlita Knox on 10-23-2024 Sodium [Moles/Vol] 136 mmol/L 133-145 [facility] TSH DL <= 0.005 mIU/L QnOrde red By: Susie Knox on 10-23-2024 TSH Qn 3.690 uIU/mL 0.300-4.200 [facility] Thyroid Stim Hormone (TSH)on 10-23-2024 TSH 3.690 uIU/mL Normal 0.300-4.200 [facility] Comment on above: Order Comment: Order Date: 10/23/24 Order Info: [id number] - CMP Order Info: [id number] - LIPID Order Info: [id number] - CPK Order Info: [id number] - MG Order Info: [id number] - TSH Order Info: [id number] - FE Performed By: #### L 500.4050, L100.0100, L503.6150, L501.9520, L501.3620, L501.5200, L500.4100 #### [facility] Laboratory [facility] [address] [place], [place], [id number] Total proteinOrdered By: Paddy Knox on 10-23-2024 Protein [Mass/Vol] 6.7 g/dL 5.9-8.4 [facility] Triglycerides measurementOrd ered By: Susie Knox on 10-23-2024 Triglyceride [Mass/Vol] 63 mg/dL <199 [facility] Comment on above: The drugs N-Acetylcy steine and Metamizole may falsely depress this assay. Normal range: <150 mg/dLBorderline High: 150-199 mg/dLHigh: 200-499 mg/dLVery High: >500 mg/dL Vitamin B12on 10-23-2024 Cobalamin (Vitamin B12) [Mass/Vol] 390 pg/mL Normal 180-914 [facility] Comment on above: Order Comment: Order Date: 10/23/24Order Info: [id number] - CMPOrder Info: - LIPIDOrder Info: [id number] - CPKOrder Info: - MGOrder Info: [id number] - TSHOrder Info: [id number] - FE Performed By: #### L 503.0106, L506.1001 ####[facility] [address] [place], [place], [id number] Vitamin B12 ser/plasOrdered By: Susie Knox on 10-23-2024 Cobalamin (Vitamin B12) [Mass/Vol] 390 pg/mL 180-914 [facility] Vitamin D,25 Hydroxyon 10-23 Vitamin D 25-OH 39.0 ng/mL Normal 30-100 [facility] Comment on above: Order Comment: Order Date: 10/23/24Order Info: [id number] - CMPOrder Info: - LIPIDOrder Info: [id number] - CPKOrder Info: - MGOrder Info: [id number] - TSHOrder Info: [id number] - Result Comment: Deanna min D Status Deficiency: <20 ng/mL (50nmol/L) Insufficiency: 20-30 ng/mL (50-75 nmol/L) Sufficiency: 30-100 ng/mL (75-250 nmol/L) Toxicity: >100 ng/mL (>250 nmol/L) Performed By: #### L 503.0106, L506.1001 ####[facility] [address] [place], [address] White blood cell (WBC) count Ordered By: Susie Knox on 10-23-2024 WBC (Bld) [#/Vol] 5.9 10*3/uL 4.4-11.0 [facility] Pulmonary Visit Reporton Pulmonary Visit Report [facility] [place] [address] [place] [address] OFFICE VISIT Date of Service: 09/11/24 MR#: [id number] Acct: [id number] Name: KELSEA HANSEN Rep #: [id number] : 1965 Provider: MAGDY Burch Age/Sex: 58/F Location: [facility] Status: Signed Assessment and Plan Assessment and Plan (1) Severe asthma: Status: Chronic Qualifiers: Asthma persistence: persistent Asthma complication type: uncomplicated Qualified Code(s): J45.50 - Severe persistent asthma, uncomplicated Comment: On triple therapy and Fasenra Plan: Stable, she does not appear to be in an exacerbation today. Continue current maintenance medications, including Symbicort, Spiriva, Fasenra and cetirizine. No additional testing at this t lynne. Follow-up in the office in 6 months. (2) Stage 1 mild COPD by GOLD classification: Status: Chronic Plan: See assessment and plan for asthma as the patient has asthma/COPD overlap syndrome. She is on triple therapy. (3) Chronic seasonal allergic rhinitis: Status: Chronic Plan: Stable on cetirizine. (4) Sleep apnea, obstructive: Status: Chronic Comment: BiPAP 8/4 cm of water Plan: She is using and benefiting from Pap therapy. No indication for titration study at this time. Contact the office for any new or worsening symptoms in the meantime. Follow-up in 6 months. (5) Obesity: Status: Chronic Qualifiers: Obesity type: due to excess calories Obesity classification: adult class 1 (BMI 30 - 34.9) Serious obesity comorbidity presence: with serious comorbidity Body mass index: BMI 30.0-30.9 Qualified Code(s): E66.811 - Obesity, class 1; E66.09 - Other obesity due to excess calories; Z68.30 - Body mass index [BMI] 30.0-30.9, adult Plan: Complicates exam, plan, care and prognosis. Continue to encourage weight loss. Medications: Changed From albuterol sulfate 90 mcg/actuation (ProAir HFA) 2 puffs inhalation Q6H PRN 8.5 grams 6RF ASTHMA J45.50 - Severe persistent asthma, uncomplicated To albuterol sulfate 90 mcg/actuation 2 puffs inhalation Q6H PRN 8.5 grams 6RF ASTHMA J45.50 - Severe persistent asthma, uncomplicated Plan Details Follow Up: 6 Months HPI 6 M FU Chief Complaint: routine follow up HPI Comments Details: This patient presents to the office today for follow-up of her severe persistent asthma with mild COPD overlap syndrome. She is ambulatory and currently on room air. She has not recently been seen in the ED or urgent care for any respiratory illness. She was treated by this practice in mid June for an exacerbation requiring a prednisone taper due to Flu H. She is compliant with the use of Symbicort 2 puffs twice daily. She does report rinsing her mouth out after each use. She denies any medication side effect such as sore throat or thrush. She is also compliant Spiriva daily. She continues with Fasenra bimonthly injections. She is using albuterol twice daily before her walk. She has not recently needed the nebulizer. She continues complete smoking cessation. She quit smoking 2002. She she has shortness of breath on exertion but walks daily reaching 10,000 steps at least 3 times a week. She hopes to increase that up to 5 times a week soon. She has a nonproductive cough. She denies any hemoptysis. She denies wheezing but has some chest tightness since the Flu H, this is getting a little better each day. She denies any chest pain or palpitations. She has not had any fever, chills or body aches. She is compliant with PAP therapy, she feels rested and refreshed when she wakes. She denies any difficulty with dry mouth or morning headaches. She has found a mask that she really likes. She is not requiring naps or nodding off to sleep. Compliance report for the past 30 days shows 87% compliance and average use of 6 hours 57 minutes per night. Current setting is BiPAP 8/4 cmH2O with residual AHI of 3.8 events per hour. Leaks do not appear to be problematic. Intake Vital Signs 03/14/24 08:27 09/11/24 08:29 Height 5 ft 6 in 5 ft 6 in Weight: 189 lb BMI 30.4 BP 102/53 L Blood Pressure Location Lt brachial Position Sitting Respiration 14 Pulse 52 L Pulse Source Monitor Temp 97.4 F L Temperature Source Temporal Artery Pulse Oximetry (%) 95 Oxygen Delivery Method room air Intake Visit Reasons: 6 M FU Steel Layer Required: No WILLA Vendor: Pablo Accompanied by: Self Is patient in pain?: No Allergies No Known Allergies Allergy (Verified 09/11/24 11:17) Medications ???Medication ???Instructions ???Recorded ???Confirmed ???Type budesonide-formoterol HFA 160 2 puff inhalation BID BREATHING 09/11/24 History mcg-4.5 mcg/actuation aerosol inhaler lorazepam 0.5 mg tablet (Ativan) 0.5 mg PO TID PRN Anxie (more content not included)... Normal [facility] SCRN MAMM (CAD)W/IVETT BILATo n 08-01-2024 SCRN MAMM (CAD)W/IVETT BILAT [facility] Imaging Services [address] [place] [address] SCRN MAMM (CAD)W/IVETT BILAT MR#: [id number] Acct: [id number] Name: KELSEA HANSEN Rep #: [id number] : 1965 F 58 From: Jourdan aguirre MD PCP: Dr. Susie Knox MD Status: [facility] Study: SCRN MAMM (CAD)W/IVETT BILAT Date of Exam: 01/16 Exam# [id number] Ordering Dr: Susie Konx PROCEDURE: SCRN MAMM (CAD)W/IVETT BILAT REASON FOR EXAM: F, Age 58 y/o, aunt with breast cancer. Annual follow-up. TECHNIQUE: Bilateral screening digital breast tomosynthesis with 2D and 3D images. Computer aided detection. COMPARISON: Prior exam(s) dating back to outside examination not available for comparison at this time.. FINDINGS: There are scattered areas of fibroglandular density. No suspicious masses, areas of developing architectural distortion, or suspicious calcifications. BI/SCRN MAMM (CAD)W/IVETT BILAT IMPRESSION: BI-RADS 1: NEGATIVE. RECOMMEND ANNUAL MAMMOGRAPHIC SCREENING. Follow-up code: Routine Follow-up The patient will be notified of the results by letter. Reading Location: [facility] CC: Dr. Susie Knox MD Staff Developer: Signed Normal [facility] Chest PA and Lateralon 07-17 Chest PA and Lateral [facility] Imaging Services [address] [place] [address] Chest PA and Lateral MR#: [id number] Acct: [id number] Name: KELSEA HANSEN Rep #: [id number] : 1965 F 58 From: Mika wood MD PCP: Dr. Susie Knox MD Status: REG CLI Study: Chest PA and Lateral Date of Exam: 07/17/24 Exam# [id number] Ordering Dr: Susie Knox [id number] STUDY: X-RAY CHEST REASON FOR EXAM: Female, 58 years old. COUGH TECHNIQUE: Single AP portable view of the chest. COMPARISON: November 29, 2021 FINDINGS: Redemonstration of cystic emphysematous changes of the lungs and fibrosis. No acute consolidation is seen. There is no demonstrated pleural abnormality. Normal size heart. Normal mediastinum and kenny. Normal visualized pulmonary arteries. There is atherosclerotic calcification of the aortic arch with tortuosity. There are diffuse degenerative changes of the visualized thoracic spine. Normal visualized ribs, clavicles, and shoulders. There is no demonstrated abnormality of the visualized soft tissue structures of the upper abdomen. RAD/Chest PA and Lateral IMPRESSION: No demonstrated acute cardiopulmonary process. Electronically Signed: Mika Aquino MD at 16:19 EST , CC: Dr. Susie Knox MD Staff Developer: Signed Normal [facility] Pulmonary Visit Reporton Pulmonary Visit Report [facility] [place] [address] [place] [address] OFFICE VISIT Date of Service: 03/14/24 MR#: [id number] Acct: [id number] Name: KELSEA HANSEN Rep #: [id number] : 1965 Provider: MAGDY Burch Age/Sex: 58/F Location: [facility] Status: Signed Assessment and Plan Assessment and Plan (1) Severe asthma: Status: Chronic Qualifiers: Asthma complication type: uncomplicated Asthma persistence: persistent Qualified Code(s): J45.50 - Severe persistent asthma, uncomplicated Comment: On triple therapy and Fasenra Plan: NIOX performed in the office today returned within normal limits. This indicates that the patient does not require additional corticosteroids. Continue current maintenance medications, including Fasenra. I suspect that she is experiencing increase in seasonal allergy symptoms. Optimizing her by placing her on Claritin and Flonase. She is requesting a COVID test, this is not out of the question. She may either have a COVID test performed at the hospital, order placed, or she may pear picker an at home COVID test. She is going to notify the office if it comes back positive. (2) Stage 1 mild COPD by GOLD classification: Status: Chronic Plan: See assessment and plan for asthma as the patient has asthma/COPD overlap syndrome. (3) Chronic seasonal allergic rhinitis: Status: Chronic Plan: Continue Singulair. Added Claritin and Flonase. (4) Sleep apnea, obstructive: Status: Chronic Comment: BiPAP 8/4 cm of water with residual AHI of 2.1 Plan: She is using and benefiting from Pap therapy. Encourage better compliance. No indication for titration study at this time. Continue to encourage weight loss. Contact the office for any new or worsening symptoms in the meantime. Follow-up in 6 months. Orders: Orders NIOX Today J45.50 - Severe persistent asthma, uncomplicated SARS-CoV-2 (COVID 19) RT-PCR Today R05 - Cough Medications: New cetirizine 10 mg PO DAILY PRN 90 tabs 3RF allergy symptoms J45.50 - Severe persistent asthma, uncomplicated fluticasone propionate 50 mcg/actuation 2 sprays intranasal DAILY 16 grams 3RF J45.50 - Severe persistent asthma, uncomplicated, J45.909 - Unspecified asthma, uncomplicated Plan Details Follow Up: 6 Months ([facility]) HPI 6 M FU Chief Complaint: Routine follow-up HPI Comments Details: This patient presents to the office today for follow-up of her severe persistent asthma with mild COPD overlap syndrome. She is ambulatory and currently on room air. She has not recently been seen in the ED or urgent care for any respiratory illness. She has not required any antibiotics or prednisone for any breathing problems. She is compliant with the use of Symbicort 2 puffs twice daily. She does report rinsing her mouth out after each use. She denies any medication side effect such as sore throat or thrush. She is also compliant with Singulair and Spiriva daily. She continues with Fasenra bimonthly injections. She recently began using albuterol every 3-4 hours, this has been over the past few days. She also started using albuterol in the nebulizer 2 times daily. She she has shortness of breath that started 2 days ago. She has a nonproductive cough. She denies any hemoptysis. She reports wheezing and chest tightness but denies any chest pain or palpitations. She has not had any fever, chills or body aches. She continues complete smoking cessation. She is compliant with PAP therapy she denies any difficulty with dry mouth or morning headaches. She has been having insomnia due to increased stress at home. This explains the decrease in overall compliance. Compliance report for the past 30 days shows 73% compliance and average use of 5 hours 11 minutes per night. Current setting is BiPAP 8/4 cmH2O with residual AHI of 2.3 events per hour. Leaks do not appear to be problematic. Intake Vital Signs 09/06/23 07:44 09/28/23 10:19 03/14/24 08:27 Height 5 ft 6 in 5 ft 6 in 5 ft 6 in Weight: 182 lb 186 lb BMI 29.3 29.9 BP 144/66 H 100/59 L 128/69 H Blood Pressure Location Lt brachial Rt brachial Rt brachial Position Sitting Sitting Sitting Respiration 20 H 18 Pulse 66 59 L 60 Pulse Source Monitor Monitor Monitor Temp 97.8 F 96.3 F L 96.5 F L Temperature Source Temporal Artery Temporal Artery Pulse Oximetry (%) 96 98 97 Oxygen Delivery Method room air room air room air Intake Visit Reasons: 6 M FU Chief Complaint: Austenenra Steel Layer Required: No DME Vendor: Pablo porras Accompanied by: Self Is patient in pain?: No Allergies No Known Allergies Allergy (Verified 03/14/24 11:18) Medications ???Medication ???Instructions ???Recorded ???Confirmed ???Type budesonide-formoterol HFA 160 2 puff inhalation BID BREAT (more content not included)... Normal [facility] Basophil percentageOrdered B y: Gonsalo Knox on 07-12-2023 Bilirubin [Mass/Vol] 0.80 mg/dL 0.20-1.00 [facility] Comment on above: For patients on eltr ombopag therapy, use of Dimension [place] TBIL is not recommended. Chloride [Moles/Vol] 111 mmol/L 98-107 [facility] Cholesterol [Mass/Vol] 204 mg/dL <200 [facility] Comment on above: <200 mg/dL Desirable 200-240 mg/dL Borderline >240 mg/dL High Risk Glucose [Mass/Vol] 81 mg/dL 74-106 [facility] Potassium [Moles/Vol] 4.2 mmol/L 3.5-5.1 [facility] Protein [Mass/Vol] 6.8 g/dL 6.4-8.2 [facility] Sodium [Moles/Vol] 139 mmol/L 136-145 [facility] Triglyceride [Mass/Vol] 70 mg/dL <199 [facility] Comment on above: The drugs N-Acetylcy steine and Metamizole may falsely depress this assay.Serum Triglycerides Reference Interval Normal <150 mg/dL Borderline high 150 - 199 mg/dL High 200 - 499 mg/dL Very High > or = 500 mg/dL High density lipoprotein (HD L) measurementOrdered By: Gonsalo Knox on 07-12-2023 Cholesterol in HDL (Body fld) [Mass/Vol] 86 mg/dL >40 [facility] Comment on above: The drugs N-Acetylcy steine and Metamizole may falsely depress this assay. Reference Range HDL <40 mg/dL Low HDL Cholesterol HDL >or= 60 mg/dL High HDL Cholesterol Intact parathyroid hormone ( iPTH) measurementOrdered By: Gonsalo Knox on 07-12-2023 Parathyrin.intact (Tissue fine needle aspirate) [Mass/Vol] 49.2 pg/mL 18.4-80.1 [facility] Laboratory - Chemistry and C hemistry - challengeOrdered By: Gonsalo Knox on 07-12-2023 Albumin/Globulin [Mass ratio] 1.3 {ratio} 0.9-2.4 [facility] ALP [Catalytic activity/Vol] 55 U/L 45-117 [facility] ALT [Catalytic activity/Vol] 28 U/L 13-56 [facility] CO2 [Moles/Vol] 24.0 mmol/L 21.0-32.0 [facility] Cobalamin (Vitamin B12) [Mass/Vol] 407 pg/mL 211-911 [facility] Globulin (S) [Mass/Vol] 3.0 g/dL 2.2-4.2 [facility] Magnesium [Mass/Vol] 2.7 mg/dL 1.6-2.6 [facility] Urea nitrogen/Creatinine [Mass ratio] 15.2 mg/mg 10-20 [facility] Low density lipoprotein (LDL ) cholesterol measurementOrdered By: Gonsalo Knox on 07-12-2023 Cholesterol in LDL (Body fld) [Moles/Vol] 104 mg/dL 0-130 [facility] No Panel InformationOrdered By: Gonsalo Knox on 07-12-2023 Estimated GFR (MDRD) Amer 87 mL/min >60 [facility] Comment on above: GFR Calc Estimated GFR (MDRD) Non-Af Amer 72 mL/min >60 [facility] Comment on above: Non- GFR Calc Vitamin D 25-Hydroxy 51.8 ng/mL [facility] Comment on above: Vitamin D 25(OH) Sta tus Range Deficiency <20 ng/mL (50nmol/L) Insufficiency 20 - 30 ng/mL (50 - 75 nmol/L) Sufficiency 30 - 100 ng/mL (75 - 250 nmol/L) Toxicity >100 ng/mL (>250 nmol/L) Serum or plasma calcium jono urement (mass/volume)Ordered By: Gonsalo Knox on 07-12-2023 Calcium [Mass/Vol] 9.7 mg/dL 8.5-10.1 [facility] Serum or plasma creatinine m easurement (mass/volume)Ordered By: Gonsalo Knox on 07-12-2023 Creatinine [Mass/Vol] 0.86 mg/dL 0.55-1.02 [facility] Comment on above: The validity of the calculated GFR & GFRAA in patients over 70 years has not been determined. Clinical correlation is essential. Serum or plasma thyroid stim ulating hormone (TSH) measurement (units/volume)Ordered By: Gonsalo Knox on 07-12-2023 TSH Qn 2.23 uIU/mL 0.358-3.74 [facility] Serum or plasma urea nitroge n measurement (mass/volume)Ordered By: Gonsalo Knox on 07-12-2023 Urea nitrogen [Mass/Vol] 13 mg/dL 7-18 [facility] Thin prep Papanicolaou smear with manual screeningOrdered By: Gonsalo Knox on 07-12-2023 Thin prep Papanicolaou smear with manual screening 3.8 g/dL 3.2-5.0 [facility] Thin prep Papanicolaou smear with manual screening 20 U/L 15-37 [facility] Thin prep Papanicolaou smear with manual screening 4 5-15 [facility] Very low density lipoprotein (VLDL) cholesterol measurementOrdered By: Gonsalo Knox on 07-12-2023 Cholesterol in VLDL Calc [Moles/Vol] 14 mg/dL 5-40 [facility] CNPNon 02-14-2022 CNPN Telephone ([employer]) KELSEA HANSEN ([id number]) 1965 F Date Time Provider Department 02/14/22 RUPESHGALINDO Carl AMARI MISTRY During your visit today, we recorded the following information about you: Starla Barber Jonelle [facility] 02/14/2022 8:50 AM Addendum Kelsea Hansen [phone], ask if tomorrow's visit can be virtual. Samara Zeng RN 02/14/2022 9:28 AM Signed Called patient, no answer, left message Advised that she can have VV with Vini tomorrow if she wants She can call back and let us know if she would like to switch this to a VV Allergies As of Date: 02/14/2022 (No Known Allergies) Date Reviewed: 01/04/2022 Reviewed by: Floridalma Urbina RN - Fully Assessed Reason for Visit: Appointment [[id number]] Prescriptions as of 02/14/2022 - oxyCODONE IR (ROXICODONE) 5 mg immediate release tablet Take 1 tablet by mouth every 6 hours as needed for pain. - albuterol (PROVENTIL) 2.5 mg /3 mL (0.083 %) nebulizer solution Inhale 1 ampule via nebulizer 4 times daily, as needed. - alendronate (FOSAMAX) 70 mg tablet Take by mouth. - atorvastatin (LIPITOR) 20 mg tablet Take 20 mg by mouth once daily. - FASENRA 30 mg/mL injection - ONETOUCH ULTRA TEST test strip - calcium carbonate (CALTRATE) 600 mg calcium (1,500 mg) tab Take by mouth. - escitalopram oxalate (LEXAPRO) 5 mg tablet Take 5 mg by mouth every morning. - inulin-chromium picolinate 2-100 gram-mcg chew Inulin/Chromium Picolinate Active 2 EA TWICE A DAY October 02, 2017 5:31pm - rn-yh-trcd-FA-Ca carb-vit K (WOMEN'S MULTIVITAMIN) 18 mg-400 mcg- 500 mg-50 mcg tab Take by mouth. - NEBULIZER ACCESSORIES (NEBULIZER MISC) - montelukast (SINGULAIR) 10 mg tablet Take 10 mg by mouth daily at bedtime. - PANTOPRAZOLE SODIUM (PROTONIX ORAL) Take 40 mg by mouth once daily. - tiotropium bromide (SPIRIVA RESPIMAT) 2.5 mcg/actuation mist Inhale as instructed once daily as needed. - budesonide-formoterol (SYMBICORT) 160-4.5 mcg/actuation inhaler Inhale 2 Puffs as instructed twice daily. - CLOBETASOL PROPIONATE (CLOBETASOL TOPICAL) Apply to affected area as needed. - OXYGEN, HOME THERAPY, Inhale 2 L/min as instructed as needed. - CYANOCOBALAMIN, VITAMIN B-12, (VITAMIN B-12 ORAL) Take 1,500 mcg by mouth every other day. - CALCIUM CARB/VIT D3/MINERALS (CALCIUM PLUS ORAL) Take 1,200 Units by mouth once daily. - LORazepam (ATIVAN) 0.5 mg Tab Take 1 tablet by mouth as needed. 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] 01/02/2012 Malrotation of intestine [Q43.3] 01/02/2022 Bradycardia [R00.1] 01/02/2022 Sore throat [J02.9] 01/02/2022 YAHAIRA (obstructive sleep apnea) [G47.33] 01/02/2022 HLD (hyperlipidemia) [E78.5] 01/02/2022 Anxiety [F41.9] 01/02/2022 Encounter Status:Closed by [facility] 02/14/22 [facility] Rosamaria 01-11-2022 ARIEL Telephone ([facility]) KELSEA HANSEN ([id number]) 1965 F Date Time Provider Department 01/11/22 RONDA DODGE During your visit today, we recorded the following information about you: Ronda Dodge RN 01/11/2022 1:29 PM Signed BMI SPECIALTY CARE COORDINATION TELEPHONE ENCOUNTER Chief complaint AND duration .post op pain Type of procedure: Diagnostic laparoscopy, 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 Holloway in December of 2021 Nursing assessment (subjective/objective ) pain after eating biggest complaint incisional pain subsided attributes to gas pain taking stool softeners and fiber gummies as directed no issues with BM stopped oxy after surgery and taking Tylenol and Motrin only Incisions look intact Recommendation: OV with team post op request sent to scheduling Allergies As of Date: 01/11/2022 (No Known Allergies) Date Reviewed: 01/04/2022 Reviewed by: Floridalma Urbina RN - Fully Assessed Reason for Visit: Post Op Follow Up [3947] Prescriptions as of 01/11/2022 - oxyCODONE IR (ROXICODONE) 5 mg immediate release tablet Take 1 tablet by mouth every 6 hours as needed for pain. - albuterol (PROVENTIL) 2.5 mg /3 mL (0.083 %) nebulizer solution Inhale 1 ampule via nebulizer 4 times daily, as needed. - alendronate (FOSAMAX) 70 mg tablet Take by mouth. - atorvastatin (LIPITOR) 20 mg tablet Take 20 mg by mouth once daily. - FASENRA 30 mg/mL injection - ONETOUCH ULTRA TEST test strip - calcium carbonate (CALTRATE) 600 mg calcium (1,500 mg) tab Take by mouth. - escitalopram oxalate (LEXAPRO) 5 mg tablet Take 5 mg by mouth every morning. - inulin-chromium picolinate 2-100 gram-mcg chew Inulin/Chromium Picolinate Active 2 EA TWICE A DAY October 02, 2017 5:31pm - ue-ut-kaqc-FA-Ca carb-vit K (WOMEN'S MULTIVITAMIN) 18 mg-400 mcg- 500 mg-50 mcg tab Take by mouth. - NEBULIZER ACCESSORIES (NEBULIZER MISC) - montelukast (SINGULAIR) 10 mg tablet Take 10 mg by mouth daily at bedtime. - PANTOPRAZOLE SODIUM (PROTONIX ORAL) Take 40 mg by mouth once daily. - tiotropium bromide (SPIRIVA RESPIMAT) 2.5 mcg/actuation mist Inhale as instructed once daily as needed. - budesonide-formoterol (SYMBICORT) 160-4.5 mcg/actuation inhaler Inhale 2 Puffs as instructed twice daily. - CLOBETASOL PROPIONATE (CLOBETASOL TOPICAL) Apply to affected area as needed. - OXYGEN, HOME THERAPY, Inhale 2 L/min as instructed as needed. - CYANOCOBALAMIN, VITAMIN B-12, (VITAMIN B-12 ORAL) Take 1,500 mcg by mouth every other day. - CALCIUM CARB/VIT D3/MINERALS (CALCIUM PLUS ORAL) Take 1,200 Units by mouth once daily. - LORazepam (ATIVAN) 0.5 mg Tab Take 1 tablet by mouth as needed. 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] 01/02/2012 Malrotation of intestine [Q43.3] 01/02/2022 Bradycardia [R00.1] 01/02/2022 Sore throat [J02.9] 01/02/2022 YAHAIRA (obstructive sleep apnea) [G47.33] 01/02/2022 HLD (hyperlipidemia) [E78.5] 01/02/2022 Anxiety [F41.9] 01/02/2022 Encounter Status:Closed by RONDA DODGE on 01/11/22 [facility] 01-09-[address] [facility] [facility] [facility] [employer] [facility] KELSEA HANSEN ([id number]) 1965 F Date Time Provider Department 01/09/22 DIDI HARO During your visit today, we recorded the following information about you: Keon AL Ryan Freddie 01/09/2022 9:42 AM Signed Patient called stating she had surgery on 01/03 with Tahir Frias for MALS rotation. Ava is experiencing a lot of pain after eating, she wants to know if this is normal? Or is something wrong and what should she do? Please give Ava a call at [phone] Allergies As of Date: 01/09/2022 (No Known Allergies) Date Reviewed: 01/04/2022 Reviewed by: Floridalma Urbina RN - Fully Assessed Reason for Visit: Patient Question [9916] Prescriptions as of 01/09/2022 - oxyCODONE IR (ROXICODONE) 5 mg immediate release tablet Take 1 tablet by mouth every 6 hours as needed for pain. - albuterol (PROVENTIL) 2.5 mg /3 mL (0.083 %) nebulizer solution Inhale 1 ampule via nebulizer 4 times daily, as needed. - alendronate (FOSAMAX) 70 mg tablet Take by mouth. - atorvastatin (LIPITOR) 20 mg tablet Take 20 mg by mouth once daily. - FASENRA 30 mg/mL injection - ONETOUCH ULTRA TEST test strip - calcium carbonate (CALTRATE) 600 mg calcium (1,500 mg) tab Take by mouth. - escitalopram oxalate (LEXAPRO) 5 mg tablet Take 5 mg by mouth every morning. - inulin-chromium picolinate 2-100 gram-mcg chew Inulin/Chromium Picolinate Active 2 EA TWICE A DAY October 02, 2017 5:31pm - jy-sg-beal-FA-Ca carb-vit K (WOMEN'S MULTIVITAMIN) 18 mg-400 mcg- 500 mg-50 mcg tab Take by mouth. - NEBULIZER ACCESSORIES (NEBULIZER MISC) - montelukast (SINGULAIR) 10 mg tablet Take 10 mg by mouth daily at bedtime. - PANTOPRAZOLE SODIUM (PROTONIX ORAL) Take 40 mg by mouth once daily. - tiotropium bromide (SPIRIVA RESPIMAT) 2.5 mcg/actuation mist Inhale as instructed once daily as needed. - budesonide-formoterol (SYMBICORT) 160-4.5 mcg/actuation inhaler Inhale 2 Puffs as instructed twice daily. - CLOBETASOL PROPIONATE (CLOBETASOL TOPICAL) Apply to affected area as needed. - OXYGEN, HOME THERAPY, Inhale 2 L/min as instructed as needed. - CYANOCOBALAMIN, VITAMIN B-12, (VITAMIN B-12 ORAL) Take 1,500 mcg by mouth every other day. - CALCIUM CARB/VIT D3/MINERALS (CALCIUM PLUS ORAL) Take 1,200 Units by mouth once daily. - LORazepam (ATIVAN) 0.5 mg Tab Take 1 tablet by mouth as needed. 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 Address: [address] [place], [place] [id number] Performed By: #### 2 4321-2 ####[facility] LABCLIA [id number] [place] [address] [place] Calcium [Mass/Vol] 9.5 mg/dL Normal 8.5-10.2 [facility] Comment on above: Order Comment: Speci men Type: BLOOD SPECIMENOrdering Facility: [facility] Address: [address] [place], [place] [id number] Performed By: #### 2 4321-2 ####[facility] LABCLIA [id number] [place] [address] [place] Chloride [Moles/Vol] 105 mmol/L Normal 97-105 [facility] Comment on above: Order Comment: Speci men Type: BLOOD SPECIMENOrdering Facility: [facility] Address: [address] [place], [place] [phone] Performed By: #### 2 4321-2 ####[facility] LABCLIA [id number] [place] [address] [place] CO2 [Moles/Vol] 23 mmol/L Normal 22-30 [facility] Comment on above: Order Comment: Speci men Type: BLOOD SPECIMENOrdering Facility: [facility] Address: [address] [place], [place] [phone] Performed By: #### 2 4321-2 ####[facility] LABCLIA [id number] [place] [address] [place] Creatinine [Mass/Vol] 0.77 mg/dL Normal 0.58-0.96 [facility] Comment on above: Order Comment: Speci men Type: BLOOD SPECIMENOrdering Facility: [facility] Address: [address] [place], [place] [phone] Performed By: #### 2 4321-2 ####[facility] LABCLIA [id number] [address] ESTIMATED GLOMERULAR FILTRATION RATE 90 mL/min/1.73m??? Normal >=60 [facility] Comment on above: Order Comment: Mark escalante Type: BLOOD SPECIMENOrdering Facility: [facility] Address: [address] [place] [address] Result Comment: Leona mated Glomerular Filtration Rate (eGFR) is calculated using the 2020 CKD-EPI creatinine equation. This equation utilizes serum creatinine, sex, and age as parameters. The creatinine assay has traceable calibration to isotope dilution-mass spectrometry. Refer to KDIGO guidelines for clinical interpretation. In patients with unstable renal function, e.g. those with acute kidney injury, the eGFR may not accurately reflect actual GFR. Performed By: #### 2 4321-2 ####[facility] SOUTHIA [id number] [address] Glucose [Mass/Vol] 119 mg/dL High 74-99 [facility] Comment on above: Order Comment: Mark escalante Type: BLOOD SPECIMENOrdering Facility: [facility] Address: [address] [place] [address] Result Comment: The [place] Diabetes Association (ADA) provides guidance for cutoff values for fasting glucose and random glucose. The ADA defines fasting as no caloric intake for at least 8 hours. Fasting plasma glucose results between 100 to 125 mg/dL indicate increased risk for diabetes (prediabetes). Fasting plasma glucose results greater than or equal to 126 mg/dL meet the criteria for diagnosis of diabetes. In the absence of unequivocal hyperglycemia, results should be confirmed by repeat testing. In a patient with classic symptoms of hyperglycemia or hyperglycemic crisis, random plasma glucose results greater than or equal to 200 mg/dL meet the criteria for diagnosis of diabetes. Reference: Standards of Medical Care in Diabetes 2016, [place] Diabetes Association. Diabetes Care. 2016.39(Suppl 1). Performed By: #### 2 4321-2 ####[facility] LABIA [id number] [address] [id number] [address] [place] Potassium [Moles/Vol] 4.2 mmol/L Normal 3.7-5.1 [facility] Comment on above: Order Comment: Speci men Type: BLOOD SPECIMENOrdering Facility: [facility] Address: [address] [place] [address] Performed By: #### 2 4321-2 ####[facility] LABCLIA [id number] [place] [address] [place] Sodium [Moles/Vol] 139 mmol/L Normal 136-144 [facility] Comment on above: Order Comment: Speci men Type: BLOOD SPECIMENOrdering Facility: [facility] Address: [address] [place] [address] Performed By: #### 2 4321-2 ####[facility] LABCLIA [id number] [place] [address] [place] Urea nitrogen [Mass/Vol] 11 mg/dL Normal 7-21 [facility] Comment on above: Order Comment: Speci men Type: BLOOD SPECIMENOrdering Facility: [facility] Address: [address] [place], [place] [phone] Performed By: #### 2 4321-2 ####[facility] LABCLIA [id number] [place] [address] [place] CBC panel Auto (Bld)on 01-04 Erythrocyte distribution width (RBC) [Ratio] 13.6 % Normal 11.5-15.0 [facility] Comment on above: Order Comment: Speci men Type: BLOOD SPECIMENOrdering Facility: [facility] Address: [address] [place], [place] [phone] Performed By: #### 5 8410-2 ####[facility] LABCLIA [id number] [place] [address] [place] Hematocrit (Bld) [Volume fraction] 39.3 % Normal 36.0-46.0 [facility] Comment on above: Order Comment: Speci men Type: BLOOD SPECIMENOrdering Facility: [facility] Address: [address] [place] [address] Performed By: #### 5 8410-2 ####[facility] LABIA [id number] [place] [address] [place] Hemoglobin (Bld) [Mass/Vol] 13.3 g/dL Normal 11.5-15.5 [facility] Comment on above: Order Comment: Speci men Type: BLOOD SPECIMENOrdering Facility: [facility] Address: [address] [place] [address] Performed By: #### 5 8410-2 ####[facility] [id number] [place] [address] [place] MCH (RBC) [Entitic mass] 30.6 pg Normal 26.0-34.0 [facility] Comment on above: Order Comment: Speci men Type: BLOOD SPECIMENOrdering Facility: [facility] Address: [address] [place] [address] Performed By: #### 5 8410-2 ####[facility] [id number] [address] [place] MCHC (RBC) [Mass/Vol] 33.8 g/dL Normal 30.5-36.0 [facility] Comment on above: Order Comment: Speci men Type: BLOOD SPECIMENOrdering Facility: [facility] Address: [address] [place], [place] [address] Performed By: #### 5 8410-2 ####[facility] [id number] [place] [address] [place] MCV (RBC) [Entitic vol] 90.6 fL Normal 80.0-100.0 [facility] Comment on above: Order Comment: Speci men Type: BLOOD SPECIMENOrdering Facility: [facility] Address: [address] [place], [place] [phone] Performed By: #### 5 8410-2 ####[facility] LABCLIA [id number] [place] [address] [place] Nucleated RBC (Bld) [#/Vol] 10*3/uL Normal <0.01 [facility] Comment on above: Order Comment: Speci men Type: BLOOD SPECIMENOrdering Facility: [facility] Address: [address] [place] [address] Performed By: #### 5 8410-2 ####[facility] LABCLIA [id number] [place] [address] [place] Platelet mean volume (Bld) [Entitic vol] 9.7 fL Normal 9.0-12.7 [facility] Comment on above: Order Comment: Speci men Type: BLOOD SPECIMENOrdering Facility: [facility] Address: [address] [place], [place] [phone] Performed By: #### 5 8410-2 ####[facility] LABCLIA [id number] [place] [address] [place] Platelets (Bld) [#/Vol] 210 10*3/uL Normal 150-400 [facility] Comment on above: Order Comment: Speci men Type: BLOOD SPECIMENOrdering Facility: [facility] Address: [address] [place] [id number] Performed By: #### 5 8410-2 ####[facility] LABCLIA [id number] [place] [address] [place] RBC (Bld) [#/Vol] 4.34 10*6/uL Normal 3.90-5.20 [facility] Comment on above: Order Comment: Speci men Type: BLOOD SPECIMENOrdering Facility: [facility] Address: [address] [place], [place] [phone] Performed By: #### 5 8410-2 ####[facility] LABCLIA [id number] [place] [address] [place] WBC (Bld) [#/Vol] 7.73 10*3/uL Normal 3.70-11.00 [facility] Comment on above: Order Comment: Speci men Type: BLOOD SPECIMENOrdering Facility: [facility] Address: [address] [place] [address] Performed By: #### 5 8410-2 ####[facility] LABCLIA [id number] [place] [address] [place] ANES POSTPROC EVALon 022 ANES POSTPROC EVAL HNO ID: [id number] Author: Donnie Levin DO Service: ? Author Type: Anesthesiologist Type: Anesthesia Postprocedure Evaluation Filed: 01/03/2022 3:52 PM Note Text: POST ANESTHESIA EVALUATION NOTE : 1965 Procedure Summary Date: 01/03/22 Room / Location: [address] Anesthesia Start: 1338 Anesthesia Stop: 1540 Procedures: LAPAROSCOPY DIAGNOSTIC/ HUMAIRA (N/A Abdomen) EGD (N/A Abdomen) LAPAROSCOPIC APPENDECTOMY ADULT (N/A Abdomen) Diagnosis: Malrotation of intestine Preoperative examination Surgeons: Didi Haro MD Responsible Provider: Donnie Levin DO Anesthesia Type: general ASA Status: 3 Anesthesia Type: general Airway Type: ETT Last Vitals Vitals Value Taken Time BP 115/56 01/03/22 1545 Temp 36.9 ?C (98.4 ?F) 01/03/22 1540 Pulse 63 01/03/22 1550 Resp 22 01/03/22 1550 SpO2 93 % 01/03/22 1550 Vitals shown include unvalidated device data. Post Anesthesia Patient Status Patient Evaluation: PACU. PACU/ICU Patient Condition: stable. Anticipated Disposition: inpatient floor planned admission. Neurological Status: aware and responsive. Pulmonary Status: breathing comfortably on supplemental oxygen Airway Control: returned to baseline unsupported. Cardiovascular Status: stable. Pain Management: clinically adequate Postoperative Hydration: acceptable. Intraoperative Events: no significant anesthesia events Post Operative Nausea/Vomiting Status: no significant post operative nausea or vomiting Anesthetic Observations: Recommendation: continue current plan of care. Anesthesia Observations No Documentation SIGNATURE: Donnie Levin DO PATIENT NAME: Kelsea aHnsen DATE: January 03, 2022 TIME: 3:52 PM CSN: [id number] Normal [facility] ANES PRE-OPon 01-03-2022 ANES PRE-OP HNO ID: [id number] Author: Donnie Levin DO Service: ? Author Type: Anesthesiologist Type: Anesthesia Preprocedure Evaluation Filed: 01/03/2022 12:14 PM Note Text: ANESTHESIOLOGY DAY OF SURGERY NOTE : 1965 Procedure Information Date/Time: 01/03/22 1239 Procedures: LAPAROSCOPY DIAGNOSTIC/ HUMAIRA (N/A Abdomen) EGD (N/A Abdomen) LAPAROSCOPIC APPENDECTOMY ADULT (N/A Abdomen) Location: [place] [address] / [address] Surgeons: Didi Haro MD Estimated body mass index is 26.54 kg/m? as calculated from the following: Height as of 01/02/22: 168.6 cm (5' 6.38). Weight as of 01/02/22: 75.4 kg (166 lb 4.8 oz). Most recent hematocrit and potassium results: Hematocrit 45.7 01/02/2022 Potassium 4.4 01/02/2022 Relevant Problems ANESTHESIA (+) YAHAIRA (obstructive sleep apnea) GI (+) Esophageal reflux PULMONARY (+) COPD (+) YAHAIRA (obstructive sleep apnea) I - PHYSICAL EVALUATION AIRWAY Patient intubated: No. Tracheostomy tube not present Mallampati: II. TM distance: >3 FB. Neck ROM: full ROM without neurological symptoms. Mouth opening: adequate. Short neck: no. Thick neck: no DENTAL Normal dental observations. Dental findings: teeth intact. II - ANESTHESIA PLAN ASA Score: 3 Anesthetic Plan: general Airway type: ETT The patient is not a current smoker. NPO Status: adequate Beta Lexi Administration of chronic beta lexi medication not planned. Monitoring plan: standard ASA. Postoperative analgesic plan: multimodal analgesia. Informed Consent Anesthetic risks, benefits, alternatives, personnel and consent discussed: yes. Patient / Responsible [employer] agrees to proceed: yes Patient / Surrogate agrees to blood products: Yes DNR status not reviewed with patient and/or family prior to surgery. Significant changes in the patient condition since the History and Physical, not otherwise documented in primary service progress note: no. Potential Anesthesia issues that may suggest increased risk of complications or contraindication to planned procedure: none. No vitals data found for the desired time range. No current facility-administered medications on file as of . Outpatient Medications as of Medication Sig - albuterol (PROVENTIL) 2.5 mg /3 mL (0.083 %) nebulizer solution Inhale 1 ampule via nebulizer 4 times daily, as needed. - albuterol HFA (PROVENTIL HFA, VENTOLIN HFA) 90 mcg/actuation inhaler Inhale 2 (TWO) puffs EVERY 4 TO 6 HOURS - alendronate (FOSAMAX) 70 mg tablet Take by mouth. - atorvastatin (LIPITOR) 20 mg tablet Take 20 mg by mouth once daily. - FASENRA 30 mg/mL injection - [employer] ULTRA TEST test strip - calcium carbonate (CALTRATE) 600 mg calcium (1,500 mg) tab Take by mouth. - Cholecalciferol, Vitamin D3, 25 mcg (1,000 unit) cap Take by mouth. - escitalopram oxalate (LEXAPRO) 5 mg tablet Take 5 mg by mouth every morning. - inulin-chromium picolinate 2-100 gram-mcg chew Inulin/Chromium Picolinate Active 2 EA TWICE A DAY October 02, 2017 5:31pm - iu-ox-gqbw-FA-Ca carb-vit K (WOMEN'S MULTIVITAMIN) 18 mg-400 mcg- 500 mg-50 mcg tab Take by mouth. - oxyCODONE-acetaminoph en (PERCOCET) 5-325 mg tablet Take by mouth. (Patient not taking: Reported on 01/02/2022) - oxyCODONE-acetaminoph en (PERCOCET) 5-325 mg tablet TAKE 1 TABLET BY MOUTH EVERY 4 HOURS NEEDED FOR PAIN FOR 5 DAYS (Patient not taking: TAKE 1 TABLET BY MOUTH EVERY 4 HOURS NEEDED FOR PAIN FOR 5 DAYS) - CALCIUM CARBONATE/VITAMIN D3 (VITAMIN D-3 ORAL) Take by mouth. - NEBULIZER ACCESSORIES (NEBULIZER MISC) - montelukast (SINGULAIR) 10 mg tablet Take 10 mg by mouth daily at bedtime. - PANTOPRAZOLE SODIUM (PROTONIX ORAL) Take 40 mg by mouth once daily. - tiotropium bromide (SPIRIVA RESPIMAT) 2.5 mcg/actuation mist Inhale as instructed once daily as needed. - budesonide-formoterol (SYMBICORT) 160-4.5 mcg/actuation inhaler Inhale 2 Puffs as instructed twice daily. - CLOBETASOL PROPIONATE (CLOBETASOL TOPICAL) Apply to affected area as needed. - OXYGEN, HOME THERAPY, Inhale 2 L/min as instructed as needed. - CYANOCOBALAMIN, VITAMIN B-12, (VITAMIN B-12 ORAL) Take 1,500 mcg by mouth every other day. - CALCIUM CARB/VIT D3/MINERALS (CALCIUM PLUS ORAL) Take 1,200 Units by mouth once daily. - multivitamin tablet Take 1 tablet by mouth once daily. - triamcinolone acetonide 0.1 % ointment Apply small amount to affected area daily for 4 weeks, then 3 times per week. - LORazepam (ATIVAN) 0.5 mg Tab Take 1 tablet by mouth as needed. - ALBUTEROL 90 MCG/ACTUATION AEROSOL INHALER Inhale 2 Puffs as instructed once daily. Administer every ___ hours. See Epic Results Review or unit specific flow sheet documentation for RT administration information. SHAKE WELL BEFORE USING I have interviewed and examined the patient. I have reviewed the medical record and/or the pre-anesthesia evaluation, pertinent labs, and test results. This contains updated informati (more content not included)... Normal [facility] BRIEF OP NOTon 01-03-2022 BRIEF OP NOT HNO ID: [id number] Author: Joe Kerr DO Service: General Surgery Author Type: Resident Type: Brief Op Note Filed: 01/03/2022 3:17 PM Note Text: BRIEF OPERATIVE / PROCEDURE NOTE LOG ID: [id number] SURGERY/PROCEDURE DATE: 01/03/2022 INCISION/PROCEDURE START TIME: 2:12 PM INCISION CLOSE/PROCEDURE END TIME: 3:13 PM SURGEON(S)/PROCEDURAL IST(S) AND CAR REPAIR SUPERVISOR(S): Surgeon(s) and Role: * Didi Haro MD - Primary * Joe Kerr DO - Resident - Assisting No Additional Staff SURGERY/PROCEDURE(S): Diagnostic laparoscopy, gastropexy, mesentery biopsy ANESTHESIA: Choice - Anesthesia Consult FINDINGS: Scarred cecum and terminal ileum, J shaped stomach, redundant transverse colon ESTIMATED BLOOD LOSS: 0 mls SPECIMENS: Mesentary biopsy COMPLICATIONS: None PRE-OP/PRE-PROCEDURE DIAGNOSIS: Malrotation POST-OP/POST-PROCEDUR E DIAGNOSIS: Redundant colon and J shaped stomach SIGNATURE: Joe Kerr DO PATIENT NAME: Kelsea Hansen DATE: January 03, 2022 TIME: 3:14 PM Normal [facility] CNDSon 01-03-2022 CNDS HNO ID: [id number] Author: Joe Kerr DO Service: General Surgery Author Type: Resident Type: Discharge Summary Filed: 01/04/2022 8:19 AM Note Text: Attestation signed by Didi Haro MD at 01/05/2022 1:28 PM Attending Note I evaluated the patient and personally participated in the saunders components. I agree with the resident's findings and plan as documented and have discussed the case and management of the patient's care with the resident. Signature: Didi Haro MD Date: 01/05/2022 Time: 1:27 PM DISCHARGE SUMMARY PATIENT NAME: Kelsea Hansen ADMISSION DATE: 01/03/2022 DISCHARGE DATE: 01/04/2022 ATTENDING PHYSICIAN: Didi Haro MD Code Status: Not on file Highest Readmission Risk Score: 9 The 30 day readmissions risk score is derived from an internally validated risk model which evaluates patient level characteristics, utilization history, medication orders and lab results up until the day of discharge. Patients with a score of 40 or above are considered highest risk for readmission. Specific patient level drivers will be listed at the bottom of the summary. CONSULTING TEAMS DURING HOSPITALIZATION: None Treatment Team: Attending Provider: Didi Haro MD REASON FOR HOSPITALIZATION: To undergo Marietta's procedure DIAGNOSIS: Principal Problem: Malrotation of intestine POA: Yes Resolved Problems: * No resolved hospital problems. * Sepsis Ruled Out OPERATIONS DURING HOSPITALIZATION: Diagnostic laparoscopy, gastropexy, mesentery biopsy PROCEDURES DURING HOSPITALIZATION: IV Access Anesthesia administration Intubation (for operation) HOSPITAL COURSE: was known to have malrotation of intestine came to the hospital underwent diagnostic laparoscopy, gastropexy, mesentery biopsy on 01/03/2022. After surgery, she went to the nursing floor for observation and she was started on oral pain medications and a clear liquid diet. By the next day, she was tolerating food, pain was controlled and she was discharged home. LABS AND PROCEDURES PENDING AT DISCHARGE: No pending results. INCIDENTAL OR ACTIONABLE FINDING (Last Refresh 01/03/2022 1647) None PATIENT CONDITION AT DISCHARGE: Stable DISCHARGE DISPOSITION: Home with Self Care Discharge Physical Exam: VITAL SIGNS: BP 111/51 Pulse 63 Temp 36.9 ?C (98.4 ?F) (Temporal) Resp 18 Ht 167.6 cm (5' 6) Wt 75.3 kg (166 lb) LMP 06/09/2009 SpO2 94% BMI 26.79 kg/m? GENERAL: Alert, no distress, cooperative ABDOMEN: Abdomen soft, non-tender, BS normal, No masses or organomegaly, incision c/d/i INFORMATION PROVIDED TO PATIENT: see discharge instructions WOUND/SURGICAL SITE CARE: Leave open to air DIET: Resume pre-hospital diet ACTIVITY: Resume pre-hospital activity ALLERGIES No Known Allergies DISCHARGE MEDICATION: Current Discharge Medication List CONTINUE these medications which have NOT CHANGED albuterol HFA (PROVENTIL HFA, VENTOLIN HFA) 90 mcg/actuation inhaler Inhale 2 (TWO) puffs EVERY 4 TO 6 HOURS alendronate (FOSAMAX) 70 mg tablet Take by mouth. atorvastatin (LIPITOR) 20 mg Take 20 mg by mouth once daily. escitalopram oxalate (LEXAPRO) 5 mg Take 5 mg by mouth every morning. montelukast (SINGULAIR) 10 mg Take 10 mg by mouth daily at bedtime. Associated Diagnoses:Breast pain PANTOPRAZOLE SODIUM (PROTONIX ORAL) 40 mg Take 40 mg by mouth once daily. Associated Diagnoses:Breast pain tiotropium bromide (SPIRIVA RESPIMAT) 2.5 mcg/actuation mist Inhale as instructed once daily as needed. Associated Diagnoses:Breast pain budesonide-formoterol (SYMBICORT) 2 Puffs Inhale 2 Puffs as instructed twice daily. Associated Diagnoses:Breast pain CALCIUM CARB/VIT D3/MINERALS (CALCIUM PLUS ORAL) 1,200 Units Take 1,200 Units by mouth once daily. Associated Diagnoses:Breast pain LORazepam (ATIVAN) 0.5 mg Take 0.5 mg by mouth as needed. albuterol (PROVENTIL) 2 Puffs Inhale 2 Puffs as instructed once daily. Administer every ___ hours. See Epic Results Review or unit specific flow sheet documentation for RT administration information. SHAKE WELL BEFORE USING Refills: 0 albuterol (PROVENTIL) 2.5 mg /3 mL (0.083 %) nebulizer solution Inhale 1 ampule via nebulizer 4 times daily, as needed. FASENRA 30 mg/mL injection ONETOUCH ULTRA TEST test strip calcium carbonate (CALTRATE) 600 mg calcium (1,500 mg) tab Take by mouth. Cholecalciferol, Vitamin D3, 25 mcg (1,000 unit) cap Take by mouth. inulin-chromium picolinate 2-100 gram-mcg chew Inulin/Chromium Picolinate Active 2 EA TWICE A DAY October 02, 2017 5:31pm fx-sx-tort-FA-Ca carb-vit K (WOMEN'S MULTIVITAMIN) 18 mg-400 mcg- 500 mg-50 mcg tab Take by mouth. !! oxyCODONE-acetaminoph en (PERCOCET) 5-325 mg tablet Take by mouth. !! oxyCODO (more content not included)... Normal [facility] OPERATIVE NOon 01-03-2022 OPERATIVE NO HNO ID: [id number] Author: Didi Haro MD Service: General Surgery Author Type: Physician Type: Operative Report Filed: 01/05/2022 1:31 PM Note Text: [facility] - Operative Report [id number] [address] [place] KELSEA HANSEN : 1965 AGE: 56. SEX: F PATIENT TYPE: I HOSP SVC: GENS LOCATION: [id number] ATTENDING PHYSICIAN: Didi Haro M.D. CSN NUMBER: [id number] DATE OF SURGERY/PROCEDURE: 01/03/2022 INCISION/PROCEDURE START TIME: 2:12 PM INCISION CLOSE/PROCEDURE END TIME: 3:13 PM PREOPERATIVE DIAGNOSIS: Anomalies of intestinal rotation, volvulus. POSTOPERATIVE DIAGNOSIS: Anomalies of intestinal rotation, volvulus. SURGEON: Didi Haro M.D. CAR REPAIR SUPERVISOR: Dr. Usha Diaz. SURGERY/PROCEDURE: Diagnostic laparoscopy, laparoscopic excision of retroperitoneal fibrosis and/or lesion, upper endoscopy, anterior gastropexy, and lysis of adhesions. ANESTHESIA: General endotracheal anesthesia. SPECIMENS: Retroperitoneal fibrosis for biopsy. FINDINGS: See below. DRAINS: No drains. ESTIMATED BLOOD LOSS: Minimal. OPERATIVE INDICATIONS: The patient is a woman, who is referred to me for concern for intestinal malrotation. 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 Specifically, she then underwent an upper GI, which demonstrated normal duodenal position, but volvulus of her stomach without hiatal hernia and obvious laxity. Based on the findings and discussion with her and her surgeon, she elected to undergo the aforementioned procedure after discussion of the risks, benefits, and alternatives. DESCRIPTION OF PROCEDURE: The patient was brought to the operating room and placed in supine position. After induction of general endotracheal anesthesia, the abdomen was prepped and draped in the usual sterile fashion. Appropriate perioperative antibiotics were administered. Entrance into the peritoneal cavity was obtained in the left lower quadrant with a 5-mm optical trocar. Diagnostic laparoscopy revealed a redundant and dilated colon. Two additional 5 and 12 were placed and then careful diagnostic laparoscopy was performed. There was significant laxity to the cecum though it was fixated to the right lateral abdominal wall. The hepatic flexure was in position, but there was significant redundancy of the transverse colon with hepatic flexure in the right position and a diminutive sigmoid rectum. The small bowel was located mainly on the left side and this was brought in its entirety. The stomach has significant laxity of the lesser curve and redundancy and was quite J shape, but the duodenum passes at the anish hepatis and then to the retroperitoneum and comes back at fixated ligament of Treitz on the left side of the spine. There were no obvious Marietta's bands. The patient previously had an appendectomy. Based on the findings, intraoperative consultation was have with Colorectal Surgery and Dr. Amari Sidhu and I discussed the results. There was some fibrosis at her terminal ileum, which way have been secondary to her previous presumed volvulus and this was excised with the harmonic scalpel and sent for pathology. The bowel itself looked normal and there was no evidence of inflammatory bowel disease, and as mentioned previously the entirety of the small bowel was run and it was normal without evidence of mechanical obstruction. Because of the laxity of her stomach and its significant J shape as well as the findings on her upper GI, an anterior gastropexy was performed by placing three 2-0 Ethibond sutures to the greater curve of the stomach and bringing them out through stab incisions on the abdominal wall to pexy the greater curve of the stomach to the abdominal wall. A front-viewing scope was then inserted into the posterior oropharynx under direct vision. The esophagus was normal. There was no hernia. There was again significant redundancy of the stomach and the large J-shaped position, the scope was advanced to the duodenum second portion, which was the maximal extent reach, but the mucosal findings were normal and the gastropexy sutures were seen as indentations, but not full-thickness. The scope was withdrawn. A 12-mm trocar was closed with [id number] #0 Vicryl suture. All the trocars were removed under direct vision without evidence of bleeding after release of the CO2. The wounds were infiltrated with local anesthesia and closed with absorbable suture. Dressings were applied. The patient was awakened, extubated, and transferred to the recovery room in stable condition. Fabiola Rey:[id number] /[id number] Normal [facility] SURGICAL PATHOLOGYon 022 CASE REPORT Normal [facility] Comment on above: Order Comment: Speci men Type: TISSUE SPECIMENOrdering Facility: [facility] Address: [address] [place] [address] Result Comment: Surg ica Pathology Report Case: [id number] Authorizing Provider: Didi Haro MD Collected: 01/03/2022 02:50 PM Ordering Location: HOSP MAIN ORG3 Received: 01/03/2022 06:07 PM Pathologist: Jakub Gilmore MD Specimen: MESENTERY, mesenteric biopsy- rule out infectious or neoplastic process Performed By: #### S ####[facility] LABCLIA [id number] [address] OF [facility] FINAL DIAGNOSIS Normal [facility] Comment on above: Order Comment: Speci men Type: TISSUE SPECIMENOrdering Facility: [facility] Address: [address] [place] [address] Result Comment: A. S oft tissue, mesenteric, biopsy: - Fibrosis with acute and chronic inflammation. Performed By: #### S ####[facility] LABIA [id number] [address] FINAL PERFORMING LAB Normal [facility] Comment on above: Order Comment: Speci men Type: TISSUE SPECIMENOrdering Facility: [facility] Address: [address] [place] [address] Result Comment: Diag nostic interpretation performed at [facility], [address] [place] [address] CLIA# [id number] Linotypist: Jose A Franco M.D. Performed By: #### S ####[facility] LABIA [id number] [address] OF [facility] GROSS DESCRIPTION A. MESENTERY. Normal [facility] Comment on above: Order Comment: Speci men Type: TISSUE SPECIMENOrdering Facility: [facility] Address: [address] [place] [address] Result Comment: Rece ived in formalin with as mesenteric biopsy is a cauterized piece of burroughs-brown tissue measuring 0.7 x 0.4 x 0.4 cm. The specimen is totally submitted in one cassette. [facility] January 04, 2022 10:58 AM Gross examination performed at [facility], [address] [place] [address] Performed By: #### S ####[facility] LABCLIA [id number] [place] [address] [place] CBC W Auto Differential pane l (Bld)on 01-02-2022 Basophils (Bld) [#/Vol] 10*3/uL Normal <0.11 C [facility] Comment on above: Order Comment: Speci men Type: BLOOD SPECIMENOrdering Facility: [facility] Address: [address] [place], [place] [id number] Performed By: #### 5 7021-8 ####[facility] LABCLIA [id number] [place] [address] [place] Basophils/100 WBC (Bld) 0.1 % Normal C [facility] Comment on above: Order Comment: Speci men Type: BLOOD SPECIMENOrdering Facility: [facility] Address: [address] [place], [place] [id number] Performed By: #### 5 7021-8 ####[facility] LABIA [id number] [place] [address] [place] Differential cell count method Nom (Bld) Auto Normal [facility] Comment on above: Order Comment: Speci men Type: BLOOD SPECIMENOrdering Facility: [facility] Address: [address] [place] [address] Performed By: #### 5 7021-8 ####[facility] LABCLIA [id number] [place] [address] [place] Eosinophils (Bld) [#/Vol] 10*3/uL Normal <0.46 [facility] Comment on above: Order Comment: Speci men Type: BLOOD SPECIMENOrdering Facility: [facility] Address: [address] [place], [place] [id number] Performed By: #### 5 7021-8 ####[facility] LABCLIA [id number] [place] [address] [place] Eosinophils/100 WBC (Bld) 0.0 % Normal [facility] Comment on above: Order Comment: Speci men Type: BLOOD SPECIMENOrdering Facility: [facility] Address: [address] [place] [address] Performed By: #### 5 7021-8 ####[facility] LABCLIA [id number] [place] [address] [place] Erythrocyte distribution width (RBC) [Ratio] 13.3 % Normal 11.5-15.0 [facility] Comment on above: Order Comment: Speci men Type: BLOOD SPECIMENOrdering Facility: [facility] Address: [address] [place], [place] [id number] Performed By: #### 5 7021-8 ####[facility] LABCLIA [id number] [address] [place] Hematocrit (Bld) [Volume fraction] 45.7 % Normal 36.0-46.0 [facility] Comment on above: Order Comment: Speci men Type: BLOOD SPECIMENOrdering Facility: [facility] Address: [address] [place], [place] [id number] Performed By: #### 5 7021-8 ####[facility] LABIA [id number] [place] [address] [place] Hemoglobin (Bld) [Mass/Vol] 14.8 g/dL Normal 11.5-15.5 [facility] Comment on above: Order Comment: Speci men Type: BLOOD SPECIMENOrdering Facility: [facility] Address: [address] [place], [place] [id number] Performed By: #### 5 7021-8 ####[facility] LABCLIA [id number] [place] [address] [place] IMMATURE GRAN % 0.3 % Normal [facility] Comment on above: Order Comment: Speci men Type: BLOOD SPECIMENOrdering Facility: [facility] Address: [address] [place], [place] [id number] Performed By: #### 5 7021-8 ####[facility] LABCLIA [id number] [place] [address] [place] IMMATURE GRAN ABS <0.03 Normal <0.10 [facility] Comment on above: Order Comment: Speci men Type: BLOOD SPECIMENOrdering Facility: [facility] Address: [address] [place], [place] [id number] Performed By: #### 5 7021-8 ####[facility] LABCLIA [id number] [place] [address] [place] Lymphocytes (Bld) [#/Vol] 1.92 10*3/uL Normal 1.00-4.00 [facility] Comment on above: Order Comment: Speci men Type: BLOOD SPECIMENOrdering Facility: [facility] Address: [address] [place], [place] [address] Performed By: #### 5 7021-8 ####[facility] LABCLIA [id number] [address] Lymphocytes/100 WBC (Bld) 24.5 % Normal [facility] Comment on above: Order Comment: Speci men Type: BLOOD SPECIMENOrdering Facility: [facility] Address: [address] [place], [place] [id number] Performed By: #### 5 7021-8 ####[facility] LABCLIA [id number] [place] [address] [place] MCH (RBC) [Entitic mass] 30.1 pg Normal 26.0-34.0 [facility] Comment on above: Order Comment: Speci men Type: BLOOD SPECIMENOrdering Facility: [facility] Address: [address] [place], [place] [id number] Performed By: #### 5 7021-8 ####[facility] LABCLIA [id number] [place] [address] [place] MCHC (RBC) [Mass/Vol] 32.4 g/dL Normal 30.5-36.0 [facility] Comment on above: Order Comment: Speci men Type: BLOOD SPECIMENOrdering Facility: [facility] Address: [address] [place], [place] [address] Performed By: #### 5 7021-8 ####[facility] LABIA [id number] [place] [address] [place] MCV (RBC) [Entitic vol] 92.9 fL Normal 80.0-100.0 [facility] Comment on above: Order Comment: Speci men Type: BLOOD SPECIMENOrdering Facility: [facility] Address: [address] [place] [address] Performed By: #### 5 7021-8 ####[facility] LABIA [id number] [place] [address] [place] Monocytes (Bld) [#/Vol] 0.49 10*3/uL Normal <0.87 [facility] Comment on above: Order Comment: Speci men Type: BLOOD SPECIMENOrdering Facility: [facility] Address: [address] [place], [place] [address] Performed By: #### 5 7021-8 ####[facility] LABIA [id number] [address] [place] Monocytes/100 WBC (Bld) 6.3 % Normal C [facility] Comment on above: Order Comment: Speci men Type: BLOOD SPECIMENOrdering Facility: [facility] Address: [address] [place], [place] [address] Performed By: #### 5 7021-8 ####[facility] LABCLIA [id number] [place] [address] [place] Neutrophils (Bld) [#/Vol] 5.40 10*3/uL Normal 1.45-7.50 [facility] Comment on above: Order Comment: Speci men Type: BLOOD SPECIMENOrdering Facility: [facility] Address: [address] [place], [place] [address] Performed By: #### 5 7021-8 ####[facility] LABCLIA [id number] [place] [address] [place] Neutrophils/100 WBC (Bld) 68.8 % Normal [facility] Comment on above: Order Comment: Speci men Type: BLOOD SPECIMENOrdering Facility: [facility] Address: [address] [place], [place] [address] Performed By: #### 5 7021-8 ####[facility] LABCLIA [id number] [place] [address] [place] Nucleated RBC (Bld) [#/Vol] 10*3/uL Normal <0.01 [facility] Comment on above: Order Comment: Speci men Type: BLOOD SPECIMENOrdering Facility: [facility] Address: [address] [place], [place] [address] Performed By: #### 5 7021-8 ####[facility] LABIA [id number] [place] [address] [place] Nucleated RBC/100 WBC (Bld) [Ratio] 0.0 /100 WBC Normal [facility] Comment on above: Order Comment: Speci men Type: BLOOD SPECIMENOrdering Facility: [facility] Address: [address] [place] [address] Performed By: #### 5 7021-8 ####[facility] LABIA [id number] [place] [address] [place] Platelet mean volume (Bld) [Entitic vol] 10.0 fL Normal 9.0-12.7 [facility] Comment on above: Order Comment: Speci men Type: BLOOD SPECIMENOrdering Facility: [facility] Address: [address] [place], [place] [address] Performed By: #### 5 7021-8 ####[facility] LABIA [id number] [place] [address] [place] Platelets (Bld) [#/Vol] 283 10*3/uL Normal 150-400 [facility] Comment on above: Order Comment: Speci men Type: BLOOD SPECIMENOrdering Facility: [facility] Address: [address] [place] [address] Performed By: #### 5 7021-8 ####[facility] S[facility]TH[facility] [id number] [address] RBC (Bld) [#/Vol] 4.92 10*6/uL Normal 3.90-5.20 [facility] Comment on above: Order Comment: Speci men Type: BLOOD SPECIMENOrdering Facility: [facility] Address: [address] [place], [place] [address] Performed By: #### 5 7021-8 ####[facility] [id number] [address] OF [facility] WBC (Bld) [#/Vol] 7.84 10*3/uL Normal 3.70-11.00 [facility] Comment on above: Order Comment: Speci men Type: BLOOD SPECIMENOrdering Facility: [facility] Address: [address] [place] [address] Performed By: #### 5 7021-8 ####[facility] [id number] [address] OF [place] Rosamaria 01-02-2022 ARIEL Telephone (HINA) KELSEA HANSEN ([id number]) 1965 F Date Time Provider Department 01/02/22 ROSETTA NICKERSON During your visit today, we recorded the following information about you: VICENTE Mckeon 01/02/2022 2:00 PM Signed Surgeon: Didi Haro MD Type of surgery: ENT: Laparoscopy diagnostic, EGD and laparoscopic appendectomy Patient scheduled for surgery on 01/03/2022. Surgery Location: [facility] I've been emailing with Dr. Nichelle Jaime, [facility] anesthesia, see below. Dr. Haro - pt Ms. Hansen is scheduled for surgery tomorrow in OR 30. You saw her on 12-23 and in your note, you recommended pulmonary optimization before surgery. She came to us PACC today with no acute change on her respiratory status. Sat 95% on RA in the setting of chronic cough, SOB. Last time home O2 usage was 6 months ago. I did not meet pt today, but you can find more details in Rosetta's notes below. Dr. Cunningham - You are the anesthesiologist assigned to OR 30 tomorrow. We can try to arrange pulmonary in house to see her before surgery, but not sure how much value it can add due to time restrains. I talked to patient and she says her last visit with Dr. Tal Joseph, [place] [facility] was approximately 6 months ago. I've placed a consult for pulmonology. CXR and COVID-19 testing pending. 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 Per patient the nurse at [place] [facility] talked to Dr. Tal Joseph who verbalized that patient is stable and optimized for surgery based on her last office visit. They would fax over a form stating this if we call [phone]. VICENTE Mckeon 01/03/2022 7:56 AM Signed See email below from Dr. Cunningham, [facility]. Fabiola Cunningham, TORI, Walter Thank you so much everyone. I reviewed her chart and believe we can safely proceed with her planned surgery Sincerely MA VICENTE Mckeon 01/03/2022 10:36 AM Signed Allergies As of Date: 01/02/2022 (No Known Allergies) Date Reviewed: 01/02/2022 Reviewed by: VICENTE Mckeon - Fully Assessed Reason for Visit: Pre-Op Update [997] Cmt: Pulmonology consult Prescriptions as of 01/03/2022 - albuterol (PROVENTIL) 2.5 mg /3 mL (0.083 %) nebulizer solution Inhale 1 ampule via nebulizer 4 times daily, as needed. - albuterol HFA (PROVENTIL HFA, VENTOLIN HFA) 90 mcg/actuation inhaler Inhale 2 (TWO) puffs EVERY 4 TO 6 HOURS - alendronate (FOSAMAX) 70 mg tablet Take by mouth. - atorvastatin (LIPITOR) 20 mg tablet Take 20 mg by mouth once daily. - FASENRA 30 mg/mL injection - [employer] ULTRA TEST test strip - calcium carbonate (CALTRATE) 600 mg calcium (1,500 mg) tab Take by mouth. - Cholecalciferol, Vitamin D3, 25 mcg (1,000 unit) cap Take by mouth. - escitalopram oxalate (LEXAPRO) 5 mg tablet Take 5 mg by mouth every morning. - inulin-chromium picolinate 2-100 gram-mcg chew Inulin/Chromium Picolinate Active 2 EA TWICE A DAY October 02, 2017 5:31pm - aw-mb-wfrs-FA-Ca carb-vit K (WOMEN'S MULTIVITAMIN) 18 mg-400 mcg- 500 mg-50 mcg tab Take by mouth. - oxyCODONE-acetaminoph en (PERCOCET) 5-325 mg tablet Take by mouth. - oxyCODONE-acetaminoph en (PERCOCET) 5-325 mg tablet TAKE 1 TABLET BY MOUTH EVERY 4 HOURS NEEDED FOR PAIN FOR 5 DAYS - CALCIUM CARBONATE/VITAMIN D3 (VITAMIN D-3 ORAL) Take by mouth. - NEBULIZER ACCESSORIES (NEBULIZER MISC) - montelukast (SINGULAIR) 10 mg tablet Take 10 mg by mouth daily at bedtime. - PANTOPRAZOLE SODIUM (PROTONIX ORAL) Take 40 mg by mouth once daily. - tiotropium bromide (SPIRIVA RESPIMAT) 2.5 mcg/actuation mist Inhale as instructed once daily as needed. - budesonide-formoterol (SYMBICORT) 160-4.5 mcg/actuation inhaler Inhale 2 Puffs as instructed twice daily. - CLOBETASOL PROPIONATE (CLOBETASOL TOPICAL) Apply to affected area as needed. - OXYGEN, HOME THERAPY, Inhale 2 L/min as instructed as needed. - CYANOCOBALAMIN, VITAMIN B-12, (VITAMIN B-12 ORAL) Take 1,500 mcg by mouth every other day. - CALCIUM CARB/VIT D3/MINERALS (CALCIUM PLUS ORAL) Take 1,200 Units by mouth once daily. - multivitamin tablet Take 1 tablet by mouth once daily. - triamcinolone acetonide 0.1 % ointment Apply small amount to affected area daily for 4 weeks, then 3 times per week. - LORazepam (ATIVAN) 0.5 mg Tab Take 1 tablet by mouth as needed. - ALBUTEROL 90 MCG/ACTUATION AEROSOL INHALER Inhale 2 Puffs as instructed once daily. Administer every ___ hours. See Epic Results Review or unit specific flow sheet documentation for RT administration information. SHAKE WELL BEFORE USING Problem List As Of Date 01/02/2022 Noted Resolved DIABETES MELLITUS ADULT ONSET [E11.9] 05/04/2006 PALPITATIONS [R00.2] 05/04/2006 INSOMNIA [G47.00] 05/04/2006 COPD [J44.9] 05/04/2006 ESOPHAGEAL REFLUX [K21.9] 05/04/2006 (more content not included)... Normal [facility] CNPN Telephone (CRUZI) KELSEA HANSEN ([id number]) 1965 F Date Time Provider Department 01/02/22 RONDA DODGE During your visit today, we recorded the following information about you: Ronda Dodge RN 01/02/2022 5:21 PM Signed BMI SPECIALTY CARE COORDINATION TELEPHONE ENCOUNTER Patient scheduled for surgery tomorrow and needed Pulm clearance. Spoke to office and an office note was supposed to be faxed to the the number provided. Have not received and Office is now closed. Paged o/c physician. Office opens early will try in am. Pt not scheduled for surgery until the PM. Patient states per pulmonary team she is stable and optimized for surgery. Will call office in am to have the information fax to number provided. States overall her breathing has much improved for the last 2 years after losing 70 pounds.... Allergies As of Date: 01/02/2022 (No Known Allergies) Date Reviewed: 01/02/2022 Reviewed by: VICENTE Mckeon - Fully Assessed Reason for Visit: Patient Update [1234] Prescriptions as of 01/02/2022 - albuterol (PROVENTIL) 2.5 mg /3 mL (0.083 %) nebulizer solution Inhale 1 ampule via nebulizer 4 times daily, as needed. - albuterol HFA (PROVENTIL HFA, VENTOLIN HFA) 90 mcg/actuation inhaler Inhale 2 (TWO) puffs EVERY 4 TO 6 HOURS - alendronate (FOSAMAX) 70 mg tablet Take by mouth. - atorvastatin (LIPITOR) 20 mg tablet Take 20 mg by mouth once daily. - FASENRA 30 mg/mL injection - PayrollHeroTOUCH ULTRA TEST test strip - calcium carbonate (CALTRATE) 600 mg calcium (1,500 mg) tab Take by mouth. - Cholecalciferol, Vitamin D3, 25 mcg (1,000 unit) cap Take by mouth. - escitalopram oxalate (LEXAPRO) 5 mg tablet Take 5 mg by mouth every morning. - inulin-chromium picolinate 2-100 gram-mcg chew Inulin/Chromium Picolinate Active 2 EA TWICE A DAY October 02, 2017 5:31pm - je-rd-xajx-FA-Ca carb-vit K (WOMEN'S MULTIVITAMIN) 18 mg-400 mcg- 500 mg-50 mcg tab Take by mouth. - oxyCODONE-acetaminoph en (PERCOCET) 5-325 mg tablet Take by mouth. - oxyCODONE-acetaminoph en (PERCOCET) 5-325 mg tablet TAKE 1 TABLET BY MOUTH EVERY 4 HOURS NEEDED FOR PAIN FOR 5 DAYS - CALCIUM CARBONATE/VITAMIN D3 (VITAMIN D-3 ORAL) Take by mouth. - NEBULIZER ACCESSORIES (NEBULIZER MISC) - montelukast (SINGULAIR) 10 mg tablet Take 10 mg by mouth daily at bedtime. - PANTOPRAZOLE SODIUM (PROTONIX ORAL) Take 40 mg by mouth once daily. - tiotropium bromide (SPIRIVA RESPIMAT) 2.5 mcg/actuation mist Inhale as instructed once daily as needed. - budesonide-formoterol (SYMBICORT) 160-4.5 mcg/actuation inhaler Inhale 2 Puffs as instructed twice daily. - CLOBETASOL PROPIONATE (CLOBETASOL TOPICAL) Apply to affected area as needed. - OXYGEN, HOME THERAPY, Inhale 2 L/min as instructed as needed. - CYANOCOBALAMIN, VITAMIN B-12, (VITAMIN B-12 ORAL) Take 1,500 mcg by mouth every other day. - CALCIUM CARB/VIT D3/MINERALS (CALCIUM PLUS ORAL) Take 1,200 Units by mouth once daily. - multivitamin tablet Take 1 tablet by mouth once daily. - triamcinolone acetonide 0.1 % ointment Apply small amount to affected area daily for 4 weeks, then 3 times per week. - LORazepam (ATIVAN) 0.5 mg Tab Take 1 tablet by mouth as needed. - ALBUTEROL 90 MCG/ACTUATION AEROSOL INHALER Inhale 2 Puffs as instructed once daily. Administer every ___ hours. See Epic Results Review or unit specific flow sheet documentation for RT administration information. 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 Address: [address] [place] [address] Performed By: #### 2 4323-8 ####[facility] LABCLIA [id number] [place] [address] [place] ALP [Catalytic activity/Vol] 65 U/L Normal 34-123 [facility] Comment on above: Order Comment: Speci men Type: BLOOD SPECIMENOrdering Facility: [facility] Address: [address] [place] [address] Performed By: #### 2 4323-8 ####[facility] LABCLIA [id number] [place] [address] [place] ALT [Catalytic activity/Vol] 29 U/L Normal 7-38 [facility] Comment on above: Order Comment: Speci men Type: BLOOD SPECIMENOrdering Facility: [facility] Address: [address] [place] [address] Performed By: #### 2 4323-8 ####[facility] LABCLIA [id number] [place] [address] [place] Anion gap [Moles/Vol] 12 mmol/L Normal 9-18 [facility] Comment on above: Order Comment: Speci men Type: BLOOD SPECIMENOrdering Facility: [facility] Address: [address] [place] [address] Performed By: #### 2 4323-8 ####[facility] LABCLIA [id number] [place] [address] [place] AST [Catalytic activity/Vol] 28 U/L Normal 13-35 [facility] Comment on above: Order Comment: Speci men Type: BLOOD SPECIMENOrdering Facility: [facility] Address: [address] [place] [address] Performed By: #### 2 4323-8 ####[facility] LABCLIA [id number] [place] [address] [place] Bilirubin [Mass/Vol] 0.6 mg/dL Normal 0.2-1.3 [facility] Comment on above: Order Comment: Speci men Type: BLOOD SPECIMENOrdering Facility: [facility] Address: [address] [place] [address] Performed By: #### 2 4323-8 ####[facility] LABCLIA [id number] [place] [address] [place] Calcium [Mass/Vol] 9.8 mg/dL Normal 8.5-10.2 [facility] Comment on above: Order Comment: Speci men Type: BLOOD SPECIMENOrdering Facility: [facility] Address: [address] [place] [address] Performed By: #### 2 4323-8 ####[facility] LABCLIA [id number] [place] [address] [place] Chloride [Moles/Vol] 106 mmol/L High 97-105 [facility] Comment on above: Order Comment: Speci men Type: BLOOD SPECIMENOrdering Facility: [facility] Address: [address] [place], [place] [id number] Performed By: #### 2 4323-8 ####[facility] LABCLIA [id number] [place] [address] [place] CO2 [Moles/Vol] 24 mmol/L Normal 22-30 [facility] Comment on above: Order Comment: Speci men Type: BLOOD SPECIMENOrdering Facility: [facility] Address: [address] [place] [address] Performed By: #### 2 4323-8 ####[facility] LABIA [id number] [address] STATES OF [facility] Creatinine [Mass/Vol] 0.88 mg/dL Normal 0.58-0.96 [facility] Comment on above: Order Comment: Speci men Type: BLOOD SPECIMENOrdering Facility: [facility] Address: [address] [place] [address] Performed By: #### 2 4323-8 ####[facility] [id number] [address] STATES [place] [facility] ESTIMATED GLOMERULAR FILTRATION RATE 77 mL/min/1.73m??? Normal >=60 [facility] Comment on above: Order Comment: Speci men Type: BLOOD SPECIMENOrdering Facility: [facility] Address: [address] [place] [address] Result Comment: Leona mated Glomerular Filtration Rate (eGFR) is calculated using the 2020 CKD-EPI creatinine equation. This equation utilizes serum creatinine, sex, and age as parameters. The creatinine assay has traceable calibration to isotope dilution-mass spectrometry. Refer to KDIGO guidelines for clinical interpretation. In patients with unstable renal function, e.g. those with acute kidney injury, the eGFR may not accurately reflect actual GFR. Performed By: #### 2 4323-8 ####[facility] LABIA [id number] [address] [place] Glucose [Mass/Vol] 93 mg/dL Normal 74-99 [facility] Comment on above: Order Comment: Speci men Type: BLOOD SPECIMENOrdering Facility: [facility] Address: [address] [place] [address] Result Comment: The [place] Diabetes Association (ADA) provides guidance for cutoff values for fasting glucose and random glucose. The ADA defines fasting as no caloric intake for at least 8 hours. Fasting plasma glucose results between 100 to 125 mg/dL indicate increased risk for diabetes (prediabetes). Fasting plasma glucose results greater than or equal to 126 mg/dL meet the criteria for diagnosis of diabetes. In the absence of unequivocal hyperglycemia, results should be confirmed by repeat testing. In a patient with classic symptoms of hyperglycemia or hyperglycemic crisis, random plasma glucose results greater than or equal to 200 mg/dL meet the criteria for diagnosis of diabetes. Reference: Standards of Medical Care in Diabetes 2016, [place] Diabetes Association. Diabetes Care. 2016.39(Suppl 1). Performed By: #### 2 4323-8 ####[facility] LABCLIA [id number] [place] [address] [place] Potassium [Moles/Vol] 4.4 mmol/L Normal 3.7-5.1 [facility] Comment on above: Order Comment: Speci men Type: BLOOD SPECIMENOrdering Facility: [facility] Address: [address] [place] [address] Performed By: #### 2 4323-8 ####[facility] LABIA [id number] [place] [address] [place] Protein [Mass/Vol] 6.8 g/dL Normal 6.3-8.0 [facility] Comment on above: Order Comment: Speci men Type: BLOOD SPECIMENOrdering Facility: [facility] Address: [address] [place] [address] Performed By: #### 2 4323-8 ####[facility] LABCLIA [id number] [place] [address] [place] Sodium [Moles/Vol] 142 mmol/L Normal 136-144 [facility] Comment on above: Order Comment: Speci men Type: BLOOD SPECIMENOrdering Facility: [facility] Address: [address] [place] [address] Performed By: #### 2 4323-8 ####[facility] LABIA [id number] [place] [address] [place] Urea nitrogen [Mass/Vol] 16 mg/dL Normal 7-21 [facility] Comment on above: Order Comment: Speci men Type: BLOOD SPECIMENOrdering Facility: [facility] Address: [address] [place] [address] Performed By: #### 2 4323-8 ####[facility] LABCLIA [id number] [id number] [id number] [facility] [place] HISTORY PHYSICALon 2 HISTORY PHYSICAL HNO ID: [id number] Author: VICENTE Mckeon Service: ? 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 Surgery Location: [facility] Diagnosis: Pre-op evaluation (primary encounter diagnosis) Malrotation of intestine Preoperative examination Sore throat Cough, unspecified type Bradycardia Gastroesophageal reflux disease, unspecified whether esophagitis present Yahaira (obstructive sleep apnea) Hyperlipidemia, unspecified hyperlipidemia type Anxiety BP 115/59 Pulse 56 Temp (Src) 98.3 (Temporal) Resp 16 Ht 5' 6.378 (1.69m) Wt 166 lb 4.8 oz (75.4kg) SpO2 95% LMP 06/09/2009 BMI 26.54 kg/(m2). Endorses chronic SOB not associated with rest or exertion, recently improving. Endorses lifestyle changes including weight loss and walking for exercise. Has oxygen at home, last use of oxygen 6 months ago 1 L. Her home O2 saturation is 96%. Denies any recent exacerbations. Has a diagnosis of asthma and COPD. Follows with Conor Centeno. Patient denies any chest pain. Able to ambulate up a flight of stairs without difficulty. For the past 2 days patient endorses a sore throat. She does have allergies and chronic cough. Denies any other symptoms of fever, runny nose or congestion. HANDP completed: 12/23/2021 Dr. Didi Haro, general surgery Social History Tobacco Use - Smoking status: Former Smoker Packs/day: 2.00 Years: 22.00 Pack years: 44.00 Types: Cigarettes Quit date: 09/23/2002 Years since quittin.2 - Smokeless tobacco: Never Used Vaping Use - Vaping Use: Never used Substance Use Topics - Alcohol use: Yes Alcohol/week: 9.0 standard drinks Types: 9 Shots of liquor per week Comment: 9-12 shots of whiskey on the weekends - Drug use: No Comment: Occasionally CBD gummies but not regularly albuterol (PROVENTIL) 2.5 mg /3 mL (0.083 %) nebulizer solution Inhale 1 ampule via nebulizer 4 times daily, as needed. albuterol HFA (PROVENTIL HFA, VENTOLIN HFA) 90 mcg/actuation inhaler Inhale 2 (TWO) puffs EVERY 4 TO 6 HOURS alendronate (FOSAMAX) 70 mg tablet Take by mouth. atorvastatin (LIPITOR) 20 mg tablet Take 20 mg by mouth once daily. FASENRA 30 mg/mL injection ONETOUCH ULTRA TEST test strip calcium carbonate (CALTRATE) 600 mg calcium (1,500 mg) tab Take by mouth. Cholecalciferol, Vitamin D3, 25 mcg (1,000 unit) cap Take by mouth. escitalopram oxalate (LEXAPRO) 5 mg tablet Take 5 mg by mouth every morning. inulin-chromium picolinate 2-100 gram-mcg chew Inulin/Chromium Picolinate Active 2 EA TWICE A DAY October 02, 2017 5:31pm CALCIUM CARBONATE/VITAMIN D3 (VITAMIN D-3 ORAL) Take by mouth. NEBULIZER ACCESSORIES (NEBULIZER MISC) montelukast (SINGULAIR) 10 mg tablet Take 10 mg by mouth daily at bedtime. PANTOPRAZOLE SODIUM (PROTONIX ORAL) Take 40 mg by mouth once daily. tiotropium bromide (SPIRIVA RESPIMAT) 2.5 mcg/actuation mist Inhale as instructed once daily as needed. budesonide-formoterol (SYMBICORT) 160-4.5 mcg/actuation inhaler Inhale 2 Puffs as instructed twice daily. CLOBETASOL PROPIONATE (CLOBETASOL TOPICAL) Apply to affected area as needed. OXYGEN, HOME THERAPY, Inhale 2 L/min as instructed as needed. CYANOCOBALAMIN, VITAMIN B-12, (VITAMIN B-12 ORAL) Take 1,500 mcg by mouth every other day. CALCIUM CARB/VIT D3/MINERALS (CALCIUM PLUS ORAL) Take 1,200 Units by mouth once daily. multivitamin tablet Take 1 tablet by mouth once daily. triamcinolone acetonide 0.1 % ointment Apply small amount to affected area daily for 4 weeks, then 3 times per week. LORazepam (ATIVAN) 0.5 mg Tab Take 1 tablet by mouth as needed. ALBUTEROL 90 MCG/ACTUATION AEROSOL INHALER Inhale 2 Puffs as instructed once daily. Administer every ___ hours. See Epic Results Review or unit specific flow sheet documentation for RT administration information. SHAKE WELL BEFORE USING zv-ro-jxdv-FA-Ca carb-vit K (WOMEN'S MULTIVITAMIN) 18 mg-400 mcg- 500 mg-50 mcg tab Take by mouth. oxyCODONE-acetaminoph en (PERCOCET) 5-325 mg tablet Take by mouth. oxyCODONE-acetaminoph en (PERCOCET) 5-325 mg tablet TAKE 1 TABLET BY MOUTH EVERY 4 HOURS NEEDED FOR PAIN FOR 5 DAYS ALLERGIES No Known Allergies COVID VACCINATION STATUS: Fully vaccinated PHYSICAL EXAMINATION: Alert and oriented, No acute distress Lungs clear to auscultation. No wheezing, rhonchi, rales. RRR without murmur, gallop, or rubs. No ectopy Laboratory and Testing: Lab Value Units Date High Low HB No results within date range. HCT No results within date range. WBC No results within date range. PLT No results within date range. NA No results within date range. K No results within date range. GLUC No results within date range. BUN No results within date range. CREAT No results (more content not included)... Normal [facility] TYPE AND SCREEN,30 DAYon ABO O Normal [facility] Comment on above: Order Comment: Speci men Type: BLOOD SPECIMENOrdering Facility: [facility] Address: [address] [place], [place] [id number] Performed By: #### T SCR30 ####[facility] MA[facility] BLOOD BANKCLIA [id number] [address] [place] HISTORICAL AB SCR STATUS Negative Normal [facility] Comment on above: Order Comment: Speci men Type: BLOOD SPECIMENOrdering Facility: [facility] Address: [address] [place] [address] Performed By: #### T SCR30 ####[facility] MAIN BLOOD BANKCLIA [id number] [address] Rh Nom (Bld) Positive Normal [facility] Comment on above: Order Comment: Speci men Type: BLOOD SPECIMENOrdering Facility: [facility] Address: [address] [place] [address] Performed By: #### T SCR30 ####[facility] MAIN BLOOD BANKCLIA [id number] [address] OF [facility] XR CHEST 2V FRONTAL/LATon XR CHEST 2V FRONTAL/LAT * * *Final Repor t* * * DATE OF EXAM: Jan 02 2022 1:09PM [id number] - XR CHEST 2V FRONTAL/LAT / PROCEDURE REASON: multiple diagnoses * * * * Physician Interpretation * * * * EXAMINATION: CHEST RADIOGRAPH (2 VIEW FRONTAL and LATERAL) CLINICAL HISTORY: Malrotation of intestine Preoperative examination MQ: [id number] EXAM DATE/TIME: 01/02/2022 1:09 PM COMPARISON: 01/03/2012 RESULT: Lines, tubes, and devices: None. Lungs and pleura: No pneumothorax or pleural effusion. Emphysema. Streaky opacities in the right lower lung, likely some atelectasis. Cardiomediastinal silhouette: Normal cardiomediastinal silhouette. Bones and soft tissues: Unremarkable. Multiple dilated bowel loops in the upper abdomen. IMPRESSION: Similar streaky opacities in the right lower lung, likely some atelectasis or scarring. Multiple gas-filled dilated bowel loops in the upper abdomen. Staff Developer: PSCB Transcribe Date/Time: Jan 02 2022 1:34P Dictated by : BRI ROSAS MD This examination was interpreted and the report reviewed and electronically signed by: BRI ROSAS MD on Jan 02 2022 1:39PM EST [id number] Normal [facility] XR UPPER GI SINGLE CONTRASTo n 12-29-2021 XR UPPER GI SINGLE CONTRAST * * *Final Report* * * DATE OF EXAM: Dec 29 2021 9:46AM [id number] - XR UPPER GI SINGLE CONTRAST / PROCEDURE REASON: Malrotation of intestine * * * * Physician Interpretation * * * * EXAM TITLE: XR UPPER GI SINGLE CONTRAST DATE: 12/29/2021 COMPARISON: Outside CT study 11/28/2021 CLINICAL INDICATION/HISTORY: Abdominal pain, malrotation TECHNIQUE: Double contrast upper GI study performed by a radiology technologist. 1 minute and 11 seconds of fluoroscopy time was utilized. 30 images are submitted for interpretation. FINDINGS: Mildly patulous distal esophagus without stricture or mass. There is organoaxial malrotation of the stomach with the greater curvature residing cephalad to the lesser curvature. There is no obstruction of contrast from the stomach. No gastric mass or ulceration. Visualized opacified small bowel loops appear normal. IMPRESSION: Organoaxial malrotation the stomach without obstruction. Otherwise, unremarkable study. Staff Developer[facility] Transcribe Date/Time: Dec 29 2021 10:10A Dictated by : JEFF LUCERO MD This examination was interpreted and the report reviewed and electronically signed by: JEFF LUCERO MD on Dec 29 2021 10:22AM EST [id number] N Normal [facility] CNOVon 12-23-2021 CNOV Office Visit (GENBMI ) KELSEA HANSEN ([id number]) 1965 F Date Time Provider Department 12/23/21 9:50 AM DIDI HARO GENBMI During your visit today, we recorded the following information about you: Pulse Blood pressure Weight Height 76/minute 118/74 75.3 kg 1.656 m Joe Kerr DO 12/23/2021 11:29 AM Addendum NEW PATIENT CONSULTATION HISTORY AND PHYSICAL Date: December 23, 2021 Time: 9:37 AM Name: Kelsea BURGERN: [id number] This is a 56 year old female with morbid obesity (Body mass index is 27.47 kg/m?.) who presents to clinic for consideration of bariatric surgery. COPD, DM (5.2 A1C diet controlled), HLD, GERD, migraine. Pt was recently admitted to [facility] on 11/28/21 due to 10/10 abd pain. Pain was squeezing in nature and it was located around the epigastric region that wraps her torso. Pain was band like distribution. Nothing made it worse or better. Pt also had nausea along with the pain but no associated symptoms. Work up revealed malrotation and possible sigmoid volvulus, thus, underwent urgent decompressive colonoscopy. But decompressive colonoscopy did not reveal any volvulus which was completed by Dr. Zavaleta. She is here today to discuss about surgical option of malrotation Today she has no abd pain or cramping. Pt has a hx of chronic abd pain once a week since child but she has been living with pain bc she has high tolerance to pain. Pt denies any trigger associated with the pain. Pt reports she has consistent BM occasional constipation but mostly easy to move bowel. Pt has 1 BM a day. Hx of colonoscopy in September 2021 which was unremarkable. She has a hx of GERD on protonix has been managing her reflux well. No prior hx of EGD Pt reports that she has been counting calories (9133-6962/day), high protein, high fiber diet, increased exercise and lost 70lbs in past 1 year which was intentional. Pt reports that she has a remote hx of TIA. She had a hx of tingling of left hand and numbness of face of left side which was consistent with migraine but these symptoms did not resolve for 2 days. She went to ED for work up which was unremarkable, and was referred to neurology. Work up revealed ulnar nerve compression, and not likely from TIA. Past surgical hx of appendectomy, carpel tunnel surgery. Father has a hx of CVA, denies any family hx of CORS CA, IBS, IBD, malrotation. No prior hospitalization as a child. PAST MEDICAL HISTORY: PAST MEDICAL HISTORY Diagnosis Date - Abnormal glandular Papanicolaou smear of cervix 1986 Abn. Pap smear (cervix), S/P several treatments of cryosurgery - COPD (chronic obstructive pulmonary disease) (HCC) - Diabetes mellitus (HCC) diet controlled - Diabetes mellitus of mother, complicating , childbirth, or the puerperium, unspecified as to episode of care(518.00) 1995 - GERD (gastroesophageal reflux disease) not any meds - Migraine 1970 - Other emphysema (HCC) PFTs last were 1 yr ago external, on albuterol inhaler currently w/c she uses 2-3 x month - Other psoriasis 1976 - PMH - PAST MEDICAL HISTORY OF 1992 LAYNE DISEASE OF V[place]VA - Pneumonia twice in 2016 - Rosacea 1998 PAST SURGICAL HISTORY: PAST SURGICAL HISTORY Procedure Laterality Date - APPENDECTOMY 06/25/1981 - COLONOSCOPY SCREENING 11/28/2021 - CRYOSURGERY 02/24/1980 multiple treatments - PAST SURGICAL HISTORY OF 06/25/1992 PARTIAL VULVECTOMY - PAST SURGICAL HISTORY OF removal of a cyst on her clitoris - has had this 4 times in her life - PAST SURGICAL HISTORY OF Left 10/2020 elbow - VULVECTOMY SIMPLE PARTIAL 01/05/2012 Partial simple posterior vulvectomy with bilateral rhomboid transposition flaps for closure. FAMILY HISTORY: FAMILY HISTORY Problem Relation Age of Onset - Stroke Father X3 - Diabetes Father - Cancer Father lung cancer, smoker - other (ALZHEIMERS DISEASE) Father - other (CHF) Father - Cancer Mother uterine cancer in her late 60's - Diabetes Mother - Heart Mother - other (MIGRAINE HEADACHES) Mother - Cancer Paternal Aunt liver cancer - Diabetes Brother adult onset SOCIAL HISTORY: Social History Tobacco Use - Smoking status: Former Smoker Packs/day: 2.00 Years: 22.00 Pack years: 44.00 Types: Cigarettes Quit date: 09/23/2002 Years since quittin.2 - Smokeless tobacco: Never Used Vaping Use - Vaping Use: Never used Substance Use Topics - Alcohol use: Yes Comment: Occasionally - Drug use: No MEDICATIONS: Prior to Admission Medications: albuterol (PROVENTIL) 2.5 mg /3 mL (0.083 %) nebulizer solution Inhale 1 ampule via nebulizer 4 times daily, as needed. albuterol HFA (PROVENTIL HFA, VENTOLIN HFA) 90 mcg/actuation inhaler Inhale 2 (TWO) puffs EVERY 4 TO 6 HOURS alendronate (FOSAMAX) 70 mg tablet Take by mouth. aspirin 81 mg chewable tablet Take by mouth. atorvastatin (L (more content not included)... Normal [facility] CNOVon 12-13-2021 CNOV Office Visit (GENSWS ) KELSEA HANSEN ([id number]) 1965 F Date Time Provider Department 12/13/21 2:40 PM BHARGAV ZAVALETA GENJOHNSONS During your visit today, we recorded the following information about you: Temperature Pulse Blood pressure Weight 97.3 degrees 66/minute 94/58 74.8 kg Height 1.676 m Rupal BaronBETINA 12/13/2021 2:46 PM Signed REVIEW OF SYSTEMS: General: The patient denies fatigue, denies weight loss, denies weight gain, denies feeling hot, and denies feelings of cold. Eyes: The patient denies glaucoma, denies eye injury/surgery, wears glasses or contacts. Ear/Nose/Throat: The patient notes allergies, denies hayfever, denies ear infections, and denies bloody noses. Cardiovascular: The patient notes chest pain, denies heart disease, denies high blood pressure,denies cardiac stent, denies prior heart attack, denies irregular heart beat, denies high cholesterol, denies poor circulation, denies heart failure, other cardiac issues, denies claudication, denies cold feet, denies peripheral arterial stent. Respiratory: The patient denies tuberculosis, notes pneumonia, notes frequent cough, denies pulmonary embolism, notes shortness of breath, and denies coughing up blood, notes other lung problems. Gastrointestinal: The patient notes difficulty swallowing, notes acid reflux, denies ulcers, denies vomiting, denies jaundice/hepatitis, denies gallbladder problems, denies black or tarry stools, denies hemorrhoids, notes bleeding from rectum, denies diverticulitis, denies constipation, denies diarrhea, denies loss of stool control, and denies hernias. Kidney/Bladder: The patient denies kidney stones, notes urine infections, and denies bloody urine. Skin: The patient notes a history of skin cancer, denies bleeding/changing moles, and denies a history of skin rash. Neurologic: The patient denies a history of epilepsy/convulsions, notes headaches, denies head/spinal injuries, and denies stroke/TIA. Psychiatric: The patient notes psychiatric medications, denies depression, and denies voices, denies substance abuse. Endocrine: The patient denies thyroid disorders, notes diabetes, and denies hormonal problems. Hematologic: The patient denies a history of bruising, denies bleeding, and denies anemia, denies blood clots. Infections: The patient notes a history of measles and mumps, denies rheumatic fever, and notes sexually transmitted diseases. Musculoskeletal: The patient denies back pain/injury, denies back problems, denies sciatica, notes knee/foot trouble, denies arthritis, or denies gout. When was patient's last Mammogram screening? 2017 Last Colonoscopy: 11/2021 BETINA Winter III, MD 12/13/2021 3:17 PM Signed HISTORY AND PHYSICAL Kelsea Tyrone 1965 REFERRING PHYSICIAN: Bhargav Zavaleta MD CHIEF COMPLAINT: Follow Up (colonoscopy) HPI: The patient is a 55 year old female with a complaint of follow-up from a hospitalization at [facility] on 11/28/2021.. She presented with centralized abdominal pain underwent a CAT scan which was read as malrotation of the intestines consistent with a sigmoid volvulus patient underwent a colonoscopy where the patient was noted not to have any signs of a sigmoid volvulus. Her condition gradually improved. She still occasionally has some abdominal discomfort. At the time that she presented I actually was a little bit more hesitant in the diagnosis of a sigmoid volvulus and in looking at the CAT scan I am more convinced now that she probably had malrotation of the small intestines. Since she improved and since she has some significant COPD I did not think it was urgent that I take her to surgery and felt that it would be a better idea to get her up to the main campus to have a possible exploratory laparoscopy and lysis of adhesions. The patient is being seen by me today at the request of Dr. 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 PAST MEDICAL HISTORY Diagnosis Date - Abnormal glandular Papanicolaou smear of cervix 1986 Abn. Pap smear (cervix), S/P several treatments of cryosurgery - COPD (chronic obstructive pulmonary disease) ([facility]) - Diabetes mellitus ([facility]) diet controlled - Diabetes mellitus of mother, complicating , childbirth, or the puerperium, unspecified as to episode of care(648.00) 1995 - GERD (gastroesophageal reflux disease) not any meds - Migraine 1969 - Other emphysema ([facility]) PFTs last were 1 yr ago external, on albuterol inhaler currently w/c she uses 2-3 x month - Other psoriasis 1976 - PMH - PAST MEDICAL HISTORY OF 1992 LAYNE DISEASE OF [place] - Pneumonia twice in 2016 - Rosacea 1998 PAST SURGICAL HISTORY Procedure Laterality Date - APPENDECTOMY 06/25/1981 - (more content not included)... Normal [facility] Absolute lymphocyte counton 11-29-2021 Lymphocytes Auto (Unsp spec) [#/Vol] 1.67 10*3/uL 0.83-4.51 [facility] Work Phone: Basophil percentageon 2021 Basophils/100 WBC (Bld) 0.2 % 0-1 [facility] Work Phone: Chloride [Moles/Vol] 110 mmol/L 98-107 [facility] Work Phone: Eosinophils/100 WBC (Bld) 0.0 % 0-5 [facility] Work Phone: Glucose [Mass/Vol] 86 mg/dL 74-106 [facility] Work Phone: Neutrophils (Bld) [#/Vol] 3.2 10*3/uL 2.0-7.7 [facility] Work Phone: Neutrophils/100 WBC (Bld) 59.8 % 47-70 [facility] Work Phone: Potassium [Moles/Vol] 3.7 mmol/L 3.5-5.1 [facility] Work Phone: Sodium [Moles/Vol] 141 mmol/L 136-145 [facility] Work Phone: WBC (Bld) [#/Vol] 5.3 10*3/uL 4.4-11.0 [facility] Work Phone: Blood erythrocytes count (nu mber/volume)on 11-29-2021 RBC (Bld) [#/Vol] 4.22 10*6/uL 4.2-5.4 [facility] Work Phone: Blood hemoglobin measurement (mass/volume)on 11-29-2021 Hemoglobin (Bld) [Mass/Vol] 12.5 g/dL 12.0-15.0 [facility] Work Phone: Blood lymphocytes/100 leukoc yteson 11-29-2021 Lymphocytes/100 WBC (Bld) 31.5 % 19-41 [facility] Work Phone: [phone] Blood monocytes/100 leukocyt eson 11-29-2021 Monocytes/100 WBC (Bld) 8.3 % 0-10 [facility] Work Phone: Blood platelet mean volumeon 11-29-2021 Platelet mean volume (Bld) [Entitic vol] 9.4 fL 6.2-12.0 [facility] Work Phone: Determination of erythrocyte mean corpuscular volume (MCV)on 11-29-2021 MCV (RBC) [Entitic vol] 94.3 fL 81-99 [facility] Work Phone: Hematocrit Auto (Bld) [Volum e fraction]on 11-29-2021 Hematocrit (Bld) [Volume fraction] 39.8 % 37-47 [facility] Work Phone: Laboratory - Chemistry and C hemistry - challengeon 11-29-2021 CO2 [Moles/Vol] 26.0 mmol/L 21.0-32.0 [facility] Work Phone: Urea nitrogen/Creatinine [Mass ratio] 18.9 mg/mg 10-20 [facility] Work Phone: Laboratory - Hematology and Cell countson 11-29-2021 Erythrocyte distribution width (RBC) [Entitic vol] 45.4 fL 35.1-43.9 [facility] Work Phone: [phone] Erythrocyte distribution width (RBC) [Ratio] 13.2 % 11.6-14.6 [facility] Work Phone: [phone] Immature granulocytes/100 WBC (Bld) 0.200 % 0.0-0.9 [facility] Work Phone: [phone] Comment on above: IG% - Immature Granu locytes (promyelocytes, myelocytes and metamyelocytes) > 1% indicates that a LEFT SHIFT is Present. MCH (RBC) [Entitic mass] 29.6 pg 27.0-32.0 [facility] Work Phone: [phone] Nucleated RBC/100 WBC (Bld) [Ratio] 0 % 0-5 [facility] Work Phone: [phone] MCHC Auto (RBC) [Mass/Vol]on 11-29-2021 MCHC (RBC) [Mass/Vol] 31.4 g/dL 32-36 [facility] Work Phone: [phone] Comment on above: Delta: 33.2 on 11/28-1230 No Panel Informationon 11-29 Estimated Creatinine Clearance Calc 73.51 ml/min [facility] Work Phone: [phone] Estimated GFR (MDRD) Amer 96 mL/min >60 [facility] Work Phone: [phone] Comment on above: GFR Calc Estimated GFR (MDRD) Non-Af Amer 79 mL/min >60 [facility] Work Phone: [phone] Comment on above: Non- GFR Calc Platelets bldon 11-29-2021 Platelets (Bld) [#/Vol] 244 10*3/uL 150-450 [facility] Work Phone: [phone] Serum or plasma calcium jono urement (mass/volume)on 11-29-2021 Calcium [Mass/Vol] 8.5 mg/dL 8.5-10.1 [facility] Work Phone: [phone] Serum or plasma creatinine m easurement (mass/volume)on 11-29-2021 Creatinine [Mass/Vol] 0.80 mg/dL 0.55-1.02 [facility]: Comment on above: The validity of the calculated GFR & GFRAA in patients over 70 years has not been determined. Clinical correlation is essential. Serum or plasma urea nitroge n measurement (mass/volume)on 11-29-2021 Urea nitrogen [Mass/Vol] 15 mg/dL 7-18 [facility] Work Phone: Thin prep Papanicolaou smear with manual screeningon 11-29-2021 Thin prep Papanicolaou smear with manual screening 5 5-15 [facility] Work Phone: Absolute lymphocyte counton 11-28-2021 Lymphocytes Auto (Unsp spec) [#/Vol] 1.54 10*3/uL 0.83-4.51 [facility] Work Phone: Basophil percentageon 2021 Basophil percentage 0 SEEN /hpf [facility] Work Phone: Lactate [Moles/Vol] 0.6 mmol/L 0.4-2.0 [facility] Work Phone: Basophils/100 WBC (Bld) 0.1 % 0-1 [facility] Work Phone: Bilirubin [Mass/Vol] 0.50 mg/dL 0.20-1.00 [facility] Work Phone: Comment on above: For patients on eltr ombopag therapy, use of Dimension [place] TBIL is not recommended. Chloride [Moles/Vol] 109 mmol/L 98-107 [facility] Work Phone: Eosinophils/100 WBC (Bld) 0.0 % 0-5 [facility] Work Phone: Glucose [Mass/Vol] 116 mg/dL 74-106 [facility] Work Phone: Comment on above: Fasting Glucose resu lt from 100 to 125 mg/dL suggests IMPAIRED HOMEOSTASIS per A.D.A. criteria. Neutrophils (Bld) [#/Vol] 5.8 10*3/uL 2.0-7.7 [facility] Work Phone: Neutrophils/100 WBC (Bld) 74.6 % 47-70 [facility] Work Phone: Potassium [Moles/Vol] 4.2 mmol/L 3.5-5.1 [facility] Work [facility]: Protein [Mass/Vol] 7.3 g/dL 6.4-8.2 [facility] Work Phone: Sodium [Moles/Vol] 139 mmol/L 136-145 [facility] Work Phone: WBC (Bld) [#/Vol] 7.7 10*3/uL 4.4-11.0 [facility] Work Phone: Bilirubin Test strip Ql (U)o n 11-28-2021 Bilirubin Ql (U) Negative Negative [facility] Work Phone: Blood erythrocytes count (nu mber/volume)on 11-28-2021 RBC (Bld) [#/Vol] 4.82 10*6/uL 4.2-5.4 [facility] Work Phone: Blood hemoglobin measurement (mass/volume)on 11-28-2021 Hemoglobin (Bld) [Mass/Vol] 14.8 g/dL 12.0-15.0 [facility] Work Phone: Blood lymphocytes/100 leukoc yteson 11-28-2021 Lymphocytes/100 WBC (Bld) 19.9 % 19-41 [facility] Work Phone: Blood monocytes/100 leukocyt eson 11-28-2021 Monocytes/100 WBC (Bld) 4.9 % 0-10 [facility] Work Phone: Blood platelet mean volumeon 11-28-2021 Platelet mean volume (Bld) [Entitic vol] 9.2 fL 6.2-12.0 [facility] Work Phone: Determination of erythrocyte mean corpuscular volume (MCV)on 11-28-2021 MCV (RBC) [Entitic vol] 92.5 fL 81-99 [facility] Work Phone: [phone] Direct bilirubinon Bilirubin.direct [Mass/Vol] 0.18 mg/dL 0.00-0.30 [facility] Work Phone: [phone] Hematocrit Auto (Bld) [Volum e fraction]on 11-28-2021 Hematocrit (Bld) [Volume fraction] 44.6 % 37-47 [facility] Work Phone: [phone] Ketones Test strip Ql (U)on 11-28-2021 Ketones Ql (U) Negative Negative [facility] Work Phone: [phone] Laboratory - Chemistry and C hemistry - challengeon 11-28-2021 ALP [Catalytic activity/Vol] 63 U/L 45-117 [facility] Work Phone: [phone] ALT [Catalytic activity/Vol] 41 U/L 13-56 [facility] Work Phone: [phone] CO2 [Moles/Vol] 25.0 mmol/L 21.0-32.0 [facility] Work Phone: [phone] Globulin (S) [Mass/Vol] 3.2 g/dL 2.2-4.2 [facility] Work Phone: [phone] Lipase [Catalytic activity/Vol] 135 U/L 73-393 [facility] Work Phone: [phone] Urea nitrogen/Creatinine [Mass ratio] 25.6 mg/mg 10-20 [facility] Work Phone: [phone] Laboratory - Hematology and Cell countson 11-28-2021 Erythrocyte distribution width (RBC) [Entitic vol] 43.8 fL 35.1-43.9 [facility] Work Phone: [phone] Erythrocyte distribution width (RBC) [Ratio] 12.8 % 11.6-14.6 [facility] Work Phone: [phone] Immature granulocytes/100 WBC (Bld) 0.500 % 0.0-0.9 [facility] Work Phone: Comment on above: IG% - Immature Granu locytes (promyelocytes, myelocytes and metamyelocytes) > 1% indicates that a LEFT SHIFT is Present. MCH (RBC) [Entitic mass] 30.7 pg 27.0-32.0 [facility] Work Phone: Nucleated RBC/100 WBC (Bld) [Ratio] 0 % 0-5 [facility] Work Phone: MCHC Auto (RBC) [Mass/Vol]on 11-28-2021 MCHC (RBC) [Mass/Vol] 33.2 g/dL 32-36 [facility] Work Phone: Mucus LM Ql (Urine sed)on Mucus Ql (Urine sed) 0 SEEN /hpf [facility] Work Phone: Nitrite Test strip Ql (U)on 11-28-2021 Nitrite Ql (U) Negative Negative [facility] Work Phone: [phone] No Panel Informationon 11-28 Estimated Creatinine Clearance Calc 65.34 ml/min [facility] Work Phone: Estimated GFR (MDRD) Amer 83 mL/min >60 [facility] Work Phone: Comment on above: GFR Calc Estimated GFR (MDRD) Non-Af Amer 69 mL/min >60 [facility] Work Phone: [phone] Comment on above: Non- GFR Calc Platelets bldon 11-28-2021 Platelets (Bld) [#/Vol] 341 10*3/uL 150-450 [facility] Work Phone: Protein Test strip Ql (U)on 11-28-2021 Protein Ql (U) Negative Negative [facility] Work Phone: [phone] Serum or plasma albumin jono urement (mass/volume)on 11-28-2021 Albumin [Mass/Vol] 4.1 g/dL 3.2-5.0 [facility] Work Phone: [phone] Serum or plasma calcium jono urement (mass/volume)on 11-28-2021 Calcium [Mass/Vol] 9.9 mg/dL 8.5-10.1 [facility] Work Phone: Serum or plasma creatinine m easurement (mass/volume)on 11-28-2021 Creatinine [Mass/Vol] 0.90 mg/dL 0.55-1.02 [facility] Work Phone: Comment on above: The validity of the calculated GFR & GFRAA in patients over 70 years has not been determined. Clinical correlation is essential. Serum or plasma urea nitroge n measurement (mass/volume)on 11-28-2021 Urea nitrogen [Mass/Vol] 23 mg/dL 7-18 [facility] Work Phone: Squamous epithelial cells de tection in urine sediment by light microscopyon 11-28-2021 Epithelial cells.squamous LM Ql (Urine sed) 0 SEEN /hpf [facility] Work Phone: Thin prep Papanicolaou smear with manual screeningon 11-28-2021 Thin prep Papanicolaou smear with manual screening 28 U/L 15-37 [facility] Work Phone: Thin prep Papanicolaou smear with manual screening 5 5-15 [facility] Work Phone: Urine blood detectionon RBC Ql (U) Negative Negative [facility] Work Phone: RBC Ql (U) 0 SEEN /hpf [facility] Work Phone: Urine clarityon 11-28-2021 Clarity (U) Clear Clear [facility] Work Phone: Urine color determinationon 11-28-2021 Color (U) Yellow Yellow [facility] Work Phone: Urine glucose detectionon Glucose Ql (U) Normal mg/dl Normal [facility] Work Phone: Urine leukocyte esterase det ection by dipstickon 11-28-2021 Leukocyte esterase Test strip Ql (U) Negative Negative [facility] Work Phone: Urine pHon 11-28-2021 pH (U) 7.0 [pH] [facility] Work Phone: Urine sediment bacteria coun t by microscopy (number/high power field)on 11-28-2021 Bacteria LM.HPF (Urine sed) [#/Area] 0 /[HPF] None Seen [facility] Work Phone: Urine specific gravity measu rementon 11-28-2021 Specific gravity (U) [Rel density] 1.015 [facility] Work Phone: Urobilinogen Auto test strip Ql (U)on 11-28-2021 Urobilinogen Ql (U) Normal mg/dl Normal [facility] Work Phone: Office Visit: YAHAIRA & COPDon 0 12-12-2016 Protein mass conc Done [facility] [employer] Phone: Tobacco smoking status NHIS Never [facility] Phone: Tobacco smoking status [facility] Former smoker [facility] [employer] Phone: Office Visit: MMMon 09-22-19 17 Fall risk assessment No [facility] [employer] Phone: Clinical 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 [facility] Phone: Microbiology: Legionella Ant igen Urineon 07-05-2016 LEGU . [facility] [employer] Phone: Lab Report: CBC-Complete Blo od Cnt No Diffon 07-03-2016 Erythrocyte distribution width Ratio (RBC) 43.4 fL 35.1-43.9 [facility] Phone: Erythrocyte distribution width Ratio (RBC) 13.3 % 11.6-14.6 [facility] Phone: [phone] Hematocrit Volume Fraction (Bld) 44.3 % 37-47 [facility] Work Phone: [phone] Hemoglobin mass conc (Bld) 14.9 g/dL 12.0-15.0 [facility] Work Phone: [phone] MCH Entitic mass (RBC) 30.3 pg 27.0-32.0 [facility] Work Phone: [phone] MCHC mass conc (RBC) 33.6 G/GL 32-36 [facility] Work Phone: [phone] MCV Entitic volume (RBC) 90.0 fL 81-99 [facility] Work Phone: [phone] Platelet mean volume Entitic volume (Bld) 9.6 fL 6.2-12.0 [facility] Work Phone: [phone] Platelets #/vol (Bld) 394 10*3/mm3 150-450 [facility] Work Phone: [phone] RBC #/vol (Bld) 4.92 10*6/uL 4.2-5.4 [facility] Work Phone: [phone] WBC #/vol (Bld) 9.3 10*3/uL 4.4-11.0 [facility] Work Phone: [phone] Append: Dr. Vick referral ( close the loop)on 06-02-2016 Clinical consultation report (record artifact) [id number] [facility] Work Phone: [phone] Lab Report: BNP,B-Type NATRI URETIC PEPTIDEon 05-24-2016 Natriuretic peptide B mass conc (Bld) 34.1 pg/mL 0-100 [facility] Work Phone: [phone] Lab Report: Basic Metabolic Profile (BMP)on 05-24-2016 Anion gap molar conc 8 mmol/L 5-15 [facility] Work Phone: [phone] Calcium mass conc 9.4 mg/dL 8.5-10.1 [facility] Work Phone: [phone] Chloride molar conc 106 mmol/L 98-107 [facility] Work Phone: [phone] CO2 ppres (BldV) 28.0 mmol/L 21.0-32.0 [facility] Work Phone: [phone] Creatinine mass conc 0.92 mg/dL 0.55-1.02 [facility] Work Phone: [phone] EST GFR - AA 83 mL/min >60 [facility] Work Phone: [phone] GFR/1.73 sq M predicted among non-blacks MDRD vol rate/area (S/P/Bld) 68 mL/min/{1.73_m2} >60 [facility] Work Phone: [phone] Glucose mass conc 104 mg/dL 70-110 [facility] Work Phone: [phone] Potassium molar conc 4.3 mmol/L 3.5-5.1 [facility] Work Phone: [phone] Sodium molar conc 142 mmol/L 136-145 [facility] Work Phone: [phone] Urea nitrogen mass conc 20 mg/dL High 7-18 [facility] Work Phone: [phone] Urea nitrogen/Creatinine mass ratio 21.7 RATIO High 10-20 [facility] Work Phone: [phone] Replaced Document: Kate Lopezon 05-24-2016 EKG QRS axis 32 deg [facility] Work Phone: [phone] Interpretation Sinus Rhythm WITHIN NORMAL LIMITS [facility] Work Phone: [phone] P Mission 48 deg [facility] Work Phone: [phone] ND Interval 158 ms [facility] Work Phone: [phone] QRS Duration 96 ms [facility] Work Phone: [phone] QT Interval new path ms [facility] Work Phone: T Mission 40 deg [facility] Work Phone: Chart Maintenanceon 03-06-20 16 ALP enzyme act/vol (Bld) 50 U/L [facility] Work Phone: ALT enzyme act/vol 28 U/L [facility] Work Phone: [phone] AST enzyme act/vol 17 U/L [facility] Work Phone: [phone] Bilirubin mass conc 0.40 mg/dL [facility] Work Phone: Cholesterol in HDL mass conc 51 mg/dL [facility] Work Phone: Cholesterol in LDL mass conc 121 mg/dL [facility] Work Phone: Cholesterol mass conc 200 mg/dL [facility] Work Phone: Triglyceride mass conc 141 mg/dL [facility] Work Phone: Vital Signs Date Time Vital Sign Value Performing Clinician Faci lity 03-12-2025 07:59-0400 Body mass index (BMI) [Ratio] 31.6 kg/m2 Dr. Susie Knox MD Work Phone: [facility] 03-12-2025 07:59-0400 Body temperature 97 [degF] Dr. Susie Knox MD Work Phone: [facility] 03-12-2025 07:59-0400 Body weight 88.[address] Susie Knox MD Work Phone: [facility] 03-12-2025 07:59-0400 Diastolic blood pressure 55 mm[Hg] Dr. Susie Knox MD Work Phone: [facility] 03-12-2025 07:59-0400 Heart rate 64 /min Dr. Susie Knox MD Work Phone: [facility] 03-12-2025 07:59-0400 Respiratory rate 18 /min Dr. Susie Knox MD Work Phone: [facility] 03-12-2025 07:59-0400 SaO2% (BldA) [Mass fraction] 97 % Dr. Susie Knox MD Work Phone: [facility] 03-12-2025 07:59-0400 Systolic blood pressure 111 mm[Hg] Dr. Susie Knox MD Work Phone: 5(611)489-500213 [place] [address] 09-11-2024 08:29-0400 Body mass index (BMI) [Ratio] 30.4 kg/m2 Dr. Susie Knox MD Work Phone: 9(232)595-[address]69 [place] [address] 09-11-2024 08:29-0400 Body temperature 97.4 [degF] Dr. Susie Knox MD Work Phone: 2(138)312-487369 [place] [address] 09-11-2024 08:29-0400 Body weight 85.[address] Susie Knox MD Work Phone: 3(359)787-302769 [place] [address] 09-11-2024 08:29-0400 Diastolic blood pressure 53 mm[Hg] Dr. Susie Knox MD Work Phone: 1(795)118-286869 [place] [address] 09-11-2024 08:29-0400 Heart rate 52 /min Dr. Susie Knox MD Work Phone: 9(301)184-590569 [place] [address] 09-11-2024 08:29-0400 Respiratory rate 14 /min Dr. Susie Knox MD Work Phone: 3(156)761-766769 [place] [address] 09-11-2024 08:29-0400 SaO2% (BldA) [Mass fraction] 95 % Dr. Susie Knox MD Work Phone: 9(463)110-425969 [place] [address] 09-11-2024 08:29-0400 Systolic blood pressure 102 mm[Hg] Dr. Susie Knox MD Work Phone: 0(670)614-166069 [place] [address] 06-07-2023 08:47-0500 Body height 167.[address] Gonsalo Knox Work Phone: [facility] 06-07-2023 08:47-0500 Body temperature 97.4 [degF] Dr. Gonsalo Knox Work Phone: [facility] 06-07-2023 08:47-0500 Diastolic blood pressure 79 mm[Hg] Dr. Gonsalo Knox Work Phone: [facility] 06-07-2023 08:47-0500 Heart rate 55 /min Dr. Gonsalo Knox Work Phone: [facility] 06-07-2023 08:47-0500 Respiratory rate 20 /min Dr. Gonsalo Knox Work Phone: [facility] 06-07-2023 08:47-0500 SaO2% (BldA) [Mass fraction] 98 % Dr. Gonsalo Knox Work Phone: [facility] 06-07-2023 08:47-0500 Systolic blood pressure 120 mm[Hg] Dr. Gonsalo Knox Work Phone: [facility] 04-12-2023 08:30-0400 Body temperature 96.9 [degF] Dr. Gonsalo Knox Work Phone: [facility] 04-12-2023 08:30-0400 Diastolic blood pressure 72 mm[Hg] Dr. Gonsalo Knox Work Phone: [facility] 04-12-2023 08:30-0400 Heart rate 60 /min Dr. Gonsalo Knox Work Phone: [facility] 04-12-2023 08:30-0400 Respiratory rate 18 /min Dr. Gonsalo Knox Work Phone: [facility] 04-12-2023 08:30-0400 SaO2% (BldA) [Mass fraction] 92 % Dr. Gonsalo Knox Work Phone: [facility] 04-12-2023 08:30-0400 Systolic blood pressure 116 mm[Hg] Dr. Gonsalo Knox Work Phone: [facility] 07-14-2022 08:41-0500 Body height 167.[address] Gonsalo Knox Work Phone: [facility] 07-14-2022 08:41-0500 Body mass index (BMI) [Ratio] 28 kg/m2 Dr. Gonsalo Knox Work Phone: [facility] 07-14-2022 08:41-0500 Body temperature 94.5 [degF] Dr. Gonsalo Knox Work Phone: [facility] 07-14-2022 08:41-0500 Body weight 78.[address] Gonsalo Knox Work Phone: [facility] 07-14-2022 08:41-0500 Diastolic blood pressure 50 mm[Hg] Dr. Gonsalo Knox Work Phone: [facility] 07-14-2022 08:41-0500 Heart rate 64 /min Dr. Gonsalo Knox Work Phone: [facility] 07-14-2022 08:41-0500 Respiratory rate 20 /min Dr. Gonsalo Knox Work Phone: [facility] 07-14-2022 08:41-0500 SaO2% (BldA) [Mass fraction] 94 % Dr. Gonsalo Knox Work Phone: [facility] 07-14-2022 08:41-0500 Systolic blood pressure 106 mm[Hg] Dr. Gonsalo Knox Work Phone: [facility] 05-17-2022 08:30-0500 Body temperature 98 [degF] Dr. Gonsalo Knox Work Phone: [facility] 05-17-2022 08:30-0500 Diastolic blood pressure 72 mm[Hg] Dr. Gonsalo Knox Work Phone: [facility] 05-17-2022 08:30-0500 Heart rate 55 /min Dr. Gonsalo Knox Work Phone: [facility] 05-17-2022 08:30-0500 Respiratory rate 16 /min Dr. Gonsalo Knox Work Phone: [facility] 05-17-2022 08:30-0500 SaO2% (BldA) [Mass fraction] 99 % Dr. Gonsalo Knox Work Phone: [facility] 05-17-2022 08:30-0500 Systolic blood pressure 132 mm[Hg] Dr. Gonsalo Knox Work Phone: [facility] 01-02-2022 11:45-0400 Body height 168.6 cm Pacc 1 [facility] 01-02-2022 11:45-0400 Body temperature 98.29 [degF] Pacc 1 [facility] 01-02-2022 11:45-0400 Body weight 75.43 kg Pacc 1 [facility] 01-02-2022 11:45-0400 Diastolic blood pressure 59 mm[Hg] Pacc 1 [facility] 01-02-2022 11:45-0400 Heart rate 56 /min Pacc 1 [facility] 01-02-2022 11:45-0400 Respiratory rate 16 /min Pacc 1 [facility] 01-02-2022 11:45-0400 SaO2% (BldA) [Mass fraction] 95 % Pacc 1 [facility] 01-02-2022 11:45-0400 Systolic blood pressure 115 mm[Hg] Pacc 1 [facility] 12-23-2021 09:29-0400 Body height 165.6 cm Didi Haro MD Work Phone: [facility] 12-23-2021 09:29-0400 Body weight 75.3 kg Didi Haro MD Work Phone: [facility] 12-23-2021 09:29-0400 Diastolic blood pressure 74 mm[Hg] Didi Haro MD Work Phone: [facility] 12-23-2021 09:29-0400 Heart rate 76 /min Didi Haro MD Work Phone: [facility] 12-23-2021 09:29-0400 Systolic blood pressure 118 mm[Hg] Didi Haro MD Work Phone: [facility] 12-13-2021 14:42-0400 Body height 167.6 cm Bhargav Zavaleta MD Work Phone: [facility] 12-13-2021 14:42-0400 Body temperature 97.3 [degF] Bhargav Zavaleta MD Work Phone: [facility] 12-13-2021 14:42-0400 Body weight 74.84 kg Bhargav Zavaleta MD Work Phone: [facility] 12-13-2021 14:42-0400 Diastolic blood pressure 58 mm[Hg] Bhargav Zavaleta MD Work Phone: [facility] 12-13-2021 14:42-0400 Heart rate 66 /min Bhargav Zavaleta MD Work Phone: [facility] 12-13-2021 14:42-0400 SaO2% (BldA) [Mass fraction] 97 % Bhargav Zavaleta MD Work Phone: [facility] 12-13-2021 14:42-0400 Systolic blood pressure 94 mm[Hg] Bhargav Zavaleta MD Work Phone: [facility] 11-29-2021 12:52-0400 Diastolic blood pressure 71 mm[Hg] Dr. Gonsalo Knox Work Phone: [facility] Work Phone: 11-29-2021 12:52-0400 Heart rate 63 /min Dr. Gonsalo Knox Work Phone: [facility] Work Phone: 11-29-2021 12:52-0400 Respiratory rate 18 /min Dr. Gonsalo Knox Work Phone: [facility] Work Phone: 11-29-2021 12:52-0400 SaO2% (BldA) [Mass fraction] 93 % Dr. Gonsalo Knox Work Phone: [facility] Work Phone: 11-29-2021 12:52-0400 Systolic blood pressure 101 mm[Hg] Dr. Gonsalo Knox Work Phone: [facility] Work Phone: 11-29-2021 08:51-0400 Body temperature 97.9 [degF] Dr. Gonsalo Knox Work Phone: [facility] Work Phone: 11-28-2021 18:43-0400 Body height 167.[address] Gonsalo Knox Work Phone: [facility] Work Phone: 11-28-2021 18:43-0400 Body mass index (BMI) [Ratio] 26.6 kg/m2 Dr. Gonsalo Knox Work Phone: [facility] Work Phone: 11-28-2021 18:43-0400 Body weight 74.[address] Gonsalo Knox Work Phone: [facility] Work Phone: 11-28-2021 16:05-0400 Body temperature 98.2 [degF] Dr. Gonsalo Knox Work Phone: [facility] Work Phone: 11-28-2021 16:05-0400 Diastolic blood pressure 85 mm[Hg] Dr. Gonsalo Knox Work Phone: [facility] Work Phone: 11-28-2021 16:05-0400 Heart rate 67 /min Dr. Gonsalo Knox Work Phone: [facility] Work Phone: 11-28-2021 16:05-0400 Respiratory rate 18 /min Dr. Gonsalo Knox Work Phone: [facility] Work Phone: 11-28-2021 16:05-0400 SaO2% (BldA) [Mass fraction] 99 % Dr. Gonsalo Knox Work Phone: [facility] Work Phone: 11-28-2021 16:05-0400 Systolic blood pressure 130 mm[Hg] Dr. Gonsalo Knox Work Phone: [facility] Work Phone: 11-28-2021 15:58-0400 Body height 167.[address] Gonsalo Knox Work Phone: [facility] Work Phone: 11-28-2021 15:58-0400 Body mass index (BMI) [Ratio] 26.8 kg/m2 Dr. Gonsalo Knox Work Phone: [facility] Work Phone: 11-28-2021 15:58-0400 Body weight 75.[address] Gonsalo Knox Work Phone: [facility] Work Phone: 11-25-2021 09:46-0400 Body temperature 98 [degF] Dr. Gonsalo Knox Work Phone: [facility] Work Phone: 11-25-2021 09:46-0400 Diastolic blood pressure 69 mm[Hg] Dr. Gonsalo Knox Work Phone: [facility] Work Phone: 11-25-2021 09:46-0400 Heart rate 53 /min Dr. Gonsalo Knox Work Phone: [facility] Work Phone: 11-25-2021 09:46-0400 Respiratory rate 16 /min Dr. Gonsalo Knox Work Phone: [facility] Work Phone: 11-25-2021 09:46-0400 SaO2% (BldA) [Mass fraction] 97 % Dr. Gonsalo Knox Work Phone: [facility] Work Phone: 11-25-2021 09:46-0400 Systolic blood pressure 108 mm[Hg] Dr. Gonsalo Knox Work Phone: [facility] Work Phone: 09-30-2021 09:39-0400 Body temperature 97 [degF] Dr. Gonsalo Knox Work Phone: [facility] Work Phone: 09-30-2021 09:39-0400 Diastolic blood pressure 71 mm[Hg] Dr. Gonsalo Knox Work Phone: [facility] Work Phone: 09-30-2021 09:39-0400 Heart rate 56 /min Dr. Gonsalo Knox Work Phone: [facility] Work Phone: 09-30-2021 09:39-0400 Respiratory rate 16 /min Dr. Gonsalo Knox Work Phone: [facility] Work Phone: 09-30-2021 09:39-0400 SaO2% (BldA) [Mass fraction] 95 % Dr. Gonsalo Knox Work Phone: [facility] Work Phone: 09-30-2021 09:39-0400 Systolic blood pressure 118 mm[Hg] Dr. Gonsalo Knox Work Phone: [facility] Work Phone: 09-12-2021 08:48-0400 Body mass index (BMI) [Ratio] 28 kg/m2 Dr. Gonsalo Knox Work Phone: [facility] Work Phone: 09-12-2021 08:48-0400 Body temperature 98.6 [degF] Dr. Gonsalo Knox Work Phone: [facility] Work Phone: 09-12-2021 08:48-0400 Body weight 77.[address] Gonsalo Knox Work Phone: [facility] Work Phone: 09-12-2021 08:48-0400 Diastolic blood pressure 58 mm[Hg] Dr. Gonsalo Knox Work Phone: [facility] Work Phone: 09-12-2021 08:48-0400 Heart rate 68 /min Dr. Gonsalo Knox Work Phone: [facility] Work Phone: 09-12-2021 08:48-0400 Respiratory rate 17 /min Dr. Gonsalo Knox Work Phone: [facility] Work Phone: 09-12-2021 08:48-0400 SaO2% (BldA) [Mass fraction] 97 % Dr. Gonsalo Knox Work Phone: [facility] Work Phone: 09-12-2021 08:48-0400 Systolic blood pressure 111 mm[Hg] Dr. Gonsalo Knox Work Phone: [facility] Work Phone: 08-05-2021 08:45-0500 Body temperature 96.8 [degF] Dr. Gonsalo Knox Work Phone: [facility] Work Phone: 08-05-2021 08:45-0500 Diastolic blood pressure 74 mm[Hg] Dr. Gonsalo Knox Work Phone: [facility] Work Phone: 08-05-2021 08:45-0500 Heart rate 67 /min Dr. Gonsalo Knox Work Phone: [facility] Work Phone: 08-05-2021 08:45-0500 Respiratory rate 16 /min Dr. Gonsalo Knox Work Phone: [facility] Work Phone: 08-05-2021 08:45-0500 SaO2% (BldA) [Mass fraction] 96 % Dr. Gonsalo Knox Work Phone: [facility] Work Phone: 08-05-2021 08:45-0500 Systolic blood pressure 112 mm[Hg] Dr. Gonsalo Knox Work Phone: [facility] Work Phone: 12-12-2016 07:12-0400 BMI (Body Mass Index) 32.92 kg/m2 [facility] [employer] [facility] Work Phone: 12-12-2016 07:12-0400 Body Temperature 99 [degF] [facility] [employer] Phone: 12-12-2016 07:12-0400 BP Diastolic 65 mm[Hg] [facility] [employer] Work Phone: 12-12-2016 07:12-0400 BP Systolic 101 mm[Hg] [facility] [employer] Work Phone: 12-12-2016 07:12-0400 Height 167.64 cm [facility] [employer] Phone: 12-12-2016 07:12-0400 Pulse (Heart Rate) 60 /min [facility] [employer] Work Phone: 12-12-2016 07:12-0400 Pulse Oximetry 98 % [facility] [employer] Phone: 12-12-2016 07:12-0400 Respiratory Rate 18 /min [facility] [employer] Phone: 12-12-2016 07:12-0400 Weight 92.53 kg [facility] [employer] Work Phone: 07-03-2016 14:40-0500 Body Temperature 97.7 [degF] [facility] [employer] Work Phone: 07-03-2016 14:40-0500 BSA (Body Surface Area) 2.01 m2 Ann [facility] [employer] Work Phone: 07-03-2016 14:40-0500 Height 167.64 cm Ann Marie Grzegorz [facility] [employer] Work Phone: 07-03-2016 14:40-0500 Weight 91.36 kg [facility] [employer] Work Phone: 05-24-2016 15:08-0500 Heart rate 64 /min Ann Marie Grzegorz [facility] [employer] Work Phone: 05-24-2016 13:03-0500 Pulse Oximetry 98 % [facility] [employer] Phone: Encounters Encounter Date Encounter Type Care Provider Facility Start: 03-12-2025 End: 03-12-2025 Patient encounter procedure Josy Burch NP-C -[facility] Work Phone: Start: 03-12-2025 End: 03-12-2025 ambulatory Josy Burch NP Facility:[facility] Start: 10-23-2024 End: 10-23-[address] Susie Knox MD Work Phone: [facility] Work Phone: Start: 10-23-2024 End: 10-23-[address] Susie Knox MD -Laboratory, [facility] Start: 10-23-2024 End: 10-23-2024 ambulatory Susie Knox Facility:[facility] Start: 09-11-2024 End: 09-11-2024 Patient encounter procedure Josy Burch NP-C -[facility] Work Phone: Start: 09-11-2024 End: 09-11-2024 ambulatory Susie Knox Facility:[facility] Start: 08-01-2024 End: 08-01-[address] Susie Knox MD -Outpatient [facility] Work Phone: Start: 08-01-2024 End: 08-01-2024 ambulatory Susie Knox Facility:[facility] Start: 07-17-2024 End: 07-17-[address] Susie Knox MD -[facility] [place] Work Phone: Start: 07-17-2024 End: 07-17-2024 ambulatory Susie Knox Facility:[facility] Start: 03-14-2024 End: 03-14-2024 ambulatory Susie Knox Facility:[facility] Start: 07-12-2023 End: 07-12-[address] Gonsalo Knox Work Phone: [facility] Work Phone: Start: 07-12-2023 End: 07-12-[address] Gonsalo Knox Work Phone: [facility] Start: 06-07-2023 End: 06-07-[address] Gonsalo Knox Work Phone: [facility] Work Phone: Start: 04-12-2023 End: 04-12-[address] Gonsalo Knox Work Phone: [facility] Work Phone: Start: 08-10-2022 Non-patient / Non-visit Dr. Sonia Knox Work Phone: [facility] Start: 08-09-2022 End: 08-09-[address] Gonsalo Knox Work Phone: [facility] Work Phone: Start: 08-09-2022 End: 08-09-[address] Gonsalo Knox Work Phone: [facility]-Pulmonary Services/Neurology Start: 07-14-2022 End: 07-14-[address] Gonsalo Knox Work Phone: [facility] Start: 05-17-2022 End: 05-17-[address] Gonsalo Knox Work Phone: [facility] Start: 03-08-2022 End: 03-08-2022 ambulatory SUSIE KNOX Facility:[facility] Start: 01-13-2022 End: 01-13-2022 ambulatory REECE ORTIZ Facility:[facility] Start: 01-13-2022 End: 01-13-2022 ambulatory Reece Ortiz PA-C Work Phone: General Surgery Comment on above: Colonic volvulus (HC C) (Primary Dx) Start: 01-13-2022 End: 01-13-2022 Telemedicine consultation with patient Reece Ortiz PA-C Work Phone: [facility] Start: 01-11-2022 Telephone encounter Ronda Dodge RN General Surgery Comment on above: Post Op Follow Up Start: 01-03-2022 End: 01-04-2022 Evaluation and management of inpatient DIDI HARO Facility:[facility] Start: 01-02-2022 End: 01-03-2022 ambulatory SUSIE KNOX Facility:[facility] Start: 01-02-2022 Telephone encounter Rosetta ZHANG Work Phone: Pre Anesthesia Comment on above: Pre-Op Update (Pulmo nology consult) Patient Update Start: 01-02-2022 Encounter for other preprocedural examination DIDI HAOR [facility] Start: 01-02-2022 End: 01-03-2022 Evaluation and management of inpatient SUSIE KNOX Facility:[facility] Start: 01-02-2022 End: 01-02-2022 Preprocedural examination done Xr Green [facility] Start: 01-02-2022 End: 01-02-2022 Subsequent hospital visit by physician Tessa Hong [facility] Comment on above: 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] Start: 01-02-2022 End: 01-02-2022 Admission to establishment [facility] [place] [facility] Start: 01-02-2022 End: 01-02-2022 ambulatory Pac 1 Pre Anesthesia Comment on above: Pre-op evaluation (P rimary Dx); Malrotation of intestine; Preoperative examination; Sore throat; Cough, unspecified type; Bradycardia; Gastroesophageal reflux disease, unspecified whether esophagitis present; YAHAIRA (obstructive sleep apnea); Hyperlipidemia, unspecified hyperlipidemia type; Anxiety; Chronic obstructive pulmonary disease, unspecified COPD type (HCC) Start: 01-02-2022 End: 01-02-2022 Preprocedural examination done Pac 1 Pre Anesthesia Start: 12-30-2021 End: 01-02-2022 ambulatory SUSIE KNOX Facility:[facility] Start: 12-29-2021 End: 12-29-2021 ambulatory SUSIE KNOX Facility:[facility] Start: 12-29-2021 End: 12-29-2021 Subsequent hospital visit by physician Gi/Gu 1 [place] [facility] Comment on above: 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] Start: 12-27-2021 ambulatory Ronda Dodge RN Gen eral Surgery Comment on above: 01/03/2022 Start: 12-27-2021 Preprocedural examin ation done Ronda Dodge RN General Surgery Start: 12-23-2021 End: 12-24-2021 ambulatory DIDI HARO Facility:[facility] Start: 12-23-2021 End: 12-23-2021 Patient encounter procedure Didi Haro MD Work Phone: General Surgery Comment on above: Malrotation of intes erick (Primary Dx) Start: 12-13-2021 End: 12-13-2021 ambulatory SUSIE KNOX Facility:[facility] Start: 12-13-2021 End: 12-13-2021 Patient encounter procedure Bhargav Zavaleta MD Work Phone: General Surgery Comment on above: 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 Sonia Knox Work Phone: [facility] Start: 11-28-2021 End: 11-29-2021 Evaluation and management of inpatient Dr. Gonsalo Knox Work Phone: [facility]-Medical Surgical 3 Start: 11-28-2021 Non-patient / Non-visit Dr. Sonia Knox Work Phone: [facility] Start: 11-28-2021 [facility]mission to [facility] Dr. Gonsalo Knox Work Phone: [facility]-Editing Clerk Start: 11-25-2021 End: 11-25-[address] [facility] Start: 09-30-2021 End: 09-30-[address] Gonsalo Knox Work Phone: [facility] Start: 09-12-2021 End: 09-12-[address] Gonsalo Knox Work Phone: [facility] Start: 08-05-2021 End: 08-05-[address] [facility]onsalo Knox [facility] Procedures Date Procedure Procedure Detail Performing Clinician Start: 10-23-2024 Vitamin D, 25-hydrox y measurement Dr. Susie Knox MD Work Phone: Comment on above: Vitamin D StatusDefi ciency: <20 ng/mL (50nmol/L)Insufficiency: 20-30 ng/mL (50-75 nmol/L)Sufficiency: 30-100 ng/mL (75-250 nmol/L)Toxicity: >100 ng/mL (>250 nmol/L) Start: 08-01-2024 Screening mammography Erma Knox MD Work Phone: Start: 07-17-2024 X-ray of chest, PA a nd lateral views Dr. Susie Knox MD Work Phone: Start: 01-02-2022 Antibody screen DIDI HARO Comment on above: Order Comment: Speci men Type: BLOOD SPECIMENOrdering Facility: [facility] Address: [address] [place] [address] Performed By: #### T [id number] ####CC MAIN BLOOD BANKCLIA [id number] [address] Start: 01-02-2022 Radiologic exam ches t 2 views Ronda Dodge RN Start: 12-29-2021 XR UPPER GI SINGLE CONTRAST Soon N Kerr DO Work Phone: Start: 11-29-2021 Diagnostic radiograp hy of abdomen Dr. Gonsalo Knox Work Phone: Start: 11-28-2021 Plain X-ray abdomen Dr. Gonsalo Knox Work Phone: Start: 11-28-[address] Al Knox Work Phone: Start: 11-28-2021 Computed tomography of abdomen and pelvis with intravenous contrast Dr. Gonsalo Knox Work Phone: Start: 02-19-2017 Mammography Bhargav guerrero MD Work Phone: Start: 07-03-2016 End: 07-04-2016 Bacteria identified in Blood by Culture Josy Burch CNP Work Phone: Start: 07-03-2016 End: 07-04-2016 CBC W Auto Differential panel - Blood Josy Burch CNP Work Phone: Start: 07-03-2016 End: 07-04-2016 Chest x-ray Josy Burch CNP Work Phone: Start: 07-03-2016 End: 07-04-2016 Legionella pneumophila Ag [Presence] in Urine Josy Burch CNP Work Phone: Start: 07-03-2016 End: 07-04-2016 Respiratory pathogens DNA and RNA 12b panel - Unspecified specimen by AIXA with probe detection Josy Burch [employer] Work Phone: Start: 05-24-2016 End: 06-09-2016 *MISC2 - Miscellaneious Lab Test #2 Heri Hernandes DO Work Phone: Start: 05-24-2016 End: 05-24-2016 BWA Josy Burch [employer] Work Phone: Start: 05-24-2016 End: 05-24-2016 Ct thorax w/contrast material Josy Burch [employer] Work Phone: Start: 05-24-2016 End: 05-24-2016 Ecg routine ecg w/least 12 lds w/i&r Magdy Vick MD Start: 05-24-2016 End: 05-24-2016 Follow Up Appt 1 year Josy Nancy Marcin [employer] Work Phone: Start: 05-24-2016 End: 05-24-2016 Follow Up Appt 2 weeks Josy wood [employer] Work Phone: Start: 05-24-2016 End: 05-24-2016 Follow Up Appt 4 months Peyman Turner Start: 05-24-2016 End: 05-25-2016 Natriuretic peptide B [Mass/volume] in Blood Magdy Vick MD Start: 05-24-2016 End: 05-25-2016 Referral to [employer] [facility] Josy cook [employer] Work Phone: Start: 05-24-2016 End: 08-01-2016 Stress Echocardiogram (treadmill) Magdy Vick MD History of appendectomy History of appendectomy Dr. Gonsalo Knox Work Phone: Plan of Treatment Date Care Activity Detail Author Start: 02-23-2022 Influenza vaccination INFLUENZA (#1) [facility] Start: 12-27-2021 End: 02-26-2022 CBC W Auto Differential panel - Blood CBC + DIFF Lab Routine Malrotation of intestine Preoperative examination Expected: 12/27/2021 (Approximate), Expires: 02/26/2022 [facility] Work Phone: Comment on above: Expected: 12/27/2021 (Approximate), Expires: 02/26/2022 Start: 12-27-2021 End: 02-26-2022 Comprehensive metabolic 2000 panel - Serum or Plasma COMP METABOLIC PANEL Lab Routine Malrotation of intestine Preoperative examination Expected: 12/27/2021 (Approximate), Expires: 02/26/2022 [facility] Work Phone: Comment on above: Expected: 12/27/2021 (Approximate), Expires: 02/26/2022 Start: 12-27-2021 End: 02-26-2022 CONFIRM BLOOD TYPE CONFIRM BLOOD TYPE Blood Bank Routine Malrotation of intestine Preoperative examination Expected: 12/27/2021, Expires: 02/26/2022 [facility] Work Phone: Comment on above: Expected: 12/27/2021 , Expires: 02/26/2022 Start: 12-27-2021 End: 02-26-2022 TYPE AND SCREEN,30 DAY TYPE AND SCREEN,30 DAY Blood Bank Routine Malrotation of intestine Preoperative examination Expected: 12/27/2021, Expires: 02/26/2022 [facility] Work Phone: Comment on above: Expected: 12/27/2021 , Expires: 02/26/2022 Start: 11-28-2021 Colonoscopy Colonoscopy (M AC) (Not Applicable) [facility] Work Phone: Start: 07-11-2021 COVID-19 VACCINE (4 - Booster for Moderna series) COVID-19 VACCINE (4 - Booster for Moderna series) [facility] Start: 07-23-2018 HPV TESTING HPV TESTING [facility] Start: 07-23-2018 PAP TESTING PAP TESTING [facility] Start: 02-19-2018 Mammography MAMMOGRAM [facility] Start: 06-11-2017 End: 06-11-2017 Appointment Appointment [facility] Phone: Start: 12-12-2016 End: 12-12-2016 Appointment Appointment [facility] Phone: Start: 12-12-2016 End: 12-12-2016 [facility] Phone: Start: 12-12-2016 End: 12-12-2016 Follow Up Appt 6 months Follow Up Appt 6 months [facility] Phone: Start: 09-21-2016 End: 09-21-2016 Follow Up Appt Other Follow Up Appt Other [facility] Phone: Start: 07-03-2016 End: 07-04-2016 Bacteria identified Cx Nom (Bld) *CUB - Culture, Blood [facility] Phone: Start: 07-03-2016 End: 07-04-2016 CBC W Auto Differential panel - Blood *CBC [facility] Phone: Start: 07-03-2016 End: 07-04-2016 Chest x-ray X-Ray, Chest, PA & Lateral [facility] Phone: Start: 07-03-2016 End: 07-04-2016 L. pneumophila Ag Ql (U) *LEGU - Legionella Antigen, Urine [facility] Phone: Start: 07-03-2016 End: 07-04-2016 Respiratory pathogens DNA and RNA 12b panel - Unspecified specimen by AIXA with probe detection *Respiratory Panel [facility] Phone: Start: 06-13-2016 End: 06-13-2016 Follow Up Appt 6 months Follow Up Appt 6 months [facility] Phone: Start: 06-13-2016 End: 06-13-2016 Pulmonary Function Test - complete Pulmonary Function Test - complete [facility] Phone: Start: 06-13-2016 End: 06-13-2016 Pulmonary stress test/simple Pulmonary stress testing; simple (eg, 6-minute walk) [facility] Phone: Start: 06-13-2016 End: 06-13-2016 Retitration with follow up (patient on CPAP currently) Retitration with follow up (patient on CPAP currently) [facility] Phone: Start: 05-24-2016 End: 05-24-2016 *BMP *BMP [facility] Phone: Start: 05-24-2016 End: 06-09-2016 *MISC2 - Miscellaneious Lab Test #2 *MISC2 - Miscellaneious Lab Test #2 [facility] Phone: Start: 05-24-2016 End: 05-24-2016 BWA BWA [facility] Phone: Start: 05-24-2016 End: 05-24-2016 Cardiac Referral Cardiac Referral [address] [place] [address], [facility] Phone: Start: 05-24-2016 End: 05-24-2016 Ecg routine ecg w/least 12 lds w/i&r EKG (In office) [facility] Phone: Start: 05-24-2016 End: 05-24-2016 Follow Up Appt 1 year Follow Up Appt 1 year [facility] Phone: Start: 05-24-2016 End: 05-24-2016 Follow Up Appt 2 weeks Follow Up Appt 2 weeks [facility] Phone: Start: 05-24-2016 End: 05-24-2016 Follow Up Appt 4 months Follow Up Appt 4 months [facility] Phone: Start: 05-24-2016 End: 05-24-2016 MMM MMM [facility] Phone: Start: 05-24-2016 End: 05-25-2016 Natriuretic peptide B mass conc (Bld) *Brain Natriuretic Peptide BNP [facility] Phone: Start: 05-24-2016 End: 05-24-2016 Stress Echocardiogram (treadmill) Stress Echocardiogram (treadmill) [facility] Phone: Start: 03-06-2016 End: 03-06-2016 [facility] Phone: Start: 03-06-2016 End: 03-06-2016 Follow Up Appt 6 months Follow Up Appt 6 months [facility] Phone: Start: 03-06-2016 End: 03-06-2016 Pulmonary stress test/simple Pulmonary stress testing; simple (eg, 6-minute walk) [facility] Phone: Start: 2014 SHINGRIX VACCINE (1 of 2) SHINGRIX VACCINE (1 of 2) [facility] Start: 11-29-2012 Hepatitis B surface antibody level LDL CHOLESTEROL [facility] Start: 08-08-2012 Hepatitis C antibody , confirmatory test DILATED RETINAL EXAM [facility] Start: 2009 COLOGUARD (FIT-DNA) COLOGUARD (FIT-D NA) [facility] Start: 2009 Colonoscopy COLONOSCOPY [facility] Start: 2009 COLORECTAL CANCER SCREENING COLORECTAL CANCER SCREENING [facility] Start: [address] COLONOGRAPHY [facility] Start: 2009 FECAL OCCULT BLOOD FECAL OCCULT BLOO D [facility] Start: 2009 SIGMOIDOSCOPY SIGMOIDOSCOPY [facility] Start: 05-12-2007 Hepatitis B screening URINE AL BUMIN:CREATININE RATIO [facility] Start: 11-09-2006 Hemoglobin A1c/Hemoglobin.total in Blood HBA1C [facility] Start: 1994 Zoledronic acid therapy ALPHA- 1 ANTITRYPSIN DEFICIENCY SCREENING [facility] Start: 12-21-1983 HEPATITIS B (1 of 3 - Risk 3-dose series) HEPATITIS B (1 of 3 - Risk 3-dose series) [facility] Start: 12-21-1983 Urine microalbumin profile DTAP,TDAP,TD (1 - Tdap) [facility] Start: 1982 ANNUAL PCP TEAM TRANSITION PROGRAM MANAGER JOSHUA DISEASE VISIT ANNUAL PCP TEAM CHRONIC DISEASE VISIT [facility] Start: 1982 HEPATITIS C SCREENING HEPATITIS C SC REENING [facility] Start: 1982 HIV SCREENING HIV SCREENING [facility] Start: 1982 SPIROMETRY SPIROMETRY [facility] Start: 1976 Adult depression screening assessment DEPRESSION SCREENING [facility] Start: 1974 3 comp foot exam completed DIABETIC FOOT EXAM [facility] Start: 1970 PNEUMOCOCCAL (1 - PCV) PNEUMOCOCCAL (1 - PCV) [facility] End: 12-27-2022 ECG COMPLETE ECG COMPLETE ECG Routine Malrotation of intestine Preoperative examination 1 Occurrences starting 12/27/2021 until 12/27/2022 [facility] Work Phone: Comment on above: 1 Occurrences starti ng 12/27/2021 until 12/27/2022 Influenza virus A an d B RNA and SARS-CoV-2 (COVID-19) N gene panel - Respiratory specimen by AIXA with probe detection COVID WITH FLUA+B, ROUTINE Microbiology Routine Pre-op evaluation Malrotation of intestine Sore throat Cough, unspecified type Ordered: 01/02/2022 [facility] Work Phone: Comment on above: Ordered: 01/02/2022 Patient referral [facility] Work Phone: End: 01-26-2023 Radiologic exam chest 2 views XR CHEST 2V FRONTAL/LAT Radiology Routine Malrotation of intestine Preoperative examination 1 Occurrences starting 12/27/2021 until 01/26/2023 [facility] Work Phone: Comment on above: 1 Occurrences starti ng 12/27/2021 until 01/26/2023 REFER FOR ADMIT INTERVIEW REFER FOR ADMIT INTERVIEW Procedures Routine Malrotation of intestine Preoperative examination Ordered: 12/27/2021 [facility] Work Phone: Comment on above: Ordered: 12/27/2021 End: 01-22-2023 XR UPPER GI SINGLE CONTRAST XR UPPER GI SINGLE CONTRAST Radiology Routine Malrotation of intestine 1 Occurrences starting 12/23/2021 until 01/22/2023 [facility] Work Phone: Comment on above: 1 Occurrences starti ng 12/23/2021 until 01/22/2023 [facility] Immunizations Immunization Date Immunization Notes Care Provider Nati grewal 03-12-2025 influenza, injectabl e, madin ingrid canine kidney, preservative free Dr. Susie Knox MD Work Phone: [facility] 07-07-2021 influenza, injectabl e, quadrivalent, preservative free Dr. Gonsalo Knox Work Phone: [facility] 07-07-2021 influenza, seasonal, injectable Dr. Gonsalo Knox Work Phone: [facility] 03-11-2021 Covid (Moderna) Dr. Sydni Knox Work Phone: [facility] 10-07-2020 Covid (Moderna) Dr. Sydni Knox Work Phone: [facility] 09-09-2020 Covid (Moderna) Dr. Sydni Knox Work Phone: [facility] 08-05-[address] Gonsalo Knox Work Phone: [facility] 08-05-2015 pneumococcal conjuga te vaccine, [address] Gonsalo Knox Work Phone: [facility] Payers Date Payer Category Payer Self-pay [id number] 2019 Unknown MMO MMO [employer] [id number] 2019-Present [phone] [address] [place] [address] O [id number] 2008 Unknown [id number] Unknown [id number] Unknown [id number] Unknown [id number] Unknown [id number] Unknown [id number] Unknown [id number] Social History Date Type Detail Facility [facility] Work Phone: Start: 11-28-2021 End: 06-07-2023 Tobacco smoking status [facility] Unknown if ever smoked [facility] Start: 01-01-2020 None [facility] Start: 08-11-2015 Spouse/ Signif icant Other [facility] Start: 11-02-2020 Non-smoker [facility] Start: 1965 Sex Assigned At Female [facility] Start: 09-28-2023 Tobacco smoking status NEIS Ex-smoker [facility] End: 09-23-2002 History of tobacco use Current smoker [facility] End: 09-23-2002 History of tobacco use Cigarette Smoker [facility] Start: 12-13-2021 End: 01-02-2022 Alcohol intake Current drinker of alcohol (finding) [facility] Start: 1965 Sex Assigned At Not on file [facility] Start: 12-03-2021 End: 01-03-2022 Exposure to SARS-CoV-2 (event) Not sure [facility] Start: 01-02-2022 Alcohol intake [facility] Start: 01-02-2022 History SDOH Alcohol Comment 9-12 shots of whiskey on the weekends [facility] Sex Female [facility] Medical Equipment Procedure Code Equipment Code Equipment Origin al Text Equipment Identifier Dates ONETOUCH ULTRA T EST test strip Start: 11-28-2021 Functional Status Date Assessment Result Facility 11-29-2021 Functional status Ambulates [facility] Work Phone: Mental Status Date Assessment Result Facility 11-29-2021 Cognitive function Voice/Name [facility] Work Phone: Clinical Notes 12-22-2011 to 03-12-2025 Note Date & Type Note Facility 03-12-2025 Progress note [facility] 09-11-2024 Evaluation note Diagnosis Onset Date Resolution Chronic seasonal allergic rhinitis chronic September 11 11:13am Obesity chronic September 11 11:13am Severe asthma chronic September 11, 2024 11:13am Sleep apnea, obstructive chronic September 11, 2024 11:13am Stage 1 mild COPD by GOLD classification chronic September 11, 2024 11:13am [facility] Work Phone: [phone] 270-263802-16-2023 Procedure [facility] 03-08-2022 NoteHNO ID: [id number] Author: Carl Sidhu MD Service: ? Author Type: Physician Type: Progress Notes Filed: 03/08/2022 5:34 PM Note Text: COLORECTAL SURGERY NEW VIRTUAL VISIT I had a virtual visit with Ms. Hansen today. Her local doctors have given her a diagnosis of intestinal volvulus. HISTORY: Kelsea Hansen is a 56 year old female referred by Dr Haro for intestinal volvulus. 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 Specifically, she then underwent an upper GI, which demonstrated normal duodenal position, but volvulus of her stomach without hiatal hernia and obvious laxity. Based on the findings and discussion with her and her surgeon, she elected to undergo diagnositic laparoscopy, Lx excision of retroperitoneal firbrosis and/or lesion, upper endoscopy, anterior gastropexy, and HUMAIRA on 01/03/[address] Haro. 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 Pathology . Soft tissue, mesenteric, biopsy: - Fibrosis with acute and chronic inflammation PAST MEDICAL HISTORY Diagnosis Date Abnormal glandular Papanicolaou smear of cervix 1986 Abn. Pap smear (cervix), S/P several treatments of cryosurgery COPD (chronic obstructive pulmonary disease) (HCC) Diabetes mellitus (HCC) diet controlled Diabetes mellitus of mother, complicating , childbirth, or the puerperium, unspecified as to episode of care(578.00) 1995 GERD (gastroesophageal reflux disease) not any meds Migraine 1970 Other emphysema (HCC) PFTs last were 1 yr ago external, on albuterol inhaler currently w/c she uses 2-3 x month Other psoriasis 1976 PMH - PAST MEDICAL HISTORY OF 1992 LAYNE DISEASE OF VULVA Pneumonia twice in 2016 Rosacea 1998 PAST SURGICAL HISTORY Procedure Laterality Date APPENDECTOMY 06/25/1981 COLONOSCOPY SCREENING 11/28/2021 CRYOSURGERY 02/24/1980 multiple treatments PAST SURGICAL HISTORY OF 06/25/1992 PARTIAL VULVECTOMY PAST SURGICAL HISTORY OF removal of a cyst on her clitoris - has had this 4 times in her life PAST SURGICAL HISTORY OF Left 10/2020 elbow VULVECTOMY SIMPLE PARTIAL 01/05/2012 Partial simple posterior vulvectomy with bilateral rhomboid transposition flaps for closure. Current Outpatient Medications Medication Sig Dispense Refill oxyCODONE IR (ROXICODONE) 5 mg immediate release tablet Take 1 tablet by mouth every 6 hours as needed for pain. 15 tablet 0 albuterol (PROVENTIL) 2.5 mg /3 mL (0.083 %) nebulizer solution Inhale 1 ampule via nebulizer 4 times daily, as needed. alendronate (FOSAMAX) 70 mg tablet Take by mouth. atorvastatin (LIPITOR) 20 mg tablet Take 20 mg by mouth once daily. FASENRA 30 mg/mL injection ONETOUCH ULTRA TEST test strip calcium carbonate (CALTRATE) 600 mg calcium (1,500 mg) tab Take by mouth. escitalopram oxalate (LEXAPRO) 5 mg tablet Take 5 mg by mouth every morning. inulin-chromium picolinate 2-100 gram-mcg chew Inulin/Chromium Picolinate Active 2 EA TWICE A DAY October 02, 2017 5:31pm [id number] carb-vit K (WOMEN'S MULTIVITAMIN) 18 mg-400 mcg- 500 mg-50 mcg tab Take by mouth. NEBULIZER ACCESSORIES (NEBULIZER MISC) montelukast (SINGULAIR) 10 mg tablet Take 10 mg by mouth daily at bedtime. PANTOPRAZOLE SODIUM (PROTONIX ORAL) Take 40 mg by mouth once daily. tiotropium bromide (SPIRIVA RESPIMAT) 2.5 mcg/actuation mist Inhale as instructed once daily as needed. budesonide-formoterol (SYMBICORT) 160-4.5 mcg/actuation inhaler Inhale 2 Puffs as instructed twice daily. CLOBETASOL PROPIONATE (CLOBETASOL TOPICAL) Apply to affected area as needed. OXYGEN, HOME THERAPY, Inhale 2 L/min as instructed as needed. CYANOCOBALAMIN, VITAMIN B-12, (VITAMIN B-12 ORAL) Take 1,500 mcg by mouth every other day. CALCIUM CARB/VIT D3/MINERALS (CALCIUM PLUS ORAL) Take 1,200 Units by mouth once daily. LORazepam (ATIVAN) 0.5 mg Tab Take 1 tablet by mouth as needed. No current facility-administered medications for this visit. REVIEW OF SYSTEMS: PAIN ASSESSMENT: Negative for pain, history of chronic pain, or current treatment for a chronic pain condition. 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 She reports resolution of Surgical intermittent abdominal pain. She is passing gas, tolerating diet and has had bowel movements. She reports intermittent abdominal pain over past several days unlike pain she had prior to surgery, she developed severe pain on several days ago and considered presenting to local ED, however pain resolved. She denied additional symptoms at the time. She reports surgical sites are healing well, pictures sent via [employer] [facility] [employer] reviewed. She denies SOB, nausea, vomiting FUNCTIONAL STATUS: Independent PAST MEDICAL HISTORY Diagnosis Date - Abnormal glandular Papanicolaou smear of cervix 1986 Abn. Pap smear (cervix), S/P several treatments of cryosurgery - COPD (chronic obstructive pulmonary disease) (HCC) - Diabetes mellitus (HCC) diet controlled - Diabetes mellitus of mother, complicating , childbirth, or the puerperium, unspecified as to episode of care(038.00) 1995 - GERD (gastroesophageal reflux disease) not any meds - Migraine 1969 - Other emphysema ([facility]) PFTs last were 1 yr ago external, on albuterol inhaler currently w/c she uses 2-3 x month - Other psoriasis 1976 - [facility] - PAST MEDICAL HISTORY OF 1992 LAYNE DISEASE OF VULVA - Pneumonia twice in 2016 - Rosacea 1998 PAST SURGICAL HISTORY Procedure Laterality Date - APPENDECTOMY 06/25/1981 - COLONOSCOPY SCREENING 11/28/2021 - CRYOSURGERY 02/24/1980 multiple treatments - PAST SURGICAL HISTORY OF 06/25/1992 PARTIAL VULVECTOMY - PAST SURGICAL HISTORY OF removal of a cyst on her clitoris - has had this 4 times in her life - PAST SURGICAL HISTORY OF Left 10/2020 elbow - VULVECTOMY SIMPLE PARTIAL 01/05/2012 Partial simple posterior vulvectomy with bilateral rhomboid transposition flaps for closure. FAMILY HISTORY Problem Relation Age of Onset - Cancer Mother uterine cancer in her late 60's - Diabetes Mother - Heart Mother - other (MIGRAINE HEADACHES) Mother - Stroke Father X3 - Diabetes Father - Cancer Father lung cancer, smoker - other (ALZHEIMERS DISEASE) Father - other (CHF) Father - Diabetes Brother adult onset - Cancer Paternal Aunt liver cancer Social History Tobacco Use - Smoking status: Former Smoker Packs/day: 2.00 Years: 22.00 Pack years: 44.00 Types: Cigarettes Quit date: 09/23/2002 Years since quittin.3 - Smokeless tobacco: Never Used Vaping Use - Vaping Use: Never used Substance Use Topics - Alcohol use: Yes Alcohol/week: 9.0 standard drinks Types: 9 Shots of liquor per week Comment: 9-12 shots of whiskey on the weekends - Drug use: No Comment: Occasionally CBD gummies but not regularly (Not in a hospital admission) ALLERGIES No Known Allergies COMPLETE REVIEW OF SYSTEMS: GENERAL: No weight loss, malaise or fevers Objective PHYSICAL EXAM: Physical Exam Performed: GENERAL: Alert, no distress, cooperative LMP 06/09/2009 DATA: Diagnostic tests reviewed for today's visit: Surgical pathology FINAL DIAGNOSIS A. Soft tissue, mesenteric, biopsy: - Fibrosis with acute and chronic inflammation Assessment/Plan 1) Surgical pathology as outlined above 2) Patient reports resolution of pre surgical abdominal pain 3) Intermittent abdominal pain over several days which has since improved, she reports bowel function, tolerating oral intake 4) Will discuss surgical path and post operative course with Dr Haro 5) advised patient to avoid bending lifting or pulling objects 15 pounds or more for 4-6 weeks, may perform low impact activities Addendum I contacted patient after reviewing pathology with Dr Haro, will refer patient to follow up with [facility] for clonic volvulus, [facility] consult placed patient will contact office to schedule SIGNATURE: Reece Ortiz PA-C PATIENT NAME: Kelsea Hansen DATE: January 13, 2022 TIME: 8:46 AM PAGER/CONTACT #:[facility]07-22-2022 History of Present illness Narrative* Reece Ortiz PA-C - 01/13/2022 8:45 AM EDT HISTORY AND PHYSICAL EXAMINATION SERVICE DATE: 01/13/2022 SERVICE TIME: PRIMARY CARE PHYSICIAN: Susie Knox MD Subjective CHIEF COMPLAINT: Post operative evaluation HPI: This is a 56 year old female who presents via virtual visit she is status post Diagnostic laparoscopy, laparoscopic excision of retroperitoneal fibrosis and/or lesion, upper endoscopy, anterior gastropexy, and lysis of adhesions 01/03/22. She reports resolution of Surgical intermittent abdominal pain. She is passing gas, tolerating diet and has had bowel movements. She reports intermittent abdominal pain over past several days unlike pain she had prior to surgery, she developed severe pain on several days ago and considered presenting to local ED, however pain resolved. She denied additional symptoms at the time. She reports surgical sites are healing well, pictures sent via [employer]. She denies SOB, nausea, vomiting FUNCTIONAL STATUS: Independent PAST MEDICAL HISTORY Diagnosis Date Abnormal glandular Papanicolaou smear of cervix 1986 Abn. Pap smear (cervix), S/P several treatments of cryosurgery COPD (chronic obstructive pulmonary disease) (HCC) Diabetes mellitus (HCC) diet controlled Diabetes mellitus of mother, complicating , childbirth, or the puerperium, unspecified as to episode of care(648.00) 1995 GERD (gastroesophageal reflux disease) not any meds Migraine 1970 Other emphysema (HCC) PFTs last were 1 yr ago external, on albuterol inhaler currently w/c she uses 2- 3 x month Other psoriasis 1976 PMH - PAST MEDICAL HISTORY OF 1992 LAYNE DISEASE OF VULVA Pneumonia twice in 2016 Rosacea 1998 PAST SURGICAL HISTORY Procedure Laterality Date APPENDECTOMY 06/25/1981 COLONOSCOPY SCREENING 11/28/2021 CRYOSURGERY 02/24/1980 multiple treatments PAST SURGICAL HISTORY OF 06/25/1992 PARTIAL VULVECTOMY PAST SURGICAL HISTORY OF removal of a cyst on her clitoris - has had this 4 times in her life PAST SURGICAL HISTORY OF Left 10/2020 elbow VULVECTOMY SIMPLE PARTIAL 01/05/2012 Partial simple posterior vulvectomy with bilateral rhomboid transposition flaps for closure. FAMILY HISTORY Problem Relation Age of Onset Cancer Mother uterine cancer in her late 60's Diabetes Mother Heart Mother other (MIGRAINE HEADACHES) Mother Stroke Father X3 Diabetes Father Cancer Father lung cancer, smoker other (ALZHEIMERS DISEASE) Father other (CHF) Father Diabetes Brother adult onset Cancer Paternal Aunt liver cancer Social History Tobacco Use Smoking status: Former Smoker Packs/day: 2.00 Years: 22.00 Pack years: 44.00 Types: Cigarettes Quit date: 09/23/2002 Years since quittin.3 Smokeless tobacco: Never Used Vaping Use Vaping Use: Never used Substance Use Topics Alcohol use: Yes Alcohol/week: 9.0 standard drinks Types: 9 Shots of liquor per week Comment: 9-12 shots of whiskey on the weekends Drug use: No Comment: Occasionally CBD gummies but not regularly (Not in a hospital admission) ALLERGIES No Known Allergies COMPLETE REVIEW OF SYSTEMS: GENERAL: No weight loss, malaise or fevers Objective PHYSICAL EXAM: Physical Exam Performed: GENERAL: Alert, no distress, cooperative LMP 06/09/2009 DATA: Diagnostic tests reviewed for today's visit: Surgical pathology FINAL DIAGNOSIS A. Soft tissue, mesenteric, biopsy: - Fibrosis with acute and chronic inflammation Assessment/Plan 1) Surgical pathology as outlined above 2) Patient reports resolution of pre surgical abdominal pain 3) Intermittent abdominal pain over several days which has since improved, she reports bowel function, tolerating oral intake 4) Will discuss surgical path and post operative course with Dr Haro 5) advised patient to avoid bending lifting or pulling objects 15 pounds or more for 4-6 weeks, mayperform low impact activities Addendum I contacted patient after reviewing pathology with Dr Haro, will refer patient to follow up with [facility] for clonic volvulus, [facility] consult placed patient will contact office to schedule SIGNATURE: Reece Ortiz PA-C PATIENT NAME: Kelsea Hansen DATE: January 13, 2022 TIME: 8:46 AM PAGER/CONTACT #: documented in this encounterPomerene Hospital07-20-2022 Miscellaneous Notes* Telephone Encounter - Ronda Dodge RN - 01/11/2022 1:19 PM EDT BMI SPECIALTY CARE COORDINATION TELEPHONE ENCOUNTER Chief complaint & duration .post op pain Type of procedure: Diagnostic laparoscopy, laparoscopic excision of retroperitoneal fibrosis and/orlesion, upper endoscopy, anterior gastropexy, and lysis ofadhesions.with Dr. Holloway in December of 2021 Nursing assessment (subjective/objective) pain after eating biggest complaint incisional pain subsided attributes to gas pain taking stool softeners and fiber gummies as directed no issues with BM stopped oxy after surgery and taking Tylenol and Motrin only Incisions look intact Recommendation: OV with team post op request sent to scheduling documented in this encounterPomerene Hospital07-12-2022 NoteHNO ID: [id number] Author: Elieser Arriaza MD Service: ? Author Type: Resident Type: Anesthesia Procedure Notes Filed: 01/03/2022 2:09 PM Note Text: ANESTHESIOLOGY PROCEDURE NOTE Airway General Information Procedure Start Time/Medication Administration: 01/03/2022 1:54 PM Patient location during procedure: OR Patient identity confirmed: patient sedated or unresponsive Staffing Resident: Elieser Arriaza MD Indications and Patient Condition Preoxygenated: yes Patient position: sniffing Indications for airway management: anesthesia anesthesia circuit Method: asleep Final Airway Details Final airway type: endotracheal airway Final Endotracheal Airway: ETT Successful intubation technique: video laryngoscopy Devices used: Medeiros Endotracheal tube insertion site: oral Blade size: #3 ETT size (mm): 7.5 Measured from: lips Measurement (cm): 22 Placement verified by: capnometry Cormack-Lehane Classification: grade I - full view of glottis SIGNATURE: Elieser Arriaza MD PATIENT NAME: Kelsea Hansen DATE: January 03, 2022 TIME: 2:09 PM CSN: [id number]07-11-2022 Miscellaneous Notes* Telephone Encounter - Ronda Dodge RN - 01/02/2022 5:08 PM EDT BMI SPECIALTY CARE COORDINATION TELEPHONE ENCOUNTER Patient scheduled for surgery tomorrow and needed Pulm clearance. Spoke to office and an office note was supposed to be faxed to the the number provided. Have not received and Office is now closed. Paged o/c physician. Office opens early will try in am. Pt not scheduled for surgery until the PM. Patient states per pulmonary team she is stable and optimized for surgery. Will call office in am to have the information fax to number provided. States overall her breathing has much improved for the last 2 years after losing 70 pounds.... documented in this encounterPomerene Hospital07-11-2022 Miscellaneous Notes* Telephone Encounter - VICENTE Mckeon - 01/02/2022 3:45 PM EDT Patient called her stone polisher today after PACC visit. Per patient the nurse at [place] [facility] talked to Dr. Tal Joseph who verbalized that patient is stable and optimized for surgery based on her last office visit. They would fax over a form stating this if we call [phone]. * Telephone Encounter - VICENTE Mckeon - 01/02/2022 1:55 PM EDT Surgeon: Didi Haro MD Type of surgery: ENT: Laparoscopy diagnostic, EGD and laparoscopic appendectomy Patient scheduled for surgery on 01/03/2022. Surgery Location: [facility] I've been emailing with Dr. Nichelle Jaime, [facility] anesthesia, see below. Dr. Haro - pt Ms. Hansen is scheduled for surgery tomorrow in OR 30. You saw her on 12-23 and in your note, you recommended pulmonary optimization before surgery. She came to us PACC today with no acutechange on her respiratory status. Sat 95% on RA in the setting of chronic cough, SOB. Last time home O2 usage was 6 months ago. I did not meet pt today, but you can find more details in Rosetta's notes below. Dr. Cunningham - You are the anesthesiologist assigned to OR 30 tomorrow. We can try to arrange pulmonary in house to see her before surgery, but not sure how much value it can add due to time restrains. I talked to patient and she says her last visit with Dr. Tal Joseph [place] [facility] was approximately 6 months ago. I've placed a consult for pulmonology. CXR and COVID-19 testing pending. documented in this encounterPomerene Hospital07-11-2022 Influenza virus A and B RNA and SARS-CoV-2 (COVID-19) N gene panel AIXA+probe (Resp)COVID 19 RESULT: SARS-CoV-2 (Agent of COVID-19) Not Detected by RT-PCR or equivalent method. malissa [id number] (SCARLET)_EUA This test was developed and its performance characteristics determined by [facility] [place]. This test has been authorized by FDA under an Emergency Use Authorization (EUA). This test has been validated in accordance with the FDA's Guidance Document Policy for DiagnosticsTesting in Laboratories Certified to Perform High Complexity Testing under CLIA prior to Emergency use Authorization for Coronavirus Disease 2019 during the Public Health Emergency issued on August 23, 2019. Test performed by [facility], [facility] [place], [address] [id number]. INFLUENZA A PCR: Negative for Influenza A by RT-PCR INFLUENZA B PCR: Negative for Influenza B by RT-PCROhiohealth Berger HospitalComment on above: Performed By: #### [id number] ####[facility] LABCLIA [id number] [facility] [id number] [id number] [place] 01-02-2022 Miscellaneous Notes* Addendum Note - VICENTE Mckeon - 01/02/2022 2:00 PM EDT Addended by: ROSETTA NICKERSON on: 01/02/2022 02:00 PM Modules accepted: Orders documented in this encounterPomerene Hospital07-11-2022 History and physical note * VICENTE Mckeon - 01/02/2022 11:39 AM EDT Surgeon: Didi Haro MD Type of surgery: ENT: Laparoscopy diagnostic, EGD and laparoscopic appendectomy Patient scheduled for surgery on 01/03/2022 . Surgery Location: [facility] Diagnosis: Pre-op evaluation (primary encounter diagnosis) Malrotation of intestine Preoperative examination Sore throat Cough, unspecified type Bradycardia Gastroesophageal reflux disease, unspecified whether esophagitis present Yahaira (obstructive sleep apnea) Hyperlipidemia, unspecified hyperlipidemia type Anxiety BP 115/59 Pulse 56 Temp (Src) 98.3 (Temporal) Resp 16 Ht 5' 6.378 (1.69m) Wt 166 lb 4.8 oz (75.4kg) SpO2 95% LMP 06/09/2009 BMI 26.54 kg/(m^2). Endorses chronic SOB not associated with rest or exertion, recently improving. Endorses lifestyle changes including weight loss and walking for exercise. Has oxygen at home, last use of oxygen 6 months ago 1 L. Her home O2 saturation is 96%. Denies any recent exacerbations. Has a diagnosis of asthma and COPD. Follows with Conor Centeno. Patient denies any chest pain. Able to ambulate up a flight of stairs without difficulty. For the past 2 days patient endorses a sore throat. She does have allergies and chronic cough. Denies any other symptoms of fever, runny nose or congestion. H&P completed: 12/23/2021 Dr. Didi Haro, general surgery Social History Tobacco Use Smoking status: Former Smoker Packs/day: 2.00 Years: 22.00 Pack years: 44.00 Types: Cigarettes Quit date: 09/23/2002 Years since quittin.2 Smokeless tobacco: Never Used Vaping Use Vaping Use: Never used Substance Use Topics Alcohol use: Yes Alcohol/week: 9.0 standard drinks Types: 9 Shots of liquor per week Comment: 9-12 shots of whiskey on the weekends Drug use: No Comment: Occasionally CBD gummies but not regularly albuterol (PROVENTIL) 2.5 mg /3 mL (0.083 %) nebulizer solution Inhale 1 ampule via nebulizer 4 times daily, as needed. albuterol HFA (PROVENTIL HFA, VENTOLIN HFA) 90 mcg/actuation inhaler Inhale 2 (TWO) puffs EVERY 4 TO 6 HOURS alendronate (FOSAMAX) 70 mg tablet Take by mouth. atorvastatin (LIPITOR) 20 mg tablet Take 20 mg by mouth once daily. FASENRA 30 mg/mL injection ONETOUCH ULTRA TEST test strip calcium carbonate (CALTRATE) 600 mg calcium (1,500 mg) tab Take by mouth. Cholecalciferol, Vitamin D3, 25 mcg (1,000 unit) cap Take by mouth. escitalopram oxalate (LEXAPRO) 5 mg tablet Take 5 mg by mouth every morning. inulin-chromium picolinate 2-100 gram-mcg chew Inulin/Chromium Picolinate Active 2 EA TWICE A DAY October 02, 2017 5:31pm CALCIUM CARBONATE/VITAMIN D3 (VITAMIN D-3 ORAL) Take by mouth. NEBULIZER ACCESSORIES (NEBULIZER MISC) montelukast (SINGULAIR) 10 mg tablet Take 10 mg by mouth daily at bedtime. PANTOPRAZOLE SODIUM (PROTONIX ORAL) Take 40 mg by mouth once daily. tiotropium bromide (SPIRIVA RESPIMAT) 2.5 mcg/actuation mist Inhale as instructed once daily as needed. budesonide-formoterol (SYMBICORT) 160-4.5 mcg/actuation inhaler Inhale 2 Puffs as instructed twice daily. CLOBETASOL PROPIONATE (CLOBETASOL TOPICAL) Apply to affected area as needed. OXYGEN, HOME THERAPY, Inhale 2 L/min as instructed as needed. CYANOCOBALAMIN, VITAMIN B-12, (VITAMIN B-12 ORAL) Take 1,500 mcg by mouth every other day. CALCIUM CARB/VIT D3/MINERALS (CALCIUM PLUS ORAL) Take 1,200 Units by mouth once daily. multivitamin tablet Take 1 tablet by mouth once daily. triamcinolone acetonide 0.1 % ointment Apply small amount to affected area daily for 4 weeks, then 3 times per week. LORazepam (ATIVAN) 0.5 mg Tab Take 1 tablet by mouth as needed. ALBUTEROL 90 MCG/ACTUATION AEROSOL INHALER Inhale 2 Puffs as instructed once daily. Administer every ___ hours. See Epic Results Review or unit specific flow sheet documentation for RT administrationinformation. SHAKE WELL BEFORE USING [id number] carb-vit K (WOMEN'S MULTIVITAMIN) 18 mg-400 mcg- 500 mg-50 mcg tab Take by mouth. oxyCODONE-acetaminophen (PERCOCET) 5-325 mg tablet Take by mouth. oxyCODONE-acetaminophen (PERCOCET) 5-325 mg tablet TAKE 1 TABLET BY MOUTH EVERY 4 HOURS NEEDED FOR PAIN FOR 5 DAYS ALLERGIES No Known Allergies COVID VACCINATION STATUS: Fully vaccinated PHYSICAL EXAMINATION: Alert and oriented, No acute distress Lungs clear to auscultation. No wheezing, rhonchi, rales. RRR without murmur, gallop, or rubs. No ectopy Laboratory and Testing: Lab Value Units Date High Low HB No results within date range. HCT No results within date range. WBC No results within date range. PLT No results within date range. NA No results within date range. K No results within date range. GLUC No results within date range. BUN No results within date range. CREAT No results within date range. PTSEC No results within date range. INR No results within date range. APTT No results within date range. ALT No results within date range. AST No results within date range. TBILI No results within date range. TSH No results within date range. Lab Value Units Date High Low HCGQT No results within date range. UHCG No results within date range. HCG, BODY* No results within date range. Lab Value Units Date High Low ABORHD No results within date range. ABSCREEN No results within date range. HBA1C, [place] (%) Date Value 05/12/2006 6.0 EKG READING: Unconfirmed - SINUS BRADYCARDIA INFERIOR MYOCARDIAL INFARCTION (CITED ON OR BEFORE 02-JAN-2022) ANTERIOR MYOCARDIAL INFARCTION , AGE UNDETERMINED ABNORMAL ECG OTHER TESTS: Chest X-ray: pending Malrotation of intestine Assessment: Procedure as scheduled above. Bradycardia Assessment: 52 on EKG, endorses occasional lightheadedness. Denies syncope. COPD Assessment: 44 pack year history. See HPI. Utlizes 1L of oxygen PRN. Lungs CTA. CXR ordered by surgical service. ESOPHAGEAL REFLUX Assessment: Controlled with PPI. DIABETES MELLITUS ADULT ONSET Assessment: Managed by PCP. Recently taken off Metformin due to improving HbA1c per patient. Sore throat Assessment: See HPI. COVID-19 testing ordered. YAHAIRA (obstructive sleep apnea) Assessment: Compliant with BiPAP machine. Advised to bring device DOS. HLD (hyperlipidemia) Assessment: Controlled with statin therapy. Anxiety Assessment: Mood stable with current medication regimen. ANESTHESIOLOGY REVIEW: MOUTH OPENING/TMJ : Full jaw ROM MICROGNATHIA/OVERBITE: no MP SCORE: MP 2 UPPER LIP BITE TEST: Class I - Lower incisors can bite the upper lip above the traci line DENTITION: Intact THYROMENTAL DIST: WNL SHORT NECK: No NECK FLEX: Full ROM NECK EXTENSION: Full ROM INTUBATION HISTORY: History of general anesthesia without difficulty. ADVERSE ANESTHESIA EVENT: Hypotension and breathing difficulty post-operatively, denies prolonged ventilation no other concerns. ANESTHETIC OPTIONS: Final anesthesia management options will be discussed on day of surgery. PAIN MANAGEMENT OPTIONS: Final pain management plan will be discussed on the day of surgery. OPTIMIZATION STATUS: Patient optimization pending Labs CXR EKG Per Dr. Haro, 12/23/2021: The plan of treatment for Kelsea Hansen is to obtain upper GI follow through to confirm anatomy of malrotation and schedule Alejandro's procedure. She will also have EGD completed during the same day. Recommend pulmonology optimization prior to surgery. Will discuss pulmonary optimization request with [facility] anesthesia. ASA Class: 4 VICENTE Mckeon January 02, 2022 11:39 AM documented in this encounterPomerene Hospital07-11-2022 Instructions* Patient Instructions* VICENTE Mckeon - 01/02/2022 11:33 AM EDT PATIENT PREOPERATIVE INSTRUCTIONS Didi Haro MD has scheduled you for your procedure at this surgery center: [facility] OR Scheduling Office: [phone] --[address] [place] [address]. Please read below carefully for your personalized instructions. Dietary Restrictions: - No solid food after midnight. - You may have 12 ounces of clear liquids (water, clear juices such as apple juice or gatorade, carbonated beverages, clear tea, black coffee, jello) until 2 hours before scheduled arrival at facility. - Do not drink any alcohol after midnight the night before your surgery. Medications: Unless instructed differently below, stay on all of your medications until your surgery. Approved medications to take the morning of surgery with a sip of water: atorvastatin (lipitor), escitalopram oxalate (lexapro), pantoprazole (protonix), lorazepam (ativan) if needed - Please continue your current pain medications. - No diabetic medication the morning of surgery. - Accucheck day of surgery. If you start any new medications after today's visit, please contact the surgeon's office. Blood Thinning Medications: - Stop NSAIDS (Ibuprofen, Advil, Aleve, Motrin, Celebrex, Mobic, etc.) 7 days before surgery, as directed by your surgeon. - Stop Aspirin 7 days before surgery, as directed by your surgeon. - Stop Vitamin E, ALL multi-vitamins, herbals and dietary supplements 7 days before surgery. - You may take Tylenol (Acetaminophen) or any of your pain medications that do not contain aspirin or NSAIDS as needed. Important Reminders: - If you use CPAP/BIPAP, bring the machine with you to the surgery center. - If you are prescribed inhalers for breathing, continue using them. - Candy, mints, and tobacco products are NOT permitted the morning of surgery. - Hearing aids, dentures and glasses may be worn the morning of surgery. - NO jewelry, body piercings, makeup, hairpins or contacts are to be worn the day of surgery. If you develop symptoms such as a fever, cold, or flu, or have other changes to your health within TWO DAYS of scheduled surgery or the morning of surgery, please contact the surgery center above. Personal Belongings: -Please have photo ID and insurance cards. -If you do not have a copy of advance directives on file with us, please bring a copy with you on the day of surgery. - Leave ALL valuables and money at home or with family members. For Outpatient Procedures: - YOU MUST HAVE A RESPONSIBLE CYLINDER STEAMER TAKE YOU HOME. A ASSISTANT READING TEACHER OR RESEARCH AND DEVELOPMENT TESTER CANNOT BE MADE A RESPONSIBLE CYLINDER STEAMER. - We recommend that a responsible person stays with you overnight to take care of you. - You cannot stay in a hotel alone after outpatient surgery. You will not be permitted to have yoursurgery, if you do not have someone to take care of you. Arrival Time for Surgery: - To obtain your arrival time for surgery, call your physician's office the day before your surgery. - If your surgery is scheduled for Sunday, call the Sunday before. Your surgeon s solderer assembler will tell you what time to call the office. - If you have not reached the departmental solderer assembler by 5 P.M., call [phone] after 5 P.M. the day before your surgery. Please be aware that emergency situations arise, which may delay or change your surgical time. If this happens, we will notify you as soon as possible and regret any inconvenience. If you already have an Advance Directive, please fax a copy to [phone] or email to for it to be added to your chart. If you do not have an Advance Directive, you can find the appropriate form and more information at [email or web address]. We recommend that youcomplete the Advance Directive form found on the website and bring it with you the day of your surgery. It can be witnessed and scanned into your chart that day. VICENTE Mckeon documented in this encounterPomerene Hospital07-07-2022 NoteHNO ID: [id number] Author: ISA Salas) Service: Radiology Author Type: Technologist Type: Progress Notes Filed: 12/29/2021 9:40 AM Note Text: Radiology Service Progress Note PATIENT NAME: Kelsea Hansen DATE OF SERVICE: December 29, 2021 TIME: 9:14 AM PATIENT IDENTITY VERIFICATION COMPLETED USING TWO (2) IDENTIFIERS: Name and Date of confirmed by patient verbally and Name and Date of confirmed by identification band. FALL SCREENING: Has the patient had 2 falls in the last year or 1 fall with injury or currently using an Ambulatory Assistive Device (Walker, Cane, Wheelchair, Crutches, etc.)? No PATIENT GENDER DATA: Female. status: : No status: NO. PATIENT RELEVANT IMPLANT DATA REVIEWED: Not Applicable RADIOLOGY DEPARTMENT: General X-ray: Exam(s) Completed: GI/ Procedure(s): Upper GI with barium contrast PERIPHERAL IV DATA: Not applicable SIGNED BY: ISA Salas) December 29, 2021 9:14 AMMainegeneral [facility]07-07-2022 History of Present illness Narrative* ISA Salas) - 12/29/2021 9:30 AM EDT Radiology Service Progress Note PATIENT NAME: Kelsea Hansen DATE OF SERVICE: December 29, 2021 TIME: 9:14 AM PATIENT IDENTITY VERIFICATION COMPLETED USING TWO (2) IDENTIFIERS: Name and Date of confirmedby patient verbally and Name and Date of confirmed by identification band. FALL SCREENING: Has the patient had 2 falls in the last year or 1 fall with injury or currently using an Ambulatory Assistive Device (Walker, Cane, Wheelchair, Crutches, etc.)? No PATIENT GENDER DATA: Female. status: : No status: NO. PATIENT RELEVANT IMPLANT DATA REVIEWED: Not Applicable RADIOLOGY DEPARTMENT: General X-ray: Exam(s) Completed: GI/ Procedure(s): Upper GI with barium contrast PERIPHERAL IV DATA: Not applicable SIGNED BY: ISA Salas) December 29, 2021 9:14 AM documented in this encounterPomerene Hospital07-01-2022 NoteHNO ID: [id number] Author: Joe Kerr, DO Service: ? Author Type: Resident Type: Progress Notes Filed: 12/23/2021 2:43 PM Note Text: NEW PATIENT CONSULTATION HISTORY AND PHYSICAL Date: December 23, 2021 Time: 9:37 AM Name: Kelsea Hansen This is a 56 year old female with morbid obesity (Body mass index is 27.47 kg/m?.) who presents to clinic for consideration of bariatric surgery. COPD, DM (5.2 A1C diet controlled), HLD, GERD, migraine. Pt was recently admitted to [facility] on 11/28/21 due to 10/10 abd pain. Pain was squeezing in nature and it was located around the epigastric region that wraps her torso. Pain was band like distribution. Nothing made it worse or better. Pt also had nausea along with the pain but no associated symptoms. Work up revealed malrotation and possible sigmoid volvulus, thus, underwent urgent decompressive colonoscopy. But decompressive colonoscopy did not reveal any volvulus which was completed by Dr. Zavaleta. She is here today to discuss about surgical option of malrotation Today she has no abd pain or cramping. Pt has a hx of chronic abd pain once a week since child but she has been living with pain bc she has high tolerance to pain. Pt denies any trigger associated with the pain. Pt reports she has consistent BM occasional constipation but mostly easy to move bowel. Pt has 1 BM a day. Hx of colonoscopy in September 2021 which was unremarkable. She has a hx of GERD on protonix has been managing her reflux well. No prior hx of EGD Pt reports that she has been counting calories (0192-2246/day), high protein, high fiber diet, increased exercise and lost 70lbs in past 1 year which was intentional. Pt reports that she has a remote hx of TIA. She had a hx of tingling of left hand and numbness of face of left side which was consistent with migraine but these symptoms did not resolve for 2 days. She went to ED for work up which was unremarkable, and was referred to neurology. Work up revealed ulnar nerve compression, and not likely from TIA. Past surgical hx of appendectomy, carpel tunnel surgery. Father has a hx of CVA, denies any family hx of CORS CA, IBS, IBD, malrotation. No prior hospitalization as a child. PAST MEDICAL HISTORY: PAST MEDICAL HISTORY Diagnosis Date - Abnormal glandular Papanicolaou smear of cervix 1986 Abn. Pap smear (cervix), S/P several treatments of cryosurgery - COPD (chronic obstructive pulmonary disease) (HCC) - Diabetes mellitus (HCC) diet controlled - Diabetes mellitus of mother, complicating , childbirth, or the puerperium, unspecified as to episode of care(978.00) 1995 - GERD (gastroesophageal reflux disease) not any meds - Migraine 1969 - Other emphysema (HCC) PFTs last were 1 yr ago external, on albuterol inhaler currently w/c she uses 2-3 x month - Other psoriasis 1976 - PMH - PAST MEDICAL HISTORY OF 1992 LAYNE DISEASE OF VULVA - Pneumonia twice in 2016 - Rosacea 1998 PAST SURGICAL HISTORY: PAST SURGICAL HISTORY Procedure Laterality Date - APPENDECTOMY 06/25/1981 - COLONOSCOPY SCREENING 11/28/2021 - CRYOSURGERY 02/24/1980 multiple treatments - PAST SURGICAL HISTORY OF 06/25/1992 PARTIAL VULVECTOMY - PAST SURGICAL HISTORY OF removal of a cyst on her clitoris - has had this 4 times in her life - PAST SURGICAL HISTORY OF Left 10/2020 elbow - VULVECTOMY SIMPLE PARTIAL 01/05/2012 Partial simple posterior vulvectomy with bilateral rhomboid transposition flaps for closure. FAMILY HISTORY: FAMILY HISTORY Problem Relation Age of Onset - Stroke Father X3 - Diabetes Father - Cancer Father lung cancer, smoker - other (ALZHEIMERS DISEASE) Father - other (CHF) Father - Cancer Mother uterine cancer in her late 60's - Diabetes Mother - Heart Mother - other (MIGRAINE HEADACHES) Mother - Cancer Paternal Aunt liver cancer - Diabetes Brother adult onset SOCIAL HISTORY: Social History Tobacco Use - Smoking status: Former Smoker Packs/day: 2.00 Years: 22.00 Pack years: 44.00 Types: Cigarettes Quit date: 09/23/2002 Years since quittin.2 - Smokeless tobacco: Never Used Vaping Use - Vaping Use: Never used Substance Use Topics - Alcohol use: Yes Comment: Occasionally - Drug use: No MEDICATIONS: Prior to Admission Medications: albuterol (PROVENTIL) 2.5 mg /3 mL (0.083 %) nebulizer solution Inhale 1 ampule via nebulizer 4 times daily, as needed. albuterol HFA (PROVENTIL HFA, VENTOLIN HFA) 90 mcg/actuation inhaler Inhale 2 (TWO) puffs EVERY 4 TO 6 HOURS alendronate (FOSAMAX) 70 mg tablet Take by mouth. aspirin 81 mg chewable tablet Take by mouth. atorvastatin (LIPITOR) 20 mg tablet Take 20 mg by mouth once daily. FASENRA 30 mg/mL injection Benzonatate 200 mg capsule 200 mg. PayrollHeroTOUCH ULTRA TEST test strip calcium carbonate (CALTRATE) 600 mg calcium (1,500 mg) tab Take by mouth. Cholecalciferol, Vitamin D3, 25 (more content not included)...[facility]07-01-2022 History of Present illness Narrative* Joe Kerr DO - 12/23/2021 9:37 AM EDT NEW PATIENT CONSULTATION HISTORY AND PHYSICAL Date: December 23, 2021 Time: 9:37 AM Name: Kelsea Hansen This is a 56 year old female with morbid obesity (Body mass index is 27.47 kg/m .) who presents to clinic for consideration of bariatric surgery. COPD, DM (5.2 A1C diet controlled), HLD, GERD, migraine. Pt was recently admitted to [facility] on 11/28/21 due to 10/10 abd pain. Pain was squeezing innature and it was located around the epigastric region that wraps her torso. Pain was band like distribution. Nothing made it worse or better. Pt also had nausea along with the pain but no associatedsymptoms. Work up revealed malrotation and possible sigmoid volvulus, thus, underwent urgent decompressive colonoscopy. But decompressive colonoscopy did not reveal any volvulus which was completed by Dr. Zaavleta. She is here today to discuss about surgical option of malrotation Today she has no abd pain or cramping. Pt has a hx of chronic abd pain once a week since child but she has been living with pain bc she has high tolerance to pain. Pt denies any trigger associated with the pain. Pt reports she has consistent BM occasional constipation but mostly easy to move bowel. Pt has 1 BMa day. Hx of colonoscopy in September 2021 which was unremarkable. She has a hx of GERD on protonix has been managing her reflux well. No prior hx of EGD Pt reports that she has been counting calories (3346-3647/day), high protein, high fiber diet, increased exercise and lost 70lbs in past 1 year which was intentional. Pt reports that she has a remote hx of TIA. She had a hx of tingling of left hand and numbness of face of left side which was consistent with migraine but these symptoms did not resolve for 2 days. She went to ED for work up which was unremarkable, and was referred to neurology. Work up revealed ulnar nerve compression, and not likely from TIA. Past surgical hx of appendectomy, carpel tunnel surgery. Father has a hx of CVA, denies any family hx of CORS CA, IBS, IBD, malrotation. No prior hospitalization as a child. PAST MEDICAL HISTORY: PAST MEDICAL HISTORY Diagnosis Date Abnormal glandular Papanicolaou smear of cervix 1986 Abn. Pap smear (cervix), S/P several treatments of cryosurgery COPD (chronic obstructive pulmonary disease) (HCC) Diabetes mellitus (HCC) diet controlled Diabetes mellitus of mother, complicating , childbirth, or the puerperium, unspecified as to episode of care(648.00) 1995 GERD (gastroesophageal reflux disease) not any meds Migraine 1970 Other emphysema (HCC) PFTs last were 1 yr ago external, on albuterol inhaler currently w/c she uses 2- 3 x month Other psoriasis 1976 PMH - PAST MEDICAL HISTORY OF 1992 LAYNE DISEASE OF VULVA Pneumonia twice in 2016 Rosacea 1998 PAST SURGICAL HISTORY: PAST SURGICAL HISTORY Procedure Laterality Date APPENDECTOMY 06/25/1981 COLONOSCOPY SCREENING 11/28/2021 CRYOSURGERY 02/24/1980 multiple treatments PAST SURGICAL HISTORY OF 06/25/1992 PARTIAL VULVECTOMY PAST SURGICAL HISTORY OF removal of a cyst on her clitoris - has had this 4 times in her life PAST SURGICAL HISTORY OF Left 10/2020 elbow VULVECTOMY SIMPLE PARTIAL 01/05/2012 Partial simple posterior vulvectomy with bilateral rhomboid transposition flaps for closure. FAMILY HISTORY: FAMILY HISTORY Problem Relation Age of Onset Stroke Father X3 Diabetes Father Cancer Father lung cancer, smoker other (ALZHEIMERS DISEASE) Father other (CHF) Father Cancer Mother uterine cancer in her late 60's Diabetes Mother Heart Mother other (MIGRAINE HEADACHES) Mother Cancer Paternal Aunt liver cancer Diabetes Brother adult onset SOCIAL HISTORY: Social History Tobacco Use Smoking status: Former Smoker Packs/day: 2.00 Years: 22.00 Pack years: 44.00 Types: Cigarettes Quit date: 09/23/2002 Years since quittin.2 Smokeless tobacco: Never Used Vaping Use Vaping Use: Never used Substance Use Topics Alcohol use: Yes Comment: Occasionally Drug use: No MEDICATIONS: Prior to Admission Medications: albuterol (PROVENTIL) 2.5 mg /3 mL (0.083 %) nebulizer solution Inhale 1 ampule via nebulizer 4 times daily, as needed. albuterol HFA (PROVENTIL HFA, VENTOLIN HFA) 90 mcg/actuation inhaler Inhale 2 (TWO) puffs EVERY 4 TO 6 HOURS alendronate (FOSAMAX) 70 mg tablet Take by mouth. aspirin 81 mg chewable tablet Take by mouth. atorvastatin (LIPITOR) 20 mg tablet Take 20 mg by mouth once daily. FASENRA 30 mg/mL injection Benzonatate 200 mg capsule 200 mg. MyMiniLifeUCH ULTRA TEST test strip calcium carbonate (CALTRATE) 600 mg calcium (1,500 mg) tab Take by mouth. Cholecalciferol, Vitamin D3, 25 mcg (1,000 unit) cap Take by mouth. escitalopram oxalate (LEXAPRO) 5 mg tablet Take by mouth. escitalopram oxalate (LEXAPRO) 5 mg tablet Take 5 mg by mouth every morning. inulin-chromium picolinate 2-100 gram-mcg chew Inulin/Chromium Picolinate Active 2 EA TWICE A DAY October 02, 2017 5:31pm [id number] carb-vit K (WOMEN'S MULTIVITAMIN) 18 mg-400 mcg- 500 mg-50 mcg tab Take by mouth. Iplrv-4-XZQ-EPA-Fish Oil (FISH OIL) 300-1,000 mg cap Take by mouth. oxyCODONE-acetaminophen (PERCOCET) 5-325 mg tablet Take by mouth. oxyCODONE-acetaminophen (PERCOCET) 5-325 mg tablet TAKE 1 TABLET BY MOUTH EVERY 4 HOURS NEEDED FOR PAIN FOR 5 DAYS NEBULIZER ACCESSORIES (NEBULIZER MISC) montelukast (SINGULAIR) 10 mg tablet Take 10 mg by mouth daily at bedtime. PANTOPRAZOLE SODIUM (PROTONIX ORAL) Take 40 mg by mouth once daily. tiotropium bromide (SPIRIVA RESPIMAT) 2.5 mcg/actuation mist Inhale as instructed once daily as needed. budesonide-formoterol (SYMBICORT) 160-4.5 mcg/actuation inhaler Inhale 2 Puffs as instructed twice daily. CLOBETASOL PROPIONATE (CLOBETASOL TOPICAL) Apply to affected area as needed. OXYGEN, HOME THERAPY, Inhale 2 L/min as instructed as needed. CYANOCOBALAMIN, VITAMIN B-12, (VITAMIN B-12 ORAL) Take 1,500 mcg by mouth every other day. CALCIUM CARB/VIT D3/MINERALS (CALCIUM PLUS ORAL) Take 1,200 Units by mouth once daily. multivitamin tablet Take 1 tablet by mouth once daily. LORazepam (ATIVAN) 0.5 mg Tab Take 1 tablet by mouth as needed. ALBUTEROL 90 MCG/ACTUATION AEROSOL INHALER Inhale 2 Puffs as instructed once daily. Administer every ___ hours. See Epic Results Review or unit specific flow sheet documentation for RT administrationinformation. SHAKE WELL BEFORE USING CALCIUM CARBONATE/VITAMIN D3 (VITAMIN D-3 ORAL) Take by mouth. metFORMIN (GLUCOPHAGE) 500 mg tablet Take 500 mg by mouth twice daily with meals. Fish Oil-DHA-EPA 1,200-144-216 mg cap Take by mouth. triamcinolone acetonide 0.1 % ointment Apply small amount to affected area daily for 4 weeks, then 3 times per week. ALLERGIES: ALLERGIES No Known Allergies REVIEW OF SYSTEMS: GENERAL: Negative for malaise, +intentional weight loss and fever NECK: Negative for lumps, goiter, pain and significant neck swelling RESPIRATORY: Negative for cough, wheezing or shortness of breath. CARDIOVASCULAR: Negative for chest pain, leg swelling or palpitations. GI: Negative for blood in stools or black stools or change in bowel habits, + abdominal discomfort : No history of dysuria, frequency or incontinence MUSCULOSKELETAL: Negative for joint pain or swelling, back pain or muscle pain. SKIN: Negative for lesions, rash, and itching. PSYCH: Negative for sleep disturbance, mood disorder and recent psychosocial stressors. ENDOCRINE: Negative for cold or heat intolerance, polyuria, polydipsia and goiter. PHYSICAL EXAM: BP 118/74 Pulse 76 Ht 165.6 cm (5' 5.18) Wt 75.3 kg (166 lb) LMP 06/09/2009 BMI 27.47 kg/m GENERAL: No apparent distress. Pt is alert and oriented x3. HEENT: Head is normocephalic and atraumatic. Extraocular muscles are intact. Pupils are equal, round, and reactive to light and accommodation. Nares appeared normal. Mouth is well hydrated and without lesions. Mucous membranes are moist. Posterior pharynx clear of any exudate or lesions. NECK: Supple. No carotid bruits. No lymphadenopathy or thyromegaly. LUNGS: Clear to auscultation. HEART: Regular rate and rhythm without murmur. ABDOMEN: Soft, nontender, and nondistended. Positive bowel sounds. No hepatosplenomegaly was noted.Scar of RLQ from open appendectomy EXTREMITIES: Without any cyanosis, clubbing, rash, lesions or edema. NEUROLOGIC: Cranial nerves II through XII are grossly intact. PSYCHIATRIC: Flat affect, but denies suicidal or homicidal ideations. SKIN: No ulceration or induration present. Assessment IMPRESSION: Kelsea Hansen is a 56 year old female with the following diagnosis and co-morbidities: Malrotation GERD Hx of DM - diet controlled HLD COPD Body mass index is 27.47 kg/m . Diagnosis noted as above, no additional diagnosis at this time. PLAN: The plan of treatment for Kelsea Hansen is to obtain upper GI follow through to confirm anatomy of malrotation and schedule Marietta's procedure. She will also have EGD completed during the same day. Recommend pulmonology optimization prior to surgery. I have reviewed with this patient needed nutritional changes, post-operative recovery, following surgery. Furthermore, information regarding probable and potential postoperative complications Patient is interested in: Alejandro's procedure, EGD Joe Kerr DO Advanced Laparoscopic [facility] Bariatric Surgery Attending Note I evaluated the patient and personally participated in the saunders components. I agree with the resident's findings and plan as documented and have discussed the case and management of the patient's carewith the resident. Signature: Didi Haro MD Date: 12/23/2021 Time: 2:43 PM documented in this [facility]06-[facility] NoteHNO ID: [id number] Author: Bhargav Zavaleta MD Service: ? Author Type: Physician Type: Progress Notes Filed: 12/13/2021 3:17 PM Note Text: HISTORY AND PHYSICAL Kelsea Hansen 1965 REFERRING PHYSICIAN: Bhargav Zavaleta MD CHIEF COMPLAINT: Follow Up (colonoscopy) HPI: The patient is a 55 year old female with a complaint of follow-up from a hospitalization at [facility] on 11/28/2021.. She presented with centralized abdominal pain underwent a CAT scan which was read as malrotation of the intestines consistent with a sigmoid volvulus patient underwent a colonoscopy where the patient was noted not to have any signs of a sigmoid volvulus. Her condition gradually improved. She still occasionally has some abdominal discomfort. At the time that she presented I actually was a little bit more hesitant in the diagnosis of a sigmoid volvulus and in looking at the CAT scan I am more convinced now that she probably had malrotation of the small intestines. Since she improved and since she has some significant COPD I did not think it was urgent that I take her to surgery and felt that it would be a better idea to get her up to the main campus to have a possible exploratory laparoscopy and lysis of adhesions. The patient is being seen by me today at the request of Dr. 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 PAST MEDICAL HISTORY Diagnosis Date - Abnormal glandular Papanicolaou smear of cervix 1986 Abn. Pap smear (cervix), S/P several treatments of cryosurgery - COPD (chronic obstructive pulmonary disease) (HCC) - Diabetes mellitus (HCC) diet controlled - Diabetes mellitus of mother, complicating , childbirth, or the puerperium, unspecified as to episode of care(648.00) 1995 - GERD (gastroesophageal reflux disease) not any meds - Migraine 1969 - Other emphysema (HCC) PFTs last were 1 yr ago external, on albuterol inhaler currently w/c she uses 2-3 x month - Other psoriasis 1976 - PMH - PAST MEDICAL HISTORY OF 1992 LAYNE DISEASE OF VULVA - Pneumonia twice in 2016 - Rosacea 1998 PAST SURGICAL HISTORY Procedure Laterality Date - APPENDECTOMY 06/25/1981 - COLONOSCOPY SCREENING 11/28/2021 - CRYOSURGERY 02/24/1980 multiple treatments - PAST SURGICAL HISTORY OF 06/25/1992 PARTIAL VULVECTOMY - PAST SURGICAL HISTORY OF removal of a cyst on her clitoris - has had this 4 times in her life - PAST SURGICAL HISTORY OF Left 10/2020 elbow - VULVECTOMY SIMPLE PARTIAL 01/05/2012 Partial simple posterior vulvectomy with bilateral rhomboid transposition flaps for closure. Current Outpatient Medications Medication Sig - NEBULIZER ACCESSORIES (NEBULIZER MISC) - montelukast (SINGULAIR) 10 mg tablet Take 10 mg by mouth daily at bedtime. - PANTOPRAZOLE SODIUM (PROTONIX ORAL) Take 40 mg by mouth once daily. - tiotropium bromide (SPIRIVA RESPIMAT) 2.5 mcg/actuation mist Inhale as instructed once daily as needed. - budesonide-formoterol (SYMBICORT) 160-4.5 mcg/actuation inhaler Inhale 2 Puffs as instructed twice daily. - CLOBETASOL PROPIONATE (CLOBETASOL TOPICAL) Apply to affected area as needed. - OXYGEN, HOME THERAPY, Inhale 2 L/min as instructed as needed. - CYANOCOBALAMIN, VITAMIN B-12, (VITAMIN B-12 ORAL) Take 1,500 mcg by mouth every other day. - CALCIUM CARB/VIT D3/MINERALS (CALCIUM PLUS ORAL) Take 1,200 Units by mouth once daily. - multivitamin tablet Take 1 tablet by mouth once daily. - LORazepam (ATIVAN) 0.5 mg Tab Take 1 tablet by mouth as needed. - CALCIUM CARBONATE/VITAMIN D3 (VITAMIN D-3 ORAL) Take by mouth. (Patient not taking: Reported on 12/13/2021 ) - metFORMIN (GLUCOPHAGE) 500 mg tablet Take 500 mg by mouth twice daily with meals. (Patient not taking: Reported on 12/13/2021 ) - Fish Oil-DHA-EPA 1,200-144-216 mg cap Take by mouth. (Patient not taking: Reported on 12/13/2021 ) - triamcinolone acetonide 0.1 % ointment Apply small amount to affected area daily for 4 weeks, then 3 times per week. - ALBUTEROL 90 MCG/ACTUATION AEROSOL INHALER Inhale 2 Puffs as instructed once daily. Administer every ___ hours. See Epic Results Review or unit specific flow sheet documentation for RT administration information. SHAKE WELL BEFORE USING No current facility-administered medications for this visit. ALLERGIES: Patient has no known allergies. PERSONAL HISTORY: Social History Tobacco Use - Smoking status: Former Smoker Packs/day: 2.00 Years: 22.00 Pack years: 44.00 Types: Cigarettes Quit date: 09/23/2002 Years since quittin.2 - Smokeless tobacco: Never Used Vaping Use - Vaping Use: Never used Substance Use Topics - Alcohol use: Yes Comment: Occasionally - Drug use: No FAMILY HISTORY: FAMILY HISTORY Problem Relation Age of Onset - Stroke Father X3 - Diabetes Father - Cancer Father (more content not included)...[facility]06-21-2022 History of Present illness Narrative* Bhargav Zavaleta MD - 12/13/2021 3:03 PM EDT HISTORY AND PHYSICAL Kelsea Hansen 1965 REFERRING PHYSICIAN: Bhargav Zavaleta MD CHIEF COMPLAINT: Follow Up (colonoscopy) HPI: The patient is a 55 year old female with a complaint of follow-up from a hospitalization at [facility] on 11/28/2021.. She presented with centralized abdominal pain underwent a CATscan which was read as malrotation of the intestines consistent with a sigmoid volvulus patient underwent a colonoscopy where the patient was noted not to have any signs of a sigmoid volvulus. Her condition gradually improved. She still occasionally has some abdominal discomfort. At the time that she presented I actually was a little bit more hesitant in the diagnosis of a sigmoid volvulus and in looking at the CAT scan I am more convinced now that she probably had malrotation of the small intestines. Since she improved and since she has some significant COPD I did not think it was urgent that I take her to surgery and felt that it would be a better idea to get her up to the main campus to have a possible exploratory laparoscopy and lysis of adhesions. The patient is being seen by me today at the request of Dr. Susie Knox MD for my opinionand advice regarding Malrotation of intestine with midgut volvulus (primary encounter diagnosis). PAST MEDICAL HISTORY Diagnosis Date Abnormal glandular Papanicolaou smear of cervix 1986 Abn. Pap smear (cervix), S/P several treatments of cryosurgery COPD (chronic obstructive pulmonary disease) (HCC) Diabetes mellitus (HCC) diet controlled Diabetes mellitus of mother, complicating , childbirth, or the puerperium, unspecified as to episode of care(939.00) 1995 GERD (gastroesophageal reflux disease) not any meds Migraine 1970 Other emphysema (HCC) PFTs last were 1 yr ago external, on albuterol inhaler currently w/c she uses 2- 3 x month Other psoriasis 1976 PMH - PAST MEDICAL HISTORY OF 1992 LAYNE DISEASE OF VULVA Pneumonia twice in 2016 Rosacea 1998 PAST SURGICAL HISTORY Procedure Laterality Date APPENDECTOMY 06/25/1981 COLONOSCOPY SCREENING 11/28/2021 CRYOSURGERY 02/24/1980 multiple treatments PAST SURGICAL HISTORY OF 06/25/1992 PARTIAL VULVECTOMY PAST SURGICAL HISTORY OF removal of a cyst on her clitoris - has had this 4 times in her life PAST SURGICAL HISTORY OF Left 10/2020 elbow VULVECTOMY SIMPLE PARTIAL 01/05/2012 Partial simple posterior vulvectomy with bilateral rhomboid transposition flaps for closure. Current Outpatient Medications Medication Sig NEBULIZER ACCESSORIES (NEBULIZER MISC) montelukast (SINGULAIR) 10 mg tablet Take 10 mg by mouth daily at bedtime. PANTOPRAZOLE SODIUM (PROTONIX ORAL) Take 40 mg by mouth once daily. tiotropium bromide (SPIRIVA RESPIMAT) 2.5 mcg/actuation mist Inhale as instructed once daily as needed. budesonide-formoterol (SYMBICORT) 160-4.5 mcg/actuation inhaler Inhale 2 Puffs as instructed twice daily. CLOBETASOL PROPIONATE (CLOBETASOL TOPICAL) Apply to affected area as needed. OXYGEN, HOME THERAPY, Inhale 2 L/min as instructed as needed. CYANOCOBALAMIN, VITAMIN B-12, (VITAMIN B-12 ORAL) Take 1,500 mcg by mouth every other day. CALCIUM CARB/VIT D3/MINERALS (CALCIUM PLUS ORAL) Take 1,200 Units by mouth once daily. multivitamin tablet Take 1 tablet by mouth once daily. LORazepam (ATIVAN) 0.5 mg Tab Take 1 tablet by mouth as needed. CALCIUM CARBONATE/VITAMIN D3 (VITAMIN D-3 ORAL) Take by mouth. (Patient not taking: Reported on 12/13/2021 ) metFORMIN (GLUCOPHAGE) 500 mg tablet Take 500 mg by mouth twice daily with meals. (Patient not taking: Reported on 12/13/2021 ) Fish Oil-DHA-EPA 1,200-144-216 mg cap Take by mouth. (Patient not taking: Reported on 12/13/2021 ) triamcinolone acetonide 0.1 % ointment Apply small amount to affected area daily for 4 weeks, then 3 times per week. ALBUTEROL 90 MCG/ACTUATION AEROSOL INHALER Inhale 2 Puffs as instructed once daily. Administer every ___ hours. See Epic Results Review or unit specific flow sheet documentation for RT administrationinformation. SHAKE WELL BEFORE USING No current facility-administered medications for this visit. ALLERGIES: Patient has no known allergies. PERSONAL HISTORY: Social History Tobacco Use Smoking status: Former Smoker Packs/day: 2.00 Years: 22.00 Pack years: 44.00 Types: Cigarettes Quit date: 09/23/2002 Years since quittin.2 Smokeless tobacco: Never Used Vaping Use Vaping Use: Never used Substance Use Topics Alcohol use: Yes Comment: Occasionally Drug use: No FAMILY HISTORY: FAMILY HISTORY Problem Relation Age of Onset Stroke Father X3 Diabetes Father Cancer Father lung cancer, smoker other (ALZHEIMERS DISEASE) Father other (CHF) Father Cancer Mother uterine cancer in her late 60's Diabetes Mother Heart Mother other (MIGRAINE HEADACHES) Mother Cancer Paternal Aunt liver cancer Diabetes Brother adult onset REVIEW OF SYMPTOMS: The review of systems data was entered by the nurse and reviewed by ks Nursing Notes: Rupal BaronBETINA 12/13/2021 2:46 PM Signed REVIEW OF SYSTEMS: General: The patient denies fatigue, denies weight loss, denies weight gain, denies feeling hot, and denies feelings of cold. Eyes: The patient denies glaucoma, denies eye injury/surgery, wears glasses or contacts. Ear/Nose/Throat: The patient notes allergies, denies hayfever, denies ear infections, and denies bloody noses. Cardiovascular: The patient notes chest pain, denies heart disease, denies high blood pressure,denies cardiac stent, denies prior heart attack, denies irregular heart beat, denies high cholesterol, denies poor circulation, denies heart failure, other cardiac issues, denies claudication, denies coldfeet, denies peripheral arterial stent. Respiratory: The patient denies tuberculosis, notes pneumonia, notes frequent cough, denies pulmonary embolism, notes shortness of breath, and denies coughing up blood, notes other lung problems. Gastrointestinal: The patient notes difficulty swallowing, notes acid reflux, denies ulcers, deniesvomiting, denies jaundice/hepatitis, denies gallbladder problems, denies black or tarry stools, denies hemorrhoids, notes bleeding from rectum, denies diverticulitis, denies constipation, denies diarrhea, denies loss of stool control, and denies hernias. Kidney/Bladder: The patient denies kidney stones, notes urine infections, and denies bloody urine. Skin: The patient notes a history of skin cancer, denies bleeding/changing moles, and denies a history of skin rash. Neurologic: The patient denies a history of epilepsy/convulsions, notes headaches, denies head/spinal injuries, and denies stroke/TIA. Psychiatric: The patient notes psychiatric medications, denies depression, and denies voices, denies substance abuse. Endocrine: The patient denies thyroid disorders, notes diabetes, and denies hormonal problems. Hematologic: The patient denies a history of bruising, denies bleeding, and denies anemia, denies blood clots. Infections: The patient notes a history of measles and mumps, denies rheumatic fever, and notes sexually transmitted diseases. Musculoskeletal: The patient denies back pain/injury, denies back problems, denies sciatica, notes knee/foot trouble, denies arthritis, or denies gout. When was patient's last Mammogram screening? 2017 Last Colonoscopy: 11/2021 Rupal Baron LPN PHYSICAL EXAMINATION: General: The patient is 55 year old female, well nourished, well hydrated in no acute distress. Thepatient is oriented to time, place, and person. VITALS: Blood pressure 94/58, pulse 66, temperature 36.3 C (97.3 F), height 167.6 cm (5' 6), weight 74.8 kg (165 lb), last menstrual period 06/09/2009, SpO2 97 %. HEENT: Normal cephalic, ataumatic, pupils are equally round, sclera are anicteric, mucous membranesare moist, oropharynx is clear. Neck has no masses, asymmetry or lymphadenopathy. Thyroid is unremarkable. Respiratory: Clear to auscultation and percussion. Normal respiratory excursion and pattern. Cardiac: Examination is regular rate and rhythm. Abdominal exam: Soft, nontender, with no palpable masses. No hepatosplenomegaly. No palpable hernias. Rectal exam: exam deferred Extremities: no clubbing, cyanosis or edema. No adenopathy. 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 Her CAT scan from [facility] will be pushed over to [facility]. I am not going to order another CAT scan at this timenot convinced that she necessarily needs this. 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 Susie Knox MD indicating the above finding for this patient. Return to Clinic: The patient is instructed to follow-up with me as needed. Bhargav Zavaleta III, MD documented in this encounterPomerene Hospital06-21-2022 Nurse Note* Rupal CastellanollBETINA - 12/13/2021 2:43 PM EDT REVIEW OF SYSTEMS: General: The patient denies fatigue, denies weight loss, denies weight gain, denies feeling hot, and denies feelings of cold. Eyes: The patient denies glaucoma, denies eye injury/surgery, wears glasses or contacts. Ear/Nose/Throat: The patient notes allergies, denies hayfever, denies ear infections, and denies bloody noses. Cardiovascular: The patient notes chest pain, denies heart disease, denies high blood pressure,denies cardiac stent, denies prior heart attack, denies irregular heart beat, denies high cholesterol, denies poor circulation, denies heart failure, other cardiac issues, denies claudication, denies coldfeet, denies peripheral arterial stent. Respiratory: The patient denies tuberculosis, notes pneumonia, notes frequent cough, denies pulmonary embolism, notes shortness of breath, and denies coughing up blood, notes other lung problems. Gastrointestinal: The patient notes difficulty swallowing, notes acid reflux, denies ulcers, deniesvomiting, denies jaundice/hepatitis, denies gallbladder problems, denies black or tarry stools, denies hemorrhoids, notes bleeding from rectum, denies diverticulitis, denies constipation, denies diarrhea, denies loss of stool control, and denies hernias. Kidney/Bladder: The patient denies kidney stones, notes urine infections, and denies bloody urine. Skin: The patient notes a history of skin cancer, denies bleeding/changing moles, and denies a history of skin rash. Neurologic: The patient denies a history of epilepsy/convulsions, notes headaches, denies head/spinal injuries, and denies stroke/TIA. Psychiatric: The patient notes psychiatric medications, denies depression, and denies voices, denies substance abuse. Endocrine: The patient denies thyroid disorders, notes diabetes, and denies hormonal problems. Hematologic: The patient denies a history of bruising, denies bleeding, and denies anemia, denies blood clots. Infections: The patient notes a history of measles and mumps, denies rheumatic fever, and notes sexually transmitted diseases. Musculoskeletal: The patient denies back pain/injury, denies back problems, denies sciatica, notes knee/foot trouble, denies arthritis, or denies gout. When was patient's last Mammogram screening? 2017 Last Colonoscopy: 11/2021 Rupal Baron LPN [facility] of Past illness Narrative* Problem Noted Date Resolved Date Vulval lesion 12/22/2011 01/12/2012 Lichen sclerosus et atrophicus 12/07/2011 0 01/12/2012 documented as of this encounter (statuses as of 12/13/2021) [facility] illness Narrative* Problem Noted Date Resolved Date Vulval lesion 12/22/2011 01/12/2012 Lichen sclerosus et atrophicus 12/07/2011 0 01/12/2012 documented as of this encounter (statuses as of 12/23/2021) [facility] of [facility] illness Narrative* Problem Noted Date Resolved Date Vulval lesion 12/22/2011 01/12/2012 Lichen sclerosus et atrophicus 12/07/2011 0 01/12/2012 documented as of this encounter (statuses as of 12/27/2021) [facility] illness Narrative* Problem Noted Date Resolved Date Vulval lesion 12/22/2011 01/12/2012 Lichen sclerosus et atrophicus 12/07/2011 0 01/12/2012 documented as of this encounter (statuses as of 12/30/2021) [facility] Narrative* Problem Noted Date Resolved Date Vulval lesion 12/22/2011 01/12/2012 Lichen sclerosus et atrophicus 12/07/2011 0 01/12/2012 documented as of this encounter (statuses as of 01/02/2022) [facility] Narrative* Problem Noted Date Resolved Date Vulval lesion 12/22/2011 01/12/2012 Lichen sclerosus et atrophicus 12/07/2011 0 01/12/2012 documented as of this encounter (statuses as of 01/02/2022) [facility] Narrative* Problem Noted Date Resolved Date Vulval lesion 12/22/2011 01/12/2012 Lichen sclerosus et atrophicus 12/07/2011 0 01/12/2012 documented as of this encounter (statuses as of 01/03/2022) [facility] Narrative* Problem Noted Date Resolved Date Vulval lesion 12/22/2011 01/12/2012 Lichen sclerosus et atrophicus 12/07/2011 0 01/12/2012 documented as of this encounter (statuses as of 01/11/2022) [facility] Narrative* Problem Noted Date Resolved Date Vulval lesion 12/22/2011 01/12/2012 Lichen sclerosus et atrophicus 12/07/2011 0 01/12/2012 documented as of this encounter (statuses as of 01/13/2022) [facility] Diagnosis Onset Date Resolution Status Obesity (BMI 30-39.9) chroni c Severe asthma chronic Sleep apnea, obstructive chr onic Stage 1 mild COPD by GOLD classification chronic Abdominal pain acute Sigmoid volvulus acute [facility] Work Phone: Evaluation note* Diagnosis Onset Date Resolution Status Obesity (BMI 30-39.9) chroni c Severe asthma chronic Sleep apnea, obstructive chr onic Stage 1 mild COPD by GOLD classification chronic Abdominal pain acute Malrotation of intestine acu te Sigmoid volvulus acute COPD (chronic obstructive pulmonary disease) chronic [facility] Work Phone: Evaluation note* Diagnosis Malrotation of intestine with midgut volvulus- Primary [facility] Diagnosis Malrotation of intestine- Primary Congenital anomalies of intestinal fixation documented in this encounter [facility] note* Diagnosis Malrotation of intestine- Primary Congenital anomalies of intestinal fixation Preoperative examination Preoperative examination, unspecified documented in this encounter [facility] note* Diagnosis Malrotation of intestine Congenital anomalies of intestinal fixation Malrotation of intestine Congenital anomalies of intestinal fixation Preoperative examination Preoperative examination, unspecified documented in this encounter [facility] note* Diagnosis Pre-op evaluation- Primary Preoperative examination, unspecified Malrotation of intestine Congenital anomalies of intestinal fixation Preoperative examination Preoperative examination, unspecified Sore throat Acute pharyngitis Cough, unspecified type Bradycardia Other specified cardiac dysrhythmias Gastroesophageal reflux disease, unspecified whether esophagitis present YAHAIRA (obstructive sleep apnea) Obstructive sleep apnea (adult) (pediatric) Hyperlipidemia, unspecified hyperlipidemia type Anxiety Anxiety state, unspecified Chronic obstructive pulmonary disease, unspecified COPD type (HCC) Malrotation of intestine Congenital anomalies of intestinal fixation Preoperative examination Preoperative examination, unspecified documented in this encounter [facility] note* Diagnosis Malrotation of intestine Congenital anomalies of intestinal fixation Preoperative examination Preoperative examination, unspecified documented in this encounter [facility] note* Diagnosis Colonic volvulus (HCC)- Primary Volvulus documented in this encounter [facility] noteNo assessment information availableWChildren's Hospital for [facility] Work Phone: Evaluation note* Diagnosis Onset Date Resolution Status Admit Date Chronic seasonal allergic rhinitis chronic March 12, 2025 10:14am Obesity chronic February 10:14am Severe asthma chronic February 232024 10:14am Sleep apnea, obstructive chronic March 12, 2025 10:14am Stage 1 mild COPD by GOLD classification chronic March 12, 2025 10:14am [facility] Work Phone: Progress note Author Josy Burch [facility] Note Date/Time March 12, 2025 10:49am [facility] Medicine [address] [place] [address] OFFICE VISIT Date of Service: 03/12/25 MR#: [id number] Acct: [id number] Name: KELSEA HANSEN Rep #: [id number] : 1965 Provider: MAGDY Burch Age/Sex: 59/F Location: [facility] Status: Signed Assessment and Plan Assessment and Plan (1) Severe asthma: Status: Chronic Qualifiers: Asthma persistence: persistent Asthma complication type: uncomplicated Qualified Code(s): J45.50 - Severe persistent asthma, uncomplicated Comment: On triple therapy and Fasenra Plan: Deteriorated, she is mildly more symptomatic but she does not appear to be in anexacerbation today. No indication for antibiotics or prednisone. Continue current maintenance medications, including Symbicort, Spiriva, Fasenra. Return to using cetirizine daily through fall seasonal allergies. No additional testing at this time. Follow-up in the office in 6 months. Annual influenza vaccination provided in the office today. (2) Stage 1 mild COPD by GOLD classification: Status: Chronic Plan: See assessment and plan for asthma as the patient has asthma/COPD overlap syndrome. She is on triple therapy. (3) Chronic seasonal allergic rhinitis: Status: Chronic Plan: Slightly more symptomatic since she has not been taking an antihistamine. Restart cetirizine. (4) Sleep apnea, obstructive: Status: Chronic Comment: BiPAP 8/4 cm of water Plan: She is using and benefiting from Pap therapy. No indication for titration study at this time, even though residual AHI is mildly higher than last office visit is technically controlled.. Contact the office for any new or worsening symptomsin the meantime. Follow-up in 6 months. (5) Obesity: Status: Chronic Qualifiers: Obesity type: due to excess calories Obesity classification: adult class 1 (BMI 30 - 34.9) Serious obesity comorbidity presence: with serious comorbidity Body mass index: BMI 31.0-31.9 Qualified Code(s): E66.811 - Obesity, class 1; E66.09 - Other obesity due to excess calories; Z68.31 - Body mass index [BMI] 31.0-31.9, adult Plan: Deteriorated. Patient has put on a few pounds. Complicates exam, plan, care and prognosis. Continue to encourage weight loss. This is likely the reason her AHI is mildly more elevated on the same pressure support. However, technically still controlled and does not require retitration. Orders: Orders Influenza Immunization Today Z23 - Encounter for immunization Plan Details Additional Comments: This note was generated with [employer] dictation software. It may contain incorrect words, spelling, and punctuation that were not noted in checking the note before signing. Follow Up: 6 Months HPI 6 M FU Chief Complaint: Routine follow-up HPI Comments Details: This patient presents to the office today for follow-up of her severe persistent asthma with mild COPD overlap syndrome. She is ambulatory and on room air. She has not recently been seen in the ED or urgent care for any respiratory illness. She has not recently required antibiotics or prednisone for any breathing problems. She continues complete smoking cessation since 2002. She is compliant with the use of Symbicort 2 puffs twice daily. She does report rinsing her mouth out after each use. She denies any medication side effect such as sore throat or thrush. She is also compliant Spiriva daily. She continues with Fasenra bimonthly injections. She has not recently been on cetirizine. She has not recently needed the nebulizer. She has shortness of breath on exertion. She denies any cough, sputum production or hemoptysis. She denies any wheezing, chest pain or palpitations. She admits some slight chest tightness. She has not had any fever, chills or body aches. She feels rested and refreshed when she wakes. She denies any difficulty with dry mouth or morning headaches. She is not re going morning requiring naps or nodding off to sleep. Compliance report for the past 30 days shows 97% compliance and average use of 6 hours 46 minutes per night. Current setting is BiPAP 8/4 cmH2O with residual AHI of 4.3 events per hour. Leaks do not appear to be problematic. 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: No Accompanied by: Self Is patient in pain?: No Allergies No Known Allergies Allergy (Verified 03/12/25 10:21) Medications ?Medication ?Instructions ?Recorded ?Confirmed ?Type lorazepam 0.5 mg tablet (Ativan) 0.5 mg PO TID PRN Anx iety 03/09/20 03/12/25 History tiotropium bromide 2.5 2 puff inhalation DAILY 02/2303/12/25 History mcg/actuation mist for inhalation (Spiriva Respimat) albuterol sulfate 2.5 mg/3 mL 2.5 mg (3 mL) inhalation .QID 03/16/21 03/12/25 Rx (0.083 %) solution for nebulization BREATHING #180 mL ipratropium 0.5 mg-albuterol 3 mg 3 ml inhalation Q4H PRN PRN SOB 03/16/21 03/12/25 Rx (2.5 mg base)/3 mL nebulization &/OR WHEEZING #180 mL soln benralizumab 30 mg/mL subcutaneous 30 mg subcut Q8W #1 mL 06/19/24 03/12/25 Rx auto-injector (Fasenra Pen) albuterol sulfate 90 mcg/actuation 2 puff inhalation Q 6H PRN ASTHMA 09/11/24 03/12/25 Rx aerosol inhaler #8.5 grams multivitamin 1 tab PO QDAY 09/11/2403/12 History budesonide-formoterol HFA 160 2 puff inhalation BID BR EATHING 03/12/25 03/12/25 History mcg-4.5 mcg/actuation aerosol inhaler escitalopram oxalate 10 mg tablet 10 mg PO DAILY Anxie ty 03/12/25 03/12/25 History Have you fallen in the past year?: No [facility] Medical History Wears glasses Cancer Post-menopausal Anxiety Rash Diabetes Chronic cough Hoarseness Shortness of breath on exertion Former smoker On home oxygen therapy Emphysema, unspecified Irregular heart beat Normal echocardiogram (~01/01/20) Normal stress echocardiogram (~07/31/16) Chest pain Restless legs Migraine headache Osteoporosis GERD (gastroesophageal reflux disease) History of skin cancer of the vulva High cholesterol Gastrointestinal problem Chronic bronchitis Asthma Diabetes mellitus type 2, controlled COPD (chronic obstructive pulmonary disease) Dyspnea Palpitations Wheezing Acute bronchitis due to infection Sleep apnea, obstructive Surgical History H/O pulmonic valvulotomy History of appendectomy Family History Mother CHF (congestive heart failure) Diabetes Hypertension Uterine cancer Anxiety Psychiatric care Father Diabetes CVA (cerebral vascular accident) Heart disease Lung cancer Brother Diabetes Social History Smoking Status: Former smoker quit date: 09/23/02 pack-years: 22 Tobacco: How many years used: 22 second hand exposure: Yes alcohol intake: current Alcohol type: wine and hard liquor substance use type: does not use Exam Const Constitutional: Positive conversant, cooperative, in no acute respiratory distress, healthy appearing, well developed, well nourished, good hygiene and obese Head Head: Yes normocephalic, Yes atraumatic and No cyanosis of lips/distal nose Eyes Eye: Positive clear conjunctiva; Negative nystagmus or scleral abnormality Ears Ear: Positive hearing normal and external ears normal Nose Nose: Yes external nose normal Mouth Mouth: Positive oral mucosae normal Neck Neck: Positive normal visual inspection, full ROM and trachea midline Chest Wall Chest: Positive normal inspection of the chest and symmetric chest movement; Negative increased A/P diameter Resp lung sounds: Positive clear to auscultation, normal expiratory time and normal respiratory effort; Negative wheezes, rhonchi, rales or use of accessory muscles Cardio Cardiac: Positive regular rate, regular rhythm, S1 normal and S2 normal; Negative murmur GI GI: Positive normal to inspection and obese; Negative distended Genitourinary: Positive deferred Musc Musculoskeletal: Positive steady gait and ROM normal; Negative kyphosis or scoliosis Skin Pulmonary Skin Exam: Positive intact; Negative lesion, rash or ulcers Pulses Pulse: Yes radial pulses present Extremities Extremities: Yes capillary refill normal, Yes clubbing and No cyanosis Neuro Neurologic: Yes no focal neuro deficits, Yes conversant, Yes cooperative, Yes normal cognition, Yes normal coordination, Yes normal concentration and Yes understands questions Psych Appearance: Positive grossly normal, eye contact and well kempt Mental Status: Positive mental status grossly normal Mood: Positive congruent mood Affect: Positive normal affect Immunizations Flucelvax [id number] (PF) 45 mcg (15 mcg x 3)/0.5 mL IM syringe Performing Provider: Josy Burch NP, [employer] Performing Location: [facility] Administered by: Felipa Lam LPN on 03/12/25 10:50 Dose Route Admin Location Dispensed Lot Number Expiration Date Pack age NDC NDC Fuel Cell Engineer 0.5 mL IM Right Deltoid 0.5 mL [id number] 11/01/25 37110-630-11 [id number] [employer] VIS Given Date VIS Provided VIS Publication Date 03/12/25 Single Vaccine 24 Eligibility Eligibility Date Funding Source Not Applicable Coding Level of Care Code Off vis,est,level 4 Diagnoses Severe persistent asthma without complication J45.50 Asthma persistence: persistent Asthma complication type: uncomplicated Stage 1 mild COPD by GOLD classification J44.9 Chronic seasonal allergic rhinitis J30.2 Sleep apnea, obstructive G47.33 Class 1 obesity due to excess calories with serious comorbidity and body mass index (BMI) of 31.0 to 31.9 in adult E66.811; E66.09; Z68.31 Obesity type: due to excess calories Obesity classification: adult class 1 (BMI 30 - 34.9) Serious obesity comorbidity presence: with serious comorbidity Body mass index: BMI 31.0-31.9 Clinical Quality Measures Falls Risk Screening/Assistive Devices Have you fallen in the past year?: No 03/12/25 1202 <Electronically signed by Josy cook NP [employer]> Date _ Josy Burch NP [employer] CHIEFYsabelC Cosigner Signature: Date (if applicable) CC: Dr. Susie Knox MD ~ [facility] Work Phone: Reason for referral (narrative)* Diagnostic Procedure Only (Routine) - Authorized Specialty Diagnoses / Procedures Referred By Contac t Referred To Contact XR IMAGING Diagnoses Malrotation of intestine Procedures XR UPPER GI SINGLE CONTRAST RADIOLOGIC EXAM [facility] GI TR SINGLE CONTRAST STUDY Didi Haro MD [address] [place] [address] Xr Imaging Referral ID Status Reason Start Date Expiration Date Visits Requested Visits Authorized [id number] Authorized Auto-Generat ed Referral 12/23/2021 06/24/2022 1 1 [facility] for referral (narrative)* Diagnostic Procedure Only (Routine) - Closed Specialty Diagnoses / Procedures Referred By Momo t Referred To Contact XR IMAGING Diagnoses Malrotation of intestine Procedures XR UPPER GI SINGLE CONTRAST RADIOLOGIC EXAM [facility] SINGLE CONTRAST STUDY Didi Haro MD [address] [place] [address] Xr Imaging Referral ID Status Reason Start Date Expiration Date V isits Requested Visits Authorized [id number] Closed Auto-Generate d Referral 12/23/2021 06/24/2022 1 1 [facility] for referral (narrative)No reason for referral information availableWChildren's Hospital for Rehabilitation Work Phone: Reason for visit Narrative* Diagnostic Procedure Only (Routine) - Closed Specialty Diagnoses / Procedures Referred By Navinac t Referred To Contact XR IMAGING Diagnoses Malrotation of intestine Procedures XR UPPER GI SINGLE CONTRAST RADIOLOGIC EXAM [facility] SINGLE CONTRAST STUDY Didi Haro MD [address] [place] [address] Xr Imaging Referral ID Status Reason Start Date Expiration Date V isits Requested Visits Authorized [id number] Closed Auto-Generate d Referral 12/23/2021 06/24/2022 1 1 [facility] Chief Complaint and Reason for Visit Chief Complaint Injection 6 M FU Injection Injection SIGMOID VOLVULUS Reason for Visit Obesity (BMI 30-39.9 ) Severe asthma Sleep apnea, obstructive Stage 1 mild COPD by GOLD classification Abdominal pain Sigmoid volvulus Chief Complaint Injection 6 M FU Injection Injection SIGMOID VOLVULUS SIGMOID VOLVULUS Reason for Visit Obesity (BMI 30-39.9 ) Severe asthma Sleep apnea, obstructive Stage 1 mild COPD by GOLD classification Abdominal pain Malrotation of intestine Sigmoid volvulus COPD (chronic obstructive pulmonary disease) Chief Complaint Injection Injection COPD COPD Chief Complaint Asthma- severe persi stent asthma Asthma- Severe Persistent Asthma Chief Complaint Admit Date E-ORDER July 17, 2024 1 0:49am SCREENING August 01, 2024 1 0:45am 6 M FU September 11, 2024 11: 13am Reason for Visit Admit Date Chronic seasonal allergic rhinitis September 11, 2024 11:13am Obesity September 11, 2024 11: 13am Severe asthma September 11, 2024 11: 13am Sleep apnea, obstructive September 11 11:13am Stage 1 mild COPD by GOLD classification September 11, 2024 11:13am Chief Complaint Admit Date 6 M FU March 12, 2025 10:14am Reason for Visit Admit Date Chronic seasonal allergic rhinitis [facility] 2024 10:14am Obesity March 12, 2025 10:14am Severe asthma March 12, 2025 10:14am Sleep apnea, obstructive March 12, 2025 10:14am Stage 1 mild COPD by GOLD classification March 12, 2025 10:14am Family History Relationship Condition Age at Onset Recorded Date/T lynne mother Congestive heart failure Unknown Diabetes mellitus Unknown Hypertension Unknown Malignant neoplasm of uterus Unknown Anxiety Unknown Psychiatric care Unknown father Diabetes mellitus Unknown Cerebrovascular accident (CVA) Unknown Cardiac disease Unknown Malignant neoplasm of lung Unknown brother Diabetes mellitus Unknown Advance Directives Advance Directive Response Recorded Date/ Time Advance Directives No October 20, 2 016 4:30pm Living Will No November 28, 2021 2 :00pm Power of Supervisor [employer] No November 28, 2021 2:00pm Advance Directive Response Recorded Date/ Time Advance Directives No October 20, 2 016 4:30pm Living Will No November 28, 2021 6 :45pm Power of Supervisor [employer] No November 28, 2021 6:45pm Documents on File Type Date Recorded 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 Advance Directive(s) 12/28/2021 5:12 PM Documents on File Type Date Recorded 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 Advance Directive(s) 12/28/2021 5:12 PM Documents on File Type Date Recorded 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 No November 28, 2021 6:45pm Advance Directives No October 20, 2 016 4:30pm Advance Directive Response Recorded Date/ Time Advance Directives No October 20 016 4:30pm Reason for Referral Specialty Diagnoses / Procedures Referred By Contac t Referred To Contact General Surgery Diagnoses Malrotation of intestine with midgut volvulus Procedures CONSULT TO GENERAL SURGERY OFFICE/OUTPATIENT [facility] 60-74 MINUTES Bhargav Zavaleta MD [address] [place] [address] Didi Haro MD [address] [place] [address] Referral ID Status Reason Start Date Expiration Date Visits Requested Visits Authorized [id number] Authorized PCP Requested Referral 12/13/2021 12/13/2022 1 1 Specialty Diagnoses / Procedures Referred By Contac t Referred To Contact Diagnoses Malrotation of intestine Preoperative examination Procedures IN PERSON CONSULT TO PACC Didi Haro MD [address] [place] [address] Referral ID Status Reason Start Date Expiration Date Visits Requested Visits Authorized [id number] Ref Not Required PCP Requested Referral 12/27/2021 03/27/2022 1 1 Specialty Diagnoses / Procedures [facility] Diagnoses Malrotation of intestine Preoperative examination Procedures ECG COMPLETE ECG ROUTINE ECG W/LEAST 12 LDS W/I&R Didi Haro MD [address] [place] [address] [facility] [place] [address] [place] [address] Referral ID Status Reason Start Date Expiration Date Visits Requested Visits Authorized [id number] Pending Review Auto-Generat ed Referral 12/27/2021 12/27/2022 1 1 Specialty Diagnoses / Procedures Referred By Contac t Referred To Contact Pulmonary and Critical Care Medicine Diagnoses Pre-op evaluation Malrotation of intestine Chronic obstructive pulmonary disease, unspecified COPD type (HCC) Procedures CONSULT TO PULM/CRITICAL CARE OFFICE/OUTPATIENT [facility] 60-74 MINUTES Rosetta Nickerson PA [address] [place] [address] Referral ID Status Reason Start Date Expiration Date Visits Requested Visits Authorized [id number] Authorized PCP Requested Referral 01/02/2022 01/02/2023 1 1 Specialty Diagnoses / Procedures Referred By Contac t Referred To Contact Colon and Rectal Surgery Diagnoses Colonic volvulus (HCC) Procedures CONSULT TO COLO-RECTAL SURGERY OFFICE/OUTPATIENT [facility] 60-74 MINUTES Reece Ortiz PA-C [address] [place] [address] Referral ID Status Reason Start Date Expiration Date Visits Requested Visits Authorized [id number] Authorized PCP Requested Referral 01/13/2022 01/13/2023 1 1 Summary Purpose Additional Source Comments Goals (unrecognized section and content) Goals may be documented in a n alternate sectionGoals may be documented in an alternate sectionGoals may be documented in an alternate sectionGoals may be documented in an alternate sectionGoals may be documented in an alternate sectionGoals may be documented in an alternate section Source Comments (unrecognize d section and content) In the event this informatio n is protected by the Federal Confidentiality of Alcohol and Drug Abuse Patient Records regulations: The Federal rules restrict any use of the information to criminally investigate or prosecute any alcohol or drug abuse patient.[facility] the event this information is protected by the Federal Confidentiality of Alcohol and Drug Abuse Patient Records regulations: The Federal rules restrict any use of the information to criminally investigate or prosecute any alcohol or drug abuse patient.[facility] HospitalIn the event this information is protected by the Federal Confidentiality of Alcohol and Drug Abuse Patient Records regulations: The Federal rules restrict any use of the information to criminally investigate or prosecute any alcohol or drug abuse patient.[facility] HospitalIn the event this information is protected by the Federal Confidentiality of Alcohol and Drug Abuse Patient Records regulations: The Federal rules restrict any use of the information to criminally investigate or prosecute any alcohol or drug abuse patient.[facility] HospitalIn the event this information is protected by the Federal Confidentiality of Alcohol and Drug Abuse Patient Records regulations: The Federal rules restrict any use of the information to criminally investigate or prosecute any alcohol or drug abuse patient.[facility] HospitalIn the event this information is protected by the Federal Confidentiality of Alcohol and Drug Abuse Patient Records regulations: The Federal rules restrict any use of the information to criminally investigate or prosecute any alcohol or drug abuse patient.[facility] HospitalIn the event this information is protected by the Federal Confidentiality of Alcohol and Drug Abuse Patient Records regulations: The Federal rules restrict any use of the information to criminally investigate or prosecute any alcohol or drug abuse patient.[facility] HospitalIn the event this information is protected by the Federal Confidentiality of Alcohol and Drug Abuse Patient Records regulations: The Federal rules restrict any use of the information to criminally investigate or prosecute any alcohol or drug abuse patient.[facility] HospitalIn the event this information is protected by the Federal Confidentiality of Alcohol and Drug Abuse Patient Records regulations: The Federal rules restrict any use of the information to criminally investigate or prosecute any alcohol or drug abuse patient.[facility] HospitalIn the event this information is protected by the Federal Confidentiality of Alcohol and Drug Abuse Patient Records regulations: The Federal rules restrict any use of the information to criminally investigate or prosecute any alcohol or drug abuse patient.[facility] Reason for Visit (unrecogniz ed section and content) Reason Comments Follow Up colonoscopy Reason Comments Established Patient Reason Comments 01/03/2022 Reason Comments Anesthesia Consult Specialty Diagnoses / Procedures Referred By Momo diaz Referred To Contact ADMITTING Diagnoses Malrotation of intestine Preoperative examination Procedures LAPS ABD PRTM&OMENTUM DX W/WO SPEC BR/WA SPX ESOPHAGOGASTRODUODENOSCOPY TRANSORAL DIAGNOSTIC LAPAROSCOPIC APPENDECTOMY LAPAROSCOPY DIAGNOSTIC EGD LAPAROSCOPIC APPENDECTOMY ADULT [facility] [address] [place] [address] Referral ID Status Reason Start Date Expiration Date Visits Re quested Visits Authorized [id number] 1 1 Reason Comments Pre-Op Update Pulmonology consult Reason Comments Patient Update Reason Comments Post Op Follow Up Reason Comments Post Op Care Teams (unrecognized sec tion and content) Collection Technician Relationship Specialty Start Date End Date Susie Knox MD [address] [place], [place] [id number] PCP - General Family Practice 01/03/12 Collection Technician Relationship Specialty Start Date End Date Susie Knox MD [address] [place] [address] PCP - General Family Practice 01/03/12 Collection Technician Relationship Specialty Start Date End Date Susie Knox MD [address] [place] [address] PCP - General Family Practice 01/03/12 Collection Technician Relationship Specialty Start Date End Date Susie Knox MD [address] [place] [address] PCP - General Family Practice 01/03/12 Collection Technician Relationship Specialty Start Date End Date Susie Knox MD [address] [place] [address] PCP - General Family Practice 01/03/12 Collection Technician Relationship Specialty Start Date End Date Susie Knox MD [address] [place] [address] PCP - General Family Practice 01/03/12 Collection Technician Relationship Specialty Start Date End Date Susie Knox MD [address] [place] [address] PCP - General Family Practice 01/03/12 Collection Technician Relationship Specialty Start Date End Date Susie Knox MD [address] [place] [address] PCP - General Family Practice 01/03/12 Collection Technician Relationship Specialty Start Date End Date Susie Knox MD [address] [place] [address] PCP - General Family Practice 01/03/12 Collection Technician Relationship Specialty Start Date End Date Susie Knox MD [address] [place] [address] PCP - General Family Practice 01/03/12 Team Status: Active Member Role Status Dates Dr. Gonsalo Knox MD Family Provider Active Dr. Gonsalo Knox MD Primary Care Provider Activ e Team Status: Inactive Member Role Status Dates Dr. Gonsalo Knox MD Primary Care Provider Activ e Josy Burch METER READER CHIEF, METER READER CHIEF-C Attending Provider, Referrin g Provider Active Team Status: Active Member Role Status Dates Dr. Gonsalo Knox MD Primary Care Provider Activ e Dr. Tal Joseph MD Attending Provider, Other Provid er Active Team Status: Inactive Member Role Status Dates Dr. Gonsalo Knox MD Primary Care Provider Activ e Dr. Tal Joseph MD Attending Provider Active Team Status: Inactive Member Role Status Dates Dr. Gonsalo Knox MD Primary Care Provider, Refe rring Provider Active Dr. Tal Joseph MD Attending Provider Active Team Status: Inactive Member Role Status Dates Dr. Gonsalo Knox MD Primary Care Provider, Refe rring Provider Active Josy Burch METER READER CHIEF, METER READER CHIEF-C Attending Provider Active Team Status: Inactive Member Role Status Dates Dr. Gonsalo Knox MD Primary Care Provider, Atte nding Provider Active Team Status: Active Member Role Status Dates Dr. Ssuie Knox MD Primary Care Provider Acti ve Team Status: Inactive Member Role Status Dates Dr. Susie Knox MD Primary Care Provider Acti ve Start: July 17, 2024 End: July 17, 2024 Dr. Susie Knox MD Attending Provider Active Start: July 17, 2024 End: July 17, 2024 Dr. Susie Knox MD Referring Provider Active Start: July 17, 2024 End: July 17, 2024 Team Status: Inactive Member Role Status Dates Dr. Susie Knox MD Primary Care Provider Acti ve Start: August 01, 2024 End: August 01, 2024 Dr. Susie Knox MD Attending Provider Active Start: August 01, 2024 End: August 01, 2024 Dr. Susie Knox MD Referring Provider Active Start: August 01, 2024 End: August 01, 2024 Team Status: Inactive Member Role Status Dates Dr. Susie Knox MD Primary Care Provider Acti ve Start: September 11, 2024 End: September 11, 2024 Dr. Susie Knox MD Referring Provider Active Start: September 11, 2024 End: September 11, 2024 Josy Burch NP METER READER CHIEF-C Attending Provider Active Start: September 11, 2024 End: September 11, 2024 Team Status: Inactive Member Role Status Dates Dr. Susie Knox MD Primary Care Provider Acti ve Start: October 23, 2024 End: October 23, 2024 Dr. Susie Knox MD Attending Provider Active Start: October 23, 2024 End: October 23, 2024 Dr. Susie Knox MD Referring Provider Active Start: October 23, 2024 End: October 23, 2024 Team Status: Active Member Role/Relationship Status Dates Dr. Susie Knox MD Primary care physician Act wilma Team Status: Inactive Member Role/Relationship Status Dates Dr. Susie Knox MD Primary care physician Act wilma Start: March 12, 2025 End: March 12, 2025 Dr. Susie Knox MD Referring Provider Active Start: March 12, 2025 End: March 12, 2025 Josy Burch NP, NP-Yana Attending physician Active Start: March 12, 2025 End: March 12, 2025 INFORMATION SOURCE (unrecogn ized section and content) DATE CREATED AUTHOR 01/03/2022 [facility] DATE CREATED AUTHOR AUTHOR'S ORGANIZ ATION 03/22/2022 [facility] DATE CREATED AUTHOR AUTHOR'S ORGANIZ ATION 03/13/2025 [facility] FOR RECORDS PERTAINING TO PATIENTS WHO ARE OR HAVE BEEN ENROLLED IN A CHEMICAL DEPENDENCY/SUBSTANCEABUSE PROGRAM, SOME INFORMATION MAY BE OMITTED. This clinical summary was aggregated from multiple sources. Caution should be exercised in using it in the provision of clinical care. This summary normalizes information from multiple sources, and as a consequence, information in this document may materially change the coding, format and clinical context of patient data. In addition, data may be omitted in some cases. CLINICAL DECISIONS SHOULD BE BASED ON THE PRIMARY CLINICAL RECORDS. [employer] provides no warranty or guarantee of the accuracy or completeness of information in this document.
[2025-06-10] VITALS (8 sets, daily range): BP systolic 110–127; BP diastolic 59–77; PULSE 54–78; RESP 14–20; TEMP 36.5–36.6; O2SAT 93–98
[2025-06-10] MEDS: Phenol/Sodium Phenolate 180ML 3 SPRAY MUCOUS MEM ×2 (02:58→06:47)
[2025-06-10] MEDS: 0.9% Normal Saline (1000mL) 1,000 ML 100 ML IV ×2 (04:11→13:41)
[2025-06-10 07:20] LABS: Hematocrit 39.9 % (37-47); Hemoglobin 13.0 g/dL (12.0-15.0); Immature Granulocytes Count 0.040 X10^3/uL (0.0-0.0); Mean Corp Hgb Conc 32.6 g/dL (32-36); Mean Corpuscular Volume 92.8 fL (81-99); Mean Platelet Vol. 9.3 fl (6.2-12.0); NRBC Flagged by Analyzer 0 % (0-5); Platelet Count 284 K/mm3 (150-450); RBC Distribution Width CV 13.9 % (11.6-14.6); RBC Distribution Width SD 47.0 fl (35.1-43.9); Red Blood Count 4.30 M/mm3 (4.2-5.4); White Blood Count 8.8 K/mm3 (4.4-11.0)
--- NOTE | 2025-06-10 07:40 | PCM.PN.HOSP ---
Reason for Visit Chief Complaint: Abdominal pain Objective Data Objective Data Vital Signs: Vital Signs Temp Pulse Resp BP Pulse Ox O2 Del Method O2 Flow Rate 98 F 54 L 16 124/77 H 98 Room Air 2 06/10/25 06:37 06/10/25 06:37 06/10/25 06:37 06/10/25 06:37 06/10/25 06:37 06/10/25 06:37 06/10/25 02:42 Oxygen Flow Rate (L/min) 2 Oxygen Delivery Method Room Air Weight: 188 lb 9 oz Body Mass Index (BMI) 30.4 Intake & Output: Intake and Output for Last 24 Hours 06/08/25 06/09/25 06/10/25 23:59 23:59 23:59 Intake Total 3567.92 / 3567.92 672.08 / 672.08 Output Total 5 / Balance 3562.92 / 3562.92 672.08 / 672.08 Lab / Micro Data 06/10/25 06:44 06/10/25 06:44 Labs: Laboratory Results - last 24 hr 06/09/25 10:05: WBC 7.5, RBC 4.93, Hgb 14.7, Hct 44.3, MCV 89.9, MCH 29.8, MCHC 33.2, RDW Std Deviation 44.9 H, RDW Coeff of Shantel 13.6, Plt Count 316, MPV 9.0, Immature Gran % (Auto) 0.400, Neut % (Auto) 77.0 H, Lymph % (Auto) 16.5 L, [place] % (Auto) 6.0, Eos % (Auto) 0.0, Baso % (Auto) 0.1, Absolute Neuts (auto) 5.7, Absolute Lymphs (auto) 1.23, Nucleated RBC % 0, Sodium 139, Potassium 3.9, Chloride 108, Carbon Dioxide 21.1, Anion Gap 11, BUN 18, Creatinine 0.85, Estim Creat Clear Calc 78.52, Est GFR (MDRD) Non-Af 78, BUN/Creatinine Ratio 21.2 H, Glucose 113 H, Calcium 9.5, Total Bilirubin 0.53, Direct Bilirubin 0.23, AST 19, ALT 16, Alkaline Phosphatase 46, Total Protein 6.6, Albumin 4.4, Globulin 2.3, Lipase 42 06/09/25 10:55: Urine Color Straw, Urine Clarity Clear, Urine pH 6.5, Ur Specific [place] 1.010, Urine Protein Negative, Urine Glucose (UA) Normal, Urine Ketones Negative, Urine Occult Blood 10 H, Urine Nitrite Negative, Urine Bilirubin Negative, Urine Urobilinogen Normal, Ur Leukocyte Esterase Negative, Urine RBC 0-5 SEEN, Urine WBC 0 SEEN, Ur Squamous Epith Cells 0-5 SEEN, Urine Bacteria 0 SEEN, Urine Mucus 0 SEEN 06/09/25 12:03: Lactic Acid < 1.0 06/10/25 06:44: WBC 8.8, RBC 4.30, Hgb 13.0, Hct 39.9, MCV 92.8, MCH 30.2, MCHC 32.6, RDW Std Deviation 47.0 H, RDW Coeff of Shantel 13.9, Plt Count 284, MPV 9.3, Immature Gran % (Auto) 0.500, Neut % (Auto) 81.6 H, Lymph % (Auto) 11.3 L, [place] % (Auto) 6.5, Eos % (Auto) 0.0, Baso % (Auto) 0.1, Absolute Neuts (auto) 7.2, Absolute Lymphs (auto) 0.99, Nucleated RBC % 0 Radiography Diagnostic Testing: Radiology Impression Abdomen/Pelvis CT 06/09/25 10:43 IMPRESSION: 1. Findings suggest mild/early distal small bowel obstruction associated with mesenteric volvulus involving the distal/terminal ileum, similar configuration 11/28/2021, noting that the degree of upstream bowel dilatation is much less than was seen at that time, again currently mild. No convincing inflammation to suggest ischemia; correlate with serum lactate. 2. Emphysema. Consider outpatient lung cancer screening as per the below. 3. Additional description as above. The USPSTF recommends annual screening for lung cancer with low-dose CT chest in adults aged 50-80 who have a 20 pack-year smoking history and currently smoke OR have quit within the past 15 years. Reading Location: [id number] Physical Exam Narrative Seen and examined. She had lower abdominal pain but now has mild generalized aches. Has NG tube about 100 to 150 mL gastric contents since yesterday. Complains of sore throat due to NG tube. She passed little bit of flatus but not adequate Physical exam General: Alert, Oriented x3, Cooperative HEENT: Atraumatic, PERRLA, EOMI, Normocephalic. Oral: No Gingival or Mucosal Lesions/ Ulcerations Neck: Supple, No JVD, Negative Carotid Bruits Chest wall/Lungs: Air entry diminished in bilateral lung bases. No crepitation/rhonchi Cardiovascular: Regular rate and rhythm, Normal S1,S2, No M/G/R Abdomen: Bowel Sounds very sluggish soft, nontender. Laparoscopic ports dressing dry. Nondistended : No dysuria. No renal angle tenderness. No suprapubic tenderness. Extremities: No edema, Capillary Refill Less than 3 Seconds Skin: No rashes, No breakdown Musculoskeletal: No Tenderness to Palpation of Joints or Extremities Neurological: Cranial nerves II-XII grossly intact, DTR 2+/4. No acute focal neurological deficit. Psych/Mental Status: Flat affect. Assessment & Plan Assessment/Plan (1) Small bowel obstruction: PLAN: Plan Patient is a 59-year-old female who presented [facility] on 06/09/[facility]25 with abdominal pain and rectal bleeding. Found on CT scan to have a recurrent small bowel obstruction. Admitted to the general surgery service and medicine consulted for assistance with medical management. 1. 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 General Surgery primary. See HPI for further details. In short, has history of malnutrition of the stomach and had a surgical pinning of the stomach to the abdominal wall done in 2021. CT abdomen pelvis on this admit with findings suggestive of mild early distal small bowel obstruction associated with mesentery volvulus. Plan is for surgery this afternoon, will follow-up on result. Will defer further management to surgery. 06/10: Patient had diagnostic laparoscopy and found small bowel dilatation with no focal point of obstruction or ischemia most suggestive of underlying enteritis. IntraOp findings were dilated small bowel extending to the level of the ileum with alternating dilated and compressed segment, proximally to the ligament of Treitz. Normal-appearing loop sigmoid and left lower quadrant. Continue NG tube. Heart rate and blood pressure in normal range. 2. COPD/asthma/seasonal allergies ? Stable on room air at rest in the ED, not in acute exacerbation. Continue home inhalers. Is on a biologic injection every 8 weeks as well, continue this in the outpatient setting. 3. Anxiety/depression ? Stable. Continue home escitalopram and Ativan 0.5 mg 3 times daily as needed. Notably, [place] was reviewed and patient fills this prescription about every 6 months and uses Ativan only sparingly. 4. GERD ? Continue home PPI. DVT prophylaxis: Per surgery Charges/Coding Visit Charges Inpatient E&M: 15766 Subs Hosp L2
[2025-06-10 07:52] LABS: Anion Gap 9 (5-15); BUN 10 mg/dL (4-19); BUN/Creat Ratio 12.7 RATIO (10-20); Calcium,Total 8.4 mg/dL (7.6-11.0); Carbon Dioxide 21.2 mmol/L (21.0-32.0); Chloride 111 mmol/L (98-108); Estimated Creatinine Clearance 83.44 ml/min (50-250); Glucose 98 mg/dL (70-99); Magnesium 2.4 mg/dL (1.5-2.2); Potassium 4.1 mmol/L (3.3-5.1)
--- NOTE | 2025-06-10 08:33 | PN.SURG_ITS ---
Subjective Subjective Patient evaluated resting comfortably in bed. She notes main compliant is sore throat from NG tube. She notes having a slight headache however she has had this since Sunday. She denies any flatus or BM. She denies any nausea. NG tube putting out very little brownish fluid. Objective Data Objective Data Vital Signs: Vital Signs Temp Pulse Resp BP Pulse Ox O2 Del Method O2 Flow Rate 98 F 54 L 16 124/77 H 98 Room Air 2 06/10/25 06:37 06/10/25 06:37 06/10/25 06:37 06/10/25 06:37 06/10/25 06:37 06/10/25 06:37 06/10/25 02:42 Oxygen Flow Rate (L/min) 2 Oxygen Delivery Method Room Air Weight: 188 lb 9 oz Body Mass Index (BMI) 30.4 Intake & Output: Intake and Output for Last 24 Hours 06/08/25 06/09/25 06/10/25 23:59 23:59 23:59 Intake Total 3567.92 / 3567.92 672.08 / 672.08 Output Total 5 / Balance 3562.92 / 3562.92 672.08 / 672.08 Lab / Micro Data 06/10/25 06:44 06/10/25 06:44 Labs: Laboratory Results - last 24 hr 06/09/25 10:05: WBC 7.5, RBC 4.93, Hgb 14.7, Hct 44.3, MCV 89.9, MCH 29.8, MCHC 33.2, RDW Std Deviation 44.9 H, RDW Coeff of Shantel 13.6, Plt Count 316, MPV 9.0, Immature Gran % (Auto) 0.400, Neut % (Auto) 77.0 H, Lymph % (Auto) 16.5 L, [place] % (Auto) 6.0, Eos % (Auto) 0.0, Baso % (Auto) 0.1, Absolute Neuts (auto) 5.7, Absolute Lymphs (auto) 1.23, Nucleated RBC % 0, Sodium 139, Potassium 3.9, Chloride 108, Carbon Dioxide 21.1, Anion Gap 11, BUN 18, Creatinine 0.85, Estim Creat Clear Calc 78.52, Est GFR (MDRD) Non-Af 78, BUN/Creatinine Ratio 21.2 H, G lucose 113 H, Calcium 9.5, Total Bilirubin 0.53, Direct Bilirubin 0.23, AST 19, ALT 16, Alkaline Phosphatase 46, Total Protein 6.6, Albumin 4.4, Globulin 2.3, Lipase 42 06/09/25 10:55: Urine Color Straw, Urine Clarity Clear, Urine pH 6.5, Ur Specific [place] 1.010, Urine Protein Negative, Urine Glucose (UA) Normal, Urine Ketones Negative, Urine Occult Blood 10 H, Urine Nitrite Negative, Urine Bilirubin Negative, Urine Urobilinogen Normal, Ur Leukocyte Esterase Negative, Urine RBC 0-5 SEEN, Urine WBC 0 SEEN, Ur Squamous Epith Cells 0-5 SEEN, Urine Bacteria 0 SEEN, Urine Mucus 0 SEEN 06/09/25 12:03: Lactic Acid < 1.0 06/10/25 06:44: WBC 8.8, RBC 4.30, Hgb 13.0, Hct 39.9, MCV 92.8, MCH 30.2, MCHC 32.6, RDW Std Deviation 47.0 H, RDW Coeff of Shantel 13.9, Plt Count 284, MPV 9.3, Immature Gran % (Auto) 0.500, Neut % (Auto) 81.6 H, Lymph % (Auto) 11.3 L, [place] % (Auto) 6.5, Eos % (Auto) 0.0, Baso % (Auto) 0.1, Absolute Neuts (auto) 7.2, Absolute Lymphs (auto) 0.99, Nucleated RBC % 0, Sodium 141, Potassium 4.1, C hloride 111 H, Carbon Dioxide 21.2, Anion Gap 9, BUN 10, Creatinine 0.79, Estim Creat Clear Calc 83.44, Est GFR (MDRD) Non-Af 85, BUN/Creatinine Ratio 12.7, Glucose 98, Calcium 8.4, Phosphorus 3.6, Magnesium 2.4 H Radiography Diagnostic Testing: Radiology Impression Abdomen/Pelvis CT 06/09/25 10:43 IMPRESSION: 1. Findings suggest mild/early distal small bowel obstruction associated with mesenteric volvulus involving the distal/terminal ileum, similar configuration 11/28/2021, noting that the degree of upstream bowel dilatation is much less than was seen at that time, again currently mild. No convincing inflammation to suggest ischemia; correlate with serum lactate. 2. Emphysema. Consider outpatient lung cancer screening as per the below. 3. Additional description as above. The USPSTF recommends annual screening for lung cancer with low-dose CT chest in adults aged 50-80 who have a 20 pack-year smoking history and currently smoke OR have quit within the past 15 years. Reading Location: [facility] Physical Exam HEENT HEENT Narrative: Nose- NG tube intact GI GI Narrative: Abdomen- soft, nontender. Incisions c/d/i. No erythema or infection noted. Hypoactive bowel sounds Assessment & Plan Assessment/Plan (1) Postoperative ileus: PLAN: I am following this patient in conjunction with Dr. Rasmussen. He has independently evaluated this patient. Continue NG tube to suction. Encourage ambulation, sitting in the chair today May have hard candy or chew gum Await bowel function prior to removing NG tube We will continue to monitor this patient Charges/Coding Visit Charges Inpatient E&M: 57460 Subs Hosp L1 (post-op; no charge)
[2025-06-10] MEDS: 0.9% Saline Lock 10 ML Syringe IV ×3 (08:54→21:06)
[2025-06-10] MEDS: Pantoprazole Sodium 40 MG in 0.9% Normal Saline (100mL MB+) 100 ML 330 MG IV (08:55)
--- NOTE | 2025-06-10 14:53 | CASEMGMT ---
ITA PICKARD Assessment Face to Face with patient for initial transition planning/care coordination assessment. ITA PCIKARD introduced self and role at [facility], pt voices understanding. Pt is A&Ox4 and is resting comfortably in bed and is calm. Care providers, pharmacy, and demographics verified. Admitting dx: SBO LACE Strata: 2 PCP: Ab[facility] Specialists: [facility] Preferred Pharmacy: [facility] Insurance: MMO Prescription Benefit: Yes LNOK: [place] (H) Living Arrangements: Pt lives with her and 12 y/o GS in a 2 story home with 3 steps to enter ADLs/IADLs: Indep, 6-Clicks=23 Transportation: Self, DME: Home oxygen through [employer]. [employer] states that the pt's current orders are 1-2 LPM. Pt states that she has not used the oxygen in years. Pt states that she has a BiPAP but does not bleed additional O2 through it. Pt states that she has a pulse ox, concentrator, portable tanks, inhaler, and nebulizer. Pt also has a functioning BGM with sufficient testing supplies including lancets, test strips, and EtOH swabs.? HHC/SNF: Denies hx of or needs Pt?s goal: Home Plan: Home with pt's , follow for updated oxygen needs. Pt states that she feels safe returning home with her family once medically ready and denies the need for additional therapy or resources. Pt denies further questions or concerns at this time. Roxanne Arana RN, CM
--- NOTE | 2025-06-10 17:22 | NURSING ---
DR METZGER CAME AND REMOVED NG TUBE
--- NOTE | 2025-06-10 23:00 | POSTOPAN2_ITS ---
Anesthesia Postop Eval I Sum Postop Eval Completion status Anesthesia document: Postop Eval 1 completed: Yes Anesthesia Postop Eval I Summary Anesthesia Postop Eval I Summary: Anesthesia Postop Eval I: Assessment Summary Airway patent Yes 06/09/25 16:42 [email or web address] Spontaneous unlabored Yes 06/09/25 16:42 [email or web address].[email or web address] respirations Mental status Awake,Calm 06/09/25 16:42 [email or web address].[email or web address] nausea No 06/09/25 16:42 [email or web address].TNES Vomiting No 06/09/25 16:42 [email or web address].[email or web address] Anesthesia Postop Eval I: Fluid Summary Crystalloid volume administer 1,000 06/09/25 16:42 [email or web address].TNES (ml) Colloids volume administered ( ml) Blood Product volume administered (ml) Total IV fluid infused 1,000 06/09/25 16:42 [email or web address].[email or web address] Anesthesia Postop Eval I: Summary Notes Anesthesia Complication No 06/09/25 16:42 [email or web address].TNES Anesthesia Complication Comment: Post-operative progress note Anesthesia: Postop Eval II Evaluation Mental status: Awake and Calm Pain Level: 1 nausea: No Vomiting: No Complications Anesthesia Complication: No
--- NOTE | 2025-06-10 23:00 | PCM.POSTANE2 ---
Anesthesia Postop Eval I Sum Postop Eval Completion status Anesthesia document: Postop Eval 1 completed: Yes Anesthesia Postop Eval I Summary Anesthesia Postop Eval I Summary: Anesthesia Postop Eval I: Assessment Summary Airway patent Yes 06/09/25 16:42 [email or web address] Spontaneous unlabored Yes 06/09/25 16:42 [email or web address] respirations Mental status Awake,Calm 06/09/25 16:42 [email or web address] nausea No 06/09/25 16:42 [email or web address] Vomiting No 06/09/25 16:42 [email or web address] Anesthesia Postop Eval I: Fluid Summary Crystalloid volume administer 1,000 06/09/25 16:42 [email or web address] (ml) Colloids volume administered ( ml) Blood Product volume administered (ml) Total IV fluid infused 1,000 06/09/25 16:42 [email or web address] Anesthesia Postop Eval I: Summary Notes Anesthesia Complication No 06/09/25 16:42 [email or web address] Anesthesia Complication Comment: Post-operative progress note Anesthesia: Postop Eval II Evaluation Mental status: Awake and Calm Pain Level: 1 nausea: No Vomiting: No Complications Anesthesia Complication: No
[2025-06-11] VITALS (8 sets, daily range): BP systolic 124–135; BP diastolic 55–75; PULSE 54–88; RESP 14–18; TEMP 36.3–36.6; O2SAT 93–97
[2025-06-11] MEDS: 0.9% Normal Saline (1000mL) 1,000 ML 100 ML IV (00:09)
[2025-06-11 07:33] LABS: Hematocrit 37.3 % (37-47); Hemoglobin 11.8 g/dL (12.0-15.0); Immature Granulocytes Count 0.020 X10^3/uL (0.0-0.0); Mean Corp Hgb Conc 31.6 g/dL (32-36); Mean Corpuscular Volume 93.3 fL (81-99); Mean Platelet Vol. 9.4 fl (6.2-12.0); NRBC Flagged by Analyzer 0 % (0-5); Platelet Count 251 K/mm3 (150-450); RBC Distribution Width CV 14.1 % (11.6-14.6); RBC Distribution Width SD 47.8 fl (35.1-43.9); Red Blood Count 4.00 M/mm3 (4.2-5.4); White Blood Count 6.0 K/mm3 (4.4-11.0)
[2025-06-11 08:06] LABS: Anion Gap 9 (5-15); BUN 9 mg/dL (4-19); BUN/Creat Ratio 11.3 RATIO (10-20); Calcium,Total 8.0 mg/dL (7.6-11.0); Carbon Dioxide 20.9 mmol/L (21.0-32.0); Chloride 114 mmol/L (98-108); Estimated Creatinine Clearance 85.59 ml/min (50-250); Glucose 74 mg/dL (70-99); Potassium 3.5 mmol/L (3.3-5.1)
[2025-06-11] MEDS: Pantoprazole Sodium 40 MG in 0.9% Normal Saline (100mL MB+) 100 ML 330 MG IV (08:08)
--- NOTE | 2025-06-11 08:40 | PN.SURG_ITS ---
Subjective Subjective Patient evaluated resting comfortably in bed. She notes having what she believes is gas pains all night. She denies any nausea, vomiting, fever. She is tolerating clear liquids. She is passsing flatus. Negative bowel movement. She is also noting a headache still. Objective Data Objective Data Vital Signs: Vital Signs Temp Pulse Resp BP Pulse Ox O2 Del Method O2 Flow Rate 97.4 F L 61 15 128/75 H 93 Room Air 2 06/11/25 08:00 06/11/25 08:00 06/11/25 08:00 06/11/25 08:00 06/11/25 08:00 06/11/25 08:00 06/11/25 07:02 Oxygen Flow Rate (L/min) 2 Oxygen Delivery Method Room Air Weight: 188 lb 7.924 oz Body Mass Index (BMI) 30.4 Intake & Output: Intake and Output for Last 24 Hours 06/09/25 06/10/25 06/11/25 23:59 23:59 23:59 Intake Total 3567.92 / 3567.92 3062.08 / 3062.08 1391.67 / 1391.67 Output Total 5 / 5 Balance 3562.92 / 3562.92 3062.08 / 3062.08 1391.67 / 1391.67 Lab / Micro Data 06/11/25 06:51 06/11/25 06:57 Labs: Laboratory Results - last 24 hr 06/11/25 06:51: WBC 6.0, RBC 4.00 L, Hgb 11.8 L, Hct 37.3, MCV 93.3, MCH 29.5, M CHC 31.6 L, RDW Std Deviation 47.8 H, RDW Coeff of Shantel 14.1, Plt Count 251, MPV 9.4, Immature Gran % (Auto) 0.300, Neut % (Auto) 59.9, Lymph % (Auto) 31.3, [place] % (Auto) 8.5, Eos % (Auto) 0.0, Baso % (Auto) 0.0, Absolute Neuts (auto) 3.6, Absolute Lymphs (auto) 1.89, Nucleated RBC % 0 06/11/25 06:57: Sodium 143, Potassium 3.5, Chloride 114 H, Carbon Dioxide 20.9 L , Anion Gap 9, BUN 9, Creatinine 0.77, Estim Creat Clear Calc 85.59, Est GFR (MDRD) Non-Af 88, BUN/Creatinine Ratio 11.3, Glucose 74, Calcium 8.0 Physical Exam GI GI Narrative: Abdomen- soft, nontender. Incisions c/d/i. No erythema or infection noted. Assessment & Plan Assessment/Plan (1) Postoperative ileus: (2) Small bowel obstruction: PLAN: Plan I am following this patient in conjunction with Dr. Rasmussen. He has independently evaluated this patient. Labs reviewed. Increase diet to full liquids Decrease IV fluids Continue to encourage ambulation and I.S. We will continue to monitor this patient Charges/Coding Visit Charges Inpatient E&M: 64058 Subs Hosp L1 (no charge; post-op)
--- NOTE | 2025-06-11 12:45 | NURSING ---
TOLERATED FULL LIQUID DIET. AMEYA TORADOL GIVEN. PT PLANNING ON AMBULATING HALLS AGAIN AND THEN NAPPING
--- NOTE | 2025-06-11 13:32 | PCM.DC.SUM ---
Documented by User: Dr. Domingo Rasmussen MD 06/11/25 13:37 Providers Date of Admission: 06/09/25 Primary Care Physician: Dr. Silviano Knox MD Consultations 06/09/25 18:54 Consult: Hospitalist Routine Consulting Provider: Miles Gan Reason for Consult: Medical management EMERGENT Consult: No MD Notified: Yes Date Notified: 06/09/25 Time Notified: 14:18 Method of Notification: ED Physician Initiated Reason For Visit: SMALL BOWEL OBSTRUCTION Diagnosis Discharge Diagnosis (1) Postoperative ileus: Status: Acute Code(s): K91.89 - Other postprocedural complications and disorders of digestive system; K56.7 - Ileus, unspecified (2) Small bowel obstruction: Status: Resolved Code(s): K56.609 - Unspecified intestinal obstruction, unspecified as to partial versus complete obstruction Plan I am seeing this patient in conjunction with Dr. Rasmussen. He has independently evaluated this patient. Plan for patient to go to the OR with [facility] emergently. Please see his note. Medications at Discharge Home Medications lorazepam 0.5 mg tablet (Ativan) 0.5 mg PO TID PRN Anxiety 03/09/20 tiotropium bromide 2.5 mcg/actuation mist for inhalation (Spiriva Respimat) 2 puff inhalation DAILY 03/09/20 albuterol sulfate 2.5 mg/3 mL (0.083 %) solution for nebulization 2.5 mg (3 mL) inhalation .QID BREATHING #180 mL 03/16/21 benralizumab 30 mg/mL subcutaneous auto-injector (Fasenra Pen) 30 mg subcut Q8W #1 mL 06/19/24 albuterol sulfate 90 mcg/actuation aerosol inhaler 2 puff inhalation Q6H PRN ASTHMA #8.5 grams 09/11/24 multivitamin 1 tab PO QDAY 09/11/24 budesonide-formoterol HFA 160 mcg-4.5 mcg/actuation aerosol inhaler 2 puff inhalation BID BREATHING 03/12/25 escitalopram oxalate 10 mg tablet 15 mg PO DAILY Anxiety 03/12/25 pantoprazole 20 mg tablet,delayed release (Protonix) 20 mg PO DAILY 06/09/25 oxycodone 5 mg tablet 5 mg PO Q4H PRN PRN Pain Score 4-10 3 days #14 tabs 06/11/25 Hospital Course Operations - (Diagnostic laparoscopy) Summary of Care Provided Hospital Course: Patient is a 59-year-old female who was taken to the operating room from the emergency department on 06/09/2025 after presenting with complaints of acute onset abdominal discomfort, abnormal bowel habits, and hematochezia. CT imaging that indicated early small bowel obstruction with swirling of the mesenteric vessels concerning for small bowel volvulus. Given patient's history of prior volvulus events in both the sigmoid colon and the stomach there was initial concern for possible malrotation of the intestine. However, I was able to discuss this issue with general surgery at the [facility] and they reviewed patient's prior operative note from 2021 which refuted this idea. Still, given concern for malperfusion to the small bowel with the twisting of the bowel and aiming to remedy her obstruction earlier I proceeded with a diagnostic laparoscopy. The bowel was run from the terminal ileum to ligament of Treitz and there was no evidence for a persistent mechanical obstruction, however, there was evidence for prior/resolving obstruction. Nasogastric tube was placed given this evidence and the manipulation of the bowel. By postoperative day 1 patient had experienced return of bowel function and her nasogastric tube was discontinued at bedside. She was gradually advanced with her diet until she was tolerating a transitional diet. She was advised to continue this diet for several weeks postop as a means of minimizing risk for recurrent obstruction or difficulty passage through the small bowel. Expectation was set for outpatient follow-up and we also discussed potential for referral to GI for endoscopic evaluation of her terminal ileum. Weight / BMI Weight Weight: 188 lb 7.924 oz Body Mass Index (BMI) 30.4 ABG / Lab / Microbiology Data 06/12/25 05:01 06/12/25 05:01 Laboratory: Laboratory Results - last 24 hr 06/12/25 05:01: WBC 6.1, RBC 4.39, Hgb 13.5, Hct 40.3, MCV 91.8, MCH 30.8, MCHC 33.5 D, RDW Std Deviation 46.8 H, RDW Coeff of Shantel 13.8, Plt Count 264, MPV 9.1, Immature Gran % (Auto) 0.500, Neut % (Auto) 58.9, Lymph % (Auto) 33.2, [place] % (Auto) 7.2, Eos % (Auto) 0.0, Baso % (Auto) 0.2, Absolute Neuts (auto) 3.6, Absolute Lymphs (auto) 2.03, Nucleated RBC % 0, Sodium 143, Potassium 3.7, Chloride 112 H, Carbon Dioxide 21.7, Anion Gap 10, BUN 9, Creatinine 0.77, Estim Creat Clear Calc 85.59, Est GFR (MDRD) Non-Af 88, BUN/Creatinine Ratio 11.5, Glucose 85, Calcium 8.8 Discharge Plan Admission Admit Date/Time: 06/09/25 13:47 Primary Reason for Your Visit: Concern for small bowel volvulus Attending Provider: Domingo Rasmussen Primary Care Provider: Silviano Knox Consulting Providers: Miles Gan; Benji Chance Discharge Orders/Prescriptions Prescriptions: New oxycodone 5 mg Tablet 5 mg PO Q4H PRN PRN (Reason: Pain Score 4-10) 3 Days Qty: 14 0RF Continued Spiriva Respimat 2.5 mcg/actuation mist 2 puff INHALATION DAILY lorazepam [Ativan] 0.5 mg tablet 0.5 mg PO TID PRN (Reason: Anxiety) albuterol sulfate 2.5 mg /3 mL (0.083 %) solution for nebulization 2.5 mg INHALATION .QID Qty: 180 2RF multivitamin Tablet 1 tab PO QDAY albuterol sulfate 90 mcg/actuation HFA aerosol inhaler 2 puff INHALATION Q6H PRN (Reason: ASTHMA) Qty: 8.5 6RF escitalopram oxalate 10 mg tablet 15 mg PO DAILY budesonide-formoterol 160-4.5 mcg/actuation HFA aerosol inhaler 2 puff INHALATION BID Patient Comments: BREATHING pantoprazole [Protonix] 20 mg tablet,delayed release (DR/EC) 20 mg PO DAILY Fasenra Pen 30 mg/mL auto-injector 30 mg subcut Q8W Qty: 1 12RF Referrals / Follow Up: Silviano Knox MD [Primary Care Provider, Family Practice] Domingo Rasmussen MD [Med Staff - Active Staff, General Surgery] - 06/23/25 8:40 am Referral Note: Per patient, this has been scheduled. Disposition Disposition (needs filled in before D/C Order can be placed): Home, Self Care Documented by User: Dr. Nate Boyd MD 06/12/25 18:27 Providers Date of Admission: 06/09/25 Date of Discharge: 06/12/25 Consultations 06/09/25 18:54 Consult: Hospitalist Routine Consulting Provider: Miles Gan Reason for Consult: Medical management EMERGENT Consult: No MD Notified: Yes Date Notified: 06/09/25 Time Notified: 14:18 Method of Notification: ED Physician Initiated Reason For Visit: SMALL BOWEL OBSTRUCTION Diagnosis Discharge Diagnosis (1) Postoperative ileus: Status: Acute Code(s): K91.89 - Other postprocedural complications and disorders of digestive system; K56.7 - Ileus, unspecified (2) Small bowel obstruction: Status: Resolved Code(s): K56.609 - Unspecified intestinal obstruction, unspecified as to partial versus complete obstruction Medications at Discharge Home Medications lorazepam 0.5 mg tablet (Ativan) 0.5 mg PO TID PRN Anxiety 03/09/20 tiotropium bromide 2.5 mcg/actuation mist for inhalation (Spiriva Respimat) 2 puff inhalation DAILY 03/09/20 albuterol sulfate 2.5 mg/3 mL (0.083 %) solution for nebulization 2.5 mg (3 mL) inhalation .QID BREATHING #180 mL 03/16/21 benralizumab 30 mg/mL subcutaneous auto-injector (Fasenra Pen) 30 mg subcut Q8W #1 mL 06/19/24 albuterol sulfate 90 mcg/actuation aerosol inhaler 2 puff inhalation Q6H PRN ASTHMA #8.5 grams 09/11/24 multivitamin 1 tab PO QDAY 09/11/24 budesonide-formoterol HFA 160 mcg-4.5 mcg/actuation aerosol inhaler 2 puff inhalation BID BREATHING 03/12/25 escitalopram oxalate 10 mg tablet 15 mg PO DAILY Anxiety 03/12/25 pantoprazole 20 mg tablet,delayed release (Protonix) 20 mg PO DAILY 06/09/25 oxycodone 5 mg tablet 5 mg PO Q4H PRN PRN Pain Score 4-10 3 days #14 tabs 06/11/25 Hospital Course Summary of Care Provided Minutes Spent on Discharge: 15 Hospital Course: Patient is a 59-year-old female who was taken to the operating room from the emergency department on 06/09/2025 after presenting with complaints of acute onset abdominal discomfort, abnormal bowel habits, and hematochezia. CT imaging that indicated early small bowel obstruction with swirling of the mesenteric vessels concerning for small bowel volvulus. Given patient's history of prior volvulus events in both the sigmoid colon and the stomach there was initial concern for possible malrotation of the intestine. However, I was able to discuss this issue with general surgery at the [facility] and they reviewed patient's prior operative note from 2021 which refuted this idea. Still, given concern for malperfusion to the small bowel with the twisting of the bowel and aiming to remedy her obstruction earlier I proceeded with a diagnostic laparoscopy. The bowel was run from the terminal ileum to ligament of Treitz and there was no evidence for a persistent mechanical obstruction, however, there was evidence for prior/resolving obstruction. Nasogastric tube was placed given this evidence and the manipulation of the bowel. By postoperative day 1 patient had experienced return of bowel function and her nasogastric tube was discontinued at bedside. She was gradually advanced with her diet until she was tolerating a transitional diet. She was advised to continue this diet for several weeks postop as a means of minimizing risk for recurrent obstruction or difficulty passage through the small bowel. Expectation was set for outpatient follow-up and we also discussed potential for referral to GI for endoscopic evaluation of her terminal ileum. Patient tolerating diet. Passing flatus and a small bowel movement. Patient was hoping to be discharged home. She does state that she did notice a small amount of blood with her bowel movement. Reassurance was given and recommendations were made to follow-up with GI if this continues. Physical Exam Const alert, oriented x3 and no apparent distress Weight / BMI Weight Weight: 188 lb 7.924 oz Body Mass Index (BMI) 30.4 ABG / Lab / Microbiology Data 06/12/25 05:01 06/12/25 05:01 Laboratory: Laboratory Results - last 24 hr 06/12/25 05:01: WBC 6.1, RBC 4.39, Hgb 13.5, Hct 40.3, MCV 91.8, MCH 30.8, MCHC 33.5 D, RDW Std Deviation 46.8 H, RDW Coeff of Shantel 13.8, Plt Count 264, MPV 9.1, Immature Gran % (Auto) 0.500, Neut % (Auto) 58.9, Lymph % (Auto) 33.2, [place] % (Auto) 7.2, Eos % (Auto) 0.0, Baso % (Auto) 0.2, Absolute Neuts (auto) 3.6, Absolute Lymphs (auto) 2.03, Nucleated RBC % 0, Sodium 143, Potassium 3.7, Chloride 112 H, Carbon Dioxide 21.7, Anion Gap 10, BUN 9, Creatinine 0.77, Estim Creat Clear Calc 85.59, Est GFR (MDRD) Non-Af 88, BUN/Creatinine Ratio 11.5, Glucose 85, Calcium 8.8 D/C Instructions Discharge Activity: Return to Normal Activity and May Shower May shower in (days): 0 Ice area for (Minutes): 30 Additional Activity Instructions: No lifting pushing or pulling more than 20 pounds for 4 weeks Call your doctor if your incision/area has: Continuous Slow Oozing, Sudden Increased Bleeding, Increased Pain/ Swelling, Increased Redness, Foul Smelling Discharge and Swelling at the incision site Call your doctor if you observe: Fever of 101 or Higher Cleanse incision/area with: Soap & Water DC O2, CPAP, BIPAP Needs Home O2 Discharge instructions: No DC home with Oxygen: No Please Follow Up With: Domingo Rasmussen MD When: 2 weeks. Please call office to schedule appointment Meaningful Use Info Meaningful Use Meaningful Use Diagnoses (Choose all that apply): None applicable Discharge Plan Admission Admit Date/Time: 06/09/25 13:47 Primary Reason for Your Visit: Concern for small bowel volvulus Attending Provider: Domingo Rasmussen Primary Care Provider: Silviano Knox Consulting Providers: Miles Gan; Benji Chance Discharge Orders/Prescriptions Prescriptions: New oxycodone 5 mg Tablet 5 mg PO Q4H PRN PRN (Reason: Pain Score 4-10) 3 Days Qty: 14 0RF Continued Spiriva Respimat 2.5 mcg/actuation mist 2 puff INHALATION DAILY lorazepam [Ativan] 0.5 mg tablet 0.5 mg PO TID PRN (Reason: Anxiety) albuterol sulfate 2.5 mg /3 mL (0.083 %) solution for nebulization 2.5 mg INHALATION .QID Qty: 180 2RF multivitamin Tablet 1 tab PO QDAY albuterol sulfate 90 mcg/actuation HFA aerosol inhaler 2 puff INHALATION Q6H PRN (Reason: ASTHMA) Qty: 8.5 6RF escitalopram oxalate 10 mg tablet 15 mg PO DAILY budesonide-formoterol 160-4.5 mcg/actuation HFA aerosol inhaler 2 puff INHALATION BID Patient Comments: BREATHING pantoprazole [Protonix] 20 mg tablet,delayed release (DR/EC) 20 mg PO DAILY Fasenra Pen 30 mg/mL auto-injector 30 mg subcut Q8W Qty: 1 12RF Referrals / Follow Up: Silviano Knox MD [Primary Care Provider, Family Practice] Domingo Rasmussen MD [Med Staff - Active Staff, General Surgery] - 06/23/25 8:40 am Referral Note: Per patient, this has been scheduled. Disposition Disposition (needs filled in before D/C Order can be placed): Home, Self Care
--- NOTE | 2025-06-11 16:36 | PN.HOSP_ITS ---
Reason for Visit Chief Complaint: Abdominal pain Objective Data Objective Data Vital Signs: Vital Signs Temp Pulse Resp BP Pulse Ox O2 Del Method O2 Flow Rate 97.8 F 65 14 129/63 H 95 Nasal Cannula 2 06/11/25 13:55 06/11/25 15:37 06/11/25 15:37 06/11/25 13:55 06/11/25 13:55 06/11/25 13:55 06/11/25 13:55 Oxygen Flow Rate (L/min) 2 Oxygen Delivery Method Nasal Cannula Weight: 188 lb 7.924 oz Body Mass Index (BMI) 30.4 Intake & Output: Intake and Output for Last 24 Hours 06/09/25 06/10/25 06/11/25 23:59 23:59 23:59 Intake Total 3567.92 / 3567.92 3062.08 / 3062.08 1700.00 / 1700.00 Output Total 5 / 5 Balance 3562.92 / 3562.92 3062.08 / 3062.08 1700.00 / 1700.00 Lab / Micro Data 06/11/25 06:51 06/11/25 06:57 Labs: Laboratory Results - last 24 hr 06/11/25 06:51: WBC 6.0, RBC 4.00 L, Hgb 11.8 L, Hct 37.3, MCV 93.3, MCH 29.5, M CHC 31.6 L, RDW Std Deviation 47.8 H, RDW Coeff of Shantel 14.1, Plt Count 251, MPV 9.4, Immature Gran % (Auto) 0.300, Neut % (Auto) 59.9, Lymph % (Auto) 31.3, [place] % (Auto) 8.5, Eos % (Auto) 0.0, Baso % (Auto) 0.0, Absolute Neuts (auto) 3.6, Absolute Lymphs (auto) 1.89, Nucleated RBC % 0 06/11/25 06:57: Sodium 143, Potassium 3.5, Chloride 114 H, Carbon Dioxide 20.9 L , Anion Gap 9, BUN 9, Creatinine 0.77, Estim Creat Clear Calc 85.59, Est GFR (MDRD) Non-Af 88, BUN/Creatinine Ratio 11.3, Glucose 74, Calcium 8.0 Physical Exam Narrative Seen and examined. Overnight events noticed. NGT was removed yesterday. Started on clear liquid advance to full liquid. Patient passing flatus. No BM yet. Mild expected abdominal aches Physical exam General: Alert, Oriented x3, Cooperative HEENT: Atraumatic, PERRLA, EOMI, Normocephalic. Oral: No Gingival or Mucosal Lesions/ Ulcerations Neck: Supple, No JVD, Negative Carotid Bruits Chest wall/Lungs: Air entry diminished in bilateral lung bases. No crepitation/rhonchi Cardiovascular: Regular rate and rhythm, Normal S1,S2, No M/G/R Abdomen: Bowel Sounds sluggish but present. Soft, nontender. Laparoscopic ports dressing dry. Nondistended : No dysuria. No renal angle tenderness. No suprapubic tenderness. Extremities: No edema, Capillary Refill Less than 3 Seconds Skin: No rashes, No breakdown Musculoskeletal: No Tenderness to Palpation of Joints or Extremities Neurological: Cranial nerves II-XII grossly intact, DTR 2+/4. No acute focal neurological deficit. Psych/Mental Status: Flat affect. Assessment & Plan Assessment/Plan (1) Small bowel obstruction: PLAN: Plan Patient is a 59-year-old female who presented [facility] on 06/09/2025 with abdominal pain and rectal bleeding. Found on CT scan to have a recurrent small bowel obstruction. Admitted to the general surgery service and medicine consulted for assistance with medical management. 1. 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 General Surgery primary. See HPI for further details. In short, has history of malnutrition of the stomach and had a surgical pinning of the stomach to the abdominal wall done in 2021. CT abdomen pelvis on this admit with findings suggestive of mild early distal small bowel obstruction associated with mesentery volvulus. Plan is for surgery this afternoon, will follow-up on result. Will defer further management to surgery. 06/10: Patient had diagnostic laparoscopy and found small bowel dilatation with no focal point of obstruction or ischemia most suggestive of underlying enteritis. IntraOp findings were dilated small bowel extending to the level of the ileum with alternating dilated and compressed segment, proximally to the ligament of Treitz. Normal-appearing loop sigmoid and left lower quadrant. Continue NG tube. Heart rate and blood pressure in normal range. 06/11: Continue full liquid. Active ambulation. No BM yet but monitor for bowel movement. Mild headache. 2. COPD/asthma/seasonal allergies ? Stable on room air at rest in the ED, not in acute exacerbation. Continue home inhalers. Is on a biologic injection every 8 weeks as well, continue this in the outpatient setting. 3. Anxiety/depression ? Stable. Continue home escitalopram and Ativan 0.5 mg 3 times daily as needed. Notably, [place] was reviewed and patient fills this prescription about every 6 months and uses Ativan only sparingly. 4. GERD ? Continue home PPI. DVT prophylaxis: Per surgery Charges/Coding Visit Charges Inpatient E&M: 71200 Subs Hosp L2
[2025-06-11] MEDS: 0.9% Normal Saline (1000mL) 1,000 ML 50 ML IV (17:15)
[2025-06-11] MEDS: 0.9% Saline Lock 10 ML Syringe IV (17:16)
[2025-06-12] VITALS (8 sets, daily range): BP systolic 128–140; BP diastolic 65–87; PULSE 50–77; RESP 16–18; TEMP 36.4–36.9; O2SAT 94–98
[2025-06-12 05:29] LABS: Hematocrit 40.3 % (37-47); Hemoglobin 13.5 g/dL (12.0-15.0); Immature Granulocytes Count 0.030 X10^3/uL (0.0-0.0); Mean Corp Hgb Conc 33.5 g/dL (32-36); Mean Corpuscular Volume 91.8 fL (81-99); Mean Platelet Vol. 9.1 fl (6.2-12.0); NRBC Flagged by Analyzer 0 % (0-5); Platelet Count 264 K/mm3 (150-450); RBC Distribution Width CV 13.8 % (11.6-14.6); RBC Distribution Width SD 46.8 fl (35.1-43.9); Red Blood Count 4.39 M/mm3 (4.2-5.4); White Blood Count 6.1 K/mm3 (4.4-11.0)
[2025-06-12 05:46] LABS: Anion Gap 10 (5-15); BUN 9 mg/dL (4-19); BUN/Creat Ratio 11.5 RATIO (10-20); Calcium,Total 8.8 mg/dL (7.6-11.0); Carbon Dioxide 21.7 mmol/L (21.0-32.0); Chloride 112 mmol/L (98-108); Estimated Creatinine Clearance 85.59 ml/min (50-250); Glucose 85 mg/dL (70-99); Potassium 3.7 mmol/L (3.3-5.1)
[2025-06-12] MEDS: 0.9% Saline Lock 10 ML Syringe IV ×2 (05:49)
--- NOTE | 2025-06-12 06:40 | PN.SURG_ITS ---
Subjective Subjective Patient seen and evaluated on rounds this morning. Patient states that overall she is doing well. She has no new issues or complaints. She has been tolerating diet. She states she has not had a bowel movement since surgery which concerns her. She states that she would like to have a bowel movement before she goes home Objective Data Objective Data Vital Signs: Vital Signs Temp Pulse Resp BP Pulse Ox O2 Del Method O2 Flow Rate 97.7 F L 56 L 18 128/68 H 94 Room Air 2 06/12/25 02:41 06/12/25 02:41 06/12/25 02:41 06/12/25 02:41 06/12/25 02:41 06/12/25 02:41 06/11/25 13:55 Oxygen Flow Rate (L/min) 2 Oxygen Delivery Method Room Air Weight: 188 lb 7.924 oz Body Mass Index (BMI) 30.4 Intake & Output: Intake and Output for Last 24 Hours 06/10/25 06/11/25 06/12/25 23:59 23:59 23:59 Intake Total 3062.08 / 3062.08 1700.00 / 1999.00 650 / 650 Balance 3062.08 / 3062.08 1700.00 / 1999.00 650 / 650 Lab / Micro Data 06/12/25 05:01 06/12/25 05:01 Labs: Laboratory Results - last 24 hr 06/11/25 06:51: WBC 6.0, RBC 4.00 L, Hgb 11.8 L, Hct 37.3, MCV 93.3, MCH 29.5, M CHC 31.6 L, RDW Std Deviation 47.8 H, RDW Coeff of Shantel 14.1, Plt Count 251, MPV 9.4, Immature Gran % (Auto) 0.300, Neut % (Auto) 59.9, Lymph % (Auto) 31.3, [place] % (Auto) 8.5, Eos % (Auto) 0.0, Baso % (Auto) 0.0, Absolute Neuts (auto) 3.6, Absolute Lymphs (auto) 1.89, Nucleated RBC % 0 06/11/25 06:57: Sodium 143, Potassium 3.5, Chloride 114 H, Carbon Dioxide 20.9 L , Anion Gap 9, BUN 9, Creatinine 0.77, Estim Creat Clear Calc 85.59, Est GFR (MDRD) Non-Af 88, BUN/Creatinine Ratio 11.3, Glucose 74, Calcium 8.0 06/12/25 05:01: WBC 6.1, RBC 4.39, Hgb 13.5, Hct 40.3, MCV 91.8, MCH 30.8, MCHC 33.5 D, RDW Std Deviation 46.8 H, RDW Coeff of Shantel 13.8, Plt Count 264, MPV 9.1, Immature Gran % (Auto) 0.500, Neut % (Auto) 58.9, Lymph % (Auto) 33.2, [place] % (Auto) 7.2, Eos % (Auto) 0.0, Baso % (Auto) 0.2, Absolute Neuts (auto) 3.6, Absolute Lymphs (auto) 2.03, Nucleated RBC % 0, Sodium 143, Potassium 3.7, C hloride 112 H, Carbon Dioxide 21.7, Anion Gap 10, BUN 9, Creatinine 0.77, Estim Creat Clear Calc 85.59, Est GFR (MDRD) Non-Af 88, BUN/Creatinine Ratio 11.5, Glucose 85, Calcium 8.8 Physical Exam Narrative She is alert and oriented x 3. She is in no acute distress. Abdomen is soft and appropriately tender Assessment & Plan Assessment/Plan (1) Small bowel obstruction: PLAN: Plan The patient is a 59-year-old female status post laparoscopy for small bowel obstruction. She seems to be improving. Continue transitional diet. Will add Fleet enema this morning to see if this can stimulate a bowel movement If patient has bowel movement, will plan to discharge home later today
--- NOTE | 2025-06-12 07:20 | PCM.PN.HOSP ---
Reason for Visit Chief Complaint: Abdominal pain Objective Data Objective Data Vital Signs: Vital Signs Temp Pulse Resp BP Pulse Ox O2 Del Method O2 Flow Rate 97.7 F L 56 L 18 128/68 H 94 Room Air 2 06/12/25 02:41 06/12/25 02:41 06/12/25 02:41 06/12/25 02:41 06/12/25 02:41 06/12/25 02:41 06/11/25 13:55 Oxygen Flow Rate (L/min) 2 Oxygen Delivery Method Room Air Weight: 188 lb 7.924 oz Body Mass Index (BMI) 30.4 Intake & Output: Intake and Output for Last 24 Hours 06/10/25 06/11/25 06/12/25 23:59 23:59 23:59 Intake Total 3062.08 / 3062.08 1700. / 1999.00 650 / 650 Balance 3062.08 / 3062.08 1700. / 1999. 650 / 650 Lab / Micro Data 06/12/25 05:01 06/12/25 05:01 Labs: Laboratory Results - last 24 hr 06/11/25 06:51: WBC 6.0, RBC 4.00 L, Hgb 11.8 L, Hct 37.3, MCV 93.3, MCH 29.5, MCHC 31.6 L, RDW Std Deviation 47.8 H, RDW Coeff of Shantel 14.1, Plt Count 251, MPV 9.4, Immature Gran % (Auto) 0.300, Neut % (Auto) 59.9, Lymph % (Auto) 31.3, [place] % (Auto) 8.5, Eos % (Auto) 0.0, Baso % (Auto) 0.0, Absolute Neuts (auto) 3.6, Absolute Lymphs (auto) 1.89, Nucleated RBC % 0 06/11/25 06:57: Sodium 143, Potassium 3.5, Chloride 114 H, Carbon Dioxide 20.9 L, Anion Gap 9, BUN 9, Creatinine 0.77, Estim Creat Clear Calc 85.59, Est GFR (MDRD) Non-Af 88, BUN/Creatinine Ratio 11.3, Glucose 74, Calcium 8.0 06/12/25 05:01: WBC 6.1, RBC 4.39, Hgb 13.5, Hct 40.3, MCV 91.8, MCH 30.8, MCHC 33.5 D, RDW Std Deviation 46.8 H, RDW Coeff of Shantel 13.8, Plt Count 264, MPV 9.1, Immature Gran % (Auto) 0.500, Neut % (Auto) 58.9, Lymph % (Auto) 33.2, [place] % (Auto) 7.2, Eos % (Auto) 0.0, Baso % (Auto) 0.2, Absolute Neuts (auto) 3.6, Absolute Lymphs (auto) 2.03, Nucleated RBC % 0, Sodium 143, Potassium 3.7, Chloride 112 H, Carbon Dioxide 21.7, Anion Gap 10, BUN 9, Creatinine 0.77, Estim Creat Clear Calc 85.59, Est GFR (MDRD) Non-Af 88, BUN/Creatinine Ratio 11.5, Glucose 85, Calcium 8.8 Physical Exam Narrative Seen and examined. Patient is mild pain over her right forearm along IV line and localized swelling, superficial thrombophlebitis. IV line ordered to be reviewed. Passing flatus but had not BM yet. She is passing flatus mild expected abdominal aches Physical exam General: Alert, Oriented x3, Cooperative HEENT: Atraumatic, PERRLA, EOMI, Normocephalic. Oral: No Gingival or Mucosal Lesions/ Ulcerations Neck: Supple, No JVD, Negative Carotid Bruits Chest wall/Lungs: Air entry diminished in bilateral lung bases. No crepitation/rhonchi Cardiovascular: Regular rate and rhythm, Normal S1,S2, No M/G/R Abdomen: Bowel Sounds good. Soft, nontender. Laparoscopic ports dressing dry. Nondistended : No dysuria. No renal angle tenderness. No suprapubic tenderness. Extremities: No edema, Capillary Refill Less than 3 Seconds Skin: No rashes, No breakdown Musculoskeletal: No Tenderness to Palpation of Joints or Extremities Neurological: Cranial nerves II-XII grossly intact, DTR 2+/4. No acute focal neurological deficit. Psych/Mental Status: Flat affect. Assessment & Plan Assessment/Plan (1) Small bowel obstruction: PLAN: Plan Patient is a 59-year-old female who presented [facility] on 06/09/2025 with abdominal pain and rectal bleeding. Found on CT scan to have a recurrent small bowel obstruction. Admitted to the general surgery service and medicine consulted for assistance with medical management. 1. 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 General Surgery primary. See HPI for further details. In short, has history of malnutrition of the stomach and had a surgical pinning of the stomach to the abdominal wall done in 2021. CT abdomen pelvis on this admit with findings suggestive of mild early distal small bowel obstruction associated with mesentery volvulus. Plan is for surgery this afternoon, will follow-up on result. Will defer further management to surgery. 06/10: Patient had diagnostic laparoscopy and found small bowel dilatation with no focal point of obstruction or ischemia most suggestive of underlying enteritis. IntraOp findings were dilated small bowel extending to the level of the ileum with alternating dilated and compressed segment, proximally to the ligament of Treitz. Normal-appearing loop sigmoid and left lower quadrant. Continue NG tube. Heart rate and blood pressure in normal range. 06/11: Continue full liquid. Active ambulation. No BM yet but monitor for bowel movement. Mild headache. 06/12 did not had BM yet. Dr. Boyd ordered Fleet enema to stimulate bowel. If patient goes well she can be discharged home. 2. COPD/asthma/seasonal allergies ? Stable on room air at rest in the ED, not in acute exacerbation. Continue home inhalers. Is on a biologic injection every 8 weeks as well, continue this in the outpatient setting. 06/12 no acute issues of shortness of breath or chest pain. 3. Anxiety/depression ? Stable. Continue home escitalopram and Ativan 0.5 mg 3 times daily as needed. Notably, [place] was [place] and patient fills this prescription about every 6 months and uses Ativan only sparingly. 4. GERD ? Continue home PPI. DVT prophylaxis: Per surgery Charges/Coding Visit Charges Inpatient E&M: 90493 Subs Hosp L2
--- NOTE | 2025-06-12 15:47 | PHA.DC_ITS ---
Pharmacy [facility] has performed discharge medication counseling for this patient. The patient was counseled on the following discharge medications and changes in medications for homegoing review. - Oxycodone 5 mg tablet The Reason for Use, instructions for use, and potential side effects were reviewed for all new medications. The patient's questions regarding all of their medications were answered. The patient was able to verbally demonstrate an understanding of their discharge medications. Medications at Discharge Home Medications lorazepam 0.5 mg tablet (Ativan) 0.5 mg PO TID PRN Anxiety 03/09/20 tiotropium bromide 2.5 mcg/actuation mist for inhalation (Spiriva Respimat) 2 puff inhalation DAILY 03/09/20 albuterol sulfate 2.5 mg/3 mL (0.083 %) solution for nebulization 2.5 mg (3 mL) inhalation .QID BREATHING #180 mL 03/16/21 benralizumab 30 mg/mL subcutaneous auto-injector (Fasenra Pen) 30 mg subcut Q8W #1 mL 06/19/24 albuterol sulfate 90 mcg/actuation aerosol inhaler 2 puff inhalation Q6H PRN ASTHMA #8.5 grams 09/11/24 multivitamin 1 tab PO QDAY 09/11/24 budesonide-formoterol HFA 160 mcg-4.5 mcg/actuation aerosol inhaler 2 puff inhalation BID BREATHING 03/12/25 escitalopram oxalate 10 mg tablet 15 mg PO DAILY Anxiety 03/12/25 pantoprazole 20 mg tablet,delayed release (Protonix) 20 mg PO DAILY 06/09/25 oxycodone 5 mg tablet 5 mg PO Q4H PRN PRN Pain Score 4-10 3 days #14 tabs 06/11/25
--- NOTE | 2025-06-12 16:15 | CASEMGMT ---
ITA PICKARD NOTE: Discharge order is in. ITA PICKARD to room. Pt sitting up in chair. She denies having any discharge needs or concerns. She states he has a f/u appt scheduled w/Dr Rasmussen Jun 23 @ 8:40 AM. This was added to pt's dc plan. Bailey MCARTHUR RN CM
--- NOTE | 2025-06-12 18:27 | DCINST_ITS ---
Discharge Instructions DC O2, CPAP, BIPAP needs Home O2 Discharge instructions: No Dressing / Incision Discharge Activity: Return to Normal Activity and May Shower May shower in (days): 0 Ice area for (Minutes): 30 Additional Activity Instructions:: No lifting pushing or pulling more than 20 pounds for 4 weeks Dressing / Incision Call your doctor if your incision/area has: Continuous Slow Oozing, Sudden Increased Bleeding, Increased Pain/ Swelling, Increased Redness, Foul Smelling Discharge and Swelling at the incision site Call your doctor if you observe: Fever of 101 or Higher Cleanse incision/area with: Soap & Water Follow Up Care Please Follow Up With: Domingo Rasmussen MD Test Results: Test results from this visit will be discussed in further detail at your follow- up appointment, if applicable. Discharge Plan Admission Admit Date/Time: 06/09/25 13:47 Primary Reason for Your Visit: Concern for small bowel volvulus Attending Provider: Domingo Rasmussen Primary Care Provider: Silviano Knox Consulting Providers: Miles Gan; Benji Chance Discharge Orders/Prescriptions Prescriptions: New oxycodone 5 mg Tablet 5 mg PO Q4H PRN PRN (Reason: Pain Score 4-10) 3 Days Qty: 14 0RF Continued Spiriva Respimat 2.5 mcg/actuation mist 2 puff INHALATION DAILY lorazepam [Ativan] 0.5 mg tablet 0.5 mg PO TID PRN (Reason: Anxiety) albuterol sulfate 2.5 mg /3 mL (0.083 %) solution for nebulization 2.5 mg INHALATION .QID Qty: 180 2RF multivitamin Tablet 1 tab PO QDAY albuterol sulfate 90 mcg/actuation HFA aerosol inhaler 2 puff INHALATION Q6H PRN (Reason: ASTHMA) Qty: 8.5 6RF escitalopram oxalate 10 mg tablet 15 mg PO DAILY budesonide-formoterol 160-4.5 mcg/actuation HFA aerosol inhaler 2 puff INHALATION BID Patient Comments: BREATHING pantoprazole [Protonix] 20 mg tablet,delayed release (DR/EC) 20 mg PO DAILY Fasenra Pen 30 mg/mL auto-injector 30 mg subcut Q8W Qty: 1 12RF Referrals / Follow Up: Silviano Knox MD [Primary Care Provider, Family Practice] Domingo Rasmussen MD [Med Staff - Active Staff, General Surgery] - 06/23/25 8:40 am Referral Note: Per patient, this has been scheduled. Disposition Disposition (needs filled in before D/C Order can be placed): Home, Self Care
== END 2025-06-12 18:48 | disposition home or self-care (01) | DRG 357 ==
LOC: ED 17:22 → SDC 17:22 → ACINP 17:23 → SDC 17:23 → MS3 17:23
PROVIDERS: Internal Medicine; Admitting Provider Surgery; Emergency Provider Emergency Medicine; PCP Family Medicine; Visit Provider Surgery
PROC: 0WJG4ZZ Inspection of Peritoneal Cavity, Percutaneous Endoscopic Approach (ICD-10-PCS; CPT 44202; principal; 2025-06-09 14:10)
DX: K56.609 Unspecified intestinal obstruction, unspecified as to partial versus complete obstruction (principal); K62.5 Hemorrhage of anus and rectum; K91.89 Other postprocedural complications and disorders of digestive system; E11.9 Type 2 diabetes mellitus without complications; J44.9 Chronic obstructive pulmonary disease, unspecified; F32.A Depression, unspecified; J30.2 Other seasonal allergic rhinitis; E78.00 Pure hypercholesterolemia, unspecified; K21.9 Gastro-esophageal reflux disease without esophagitis; F41.9 Anxiety disorder, unspecified; Z87.891 Personal history of nicotine dependence; Z83.3 Family history of diabetes mellitus; Z81.8 Family history of other mental and behavioral disorders; K66.0 Peritoneal adhesions (postprocedural) (postinfection)
CPT/HCPCS: 36415; 74177; 80048; 80076; 81001; 83605; 83690; 83735; 84100; 85025; 93005; 94640; 94668; 99284; Q9967; A4216; J0666; J2405